=== PATIENT | male | born 1950 | race Caucasian/White ===

== ENCOUNTER → 2016-06-27 | Outpatient (CLI) | payer OTHER ==
[~2016-06-27] MED LIST: ASPEC81 PO; ATEN100T8 PO; BENA10TA10 PO; NAPR1TAB9 PO; OMEP20TA14 PO; PLN5 PO; RANI300T2 PO
[2016-06-27 14:45] LABS: ALT/SGPT 16 U/L (12-78); AST/SGOT 13 U/L (15-37); BLOOD UREA NITROGEN 17 mg/dl (7-18); BUN/CREATININE RATIO 15.4 (10-20); CALCIUM 8.5 mg/dl (8.5-10.1); CARBON DIOXIDE 32 mmol/L (21-32); CHLORIDE 102 mmol/L (98-107); GLUCOSE 98 mg/dl (70-99); POTASSIUM 3.3 mmol/L (3.5-5.1); SODIUM 141 mmol/L (136-145)
[2016-06-27 14:50] LABS: ALB/GLOB RATIO 1.2 (0.9-2); ALKALINE PHOSPHATASE 49 U/L (45-117); CHOLESTEROL 183 mg/dl (0-200); HDL CHOLESTEROL 92 mg/dl; LDL CHOLESTEROL CALCULATED 62 mg/dl; TRIGLYCERIDES 144 mg/dl (0-150); VERY LOW DENSITY LIPOPROT CALC 29 mg/dl
--- NOTE | 2016-07-02 10:48 | PROGRESS NOTE ---
DATE: 07/02/2016 DATE: 07/02/2016. SUBJECTIVE: Postop day 1. Back pain controlled. Right SI joint symptoms markedly improved. Vital signs stable. T-max 36.6. MANN drained 110 mL. Hematocrit this a.m. is 35.6. OBJECTIVE: On exam he has good strength to testing, appears comfortable. ASSESSMENT: Status post revision and fusion L5-S1 with bilateral SI joint fusion. PLAN: At this time, will initiate physical therapy. Consult delinquency prevention social worker for possible rehab placement.
== END | disposition home or self-care (01) ==
LOC: C.LABBC 10:14
PROVIDERS: ATTEND Family Medicine
DX: I10 Essential (primary) hypertension (principal); E78.5 Hyperlipidemia, unspecified

== ENCOUNTER → 2016-12-05 | Outpatient (CLI) | payer OTHER ==
[2016-12-05 10:03] LABS: BASO % 0.5 %; BASO ABS # 0.04 K/uL (0-0.2); COMPLETE YES; EOS % 1.3 %; HEMATOCRIT 48.5 % (42-52); IG% 0.3 %; LYMPH % 21.7 %; LYMPH ABS # 1.73 K/uL (1.2-3.4); MEAN CELL VOLUME 98.4 fL (80-100); MEAN CORPUSCULAR HEMOGLOBIN 35.1 pg (25-34); MEAN CORPUSCULAR HGB CONC 35.7 g/dl (32-36); MEAN PLATELET VOLUME 9.5 fL (7.4-10.4); MONO % 8.1 %; NEUT % 68.1 %; PLATELET COUNT 258 K/uL (130-400); RED BLOOD COUNT 4.93 M/uL (4.7-6.1); WHITE BLOOD COUNT 7.99 K/uL (4.8-10.8)
[2016-12-05 10:31] LABS: ALT/SGPT 17 U/L (12-78); BLOOD UREA NITROGEN 15 mg/dl (7-18); BUN/CREATININE RATIO 15.3 (10-20); CALCIUM 8.7 mg/dl (8.5-10.1); CARBON DIOXIDE 33 mmol/L (21-32); CHLORIDE 99 mmol/L (98-107); CHOLESTEROL 183 mg/dl (0-200); CREATININE 0.98 mg/dl (0.60-1.40); GLUCOSE 126 mg/dl (70-99); POTASSIUM 3.1 mmol/L (3.5-5.1); SODIUM 138 mmol/L (136-145); TRIGLYCERIDES 81 mg/dl (0-150); VERY LOW DENSITY LIPOPROT CALC 16 mg/dl
[2016-12-05 10:40] LABS: ALB/GLOB RATIO 1.2 (0.9-2); ALKALINE PHOSPHATASE 60 U/L (45-117); AST/SGOT 16 U/L (15-37); CHOLESTEROL/HDL RATIO 1.8; HDL CHOLESTEROL 99 mg/dl; LDL CHOLESTEROL CALCULATED 68 mg/dl; THYROID STIMULATING HORMONE 0.369 uIu/ml (0.300-4.500)
== END | disposition home or self-care (01) ==
LOC: C.LAB1850 09:19
PROVIDERS: ATTEND Nurse Practitioner Adult Health
DX: Z01.818 Encounter for other preprocedural examination (principal); Z51.81 Encounter for therapeutic drug level monitoring; I10 Essential (primary) hypertension; F17.200 Nicotine dependence, unspecified, uncomplicated; E78.5 Hyperlipidemia, unspecified; E87.6 Hypokalemia; Z79.899 Other long term (current) drug therapy

== ENCOUNTER → 2017-02-01 | Outpatient (CLI) | payer OTHER ==
[~2017-02-01] MED LIST changes: -ASPEC81 PO; +ASPI-320 PO
[2017-02-01 11:26] LABS: BLOOD UREA NITROGEN 15 mg/dl (7-18); CALCIUM 8.5 mg/dl (8.5-10.1); CARBON DIOXIDE 28 mmol/L (21-32); CREATININE 0.95 mg/dl (0.60-1.40); GLUCOSE 94 mg/dl (70-99); POTASSIUM 3.3 mmol/L (3.5-5.1); SODIUM 138 mmol/L (136-145)
== END | disposition home or self-care (01) ==
LOC: C.LAB1850 09:52
PROVIDERS: ATTEND Nurse Practitioner Adult Health
DX: I10 Essential (primary) hypertension (principal); E87.6 Hypokalemia

== ENCOUNTER → 2017-03-08 | Outpatient (CLI) | payer OTHER ==
[~2017-03-08] MED LIST changes: +ASPEC81 PO; -ASPI-320 PO
[2017-03-08 12:57] LABS: BLOOD UREA NITROGEN 18 mg/dl (7-18); CALCIUM 8.4 mg/dl (8.5-10.1); CARBON DIOXIDE 31 mmol/L (21-32); CREATININE 1.11 mg/dl (0.60-1.40); GLUCOSE 85 mg/dl (70-99); POTASSIUM 3.4 mmol/L (3.5-5.1); SODIUM 138 mmol/L (136-145)
== END | disposition home or self-care (01) ==
LOC: C.LAB1850 11:05
PROVIDERS: ATTEND Nurse Practitioner Adult Health
DX: E87.6 Hypokalemia (principal)

== ENCOUNTER 2024-10-25 08:32 | Inpatient (IN) ==
[2024-10-25] MEDS: ONDANSETRON INJ 2 MG/ML 2 ML VIAL IV STA ×2 (08:48→09:49)
[2024-10-25] MEDS: SODIUM CHLORIDE 0.9% 500 ML IV STA (08:48)
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
--- NOTE | 2024-10-25 08:59 | XRay Report ---
XR chest 1V portable CLINICAL HISTORY: abd pain COMPARISON STUDY: 02/13/2019 FINDINGS: There is mild cardiomegaly without pulmonary vascular congestion. No consolidation or pleur al effusion. No pneumothorax. IMPRESSION: No acute findings. ACT 112: Negative or not required by law. Electronically signed by: Blade Rivas M.D. 10/25/2024 8:56 AM
[2024-10-25 09:00] LABS: Hematocrit (blood only) 42.4 % (42.0-52.0); Hemoglobin 14.8 g/dl (14.0-18.0); Immature Granulocytes # (auto) 0.05 K/uL (0.01-0.20); Immature Granulocytes % (auto) 0.4 %; Mean Corpuscular Hemoglobin 31.6 pg (25.0-34.0); Mean Corpuscular Volume 90.4 fL (80.0-100.0); Platelet Count 314 K/uL (130-400); RDW Standard Deviation 40.7 fL (36.4-46.3); Red Blood Count 4.69 M/uL (4.70-6.10); White Blood Count 13.14 K/ul (4.8-10.8)
[2024-10-25 09:14] LABS: Alanine Aminotransferase 11.0 U/L (7-52); Albumin Globulin Ratio 1.7 (0.9-2); Albumin Level 4.2 gm/dl (3.4-5.0); Alkaline Phosphatase 52.0 U/L (34-104); Anion Gap 7.0 (3-11); Bilirubin,Total 0.8 mg/dl (0.2-1.0); Blood Urea Nitrogen 18.0 mg/dl (6-23); Calcium 8.7 mg/dl (8.6-10.3); Carbon Dioxide 31.0 mmol/L (21-32); Chloride 102.0 mmol/L (98-107); Creatinine Clr Calc Pharmacy 73.4 ml/min; Globulin 2.5 gm/dl (2.5-4.0); Glucose 145.0 mg/dl (70-99(Fasting)); Lipase 12.0 U/L (11-82); Magnesium 2.0 mg/dl (1.7-2.4); Potassium 3.5 mmol/L (3.5-5.1); Sodium 140.0 mmol/L (136-145); Total Protein 6.7 gm/dl (6.0-8.3)
[2024-10-25] MEDS: OPTIRAY 320 100ml IV ONE (09:39)
[2024-10-25] MEDS: MoRPHine SULFATE 2 MG/ML CARP IV STA (09:50)
[2024-10-25] MEDS: PROMETHAZINE 6.25 MG/50.25 ML BAG IV STA (09:52)
[2024-10-25 09:59] LABS: Appearance Urine Clear (Clear); Bacteria Urine Automated None Seen (None Seen); Cast Urine Automated 0-2 /lpf (0-2); Epithelial Cell Urine Auto 0-2 /hpf (0-2); Glucose Urine UA Negative (Negative); WBC Urine Automated 0-5 /hpf (0-5)
--- NOTE | 2024-10-25 10:00 | CT Scan Report ---
ABDOMEN AND PELVIS CT WITH IV CONTRAST CT DOSE: 1023.09 mGy.cm HISTORY: mid abd pain, hernia TECHNIQUE: Multiaxial CT images of the abdomen and pelvis were performed following the IV administrat ion of 90 cc of Optiray, A dose lowering technique was utilized adhering to the principles of ALARA. COMPARISON STUDY: None FINDINGS: There are diffuse coronary artery calcifications. ABDOMEN: There are multiple gallstones without evidence of acute cholecystitis. Otherwise the liver, spleen, pancreas, and adrenal glands are unremarkable. Kidneys show no hydronephrosis or calculi. The re are scattered atherosclerotic calcifications. No abdominal aortic aneurysm. There is a 8 cm fat-co ntaining hernia at the posterior right flank just below the right 12th rib posteriorly and laterally. There are multiple scattered small foci of free air. Pelvis: Prostate is enlarged. Urinary bladder is nondistended. There is scattered colonic diverticulo sis. There is inflammation and mild wall thickening at the distal descending and proximal sigmoid col on. There is a perforation at the distal descending/proximal sigmoid colon on series 3 image 220 with an adjacent pocket of free air. There is trace anterior pelvic free fluid. No abscess seen. No bowel obstruction. There is a small fat-containing right inguinal hernia. There is a small fat-containing periumbilical hernia. There is mild diastases of the rectus. No enlarged adenopathy seen. Osseous structures: There is severe diffuse lumbar degenerative disc disease. There is grade 1 jose luis listhesis of L5 on S1. IMPRESSION: 1. Acute perforated diverticulitis at the distal descending/proximal sigmoid colon. There is a small amount of scattered free air. There is trace free fluid without abscess. 2. Otherwise as described. ACT 112: Negative or not required by law. The above report was generated using voice recognition software. It may contain grammatical, syntax o r spelling errors. Electronically signed by: Blade Rivas M.D. 10/25/2024 9:58 AM
[2024-10-25] MEDS: SODIUM CHLORIDE 0.9% 500 ML IV ONE ×2 (10:01→10:42)
[2024-10-25] MEDS: PIPERACILLIN/TAZOBACTAM 4.5 GM/100 ML BAG IV ONE (10:18)
[2024-10-25] MEDS: MoRPHine SULFATE 2 MG/ML CARP IV PRN ×2 (10:32→18:09)
[2024-10-25] MEDS ORDERED: ROCURONIUM BROMIDE 10 MG/ML 5 ML VIAL IV ONE (10:45)
[2024-10-25] MEDS ORDERED: ONDANSETRON INJ 2 MG/ML 2 ML VIAL ONE (10:45)
[2024-10-25] MEDS ORDERED: PROPOFOL IV EMULSION 10 MG/ML 20 ML VIAL IV ONE (10:45)
[2024-10-25] MEDS ORDERED: DEXAMETHASONE SOD INJ 4 MG/ML VIAL ONE (10:45)
[2024-10-25] MEDS ORDERED: LIDOCAINE 2% 2 ML VIAL/AMP(20MG/ML) INFIL ONE (10:45)
[2024-10-25] MEDS ORDERED: SUCCINYLCHOLINE CHLORIDE 20 MG/ML 10 ML VIAL IV ONE (10:46)
[2024-10-25] MEDS ORDERED: MIDAZOLAM HCL 1 MG/ML 2ML VIAL ONE (10:46)
--- NOTE | 2024-10-25 10:57 | History & Physical Report ---
Date of Service October 25, 2024 Assessment & Plan (1) Diverticulitis of intestine with perforation without abscess: (2) Pneumoperitoneum: (3) Sepsis: Plan 74 yo male with acute onset of generalized abdominal pain this morning with associated chills, sweats, and shortness of breath. CT scan with perforated diverticulitis of the distal descending proximal sigmoid colon . He is hypotensive with systolic bp in 80-90. Peritonitic on examination. Discussed with patient and daughter need for emergent exploratory laparotomy, bowel resection, and colostomy formation. Discussed risks of procedure and expected hospitalization with possible ICU postop management pending on how he does intraoperatively. informed consent obtained. Another 500 cc bolus ordered, IV Zosyn, and IV Morhpine given. Hospitalist consult. Dr. Courtney has seen and examined patient. History of Present Illness Chief Complaint: Abdominal pain Primary Care Provider: Virginia Morgan MD Mr. Mcconnell is a 74 yo male with history of HTN, dyslipidemia, GERD, aortic insufficiency, baretts esophagus who presented to ED with acute onset of generalized abdominal pain with distention and sweats that started at 7 am this morning. [place] well yesterday with no abdominal pain. States it is hard to breath due to the abdominal pain. Last bowel movement was this morning. No history of diverticulitis in past. Has never had a colonoscopy. No history of abdominal surgeries. Has had umbilical hernia for years with no issues. Allergies Allergy/AdvReac Type Severity Reaction Status Date / Time escitalopram Allergy Unknown -? Hives Verified 05/27/24 08:56 like rash with the 10mg dose/PT NOT SURE atorvastatin AdvReac Unknown Left-sided Verified 05/27/24 08:56 arm and leg weakness / ? PT NOT SURE Home Medications Medication Instructions Recorded Confirmed Type aspirin 81 mg tablet,delayed 81 mg PO QAM 10/04/18 05/27/24 History release (Quentin Low Dose Aspirin) acetaminophen 500 mg tablet 1,300 mg PO BID 02/07/19 05/27/24 History cholecalciferol (vitamin D3) 50 2,000 unit PO BID 07/23/20 05/27/24 History mcg (2,000 unit) capsule diclofenac sodium 1 % topical gel 4 g topical UD PRN Pain #100 grams 10/19/23 05/27/24 Rx amlodipine 5 mg tablet 5 mg PO QAM #90 tabs 02/14/24 05/27/24 Rx pantoprazole 40 mg tablet,delayed 40 mg PO BID #180 tabs 03/25/24 05/27/24 Rx release rosuvastatin 20 mg tablet 20 mg PO QAM #90 tabs 04/01/24 05/27/24 Rx nicotine (polacrilex) 4 mg buccal 4 mg buccal Q4H PRN nicotine 05/27/24 05/27/24 Rx lozenge cravings #108 ea tamsulosin 0.4 mg capsule 0.4 mg PO DAILY #90 caps 05/27/24 05/27/24 Rx albuterol sulfate 90 mcg/actuation 1 puff inhalation Q6H PRN 06/25/24 Rx aerosol inhaler (Ventolin HFA) shortness of breath or wheezing #18 grams atenolol 50 mg-chlorthalidone 25 0.5 tab PO QAM #45 tabs 09/27/24 Rx mg tablet potassium chloride 10 mEq 10 meq PO BID #180 tabs 09/27/24 Rx tablet,extended release famotidine 40 mg tablet 40 mg PO BID #180 tabs 10/18/24 Rx Past Med/Surg History Problem List (Updated 10/25/24 @ 10:54 by Kami Summers PA-C) Sepsis Pneumoperitoneum Diverticulitis of intestine with perforation without abscess Enlarged prostate with lower urinary tract symptoms (LUTS) Dupuytren contracture of both hands BPPV (benign paroxysmal positional vertigo) Cigarette nicotine dependence GERD with esophagitis Hypertension (Chronic) Dyslipidemia (Chronic) Osteoarthritis (Chronic) Aortic insufficiency Anxiety (Acute) Vitamin D insufficiency (Chronic) Erectile dysfunction Blurring, left eye Crane esophagus Medical History Arthritis Cardiac murmur Current smoker Emphysema lung GERD (gastroesophageal reflux disease) H/O fracture of skull Heart valve disease Hiatal hernia HTN (hypertension) Hyperlipidemia Surgical History H/O trauma History of cataract surgery History of esophagogastroduodenoscopy (EGD) History of tooth extraction Hx of tonsillectomy Hx of vasectomy Family History Mother Diabetes Father Diabetes Brother Myocardial infarction Other No family history of adverse response to anesthesia Denies family history of Prostate cancer Colorectal cancer Social History Smoking Status: Never smoker Tobacco Type: Cigarettes Age Started Using Tobacco: 11; packs per day: 0.25; Cigarettes Per Day: 4-6 PER DAY/ADVISED NPO; Second Hand Exposure: No; Do You Dip or Chew Tobacco: No; Hx Alcohol Use: No Hx Substance Use: Yes (MARIJUANA USE SINCE 1968) Last Used Substance: Hours (ago) Last Used Substance Other:: 11/20/17 Substance Use Type Other:: MARIJUANA SMOKED SINCE 1968/LAST USE LAST NIGHT (ADIVSED) Preferred Language: [place]an Communication Ability: Effective 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[employer] Worker Required: No Beliefs That Will Affect Care: None marital status: Current Living Situation: Alone Current Living Situation Comment: AND DOG current occupational status: retired Feels Safe at Home: Yes Childhood Exposure to Second-Hand Smoke: Yes Dental Care, Regularly: No Physical Activity Frequency: Daily Physical Activity Frequency Comment: Walks dog daily Seatbelt Use: never Sunscreen Use: No Assistive Devices: Denture - Upper, Denture - Lower and Glasses Physical Exam Constitutional: + acute distress, + ill appearing and + diaphoretic; + uncomfortable Respiratory: normal respiratory effort; no respiratory distress, no labored breathing and no retractions Cardiovascular: Rate/Rhythm: regular rate and regular rhythm Heart Sounds: normal S1 and normal S2 Gastrointestinal (Abdomen): Inspection/Auscultation: + abdomen distended and + visible herniation (umbilical hernia) Percussion/Palpation: + abdomen tender, + guarding, + abdomen rigid and + abdomen firm; + abdomen not soft Peritonitic throughout abdomen Skin: no rashes, warm and dry Psychiatric: Orientation: alert and oriented x 3 Results & Data Results & Data Vital Signs (Past 12 Hours) Vital Signs Temp Pulse Pulse Resp BP BP Pulse Ox 10/25/24 10:01 83/50 L 10/25/24 09:53 60 18 93/57 L 98 10/25/24 08:44 58 L 18 95 10/25/24 08:42 56 L 10/25/24 08:36 36.6 C 58 L 18 145/70 H 95 O2 Del Method 10/25/24 10:01 10/25/24 09:53 Room Air 10/25/24 08:44 Room Air 10/25/24 08:42 10/25/24 08:36 Room Air Laboratory Results 10/25/24 10/25/24 Range/Units 09:34 08:44 WBC 13.14 H (4.8-10.8) K/ul RBC 4.69 L (4.70-6.10) M/uL Hgb 14.8 (14.0-18.0) g/dl Hct 42.4 (42.0-52.0) % MCV 90.4 (80.0-100.0) fL MCH 31.6 (25.0-34.0) pg MCHC 34.9 (32.0-36.0) g/dL RDW Std Deviation 40.7 (36.4-46.3) fL RDW Coeff of Jeanette 12.4 (11.5-14.5) % Plt Count 314 (130-400) K/uL MPV 8.7 L (9.4-12.4) fL Immature Gran % (Auto) 0.4 % Neut % (Auto) 79.4 % Lymph % (Auto) 13.4 % Emmons % (Auto) 5.1 % Eos % (Auto) 1.1 % Baso % (Auto) 0.6 % Neut # (Auto) 10.43 H (1.40-6.50) K/uL Lymph # (Auto) 1.76 (1.20-3.40) K/uL Emmons # (Auto) 0.67 H (0.11-0.59) K/uL Eos # (Auto) 0.15 (0.00-0.50) K/uL Baso # (Auto) 0.08 (0.00-0.20) K/uL Immature Gran # (Auto) 0.05 (0.01-0.20) K/uL Sodium 140 (136-145) mmol/L Potassium 3.5 (3.5-5.1) mmol/L Chloride 102 (98-107) mmol/L Carbon Dioxide 31 (21-32) mmol/L Anion Gap 7 (3-11) BUN 18 (6-23) mg/dl Creatinine 0.96 (0.6-1.4) mg/dl Est Cr Clr Drug Dosing 73.4 ml/min eGFR 83.98 BUN/Creatinine Ratio 18.8 (10-20) Glucose 145 H (70-99(Fasting)) mg/dl Calcium 8.7 (8.6-10.3) mg/dl Magnesium 2.0 (1.7-2.4) mg/dl Total Bilirubin 0.8 (0.2-1.0) mg/dl AST 13 (13-39) U/L ALT 11 (7-52) U/L Alkaline Phosphatase 52 (34-104) U/L Troponin I High Sens 5.6 (0-20) pg/ml Total Protein 6.7 (6.0-8.3) gm/dl Albumin 4.2 (3.4-5.0) gm/dl Globulin 2.5 (2.5-4.0) gm/dl Albumin/Globulin Ratio 1.7 (0.9-2) Lipase 12 (11-82) U/L Urine Color Yellow Urine Appearance Clear (Clear) Urine pH 7.0 (4.5-7.5) Ur Specific [place] 1.025 (1.000-1.030) Urine Protein Trace H (Negative) Urine Glucose (UA) Negative (Negative) Urine Ketones Negative (Negative) Urine Blood Negative (Negative) Urine Nitrite Negative (Negative) Urine Bilirubin Negative (Negative) Urine Urobilinogen Negative (Negative) Ur Leukocyte Esterase Trace H (Negative) Urine WBC (Auto) 0-5 (0-5) /hpf Urine RBC (Auto) 6-10 H (0-2) /hpf U Hyaline Cast (Auto) 0-2 (0-2) /lpf U Epithel Cells (Auto) 0-2 (0-2) /hpf Urine Bacteria (Auto) None Seen (None Seen) Urine Comment Diagnostic Findings ABDOMEN AND PELVIS CT WITH IV CONTRAST CT DOSE: 1023.09 mGy.cm HISTORY: mid abd pain, hernia TECHNIQUE: Multiaxial CT images of the abdomen and pelvis were performed following the IV administration of 90 cc of Optiray, A dose lowering technique was utilized adhering to the principles of ALARA. COMPARISON STUDY: None FINDINGS: There are diffuse coronary artery calcifications. ABDOMEN: There are multiple gallstones without evidence of acute cholecystitis. Otherwise the liver, spleen, pancreas, and adrenal glands are unremarkable. Kidneys show no hydronephrosis or calculi. There are scattered atherosclerotic calcifications. No abdominal aortic aneurysm. There is a 8 cm fat-containing hernia at the posterior right flank just below the right 12th rib posteriorly and laterally. There are multiple scattered small foci of free air. Pelvis: Prostate is enlarged. Urinary bladder is nondistended. There is scattered colonic diverticulosis. There is inflammation and mild wall thickening at the distal descending and proximal sigmoid colon. There is a perforation at the distal descending/proximal sigmoid colon on series 3 image 220 with an adjacent pocket of free air. There is trace anterior pelvic free fluid. No abscess seen. No bowel obstruction. There is a small fat-containing right inguinal hernia. There is a small fat-containing periumbilical hernia. There is mild diastases of the rectus. No enlarged adenopathy seen. Osseous structures: There is severe diffuse lumbar degenerative disc disease. There is grade 1 anterolisthesis of L5 on S1. IMPRESSION: 1. Acute perforated diverticulitis at the distal descending/proximal sigmoid colon. There is a small amount of scattered free air. There is trace free fluid without abscess. 2. Otherwise as described. ACT 112: Negative or not required by law. The above report was generated using voice recognition software. It may contain grammatical, syntax or spelling errors. XR chest 1V portable CLINICAL HISTORY: abd pain COMPARISON STUDY: 02/13/2019 FINDINGS: There is mild cardiomegaly without pulmonary vascular congestion. No consolidation or pleural effusion. No pneumothorax. IMPRESSION: No acute findings. Code Status & VTE Plan VTE Prophylaxis Plan VTE Prophylaxis will be ordered: Yes
[2024-10-25] MEDS ORDERED: ACETAMINOPHEN 1000 MG/100 ML IV IV ONE (11:02)
--- NOTE | 2024-10-25 11:20 | Anesthesiology Consultation ---
Date of Service October 25, 2024 Assessment & Plan Chart Review Chart Review: Acceptable Risk for Surgery Consults Requested none History Surgery Operation Date: 10/25/24 10:20 Proposed Procedures p Exploratory Laparotomy Sigmoid Colon and Diverting Ostomy - Vahid Courtney MD Height/Weight Height: 5 ft 8 in Weight: 83.8 kg Allergies Allergy/AdvReac Type Severity Reaction Status Date / Time escitalopram Allergy Unknown -? Hives Verified 05/27/24 08:56 like rash with the 10mg dose/PT NOT SURE atorvastatin AdvReac Unknown Left-sided Verified 05/27/24 08:56 arm and leg weakness / ? PT NOT SURE Medications Home Medications Medication Instructions Recorded Confirmed Last Taken aspirin 81 mg tablet,delayed 81 mg PO QAM 10/04/18 05/27/24 11/30/21 release (Quentin Low Dose Aspirin) acetaminophen 500 mg tablet 1,300 mg PO BID 02/07/19 05/27/24 12/01/21 07:00 cholecalciferol (vitamin D3) 50 2,000 unit PO BID 07/23/20 05/27/24 11/30/21 mcg (2,000 unit) capsule diclofenac sodium 1 % topical gel 4 g topical UD PRN Pain #100 grams 10/19/23 05/27/24 Unknown amlodipine 5 mg tablet 5 mg PO QAM #90 tabs 02/14/24 05/27/24 Unknown pantoprazole 40 mg tablet,delayed 40 mg PO BID #180 tabs 03/25/24 05/27/24 Unknown release rosuvastatin 20 mg tablet 20 mg PO QAM #90 tabs 04/01/24 05/27/24 Unknown nicotine (polacrilex) 4 mg buccal 4 mg buccal Q4H PRN nicotine 05/27/24 05/27/24 Unknown lozenge cravings #108 ea tamsulosin 0.4 mg capsule 0.4 mg PO DAILY #90 caps 05/27/24 05/27/24 Unknown albuterol sulfate 90 mcg/actuation 1 puff inhalation Q6H PRN 06/25/24 Unknown aerosol inhaler (Ventolin HFA) shortness of breath or wheezing #18 grams atenolol 50 mg-chlorthalidone 25 0.5 tab PO QAM #45 tabs 09/27/24 Unknown mg tablet potassium chloride 10 mEq 10 meq PO BID #180 tabs 09/27/24 Unknown tablet,extended release famotidine 40 mg tablet 40 mg PO BID #180 tabs 10/18/24 Unknown Active Medications Generic Name Dose Route Start Last Admin Trade Name Kavin PRN Reason Stop Dose Admin Morphine Sulfate 2 mg 10/25/24 08:48 10/25/24 10:32 Morphine Sulfate 2 Mg/Ml Carp IV 11/08/24 08:47 2 mg Q15M PRN Administration Pain NPO Date Last Intake of Fluids: 10/24/24 Time Last Intake of Fluids: 07:00 Date Last Intake of Solids: 10/24/24 Time Last Intake of Solids: 19:00 Past Medical History Medical History Arthritis Cardiac murmur Current smoker Emphysema lung GERD (gastroesophageal reflux disease) H/O fracture of skull Heart valve disease Hiatal hernia HTN (hypertension) Hyperlipidemia Past Family History Family History Mother Diabetes Father Diabetes Brother Myocardial infarction Other No family history of adverse response to anesthesia Denies family history of Prostate cancer Colorectal cancer Past Surgical History Surgical History H/O trauma History of cataract surgery History of esophagogastroduodenoscopy (EGD) History of tooth extraction Hx of tonsillectomy Hx of vasectomy Social History Smoking Status: Never smoker tobacco type: cigarettes Smoking cigarettes per day: 4-6 PER DAY/ADVISED NPO Do You Dip or Chew Tobacco: No Hx Alcohol Use: No Alcohol type: hard liquor alcohol intake frequency: 0-2 drinks per day Hx Substance Use: Yes (MARIJUANA USE SINCE 1968) substance use type: marijuana Substance Use Type Other:: MARIJUANA SMOKED SINCE 1968/LAST USE LAST NIGHT (ADIVSED) Last Used Substance: Hours (ago) Last Used Substance Other:: 11/20/17 Physical Exam Vital Signs Last Vital Signs Temp 36.5 C 10/25/24 11:09 Pulse 65 10/25/24 11:09 Resp 22 10/25/24 11:09 BP 114/70 10/25/24 11:09 Pulse Ox 91 10/25/24 11:09 O2 Del Method Room Air 10/25/24 11:09 Testing Laboratory Results 10/25/24 08:44 10/25/24 08:44 Urine Color Yellow 10/25/24 09:34 Urine Appearance Clear (Clear) 10/25/24 09:34 Urine pH 7.0 (4.5-7.5) 10/25/24 09:34 Ur Specific [place] 1.025 (1.000-1.030) 10/25/24 09:34 Urine Protein Trace (Negative) H 10/25/24 09:34 Urine Glucose (UA) Negative (Negative) 10/25/24 09:34 Urine Ketones Negative (Negative) 10/25/24 09:34 Urine Nitrite Negative (Negative) 10/25/24 09:34 Ur Leukocyte Esterase Trace (Negative) H 10/25/24 09:34 Urine WBC (Auto) 0-5 /hpf (0-5) 10/25/24 09:34 Urine RBC (Auto) 6-10 /hpf (0-2) H 10/25/24 09:34 U Hyaline Cast (Auto) 0-2 /lpf (0-2) 10/25/24 09:34 U Epithel Cells (Auto) 0-2 /hpf (0-2) 10/25/24 09:34 Urine Bacteria (Auto) None Seen (None Seen) 10/25/24 09:34
[2024-10-25] MEDS ORDERED: HYDROmorphone INJ 2 MG/ML SYR/VIAL IV PRN (11:22)
[2024-10-25] MEDS ORDERED: PROMETHAZINE HCL 6.25 MG in SODIUM CHLORIDE 0.9% 50 ML IV PRN (11:22)
[2024-10-25] MEDS ORDERED: ONDANSETRON INJ 2 MG/ML 2 ML VIAL IV PRN (11:22)
[2024-10-25] MEDS ORDERED: ATROPINE SULFATE 0.1 MG/ML 10ML SYR IV PRN (11:22)
[2024-10-25] MEDS ORDERED: ePHEDrine sulfate 50 MG/5 ML SYR ONE (12:03)
[2024-10-25] MEDS ORDERED: SUGAMMADEX SODIUM 200 MG/2 ML VIAL IV ONE (13:01)
[2024-10-25] MEDS ORDERED: MoRPHine SULFATE 4 MG/ML 1 ML CARP\\VIAL IV PRN (13:29)
--- NOTE | 2024-10-25 13:29 | Operative Report ---
Post Operative Report Pre & Post Diagnosis Operation Date: 10/25/24 10:20 Pre-Op Diagnosis: Diverticulitis of intestine with perforation without abscess, Pneumoperitoneum, Sepsis Post-Op Diagnosis: Diverticulitis of intestine with perforation without abscess, Pneumoperitoneum, Sepsis I identified the patient and participated in the time-out.: Yes Procedure Operation Date: 10/25/24 10:20 Actual Procedures p Exploratory Laparotomy Sigmoid Colon and Diverting Ostomy(Not Applicable) - Vahid Courtney MD Surgeon Vahid Courtney MD Television Mechanic Kami Summers PA-C Estimated Blood Loss 50 Findings Consistent with Post-Op Diagnosis Specimens Sigmoid colon to pathology Drains Dain drain in the pelvis Anesthesia Type General Complications none Disposition Accompanied Patient To Recovery: No Disposition: Surgical ICU Indications This is a 74-year-old male who came to the ED this morning with severe abdominal pain. He underwent a workup included a CT scan showing a perforated diverticulitis with small amount of air and fluid in his pelvis. On exam he had peritoneal signs consistent with a perforation. He was hypotensive in the ED but responded to fluids and became normotensive. We talked in detail and recommended exploratory laparotomy likely with a sigmoid resection and diverting colostomy. There was also a chance we would do a diverting transverse colostomy if he became hypotensive in the OR again. He understands all the risks and wishes to proceed. Description of Procedure The patient was taken to the OR and underwent excellent general endotracheal anesthesia. They received antibiotics preoperatively. Their abdomen was then prepped and draped normal sterile fashion. A midline incision was made and dissection was taken down to identify the fascia. The fascia was excised in the midline. The peritoneal cavity was entered easily and obvious sigmoid diverticulitis with feculent peritonitis. Intraoperative cultures were taken. It was elected to proceed with a sigmoid resection of the involved colon, as he had become normotensive with fluid resuscitation. The left peritoneal reflection was mobilized without needing to takedown the splenic flexure using a harmonic scalpel. This freed the colon laterally. On the anterior surface of the sigmoid colon there was a large 1 cm hole with stool coming out of the hole. A Polly clamp was used to close the hole. A window was then created distal to the involved sigmoid diverticulitis, a ERIN stapler was used to transect the colon at this spot. A harmonic scalpel was used to free the colon from the medial mesentery. This allowed identifying the artery and vein which were ligated and transected. The proximal artery was secured with silk ties. A normal segment of proximal colon was identified and transected with a ERIN stapler. The involved sigmoid colon was sent for pathologic evaluation. Prolene sutures were used to shelly the rectosigmoid stump. The abdomen was then irrigated out and suctioned to clear with 3L of warm saline. Small bowel was run from ileocecal valve to ligament of Treitz with no bands or issues. A Dain drain was placed in the pelvis. A defect in the left abdominal wall was created, the fascia was incised to make a window to bring the colostomy out of the abdomen. The colonic serosa of the colostomy was secured to the fascia, The midline fascia was then closed with a running PDS suture. The wound was left open due to the feculent peritonitis. The colostomy was then matured using vicryl sutures and an appliance was placed. A sterile dressing was applied. Patient tolerated the procedure without complications. They will be extubated and sent to ICU. Kami Summers PA-C was present and participated in the entire procedure. She was integral in skin closure, retraction, and ostomy formation. There was no qualified resident available to assist. I attest to the content of the Intraoperative Record and any orders documented therein. Any exceptions are noted below.
[2024-10-25] MEDS: PLASMA-LYTE A 1,000 ML IV SCH (13:30)
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
[2024-10-25] MEDS: PIPERACILLIN/TAZOBACTAM 4.5 GM/100 ML BAG IV SCH (14:14)
--- NOTE | 2024-10-25 14:47 | Anesthesiology Progress Note ---
Date of Service October 25, 2024 Anesthesia Post Procedure Vital Signs Vital Signs: Temp Pulse Pulse Resp BP BP Pulse Ox 10/25/24 14:00 36.6 C 73 24 105/69 98 10/25/24 14:00 10/25/24 13:45 36.6 C 76 26 H 125/84 93 10/25/24 13:30 36.4 C L 74 22 113/79 98 10/25/24 11:09 36.5 C 65 22 114/70 91 10/25/24 10:50 96/59 L 10/25/24 10:45 91/52 L 10/25/24 10:45 91/52 L 10/25/24 10:40 100/65 10/25/24 10:40 100/65 10/25/24 10:33 61 22 97/57 L 93 10/25/24 10:30 69 22 96/55 L 96 10/25/24 10:15 59 L 22 91/67 L 94 10/25/24 10:10 92/73 L 10/25/24 10:05 103/54 L 10/25/24 10:01 83/50 L 10/25/24 10:00 61 22 83/50 L 96 10/25/24 09:53 60 18 93/57 L 98 10/25/24 08:44 58 L 18 95 10/25/24 08:42 56 L 10/25/24 08:36 36.6 C 58 L 18 145/70 H 95 O2 Del Method O2 Flow Rate 10/25/24 14:00 Oxymask 4 10/25/24 14:00 Oxymask 4 10/25/24 13:45 Oxymask 4 10/25/24 13:30 Oxymask 2 10/25/24 11:09 Room Air 10/25/24 10:50 10/25/24 10:45 10/25/24 10:45 10/25/24 10:40 10/25/24 10:40 10/25/24 10:33 10/25/24 10:30 10/25/24 10:15 10/25/24 10:10 10/25/24 10:05 10/25/24 10:01 10/25/24 10:00 10/25/24 09:53 Room Air 10/25/24 08:44 Room Air 10/25/24 08:42 10/25/24 08:36 Room Air Pain Intensity Right Lower Abdomen: Pain Intensity: 8 Transfer of Care Handoff Completed per policy Notes Mental Status: alert / awake / arousable and participated in evaluation Nausea / Vomiting: adequately controlled Pain: adequately controlled Airway Patency, RR, SpO2: stable & adequate BP & HR: stable & adequate Hydration State: stable & adequate Anesthetic Complications: no major complications apparent and Pt Satisfied with anesthetic care
[2024-10-25] MEDS: ACETAMINOPHEN 1,000 MG/100 ML VIAL IV PRN (19:25)
[2024-10-25] MEDS: HYDROmorphone INJ 0.5 MG/0.5 ML SYR IV PRN (22:24)
[2024-10-26] MEDS: PLASMA-LYTE A 500 ML IV ONE (03:30)
[2024-10-26 04:46] LABS: Anion Gap 10.0 (3-11); Blood Urea Nitrogen 28.0 mg/dl (6-23); Calcium 7.3 mg/dl (8.6-10.3); Carbon Dioxide 21.0 mmol/L (21-32); Chloride 108.0 mmol/L (98-107); Creatinine Clr Calc Pharmacy 46.7 ml/min; Glucose 95.0 mg/dl (70-99(Fasting)); Magnesium 1.7 mg/dl (1.7-2.4); Potassium 3.7 mmol/L (3.5-5.1); Sodium 139.0 mmol/L (136-145)
[2024-10-26 04:58] LABS: ALC (manual) 0.72 K/uL (1.2-3.4); ANC (manual) 5.92 K/uL (1.4-6.5); Hematocrit (blood only) 46.2 % (42.0-52.0); Hemoglobin 15.2 g/dl (14.0-18.0); Mean Corpuscular Hemoglobin 30.2 pg (25.0-34.0); Mean Corpuscular Volume 91.7 fL (80.0-100.0); Platelet Count 242 K/uL (130-400); RDW Standard Deviation 43.6 fL (36.4-46.3); Red Blood Count 5.04 M/uL (4.70-6.10); Toxic Vacuolation 1+; White Blood Count 8.00 K/ul (4.8-10.8)
--- NOTE | 2024-10-26 06:13 | Electrocardiogram Report ---
Test Reason : Blood Pressure : */* mmHG Vent. Rate : 58 BPM Atrial Rate : 58 BPM P-R Int : 212 ms QRS Dur : 80 ms QT Int : 452 ms P-R-T Axes : -25 -9 15 degrees QTcB Int : 443 ms Poor data quality, interpretation may be adversely affected Sinus bradycardia with 1st degree A-V block Inferior infarct , age undetermined Abnormal ECG When compared with ECG of 24-Jun-2014 06:42, LA interval has increased Criteria for Septal infarct are no longer Present Inferior infarct is now Present Nonspecific T wave abnormality no longer evident in Anterolateral leads Confirmed by Alphonse Caal ([id number]) on 10/26/2024 6:13:17 AM Referred By: REFERRED SELF Confirmed By: Alphonse Caal
[2024-10-26] MEDS ORDERED: STAT IV Infusion **Titration per Protocol STA (06:14)
[2024-10-26] MEDS: NOREPINEPHRINE/D5W 4 MG/250 ML PLCT IV SCH (06:28)
[2024-10-26] MEDS: FAMOTIDINE 20MG IV PUSH 20 MG/5 ML SYR IV SCH (06:31)
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
[2024-10-26] MEDS: ALBUTEROL 0.083% NEBU SOLN 3 ML VIAL NEB PRN ×2 (07:26→12:22)
--- NOTE | 2024-10-26 07:47 | Critical Care Progress Note ---
Date of Service October 26, 2024 Assessment & Plan (1) Umbilical hernia: (2) Bowel perforation: (3) Peritonitis: (4) Diffuse abdominal pain: (5) Diverticulitis: (6) Hypotension: (7) Sepsis: (8) Pneumoperitoneum: (9) Diverticulitis of intestine with perforation without abscess: (10) Enlarged prostate with lower urinary tract symptoms (LUTS): (11) Dupuytren contracture of both hands: (12) BPPV (benign paroxysmal positional vertigo): (13) Cigarette nicotine dependence: (14) GERD with esophagitis: (15) Hypertension: (16) Dyslipidemia: (17) Osteoarthritis: (18) Aortic insufficiency: (19) Anxiety: (20) Vitamin D insufficiency: (21) Erectile dysfunction: (22) Blurring, left eye: (23) Crane esophagus: Plan Reason Critically Ill: 74-year-old male with sepsis secondary to perforated viscus with gross contamination of abdomen PLAN: Neuro: Postoperative analgesia -Dilaudid 0.25 mg IV PRN Resp: History of nicotine dependence. Nicotine patch ordered -Albuterol Neb as needed -Hypertonic saline Neb to assist with sputum clearance CV: Hypotension: On Levophed @ 0.03 mcg/kg/min Fluids/Renal: Supplemental fluids -Plasma-Lyte at 125 mL/h -Has adequate urine output. -Acute rise in creatinine this morning to 1.48. Suspect likely 2/2 to prerenal VANESSA du to perioperative fluid losses. Will monitor in the AM tomorrow. ID: Continue Zosyn for 7 days duration GI/Nutrition: Perforated diverticulitis -Postop day 1 Heme: DVT prophylaxis: SCDs at this time Endocrine: ICU hyperglycemia protocol Vascular access: Peripheral IV Code Status: Full code Disposition: ICU Admission and Anticipated Discharge Date Admission Date: October 25, 2024 Supervising Physician Co-Signing Physician Notes Dr. Wilson was resident physician during care of patient. I separately evaluated patient for reilly portions of the history and the exam. I was present during the critical portion of medical decision making, and I discussed the case with the resident. I generally agree with the findings and plan. Clamp NG tube right now, only 100 mL out overnight leave NG in place. Now requiring vasoactive medication. Continue Zosyn. Patient requesting inhaler, urine output adequate, despite this he has a acute kidney injury which is not unexpected. Give throat lozenges for sore throat. Patient critically ill due to vasoactive requirement need I have personally spent 45 minutes of critical care time in the direct management of this patient. This is a life/limb threatening event. This includes time spent evaluating patient, direct bedside care, chart review, placing orders, interpretation of diagnostic studies, discussion with consultants, patient, and/or family members regarding treatment decisions, as well as other required patient management activities. This time is exclusive of all separately billable procedures, and teaching time and separate from and in addition to any other critical care service time. Subjective Patient laying on bed , not in acute distress. Complains of sore throat and expected pain in surgery site. No passage of gas from ostomy site. Expected blood from ostomy site. Has Nasogastric tube and Crow in place. Review of Systems Constitutional: no fever and no chills Respiratory: no dyspnea Cardiovascular: no chest pain Gastrointestinal: + abdominal pain; no nausea and no vomit ing Neurologic: + generalized weakness Psychiatric: no behavioral changes Physical Exam Physical Exam: Constitutional: Well appearing, No acute distress, PILCCOD: Negative HEENT: Atraumatic, Normocephalic, No conjunctival injection CVS: S1 S2 no murmur, Regular Rhythm, no LE edema Respiratory: BL equal air entry with NVBS. No rhonchi, wheezes Abdomen: Tenderness consistent with postoperative, no passage of gas from ostomy site, blood as expected, about 100 ml drainage from NG tube MSK: No gross deformities noted Skin: Warm, Dry, No rashes Neuro: Alert, Oriented to TPP, No Focal deficit Psych: Mood and Affect congruent, Cooperative on exam Results & Data Results & Data Vital Signs (Past 12 Hours) Vital Signs Temp Pulse Pulse Resp BP Pulse Ox O2 Del Method 10/26/24 07:26 82 16 93 Nasal Cannula 10/26/24 06:01 88/61 L 10/26/24 06:00 83 20 10/26/24 05:57 83 23 94 10/26/24 05:30 98/67 L 10/26/24 05:30 98/67 L 10/26/24 05:06 80 18 98/62 L 93 Nasal Cannula 10/26/24 04:30 89/62 L 10/26/24 04:21 80 16 94 10/26/24 04:00 37 C 80 18 92/65 L 94 Nasal Cannula 10/26/24 04:00 80 20 94 10/26/24 03:30 87/62 L 10/26/24 03:30 87/62 L 10/26/24 03:30 78 16 95 10/26/24 03:17 81/61 L 10/26/24 03:17 81/61 L 10/26/24 03:15 76 14 94 10/26/24 03:00 82/62 L 10/26/24 03:00 82/62 L 10/26/24 03:00 77 14 94 10/26/24 02:33 76 16 94 10/26/24 02:30 90/65 L 10/26/24 02:30 90/65 L 10/26/24 02:30 77 15 90/65 L 94 10/26/24 02:00 75 17 86/59 L 94 10/26/24 01:48 75 17 95 10/26/24 01:45 75 18 95 10/26/24 01:30 92/63 L 10/26/24 01:21 75 15 94 10/26/24 01:12 76 16 94 10/26/24 01:00 76 14 87/67 L 94 10/26/24 00:39 76 14 95/66 L 94 10/26/24 00:12 75 15 94 10/26/24 00:05 37.4 C 76 14 86/68 L 94 Nasal Cannula 10/25/24 23:55 75 10/25/24 23:36 75 14 95 10/25/24 23:30 96/61 L 10/25/24 23:27 75 16 95 10/25/24 23:12 74 16 95 10/25/24 23:01 92/66 L 10/25/24 22:48 78 14 95 10/25/24 22:45 77 23 95 10/25/24 22:30 94/65 L 10/25/24 22:24 78 22 95 10/25/24 22:00 76 17 95 10/25/24 22:00 94/66 L 10/25/24 21:33 78 16 95 10/25/24 21:30 95/74 L 10/25/24 21:27 77 18 95 10/25/24 21:03 79 15 95 10/25/24 21:00 103/78 10/25/24 20:57 82 19 94 10/25/24 20:36 81 18 96 10/25/24 20:31 109/82 10/25/24 20:31 109/82 10/25/24 20:27 78 16 95 10/25/24 20:24 79 14 95 10/25/24 20:00 96/67 L 10/25/24 20:00 Nasal Cannula 10/25/24 19:57 78 16 95 O2 Flow Rate 10/26/24 07:26 2.5 10/26/24 06:01 10/26/24 06:00 10/26/24 05:57 10/26/24 05:30 10/26/24 05:30 10/26/24 05:06 3 10/26/24 04:30 10/26/24 04:21 10/26/24 04:00 3 10/26/24 04:00 10/26/24 03:30 10/26/24 03:30 10/26/24 03:30 10/26/24 03:17 10/26/24 03:17 10/26/24 03:15 10/26/24 03:00 10/26/24 03:00 10/26/24 03:00 10/26/24 02:33 10/26/24 02:30 10/26/24 02:30 10/26/24 02:30 3 10/26/24 02:00 10/26/24 01:48 10/26/24 01:45 10/26/24 01:30 10/26/24 01:21 10/26/24 01:12 10/26/24 01:00 10/26/24 00:39 10/26/24 00:12 10/26/24 00:05 3 10/25/24 23:55 10/25/24 23:36 10/25/24 23:30 10/25/24 23:27 10/25/24 23:12 10/25/24 23:01 10/25/24 22:48 10/25/24 22:45 10/25/24 22:30 10/25/24 22:24 10/25/24 22:00 10/25/24 22:00 10/25/24 21:33 10/25/24 21:30 10/25/24 21:27 10/25/24 21:03 10/25/24 21:00 10/25/24 20:57 10/25/24 20:36 10/25/24 20:31 10/25/24 20:31 10/25/24 20:27 10/25/24 20:24 10/25/24 20:00 10/25/24 20:00 4 10/25/24 19:57 Coding Level of Care Code 61869 CRITICAL CARE 1ST 30-74M Diagnoses Umbilical hernia K42.9 Obstruction and gangrene presence: without obstruction or gangrene Bowel perforation K63.1 Peritonitis K65.9 Diffuse abdominal pain R10.84 Diverticulitis K57.92 Hypotension I95.9 Hypotension type: unspecified hypotension type Sepsis A41.9 Sepsis type: sepsis due to unspecified organism Severe sepsis shock status: without septic shock Pneumoperitoneum K66.8 Diverticulitis of large intestine with perforation without abscess or bleeding K57.20 Diverticulitis site: large intestine Diverticulitis bleeding: without bleeding Enlarged prostate with lower urinary tract symptoms (LUTS) N40.1 Dupuytren contracture of both hands M72.0 BPPV (benign paroxysmal positional vertigo) H81.10 Cigarette nicotine dependence F17.210 GERD with esophagitis K21.00 Hypertension I10 Dyslipidemia E78.5 Osteoarthritis M19.90 Aortic insufficiency I35.1 Anxiety F41.9 Vitamin D insufficiency E55.9 Erectile dysfunction N52.9 Blurring, left eye H53.8 Crane esophagus K22.70 Resident Activity Tracking Resident Involvement: Resident Care Provided Care Provided: Adult Hospital Medicine (1) Umbilical hernia Obstruction and gangrene presence: without obstruction or gangrene Qualified Code(s): K42.9 - Umbilical hernia without obstruction or gangrene (6) Hypotension Hypotension type: unspecified hypotension type Qualified Code(s): I95.9 - Hypotension, unspecified (7) Sepsis Sepsis type: sepsis due to unspecified organism Severe sepsis shock status: without septic shock (9) Diverticulitis of intestine with perforation without abscess Diverticulitis site: large intestine Diverticulitis bleeding: without bleeding Qualified Code(s): K57.20 - Diverticulitis of large intestine with perforation and abscess without bleeding
--- NOTE | 2024-10-26 08:50 | Billing Data ---
Date of Service October 26, 2024 Coding Level of Care Code 66712 CRITICAL CARE
--- NOTE | 2024-10-26 09:23 | Surgery Progress Note ---
Date of Service October 26, 2024 Assessment & Plan (1) Bowel perforation: Plan: Maintain NG tube Await ostomy function MANN serosanguineous Labs good Wean pressors and move out of ICU soon Admission and Anticipated Discharge Date Admission Date: October 25, 2024 Subjective Pain controlled with narcotics Afebrile Requiring pressors to maintain blood pressure, minimal Review of Systems Constitutional: no fever and no chills Respiratory: no dyspnea Cardiovascular: no chest pain Gastrointestinal: + abdominal pain; no nausea and no vomit ing Neurologic: + generalized weakness Psychiatric: no behavioral changes Physical Exam Constitutional: WD/WN, vitals as above Eyes: no scleral abnormality Respiratory: normal respiratory effort Cardiovascular: Rate/Rhythm: regular rate and regular rhythm Gastrointestinal (Abdomen): Inspection/Auscultation: abdomen normal to inspection; abdomen not distended and + abnormal bowel sounds Percussion/Palpation: + abdomen tender and abdomen soft; no guarding Musculoskeletal: Head/Neck/Chest: normocephalic and head atraumatic Results & Data Vital Signs (Past 12 Hours) Vital Signs Temp Pulse Pulse Resp BP Pulse Ox O2 Del Method 10/26/24 08:33 Nasal Cannula 10/26/24 08:12 84 23 93/69 L 92 10/26/24 08:00 85 21 92/68 L 93 10/26/24 08:00 84 10/26/24 07:45 85 17 101/67 10/26/24 07:27 86 20 96/67 L 98 10/26/24 07:26 82 16 93 Nasal Cannula 10/26/24 07:12 79 20 93/62 L 94 10/26/24 07:01 88/64 L 10/26/24 07:00 80 18 91 10/26/24 06:46 113/68 10/26/24 06:01 88/61 L 10/26/24 06:00 83 20 10/26/24 05:57 83 23 94 10/26/24 05:30 98/67 L 10/26/24 05:30 98/67 L 10/26/24 05:06 80 18 98/62 L 93 Nasal Cannula 10/26/24 04:30 89/62 L 10/26/24 04:21 80 16 94 10/26/24 04:00 37 C 80 18 92/65 L 94 Nasal Cannula 10/26/24 04:00 80 20 94 10/26/24 03:30 87/62 L 10/26/24 03:30 87/62 L 10/26/24 03:30 78 16 95 10/26/24 03:17 81/61 L 10/26/24 03:17 81/61 L 10/26/24 03:15 76 14 94 10/26/24 03:00 82/62 L 10/26/24 03:00 82/62 L 10/26/24 03:00 77 14 94 10/26/24 02:33 76 16 94 10/26/24 02:30 90/65 L 10/26/24 02:30 90/65 L 10/26/24 02:30 77 15 90/65 L 94 10/26/24 02:00 75 17 86/59 L 94 10/26/24 01:48 75 17 95 10/26/24 01:45 75 18 95 10/26/24 01:30 92/63 L 10/26/24 01:21 75 15 94 10/26/24 01:12 76 16 94 10/26/24 01:00 76 14 87/67 L 94 10/26/24 00:39 76 14 95/66 L 94 10/26/24 00:12 75 15 94 10/26/24 00:05 37.4 C 76 14 86/68 L 94 Nasal Cannula 10/25/24 23:55 75 10/25/24 23:36 75 14 95 10/25/24 23:30 96/61 L 10/25/24 23:27 75 16 95 10/25/24 23:12 74 16 95 10/25/24 23:01 92/66 L 10/25/24 22:48 78 14 95 10/25/24 22:45 77 23 95 10/25/24 22:30 94/65 L 10/25/24 22:24 78 22 95 10/25/24 22:00 76 17 95 10/25/24 22:00 94/66 L 10/25/24 21:33 78 16 95 10/25/24 21:30 95/74 L 10/25/24 21:27 77 18 95 O2 Flow Rate 10/26/24 08:33 3 10/26/24 08:12 10/26/24 08:00 10/26/24 08:00 10/26/24 07:45 10/26/24 07:27 10/26/24 07:26 2.5 10/26/24 07:12 10/26/24 07:01 10/26/24 07:00 10/26/24 06:46 10/26/24 06:01 10/26/24 06:00 10/26/24 05:57 10/26/24 05:30 10/26/24 05:30 10/26/24 05:06 3 10/26/24 04:30 10/26/24 04:21 10/26/24 04:00 3 10/26/24 04:00 10/26/24 03:30 10/26/24 03:30 10/26/24 03:30 10/26/24 03:17 10/26/24 03:17 10/26/24 03:15 10/26/24 03:00 10/26/24 03:00 10/26/24 03:00 10/26/24 02:33 10/26/24 02:30 10/26/24 02:30 10/26/24 02:30 3 10/26/24 02:00 10/26/24 01:48 10/26/24 01:45 10/26/24 01:30 10/26/24 01:21 10/26/24 01:12 10/26/24 01:00 10/26/24 00:39 10/26/24 00:12 10/26/24 00:05 3 10/25/24 23:55 10/25/24 23:36 10/25/24 23:30 10/25/24 23:27 10/25/24 23:12 10/25/24 23:01 10/25/24 22:48 10/25/24 22:45 10/25/24 22:30 10/25/24 22:24 10/25/24 22:00 10/25/24 22:00 10/25/24 21:33 10/25/24 21:30 10/25/24 21:27
[2024-10-26] MEDS: COUGH DROP (SUGAR FREE) LOZ 24 LOZ/1 BOX BUCCAL PRN (09:30)
[2024-10-26] MEDS: COUGH DROP (SUGAR FREE) LOZ 24 LOZ/1 BOX BUCCAL ONE (09:38)
[2024-10-26] MEDS ORDERED: ALBUTEROL HFA 8 GM INHALER INH PRN (09:39)
[2024-10-26] MEDS: NICOTINE 14 MG/24 HR PATCH TD SCH (14:09)
[2024-10-26] MEDS: SODIUM CHLOR 7% 4 ML NEB NEB SCH (20:07)
[2024-10-27 05:26] LABS: Anion Gap 9.0 (3-11); Blood Urea Nitrogen 29.0 mg/dl (6-23); Calcium 7.8 mg/dl (8.6-10.3); Carbon Dioxide 26.0 mmol/L (21-32); Chloride 104.0 mmol/L (98-107); Creatinine Clr Calc Pharmacy 55.0 ml/min; Glucose 94.0 mg/dl (70-99(Fasting)); Magnesium 2.1 mg/dl (1.7-2.4); Potassium 3.4 mmol/L (3.5-5.1); Sodium 139.0 mmol/L (136-145)
[2024-10-27 05:27] LABS: Dohle Bodies 1+; Hematocrit (blood only) 39.9 % (42.0-52.0); Hemoglobin 13.9 g/dl (14.0-18.0); Immature Granulocytes # (auto) 0.78 K/uL (0.01-0.20); Immature Granulocytes % (auto) 5.0 %; Mean Corpuscular Hemoglobin 31.2 pg (25.0-34.0); Mean Corpuscular Volume 89.5 fL (80.0-100.0); Platelet Count 170 K/uL (130-400); RDW Standard Deviation 42.7 fL (36.4-46.3); Red Blood Count 4.46 M/uL (4.70-6.10); White Blood Count 15.67 K/ul (4.8-10.8)
[2024-10-27] MEDS: POTASSIUM CHLORIDE / WTR 10 MEQ/100 ML PLCT IV SCH ×2 (07:16→23:53)
[2024-10-27] MEDS: REMOVE NICODERM PATCH SCH (08:16)
--- NOTE | 2024-10-27 08:51 | Critical Care Progress Note ---
Date of Service October 27, 2024 Assessment & Plan (1) Sepsis: Plan: Reason Critically Ill: 74-year-old male with sepsis secondary to perforated viscus with gross contamination of abdomen PLAN: Neuro: Postoperative analgesia - Dilaudid as needed and Tylenol Resp: History of nicotine dependence -Albuterol MDI as needed CV: Hypotension: Improved - Off vasoactive's greater than 8 hours (since 0030) Fluids/Renal: Acute kidney injury: Significant improvement Supplemental fluids -Plasma-Lyte at 80 mL/h - If patient progress to clears consider discontinuation today ID: Zosyn for 7 days duration -Fecal contamination of abdomen GI/Nutrition: Perforated diverticulitis -Postop day 2 Heme: DVT prophylaxis: SCDs - Adding chemoprophylaxis 40 mg Lovenox daily Endocrine: ICU hyperglycemia protocol Activity: Out of bed to chair Vascular access: Peripheral IV Code Status: Full code Disposition: Critical care needs have resolved stable for downgrade. (2) Diverticulitis of intestine with perforation without abscess: Admission and Anticipated Discharge Date Admission Date: October 25, 2024 Subjective Has more pain today, comfortable after positional adjustment and placement of dressings Physical Exam Physical Exam: General: Alert. nontoxic. Skin: Warm, dry, Head: Atraumatic Ears, nose, mouth and throat: airway patent Cardiovascular: Normal peripheral perfusion Respiratory: no respiratory distress Gastrointestinal: Non distended, dressings in place without shadowing, surgical drain: clearing serosanguineous fluid, ostomy site pink, no flatus in bag Musculoskeletal: No deformity Results & Data Results & Data Vital Signs (Past 12 Hours) Vital Signs Pulse Pulse Resp BP Pulse Ox O2 Del Method O2 Flow Rate 10/27/24 07:56 109 H 24 91 Nasal Cannula 4 10/27/24 07:00 108 H 22 88 L 10/27/24 07:00 117/82 10/27/24 06:32 105 H 21 92 10/27/24 06:00 117/68 10/27/24 06:00 117/68 10/27/24 06:00 95 H 10 L 94 10/27/24 05:36 94 H 12 94 10/27/24 05:00 97 H 23 92 10/27/24 05:00 114/63 10/27/24 05:00 114/63 10/27/24 04:36 102 H 25 H 92 10/27/24 04:30 119/76 10/27/24 04:30 119/76 10/27/24 04:15 118/71 10/27/24 04:06 96 H 21 94 10/27/24 03:45 111/66 10/27/24 03:33 96 H 20 93 10/27/24 03:30 98 H 23 93 10/27/24 03:30 110/67 10/27/24 03:30 110/67 10/27/24 03:30 110/67 10/27/24 03:15 96 H 19 93 10/27/24 03:15 121/70 10/27/24 03:15 121/70 10/27/24 03:15 121/70 10/27/24 03:12 94 H 21 92 10/27/24 03:00 121/68 10/27/24 03:00 121/68 10/27/24 02:54 96 H 24 93 10/27/24 02:45 94 H 15 93 10/27/24 02:45 116/69 10/27/24 02:45 116/69 10/27/24 02:30 116/65 10/27/24 02:30 116/65 10/27/24 02:30 116/65 10/27/24 02:30 97 H 17 93 10/27/24 02:15 115/66 10/27/24 02:06 97 H 19 91 10/27/24 02:00 118/67 10/27/24 01:48 95 H 17 93 10/27/24 01:45 114/67 10/27/24 01:45 114/67 10/27/24 01:39 92 H 22 93 10/27/24 01:33 94 H 17 92 10/27/24 01:30 110/66 10/27/24 01:18 92 H 15 92 10/27/24 01:15 95 H 19 92 10/27/24 01:15 113/61 10/27/24 01:15 113/61 10/27/24 01:15 113/61 10/27/24 01:15 113/61 10/27/24 01:00 119/66 10/27/24 00:57 96 H 21 92 10/27/24 00:45 94 H 16 94 10/27/24 00:45 113/67 10/27/24 00:00 98 H 30 H 92 10/27/24 00:00 108/66 10/27/24 00:00 91 H 10/26/24 23:45 111/65 10/26/24 23:45 111/65 10/26/24 23:30 106/64 10/26/24 23:30 91 H 20 93 10/26/24 23:15 96 H 47 H 92 10/26/24 23:15 111/71 10/26/24 23:15 111/71 10/26/24 23:15 111/71 10/26/24 22:48 92 H 15 93 10/26/24 22:45 107/68 10/26/24 22:45 107/68 10/26/24 22:30 108/63 10/26/24 22:15 108/62 10/26/24 22:15 108/62 10/26/24 22:15 95 H 25 H 91 10/26/24 22:03 91 H 13 91 10/26/24 22:00 109/63 10/26/24 22:00 109/63 10/26/24 22:00 109/63 10/26/24 22:00 109/63 10/26/24 21:48 93 H 13 91 10/26/24 21:45 110/66 10/26/24 21:45 110/66 10/26/24 21:45 110/66 10/26/24 21:30 105/62 10/26/24 21:27 91 H 13 91 10/26/24 21:15 96/72 L 10/26/24 21:15 96/72 L 10/26/24 21:09 95 H 15 91 10/26/24 21:00 88 26 H 92 10/26/24 21:00 101/63 10/26/24 20:51 88 15 92 Critical Care Results & Data Vital Signs (Past 12 Hours) Vital Signs Pulse Pulse Resp BP Pulse Ox O2 Del Method O2 Flow Rate 10/27/24 07:56 109 H 24 91 Nasal Cannula 4 10/27/24 07:00 108 H 22 88 L 10/27/24 07:00 117/82 10/27/24 06:32 105 H 21 92 10/27/24 06:00 117/68 10/27/24 06:00 117/68 10/27/24 06:00 95 H 10 L 94 10/27/24 05:36 94 H 12 94 10/27/24 05:00 97 H 23 92 10/27/24 05:00 114/63 10/27/24 05:00 114/63 10/27/24 04:36 102 H 25 H 92 10/27/24 04:30 119/76 10/27/24 04:30 119/76 10/27/24 04:15 118/71 10/27/24 04:06 96 H 21 94 10/27/24 03:45 111/66 10/27/24 03:33 96 H 20 93 10/27/24 03:30 98 H 23 93 10/27/24 03:30 110/67 10/27/24 03:30 110/67 10/27/24 03:30 110/67 10/27/24 03:15 96 H 19 93 10/27/24 03:15 121/70 10/27/24 03:15 121/70 10/27/24 03:15 121/70 10/27/24 03:12 94 H 21 92 10/27/24 03:00 121/68 10/27/24 03:00 121/68 10/27/24 02:54 96 H 24 93 10/27/24 02:45 94 H 15 93 10/27/24 02:45 116/69 10/27/24 02:45 116/69 10/27/24 02:30 116/65 10/27/24 02:30 116/65 10/27/24 02:30 116/65 10/27/24 02:30 97 H 17 93 10/27/24 02:15 115/66 10/27/24 02:06 97 H 19 91 10/27/24 02:00 118/67 10/27/24 01:48 95 H 17 93 10/27/24 01:45 114/67 10/27/24 01:45 114/67 10/27/24 01:39 92 H 22 93 10/27/24 01:33 94 H 17 92 10/27/24 01:30 110/66 10/27/24 01:18 92 H 15 92 10/27/24 01:15 95 H 19 92 10/27/24 01:15 113/61 10/27/24 01:15 113/61 10/27/24 01:15 113/61 10/27/24 01:15 113/61 10/27/24 01:00 119/66 10/27/24 00:57 96 H 21 92 10/27/24 00:45 94 H 16 94 10/27/24 00:45 113/67 10/27/24 00:00 98 H 30 H 92 10/27/24 00:00 108/66 10/27/24 00:00 91 H 10/26/24 23:45 111/65 10/26/24 23:45 111/65 10/26/24 23:30 106/64 10/26/24 23:30 91 H 20 93 10/26/24 23:15 96 H 47 H 92 10/26/24 23:15 111/71 10/26/24 23:15 111/71 10/26/24 23:15 111/71 10/26/24 22:48 92 H 15 93 10/26/24 22:45 107/68 10/26/24 22:45 107/68 10/26/24 22:30 108/63 10/26/24 22:15 108/62 10/26/24 22:15 108/62 10/26/24 22:15 95 H 25 H 91 10/26/24 22:03 91 H 13 91 10/26/24 22:00 109/63 10/26/24 22:00 109/63 10/26/24 22:00 109/63 10/26/24 22:00 109/63 10/26/24 21:48 93 H 13 91 10/26/24 21:45 110/66 10/26/24 21:45 110/66 10/26/24 21:45 110/66 10/26/24 21:30 105/62 10/26/24 21:27 91 H 13 91 10/26/24 21:15 96/72 L 10/26/24 21:15 96/72 L 10/26/24 21:09 95 H 15 91 10/26/24 21:00 88 26 H 92 10/26/24 21:00 101/63 10/26/24 20:51 88 15 92 Lab & Micro Results (Past 24 Hours) RBC 4.46 M/uL (4.70-6.10) L 10/27/24 WBC 15.67 K/ul (4.8-10.8) H 10/27/24 Hgb 13.9 g/dl (14.0-18.0) L 10/27/24 Hct 39.9 % (42.0-52.0) L 10/27/24 MCV 89.5 fL (80.0-100.0) 10/27/24 MCH 31.2 pg (25.0-34.0) 10/27/24 MCHC 34.8 g/dL (32.0-36.0) 10/27/24 RDW Standard Deviation 42.7 fL (36.4-46.3) 10/27/24 RDW Coefficient of Variation 13.0 % (11.5-14.5) 10/27/24 Plt Count 170 K/uL (130-400) 10/27/24 MPV 9.1 fL (9.4-12.4) L 10/27/24 Neutrophils (%) (Auto) 88.2 % 10/27/24 Lymphocytes (%) (Auto) 3.9 % 10/27/24 Monocytes # (Auto) 0.38 K/uL (0.11-0.59) 10/27/24 Eosinophils # (Auto) 0.03 K/uL (0.00-0.50) 10/27/24 Immature Granulocyte % (Auto) 5.0 % 10/27/24 Neutrophils # (Auto) 13.82 K/uL (1.40-6.50) H 10/27/24 Lymphocytes # (Auto) 0.61 K/uL (1.20-3.40) L 10/27/24 Monocytes # (Auto) 0.38 K/uL (0.11-0.59) 10/27/24 Eosinophils # (Auto) 0.03 K/uL (0.00-0.50) 10/27/24 Basophils # (Auto) 0.05 K/uL (0.00-0.20) 10/27/24 Immature Granulocyte # (Auto) 0.78 K/uL (0.01-0.20) H 10/27 Echinocytes 2+ 10/27/24 Dohle Bodies 1+ 10/27/24 Na 139 mmol/L (136-145) 10/27/24 K 3.4 mmol/L (3.5-5.1) L 10/27/24 Cl 104 mmol/L (98-107) 10/27/24 CO2 26 mmol/L (21-32) 10/27/24 Anion Gap 9 (3-11) 10/27/24 BUN 29 mg/dl (6-23) H 10/27/24 Creatinine 1.25 mg/dl (0.6-1.4) 10/27/24 BUN/Creatinine Ratio 23.2 (10-20) H 10/27/24 Glu 94 mg/dl (70-99(Fasting)) 10/27/24 Ca 7.8 mg/dl (8.6-10.3) L 10/27/24 Phosphorus Level 3.1 mg/dl (2.5-4.9) 10/27/24 Mg 2.1 mg/dl (1.7-2.4) 10/27/24 04:29 Calcium Level 7.8 mg/dl (8.6-10.3) L 10/27/24 04:29 Microbiology 10/25/24 Unknown Gram Stain - Final Peritoneal Fluid Aerobic and Anaerobic Culture - Preliminary Low counts mixed probable gastrointestinal microbiota. I & O Totals 24 Hours 10/26/24 10/27/24 10/28/24 06:59 06:59 06:59 Intake Total 4508.167 / 4508.167 2308.921 / 2308.921 100 / 100 Output Total 1155 / 1155 1952 / 1955 Balance 3353.167 / 3353.167 353.921 / 353.921 100 / 100 Cumulative 10/25/24 08:25 thru 10/27/24 08:16 Intake Total 6917.088 Output Total 3110 Balance 3807.088 RT Ventilator Mngmt (Last Documented) Ventilator Ordered Settings Respiratory Rate 24 10/27/24 07:56 Ventilator - PT Measurements Respiratory Rate 24 Coding Level of Care Code 57931 SUB INP/OBS CARE 3/50MIN Diagnoses Sepsis A41.9 Sepsis type: sepsis due to unspecified organism Severe sepsis shock status: without septic shock Diverticulitis of large intestine with perforation without abscess or bleeding K57.20 Diverticulitis site: large intestine Diverticulitis bleeding: without bleeding (1) Sepsis Sepsis type: sepsis due to unspecified organism Severe sepsis shock status: without septic shock (2) Diverticulitis of intestine with perforation without abscess Diverticulitis site: large intestine Diverticulitis bleeding: without bleeding Qualified Code(s): K57.20 - Diverticulitis of large intestine with perforation and abscess without bleeding
--- NOTE | 2024-10-27 10:16 | Surgery Progress Note ---
Date of Service October 27, 2024 Assessment & Plan (1) Bowel perforation: Plan: con't NG OOB out of ICU con't zosyn await ostomy function Admission and Anticipated Discharge Date Admission Date: October 25, 2024 Subjective pain controlled Review of Systems Constitutional: no fever and no chills Respiratory: no dyspnea Cardiovascular: no chest pain Gastrointestinal: + abdominal pain; no nausea and no vomit ing Neurologic: no generalized weakness Psychiatric: no behavioral changes Physical Exam Constitutional: WD/WN, vitals as above Respiratory: normal respiratory effort Cardiovascular: Rate/Rhythm: + tachycardic Gastrointestinal (Abdomen): Inspection/Auscultation: + abdomen distended and + abdominal surgical incision (wound granulating); + abnormal bowel sounds Percussion/Palpation: + abdomen tender and abdomen soft Musculoskeletal: Head/Neck/Chest: normocephalic and head atraumatic Skin: no rashes, warm and dry Results & Data Vital Signs (Past 12 Hours) Vital Signs Pulse Pulse Resp BP Pulse Ox O2 Del Method O2 Flow Rate 10/27/24 07:56 109 H 24 91 Nasal Cannula 4 10/27/24 07:00 108 H 22 88 L 10/27/24 07:00 117/82 10/27/24 06:32 105 H 21 92 10/27/24 06:00 117/68 10/27/24 06:00 117/68 10/27/24 06:00 95 H 10 L 94 10/27/24 05:36 94 H 12 94 10/27/24 05:00 97 H 23 92 10/27/24 05:00 114/63 10/27/24 05:00 114/63 10/27/24 04:36 102 H 25 H 92 10/27/24 04:30 119/76 10/27/24 04:30 119/76 10/27/24 04:15 118/71 10/27/24 04:06 96 H 21 94 10/27/24 03:45 111/66 10/27/24 03:33 96 H 20 93 10/27/24 03:30 98 H 23 93 10/27/24 03:30 110/67 10/27/24 03:30 110/67 10/27/24 03:30 110/67 10/27/24 03:15 96 H 19 93 10/27/24 03:15 121/70 10/27/24 03:15 121/70 10/27/24 03:15 121/70 10/27/24 03:12 94 H 21 92 10/27/24 03:00 121/68 10/27/24 03:00 121/68 10/27/24 02:54 96 H 24 93 10/27/24 02:45 94 H 15 93 10/27/24 02:45 116/69 10/27/24 02:45 116/69 10/27/24 02:30 116/65 10/27/24 02:30 116/65 10/27/24 02:30 116/65 10/27/24 02:30 97 H 17 93 10/27/24 02:15 115/66 10/27/24 02:06 97 H 19 91 10/27/24 02:00 118/67 10/27/24 01:48 95 H 17 93 10/27/24 01:45 114/67 10/27/24 01:45 114/67 10/27/24 01:39 92 H 22 93 10/27/24 01:33 94 H 17 92 10/27/24 01:30 110/66 10/27/24 01:18 92 H 15 92 10/27/24 01:15 95 H 19 92 10/27/24 01:15 113/61 10/27/24 01:15 113/61 10/27/24 01:15 113/61 10/27/24 01:15 113/61 10/27/24 01:00 119/66 10/27/24 00:57 96 H 21 92 10/27/24 00:45 94 H 16 94 10/27/24 00:45 113/67 10/27/24 00:00 98 H 30 H 92 10/27/24 00:00 108/66 10/27/24 00:00 91 H 10/26/24 23:45 111/65 10/26/24 23:45 111/65 10/26/24 23:30 106/64 10/26/24 23:30 91 H 20 93 10/26/24 23:15 96 H 47 H 92 10/26/24 23:15 111/10/26/24 23:15 111/71 10/26/24 23:15 111/71 10/26/24 22:48 92 H 15 93 10/26/24 22:45 107/68 10/26/24 22:45 107/68 10/26/24 22:30 108/63 10/26/24 22:15 108/62 10/26/24 22:15 108/62 10/26/24 22:15 95 H 25 H 91
[2024-10-27] MEDS: HYDROmorphone INJ 0.5 MG/0.5 ML SYR IV PRN (10:47)
[2024-10-27] MEDS: ENOXAPARIN INJ 40 MG/0.4 ML SYR SQ SCH (12:24)
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
[2024-10-27] MEDS ORDERED: ICU ELECTROLYTE REPLACEMENT PROTOCOL SCH (18:00)
[2024-10-27] MEDS: CLINDAMYCIN/D5W 900 MG/50 ML BAG IV SCH (18:25)
[2024-10-27] MEDS: SODIUM CHLOR 7% 4 ML NEB NEB ONE (20:14)
--- NOTE | 2024-10-27 21:16 | XRay Report ---
Exam(s): XR CXR 1 VIEW EXAM: XR Chest, 1 View CLINICAL HISTORY: coarse breath sounds. TECHNIQUE: Frontal view of the chest. COMPARISON: No relevant prior studies available. FINDINGS: Lungs: Subsegmental changes noted involving the right mid to lower lung zone. The lungs are otherwise well-aerated. No radiographic evidence for florid CHF. Pleural space: Questionable subtle blunting of the right costophrenic margin. The left costophrenic margin is sharp. Heart: Unremarkable. No cardiomegaly. Mediastinum: No significant abnormality identified. The trachea is midline. Bones/joints: Unremarkable. No acute fracture. Tubes, lines and devices: Nasogastric tube tip in the stomach. IMPRESSION: Subsegmental changes noted involving the right mid to lower lung zone. Questionable subtle blunting of the right costophrenic margin. The primary consideration is right-sided pneumonia with trace pleural effusion. Electronically signed by: Santos Suarez MD 10/27/24 21:15 PM
[2024-10-27] MEDS ORDERED: MELATONIN 3 MG TAB PO PRN (21:17)
[2024-10-27] MEDS: FUROSEMIDE INJ 20 MG/2 ML VIAL IV ONE (21:29)
[2024-10-27] MEDS: METOPROLOL TARTRATE 1 MG/ML VIAL IV STA ×2 (22:01→22:08)
[2024-10-27] MEDS: CALCIUM GLUCONATE 1,000 MG/60 ML BAG IV STA (22:19)
[2024-10-27 22:59] LABS: Hematocrit (blood only) 39.7 % (42.0-52.0); Hemoglobin 13.2 g/dl (14.0-18.0); Immature Granulocytes # (auto) 0.05 K/uL (0.01-0.20); Immature Granulocytes % (auto) 0.3 %; Mean Corpuscular Hemoglobin 30.1 pg (25.0-34.0); Mean Corpuscular Volume 90.6 fL (80.0-100.0); Platelet Count 152 K/uL (130-400); Polychromasia 2+; RDW Standard Deviation 43.1 fL (36.4-46.3); Red Blood Count 4.38 M/uL (4.70-6.10); White Blood Count 16.11 K/ul (4.8-10.8)
[2024-10-27 23:07] LABS: Alanine Aminotransferase 17.0 U/L (7-52); Albumin Globulin Ratio 1.0 (0.9-2); Albumin Level 2.8 gm/dl (3.4-5.0); Alkaline Phosphatase 57.0 U/L (34-104); Anion Gap 10.0 (3-11); Bilirubin,Total 1.3 mg/dl (0.2-1.0); Blood Urea Nitrogen 23.0 mg/dl (6-23); Calcium 8.2 mg/dl (8.6-10.3); Carbon Dioxide 28.0 mmol/L (21-32); Chloride 100.0 mmol/L (98-107); Creatinine Clr Calc Pharmacy 67.4 ml/min; Globulin 2.8 gm/dl (2.5-4.0); Glucose 92.0 mg/dl (70-99(Fasting)); Magnesium 2.2 mg/dl (1.7-2.4); Potassium 3.1 mmol/L (3.5-5.1); Sodium 138.0 mmol/L (136-145); Total Protein 5.6 gm/dl (6.0-8.3)
[2024-10-27 23:15] LABS: Thyroid Stimulating Hormone 0.426 uIu/ml (0.300-4.500)
[2024-10-27] MEDS ORDERED: 0.2 MICRON FILTER SET 1 EACH IV ONE (23:41)
[2024-10-27] MEDS: AMIODARONE / D5W 150 MG/100 ML BAG IV STA (23:53)
[2024-10-28] MEDS ORDERED: 0.2 MICRON FILTER SET 1 EACH IV ONE (00:50)
[2024-10-28] MEDS: AMIODARONE / D5W 150 MG/100 ML BAG IV STA (00:59)
[2024-10-28] MEDS: POTASSIUM CHLORIDE CRTAB 20 MEQ TABCR PO STA (01:03)
[2024-10-28] MEDS: SODIUM CHLOR 7% 4 ML NEB NEB ONE (06:15)
[2024-10-28 07:02] LABS: Dohle Bodies 1+; Hematocrit (blood only) 40.9 % (42.0-52.0); Hemoglobin 13.5 g/dl (14.0-18.0); Immature Granulocytes # (auto) 0.06 K/uL (0.01-0.20); Immature Granulocytes % (auto) 0.3 %; Mean Corpuscular Hemoglobin 29.7 pg (25.0-34.0); Mean Corpuscular Volume 89.9 fL (80.0-100.0); Platelet Count 162 K/uL (130-400); Polychromasia 1+; RDW Standard Deviation 42.7 fL (36.4-46.3); Red Blood Count 4.55 M/uL (4.70-6.10); White Blood Count 17.59 K/ul (4.8-10.8)
[2024-10-28 07:09] LABS: Anion Gap 8.0 (3-11); Blood Urea Nitrogen 23.0 mg/dl (6-23); Calcium 8.7 mg/dl (8.6-10.3); Carbon Dioxide 33.0 mmol/L (21-32); Chloride 98.0 mmol/L (98-107); Creatinine Clr Calc Pharmacy 55.2 ml/min; Glucose 90.0 mg/dl (70-99(Fasting)); Magnesium 2.1 mg/dl (1.7-2.4); Potassium 3.8 mmol/L (3.5-5.1); Sodium 139.0 mmol/L (136-145)
[2024-10-28] MEDS: SODIUM CHLOR 7% 4 ML NEB ONE (07:32)
--- NOTE | 2024-10-28 07:33 | Billing Data ---
Date of Service October 26, 2024 Coding Level of Care Code 93410 SUB INP/OBS CARE MIN
--- NOTE | 2024-10-28 08:46 | Billing Data ---
Date of Service October 27, 2024 Coding Level of Care Code 00542 SUB INP/OBS CARE MIN
--- NOTE | 2024-10-28 08:59 | Hospitalist Progress Note ---
Date of Service October 28, 2024 Assessment & Plan (1) Bowel perforation: (2) Sepsis: (3) Peritonitis: (4) Diverticulitis: (5) Hypotension: (6) Cigarette nicotine dependence: (7) GERD with esophagitis: (8) Aortic insufficiency: (9) Crane esophagus: Plan Mr. Rivera is 74 yo male with history of HTN, dyslipidemia, GERD, aortic insufficiency, barrette's esophagus, presented to ED with acute onset of generalized abdominal pain with distention, subsequently found to have perforated diverticulitis, and underwent laparotomy sigmoid colon with diverting colostomy( 10/25) for perforated diverticulitis. On presentation to ED he met SIRS criteria, blood pressure was persistently low despite fluid management. He was hypotensive at OR as well. Post operatively was shifted to ICU and remains on Levophed infusion. Urine output seems adequate. Pain seems optimized on IV med. Zosyn coverage for infection ongoing. #S/P Laparotomy with colostomy #Bowel Perforation #Ileus - Care per surgery - TPN per surgery recs - NG tube ongoing - await ostomy output - Pain: management as per surgery - ID on board - Zosyn coverage for GI infection - start caspofungin per ID recs - discontinued Clindamycin - I/O charting - OOB - labs per surgery #New Onset Atrial Fibrillation with RVR #Pulmonary Congestion 2/2 to Aortic Regurgitation - Echo 08/28: normal EF, moderate to severe AR. - currently rate controlled - due to pt's recent surgery and blood in ostomy, hold traditional anticoagulation at this time - continue lovenox 40mg daily - 20mg IV Lasix this morning #VANESSA, resolved - Cr: 1.48-->1.25-->1.13 - Given persistent hypotension before and during surgery chances are kidneys were insulted. - Repeat BMP AM #Nicotine dependance - Was on buccal nicotine - on nicotine patch - No s/o nicotine withdrawal #BPH: - Pt remain on grant. - Hold home med #Electrolytes -replaced per surgery Dispo: Med Tele DVT prophylaxis: lovenox 40mg daily Diet: TPN Admission and Anticipated Discharge Date Admission Date: October 25, 2024 Supervising Physician Co-Signing Physician Notes I personally examined the patient and verified all reilly points of history and exam, discussed case, and agree with decision making with Dr Foore Feeling okay overall. Breathing better than before. Still a lot of mucus. Belly without a lot of pain. Vitals noted, in general he is awake and alert pleasant no distress. Lungs show faint basilar rales scattered rhonchi no wheezes good effort. Abdomen is soft mild distention no notable tenderness no guarding rebound or rigidity. No erythemadressing is intact. Drain with serosanguineous drainage. Skin shows no rashes no pallor or icterus. Neuro without focal deficits. Diverticulitis with perforated colon and peritonitis as well as septic shock present on admissionnow doing better, sepsis improving, shock resolved. Continue broad antibiotics. Appreciate ID adding antifungals. Continue supportive care. Atrial fibrillation with RVR and acute (probably on chronic) diastolic CHF (acute on chronic HFpEF) that was rate relateddaughter notes that at times he has had heart rates in the 140s at home as well, making us both suspect he probably has had paroxysmal A-fib all along. Regardless would treat for rate control, and once his expected postoperative bleeding has resolved, anticoagulation in line with his [id number]. Rate is now controlled. Continue gentle diuresis for the diastolic CHF/acute hypoxia. This undoubtedly was brought on by the physiologic stress of the sepsis/septic shock present on admission. DVT prophylaxisLovenox once the expected degree of postop bleeding has improved, would want to escalate to anticoagulation for his A-fib. Otherwise as above. Subjective Overnight: Pt became a little hoarse with cough and was given saline nebulizers. CXR showed fluid overload and pt was given 20mg lasix. Later pt went into A-fib with RVR s/p lopressor x2 and amiodarone x2 which controlled rate and rhythm. Today at bedside, pt said he is feeling "fine." He reports no fever, chills, CP, palpitations/fluttering/skipped beats, trouble breathing or feeling short of breath, lightheaded, dizziness, abdominal pain, N/V/D, or complaints. Review of Systems Review of Systems: per HPI Physical Exam Physical Exam: GA: well groomed, well nourished in no apparent distress, trying to sleep. AAOx3 HEENT: head normocephalic, atraumatic. EOMI. [place] tube in. RESP: On oxymask. vesicular breath sounds b/l. No wheezes, rhonchi, or rales CARDIOVASCULAR: S1 and S2 heard. No murmurs, rubs, or gallops. Radial pulses 2+ b/l RRR GI: Normoactive bowel sounds, no tenderness or masses felt to palpation, ostomy bag on left side with minimal serosanguineous fluid and stool, MANN drain on right side with serosanguineous fluid. C/D/I dressing on abdomen at surgical site. MSK: no gross abnormalities or focal deficits SKIN: warm, dry, no edema PSYCH: appropriate mood and affect NEURO: no focal deficits. speech fluent Results & Data Results & Data Vital Signs (Past 12 Hours) Vital Signs Temp Pulse Pulse Resp BP BP Pulse Ox 10/28/24 08:03 102 H 26 H 114/68 95 10/28/24 06:16 91 H 17 91 10/28/24 06:06 92 H 10/28/24 02:42 36.8 C 128 H 23 113/74 94 10/28/24 00:51 142 H 18 98/68 L 94 10/28/24 00:00 123 H 10/27/24 23:26 36.7 C 97/71 L 90 10/27/24 23:24 130 H 19 90 10/27/24 22:27 94/71 L 10/27/24 22:23 124 H 94/71 L 10/27/24 22:14 124 H 10/27/24 22:09 100/70 10/27/24 22:08 134 H 100/70 10/27/24 22:03 138 H 20 91 10/27/24 22:00 139 H 112/74 10/27/24 21:51 143 H 10/27/24 21:45 130 H 23 92 O2 Del Method O2 Flow Rate 10/28/24 08:03 10/28/24 06:16 Oxymask 6 10/28/24 06:06 10/28/24 02:42 Oxymask 6 10/28/24 00:51 Oxymask 6 10/28/24 00:00 10/27/24 23:26 10/27/24 23:24 10/27/24 22:27 10/27/24 22:23 10/27/24 22:14 10/27/24 22:09 10/27/24 22:08 10/27/24 22:03 10/27/24 22:00 10/27/24 21:51 10/27/24 21:45 Resident Activity Tracking Resident Involvement: Resident Care Provided Care Provided: Adult Hospital Medicine (2) Sepsis Sepsis type: sepsis due to unspecified organism Severe sepsis acute organ dysfunction type: unspecified Severe sepsis shock status: without septic shock (5) Hypotension Hypotension type: unspecified hypotension type Qualified Code(s): I95.9 - Hypotension, unspecified
--- NOTE | 2024-10-28 09:22 | Surgery Progress Note ---
Date of Service October 28, 2024 Assessment & Plan (1) Bowel perforation: Plan: con't NG await ostomt possible PPN IV abx Admission and Anticipated Discharge Date Admission Date: October 25, 2024 Subjective pain controlled Review of Systems Constitutional: + fever; no chills Respiratory: no dyspnea Cardiovascular: no chest pain Gastrointestinal: + abdominal pain; no nausea and no vomit ing Neurologic: + generalized weakness Psychiatric: no behavioral changes Physical Exam Constitutional: WD/WN, vitals as above Eyes: no scleral abnormality Respiratory: normal respiratory effort Auscultation: + rhonchi Cardiovascular: RRR, no murmur, no edema Gastrointestinal (Abdomen): Inspection/Auscultation: normal bowel sounds; abdomen not distended Percussion/Palpation: + abdomen tender and abdomen soft; no guarding and abdomen not rigid ostomy with thin fluid output Musculoskeletal: Head/Neck/Chest: normocephalic and head atraumatic Results & Data Vital Signs (Past 12 Hours) Vital Signs Temp Pulse Pulse Resp BP BP Pulse Ox 10/28/24 08:03 102 H 26 H 114/68 95 10/28/24 06:16 91 H 17 91 10/28/24 06:06 92 H 10/28/24 02:42 36.8 C 128 H 23 113/74 94 10/28/24 00:51 142 H 18 98/68 L 94 10/28/24 00:00 123 H 10/27/24 23:26 36.7 C 97/71 L 90 10/27/24 23:24 130 H 19 90 10/27/24 22:27 94/71 L 10/27/24 22:23 124 H 94/71 L 10/27/24 22:14 124 H 10/27/24 22:09 100/70 10/27/24 22:08 134 H 100/70 10/27/24 22:03 138 H 20 91 10/27/24 22:00 139 H 112/74 10/27/24 21:51 143 H 10/27/24 21:45 130 H 23 92 O2 Del Method O2 Flow Rate 10/28/24 08:03 10/28/24 06:16 Oxymask 6 10/28/24 06:06 10/28/24 02:42 Oxymask 6 10/28/24 00:51 Oxymask 6 10/28/24 00:00 10/27/24 23:26 10/27/24 23:24 10/27/24 22:27 10/27/24 22:23 10/27/24 22:14 10/27/24 22:09 10/27/24 22:08 10/27/24 22:03 10/27/24 22:00 10/27/24 21:51 10/27/24 21:45
[2024-10-28] MEDS: FUROSEMIDE INJ 20 MG/2 ML VIAL IV ONE ×2 (10:02→14:54)
[2024-10-28] MEDS ORDERED: DEXTROSE 10% 1,000 ML IV PRN (11:06)
[2024-10-28] MEDS ORDERED: TPN/PPN CONSULT PHARMACY PRN (11:09)
--- NOTE | 2024-10-28 11:20 | Pharmacy Report ---
Pharmacy Initial PN Consult Nt - Date of Service October 28, 2024 - Scope Pharmacy has been consulted on this date to manage parenteral nutrition orders and order appropriate labs. As part of the Nutrition Support Team Guidelines, pharmacy will work in conjunction with dietary when determining the patients caloric needs. - Subjective * The patient is a 74 year old Male admitted on 10/25/24 for PERFORATED DIVERTICULITIS. * Patient is to receive parenteral nutrition for prolonged NPO status s/p ex lap with ostomy formation and large volumes of nasogastric tube output. * Pertinent PMHx: * none - Objective Vascular Access: * Patient currently has a peripheral line. * Peripheral line was confirmed by IV Team to be acceptable for PPN use on this date. Height & Weight (Last Documented) Height 5 ft 7 in Weight 78.6 kg Diet Order(s) 10/25/24 13:31 NPO Intake & Ouput (24hrs) 10/27/24 10/28/24 10/29/24 06:59 06:59 06:59 Intake Total 2308.921 / 2308.921 3064.000 / 3064.000 Output Total 1954 / 1954 4380 / 4380 Balance 353.921 / 353.921 -1316.000 / -1316.000 Selected Laboratory Results 10/27/24 10/28/24 22:32 06:03 Sodium 138 139 Potassium 3.1 L 3.8 D Chloride 100 98 Carbon Dioxide 28 33 H Anion Gap 10 8 BUN 23 23 Creatinine 1.02 1.13 BUN/Creatinine Ratio 22.5 H 20.4 H Glucose 92 90 Calcium 8.2 L 8.7 Phosphorus 2.6 Magnesium 2.2 2.1 Total Bilirubin 1.3 H AST 40 H ALT [address] - Follow Up Nutrition Assessment Start: 10/25/24 16:1 6 Freq: Status: Active Protocol: Document 10/28/24 10:14 WN (Rec: 10/28/24 10:27 WN [id number]) RD - Initial Nutrition Assessment Start: 10/25/24 16:05 Freq: Status: Active Protocol: Document 10/25/24 16:05 WN (Rec: 10/25/24 16:16 WN [id number]) - Assessment & Plan Assessment: * Appreciate dietitians recommendations for macronutrients. Slight concern for refeeding syndrome so will start PPN today at half of goal. Plan to increase tomorrow to 75% of goal and then 100% of goal on Monday should patient tolerate well. * Potassium and Calcium have been low over the past few days requiring replacement. Will make sure to add in bag. CO2 is elevated on today's BMP but this could be due to a respiratory alkalosis or dehydration. PN is not meant to correct acid-base disturbances so will start with a balanced formula today. However, if CO2 worsens tomorrow, then will likely need to decrease acetate in bag (especially if protein increasing tomorrow). * Will add thiamine for concern of refeeding. Pepcid will infuse outside of the PPN bag. * Monitor weights daily, I/O at each shift exchange and BSGs q6h for now. * LFTs ordered yesterday, no need for repeat. Triglycerides ordered for tomorrow AM. Plan: * For Day #1 of PPN administration, the following will be ordered: * Macronutrients: * Amino Acids: 43 grams/day * Dextrose: 50 grams/day * Lipids: 50 grams/day * Micronutrients: * Sodium chloride: 40 mEq/day * Potassium phosphate: 15 mMol/day * Potassium acetate: 40 mEq/day * Calcium gluconate: 4.65 mEq/day * Multivitamins: 10 mL/day * Trace elements: 1 mL/day * Thiamine: 100 mg/day * Total volume of 1063 mL will be infused over 24 hours and will provide 840 kcal/day * Patient is on PPN which has a maximum mOsm/L of 900. Final osmolarity of current solution is 827 mOsm/L. * Labs will be ordered per PN protocol. * Pharmacy will follow and adjust PN orders on a daily basis. Thank you!
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
--- NOTE | 2024-10-28 14:41 | Billing Data ---
Date of Service October 28, 2024 Coding Level of Care Code 44569 SUB INP/OBS CARE
[2024-10-28] MEDS: CASPOFUNGIN 70 MG in SODIUM CHLORIDE 0.9% 250 ML IV ONE (14:58)
[2024-10-28] MEDS: CLINOLIPID 20% IV FAT EMULSION 250 ML IV SCH (16:16)
[2024-10-28] MEDS: PERIPHERAL TPN IV SCH (16:17)
[2024-10-28] MEDS: [UNRECOGNIZED DRUG - OTHER] IV SCH (16:17)
[2024-10-29] MEDS: SODIUM CHLOR 7% 4 ML NEB NEB ONE (00:23)
[2024-10-29] MEDS: STOP CLINOLIPID SCH (04:20)
[2024-10-29 06:12] LABS: Anion Gap 8.0 (3-11); Blood Urea Nitrogen 30.0 mg/dl (6-23); Calcium 8.8 mg/dl (8.6-10.3); Carbon Dioxide 39.0 mmol/L (21-32); Chloride 94.0 mmol/L (98-107); Creatinine Clr Calc Pharmacy 55.7 ml/min; Glucose 133.0 mg/dl (70-99(Fasting)); Magnesium 1.9 mg/dl (1.7-2.4); Potassium 3.0 mmol/L (3.5-5.1); Sodium 141.0 mmol/L (136-145); Triglycerides 601.0 mg/dl (0-150)
--- NOTE | 2024-10-29 06:48 | Hospitalist Progress Note ---
Date of Service October 29, 2024 Assessment & Plan (1) Bowel perforation: (2) Sepsis: (3) Peritonitis: (4) Diverticulitis: (5) Hypotension: (6) Cigarette nicotine dependence: (7) GERD with esophagitis: (8) Aortic insufficiency: (9) Crane esophagus: Plan Mr. Rivera is 74 yo male with history of HTN, dyslipidemia, GERD, aortic insufficiency, barrette's esophagus, presented to ED with acute onset of generalized abdominal pain with distention, subsequently found to have perforated diverticulitis, and underwent laparotomy sigmoid colon with diverting colostomy( 10/25) for perforated diverticulitis. On presentation to ED he met SIRS criteria, blood pressure was persistently low despite fluid management. He was hypotensive at OR as well. Post operatively was shifted to ICU and remains on Levophed infusion. Urine output seems adequate. Pain seems optimized on IV med. Zosyn coverage for infection ongoing. #S/P Laparotomy with colostomy #Bowel Perforation #Ileus - Care per surgery - hold TPN for now - NG tube ongoing - await ostomy output - Pain: management as per surgery - ID on board - Zosyn coverage for GI infection - caspofungin for yeast - OOB per tolerance - labs per surgery #Hypoxia #COPD -hypertonic saline nebs q6hrs -duonebs q6hrs alternating with saline nebs -continue oxymask per protocol #Atrial Fibrillation with RVR likely chronic #Pulmonary Congestion 2/2 to Aortic Regurgitation - Echo 08/28: normal EF, moderate to severe AR. - currently rate controlled - due to pt's recent surgery and blood in ostomy, hold traditional anticoagulation at this time - continue lovenox 40mg daily #Hypokalemia -replaced with 40mEq IV KCl x2 -will monitor #VANESSA, resolved - Cr: 1.48-->1.25-->1.13-->1.12 - will monitor #Nicotine dependance - Was on buccal nicotine - on nicotine patch - No s/o nicotine withdrawal #BPH: - Pt remain on grant. - Hold home med #Electrolytes -replaced per surgery Dispo: Med Tele DVT prophylaxis: lovenox 40mg daily Diet: NPO Admission and Anticipated Discharge Date Admission Date: October 25, 2024 Supervising Physician Co-Signing Physician Notes I personally examined the patient and verified all reilly points of history and exam, discussed case, and agree with decision making with Dr Saravia Ongoing cough and mucus. Intermittent shortness of breath. Otherwise no new changes. Vitals noted, in general he is awake and alert pleasant no distress. Breathing unlabored no accessory muscle use good effort, still on 6 L oxy mask and doing self suctioning with fairly thick mucus. Abdomen is soft mild distention no notable tenderness no guarding rebound or rigidity. No erythemadressing is intact. Drain with serosanguineous drainage. Skin shows no rashes no pallor or icterus. Neuro without focal deficits. Diverticulitis with perforated colon and peritonitis as well as septic shock present on admissionnow doing better, sepsis improving, shock resolved. Continue broad antibiotics, Antifungals, local wound care, supportive care. Atrial fibrillation with RVR and possible acute (probably on chronic) diastolic CHF (acute on chronic HFpEF) that was rate relateddaughter notes that at times he has had heart rates in the 140s at home as well, making us both suspect he probably has had paroxysmal A-fib all along. Regardless would treat for rate control, and once his expected postoperative bleeding has resolved, anticoagulation in line with his [id number]. Rate is now controlled. his breathing did seem to improve some with diuresis making me suspect there probably was a degree of pulmonary edema at play; otherwise see below in regards to his hypoxia hypoxia/sputum/mucusgiven his overall presentation, CT chest was obtainedyielded findings to my read more consistent with focal infiltrates than anything. Still awaiting radiology over read, but it seems as though he probably had a pneumonia (likely POA or around the time of admission) that is actively being treated with the current antibiotic regimen, but the mucus from the pneumonia combined with the COPD is creating a fairly long and drawnout catarrhal/expectorant phase. Assist with pulmonary toilet (saline nebs, DuoNebs, flutter valve, incentive spirometry) DVT prophylaxisLovenox once the expected degree of postop bleeding has improved, would want to escalate to anticoagulation for his A-fib. Otherwise as above. Subjective Overnight pt became short of breath and coarse, requiring increased oxygen requirements and hypertonic saline nebulizer was given which relieved his sx. Today, he said is feels fine and wants to sleep. He said his breathing is better and denied SOB. He denied abdominal pain, nausea, vomiting. Still has NG tube output. He denied fevers, chills, CP, palpitations, and complaints. Review of Systems Review of Systems: per HPI Physical Exam Physical Exam: GA: well groomed, well nourished in no apparent distress, trying to sleep. AAOx3 HEENT: head normocephalic, atraumatic. EOMI. [place] tube in. RESP: On oxymask. vesicular breath sounds b/l. No wheezes, rhonchi, or rales CARDIOVASCULAR: S1 and S2 heard. No murmurs, rubs, or gallops. GI: Diminished bowel sounds, no tenderness or masses felt to palpation, ostomy bag on left side recently emptied, MANN drain on right side with serosanguineous fluid. C/D/I dressing on abdomen at surgical site. MSK: no gross abnormalities or focal deficits SKIN: warm, dry, no edema PSYCH: appropriate mood and affect NEURO: no focal deficits. speech fluent Results & Data Results & Data Vital Signs (Past 12 Hours) Vital Signs Temp Pulse Pulse Resp BP BP Pulse Ox 10/29/24 03:00 36.7 C 89 20 123/81 92 10/29/24 00:25 92 H 20 90 10/29/24 00:00 92 H 10/28/24 23:33 36.8 C 90 18 114/67 92 10/28/24 19:30 95 H 10/28/24 19:21 36.8 C 95 H 23 131/78 91 O2 Del Method O2 Flow Rate 10/29/24 03:00 Oxymask 9 10/29/24 00:25 Oxymask 9 10/29/24 00:00 10/28/24 23:33 Oxymask 9 10/28/24 19:30 10/28/24 19:21 Oxymask 3 Resident Activity Tracking Resident Involvement: Resident Care Provided Care Provided: Adult Hospital Medicine (2) Sepsis Sepsis type: sepsis due to unspecified organism Severe sepsis acute organ dysfunction type: unspecified Severe sepsis shock status: without septic shock (5) Hypotension Hypotension type: unspecified hypotension type Qualified Code(s): I95.9 - Hypotension, unspecified
[2024-10-29 07:11] LABS: Dohle Bodies 1+
[2024-10-29] MEDS: POTASSIUM CHLORIDE / WTR 10 MEQ/100 ML PLCT IV SCH ×2 (08:54→17:47)
--- NOTE | 2024-10-29 10:53 | XRay Report ---
XR chest 1V portable CLINICAL HISTORY: dyspnea COMPARISON STUDY: 10/27/2024 FINDINGS: Nasogastric tube tip is in the proximal stomach. Heart size and pulmonary vasculature are n ormal. There is stable stranding opacity at the right base with partial obscuration of the right avani diaphragm. No pneumothorax. IMPRESSION: Stable exam. ACT 112: Negative or not required by law. Electronically signed by: Blade Rivas M.D. 10/29/2024 10:51 AM
--- NOTE | 2024-10-29 12:43 | Surgery Progress Note ---
Date of Service October 29, 2024 Assessment & Plan (1) Peritonitis: Plan: con't NG monitor NG output KUB await bowel function con't IV abx Admission and Anticipated Discharge Date Admission Date: October 25, 2024 Subjective pain controlled no ostomy output yet Review of Systems Constitutional: no fever and no chills Respiratory: no dyspnea Cardiovascular: no chest pain Gastrointestinal: + abdominal pain and + nausea Physical Exam Respiratory: normal respiratory effort Cardiovascular: Rate/Rhythm: regular rate and regular rhythm Gastrointestinal (Abdomen): Inspection/Auscultation: abdomen normal to inspection; abdomen not distended Percussion/Palpation: + abdomen tender and abdomen soft; no guarding ostomy purple but viable Results & Data Vital Signs (Past 12 Hours) Vital Signs Temp Pulse Pulse Resp BP BP Pulse Ox 10/29/24 09:03 91 H 28 H 121/75 96 10/29/24 09:00 36.8 C 10/29/24 08:15 88 25 H 95 10/29/24 07:00 92 H 18 90 10/29/24 03:00 36.7 C 89 20 123/81 92 O2 Del Method O2 Flow Rate 10/29/24 09:03 10/29/24 09:00 10/29/24 08:15 10/29/24 07:00 10/29/24 03:00 Oxymask 9
[2024-10-29] MEDS: CASPOFUNGIN 50 MG in SODIUM CHLORIDE 0.9% 250 ML IV SCH (13:46)
[2024-10-29] MEDS: SODIUM CHLOR 7% 4 ML NEB NEB SCH ×2 (15:20→20:40)
--- NOTE | 2024-10-29 15:36 | Billing Data ---
Date of Service October 29, 2024 Coding Level of Care Code 34893 SUB INP/OBS CARE
[2024-10-29] MEDS: ONDANSETRON INJ 2 MG/ML 2 ML VIAL IV PRN (17:47)
[2024-10-29] MEDS: ALBUT/IPRATROP 3MG/0.5MG NEB 3 ML VIAL NEB SCH ×2 (18:05→20:40)
[2024-10-30 05:13] LABS: Hematocrit (blood only) 39.1 % (42.0-52.0); Hemoglobin 12.8 g/dl (14.0-18.0); Immature Granulocytes # (auto) 0.57 K/uL (0.01-0.20); Immature Granulocytes % (auto) 3.5 %; Mean Corpuscular Hemoglobin 29.4 pg (25.0-34.0); Mean Corpuscular Volume 89.9 fL (80.0-100.0); Platelet Count 167 K/uL (130-400); RDW Standard Deviation 43.7 fL (36.4-46.3); Red Blood Count 4.35 M/uL (4.70-6.10); White Blood Count 16.25 K/ul (4.8-10.8)
[2024-10-30 05:34] LABS: Anion Gap 9.0 (3-11); Blood Urea Nitrogen 32.0 mg/dl (6-23); Calcium 8.6 mg/dl (8.6-10.3); Carbon Dioxide 39.0 mmol/L (21-32); Chloride 94.0 mmol/L (98-107); Creatinine Clr Calc Pharmacy 62.4 ml/min; Glucose 111.0 mg/dl (70-99(Fasting)); Magnesium 2.0 mg/dl (1.7-2.4); Potassium 3.1 mmol/L (3.5-5.1); Sodium 142.0 mmol/L (136-145); Triglycerides 379.0 mg/dl (0-150)
--- NOTE | 2024-10-30 08:06 | XRay Report ---
EXAM: XR KUB/Abdomen 1 view CLINICAL HISTORY: Post op with Nasogastric. TECHNIQUE: X-ray images of the abdomen were obtained in supine and upright positions. COMPARISON: No prior studies available for comparison. FINDINGS: An applied nasogastric tube reaches the stomach shadow, and the side hole is 3 cm below the diaphragm. Pelvic line is seen; clinical correlation is needed. Gas Pattern: The gas pattern within the abdomen is normal. There is no evidence of bowel obstruction or distention. Soft Tissues: The soft tissues of the abdomen appear normal without evidence of masses or calcifications. The liver, spleen, and kidneys are of normal size and position. IMPRESSION: An applied nasogastric tube reaches the stomach shadow, and the side hole is 3 cm below the diaphragm. Electronically signed by Jimmie Navarro 10-30-2024 08:06 AM
--- NOTE | 2024-10-30 08:28 | CT Scan Report ---
CT chest diagnostic wo con CT DOSE: 801.72 mGy.cm CLINICAL HISTORY: hypoxia/dyspnea. TECHNIQUE: Multiaxial CT images of the chest were performed without contrast. A dose lowering techni que was utilized adhering to the principles of ALARA. COMPARISON STUDY: 06/19/2024 FINDINGS: There are mild airway secretions. There is mild bronchial wall thickening consistent with b ronchitis. There is moderate to severe emphysema most prominent in the upper lung lobes. There are in terval scattered reticular and groundglass opacities in both lungs. Interval large area of dense cons olidation at the right lung base with air bronchograms. There are bilateral pleural effusions, small on the right and trace on the left which layer dependently. Nasogastric tube tip is in the body of th e stomach. No pneumothorax. No enlarged adenopathy. No pericardial effusion. There are diffuse baez ry artery calcifications. There is stable height loss at a few upper and mid thoracic vertebral kerri s. There are mild degenerative changes at the thoracic spine. IMPRESSION: Bilateral pneumonia. Recommend follow-up chest CT in 3 months to make sure this completel y resolves without underlying pulmonary nodule. ACT 112: Positive. There are findings on this exam that require communication between the performing entity and the patient following Patient Test Result Information Act ([place] Act 112) guidelines. Electronically signed by: Blade Rivas M.D. 10/30/2024 8:27 AM
--- NOTE | 2024-10-30 09:16 | Surgery Progress Note ---
Date of Service October 30, 2024 Assessment & Plan (1) Bowel perforation: Plan: KUB encouraging NG with 1.5 L output on PPN if no ostomy function by tomorrow then will need ostomy redone Admission and Anticipated Discharge Date Admission Date: October 25, 2024 Subjective pain controlled KUB with air into colon still awaiting colostomy function PPN IV abx Review of Systems Constitutional: no fever and no chills Respiratory: no dyspnea Cardiovascular: no chest pain Gastrointestinal: + abdominal pain; no nausea and no vomit ing Neurologic: + generalized weakness Psychiatric: no behavioral changes Physical Exam Constitutional: WD/WN, vitals as above Respiratory: normal respiratory effort Cardiovascular: Rate/Rhythm: regular rate and regular rhythm Gastrointestinal (Abdomen): Percussion/Palpation: + abdomen tender and abdomen soft ostomy viable appearing Musculoskeletal: Head/Neck/Chest: normocephalic and head atraumatic Results & Data Vital Signs (Past 12 Hours) Vital Signs Temp Pulse Pulse Resp BP Pulse Ox O2 Del Method 10/30/24 07:55 90 20 95 Oxymask 10/30/24 02:58 121/77 10/30/24 02:57 36.6 C 94 H 17 93 10/30/24 00:00 85 10/29/24 22:36 98 H 19 90 10/29/24 22:33 95 H 28 H 92 10/29/24 22:33 36.6 C 112/61 O2 Flow Rate 10/30/24 07:55 7 10/30/24 02:58 10/30/24 02:57 10/30/24 00:00 10/29/24 22:36 10/29/24 22:33 10/29/24 22:33
--- NOTE | 2024-10-30 09:18 | Hospitalist Progress Note ---
Date of Service October 30, 2024 Assessment & Plan (1) Bowel perforation: (2) Sepsis: (3) Peritonitis: (4) Diverticulitis: (5) Hypotension: (6) Cigarette nicotine dependence: (7) GERD with esophagitis: (8) Aortic insufficiency: (9) Crane esophagus: Plan Mr. Rivera is 74 yo male with history of HTN, dyslipidemia, GERD, aortic insufficiency, barrette's esophagus, presented to ED with acute onset of generalized abdominal pain with distention, subsequently found to have perforated diverticulitis, and underwent laparotomy sigmoid colon with diverting colostomy( 10/25) for perforated diverticulitis. On presentation to ED he met SIRS criteria, blood pressure was persistently low despite fluid management. He was hypotensive at OR as well. Post operatively was shifted to ICU and remains on Levophed infusion. Urine output seems adequate. Pain seems optimized on IV med. Zosyn coverage for infection ongoing. #S/P Laparotomy with colostomy #Bowel Perforation #Ileus - Care per surgery - restart TPN - NG tube ongoing - await ostomy output - Pain: management as per surgery - ID on board - Zosyn coverage for GI infection - caspofungin for yeast - OOB per tolerance - labs per surgery #Hypoxia #COPD -hypertonic saline nebs q6hrs -duonebs q6hrs alternating with saline nebs -continue oxymask per protocol #Atrial Fibrillation with RVR likely chronic #Pulmonary Congestion 2/2 to Aortic Regurgitation - Echo 08/28: normal EF, moderate to severe AR. - currently rate controlled - due to pt's recent surgery and blood in ostomy, hold traditional anticoagulation at this time - continue lovenox 40mg daily #Hypokalemia replete as indicated #VANESSA, resolved Follow BMP #Nicotine dependance - Was on buccal nicotine - on nicotine patch - No s/o nicotine withdrawal #BPH: - Pt remain on grant. - Hold home med #Electrolytes -replaced per surgery Dispo: Med Tele DVT prophylaxis: lovenox 40mg daily Diet: NPO Admission and Anticipated Discharge Date Admission Date: October 25, 2024 Supervising Physician Co-Signing Physician Notes I personally examined the patient and verified all reilly points of history and exam, discussed case, and agree with decision making with Dr Piero lino through the night, wanting to go home - in d/w team and family - more confused as well. Vitals noted, sleeping, appears comfortable, no distress. Breathing unlabored no accessory muscle use good effort, on oxymask Skin shows no rashes no pallor or icterus. Neuro without focal deficits. Diverticulitis with perforated colon and peritonitis as well as septic shock present on admissionnow doing better, sepsis improving, shock resolved. Continue broad antibiotics, Antifungals, local wound care, supportive care. agree w surgery if no improvement w ostomy function/NG output over next 24hrs return to OR reasonable/warranted Atrial fibrillation with RVR and possible acute (probably on chronic) diastolic CHF (acute on chronic HFpEF) that was rate relateddaughter notes that at times he has had heart rates in the 140s at home as well, making us both suspect he probably has had paroxysmal A-fib all along. Regardless would treat for rate control, and once his expected postoperative bleeding has resolved, anticoagulation in line with his [id number]. Rate is now controlled. his breathing did seem to improve some with diuresis making me suspect there probably was a degree of pulmonary edema at play; otherwise see below in regards to his hypoxia hypoxia/sputum/mucusgiven his overall presentation, CT chest was obtained 10/29yielded findings to my read more consistent with focal infiltrates than anything. radiology agrees. most likely he probably had a pneumonia (likely POA or around the time of admission) that is actively being treated with the current antibiotic regimen, but the mucus from the pneumonia combined with the COPD is creating a fairly long and drawnout catarrhal/expectorant phase. continue to assist with pulmonary toilet (saline nebs, DuoNebs, flutter valve, incentive spirometry) delirium/metabolic encephalopathy - related to all of above, not unexpected given his severity of illness POA DVT prophylaxisLovenox once the expected degree of postop bleeding has improved, would want to escalate to anticoagulation for his A-fib. Otherwise as above. updated dtr Subjective Patient seen and evaluated at bedside this morning. Reportedly wanted to leave AMA overnight. Likely component of delirium. Oxygen requirement remains the same despite increased pulmonary toilet. States abd pain well controlled and he is hungry. No acute complaints. Potassium remains low Review of Systems Review of Systems: reviewed, per HPI Physical Exam Physical Exam: Constitutional: ill appearing, no acute distress HEENT: NCAT, no conjunctival injection CV: regular rhythm, no murmur appreciated, extremities well-perfused, no LE edema Resp: diffuse rhonci GI: ostomy, NG tube MSK: no gross deformities appreciated Skin: warm, dry, no rash appreciated : grant in place Neuro: alert, oriented, no focal neurologic deficit appreciated Results & Data Results & Data Vital Signs (Past 12 Hours) Vital Signs Temp Pulse Pulse Resp BP Pulse Ox O2 Del Method 10/30/24 07:55 90 20 95 Oxymask 10/30/24 02:58 121/77 10/30/24 02:57 36.6 C 94 H 17 93 10/30/24 00:00 85 10/29/24 22:36 98 H 19 90 10/29/24 22:33 95 H 28 H 92 10/29/24 22:33 36.6 C 112/61 O2 Flow Rate 10/30/24 07:55 7 10/30/24 02:58 10/30/24 02:57 10/30/24 00:00 10/29/24 22:36 10/29/24 22:33 10/29/24 22:33 Resident Activity Tracking Resident Involvement: Resident Care Provided Care Provided: Adult Hospital Medicine (2) Sepsis Sepsis type: sepsis due to unspecified organism Severe sepsis acute organ dysfunction type: unspecified Severe sepsis shock status: without septic shock (5) Hypotension Hypotension type: unspecified hypotension type Qualified Code(s): I95.9 - Hypotension, unspecified
--- NOTE | 2024-10-30 09:58 | Infectious Disease Progress Nt ---
Date of Service October 30, 2024 Assessment & Plan (1) Bowel perforation: (2) Peritonitis: Plan Problems: #Perforated diverticulitis s/p ex lap, bowel resection, colostomy (10/25/24) #Feculent peritonitis #VANESSA: resolved Micro: 10/25 Peritoneal fluid cx: Clostridium perfringens, mod counts of probable intestinal mario. GS GNRs, GPRs, GPCs, yeast Abx: Caspofungin 10/28 - present Zosyn 10/25 - present Clindamycin 10/27 - 10/28 74 yo M with HTN, HLD, emphysema, GERD, Crane's esophagus who presented on 10/25 with acute onset of generalized abdominal pain, distension, sweats, found to have perforated diverticulitis s/p ex lap, bowel resection, colostomy (10/25/24). On presentation, he was afebrile, hypotensive to SBP 80s-90s. Labs showed WBC 13.14. CT A/P with IV contrast showed acute perforated diverticulitis at the distal descending/proximal sigmoid colon with a small amount of scattered free air, and trace free fluid without ascites. Pt started on Zosyn. He was taken for emergent ex lap, bowel resection, colostomy formation. In the OR, there was feculent peritonitis. Intra-op culture obtained of peritoneal fluid. He was admitted to the ICU postoperatively, requiring Levophed. Peritoneal fluid culture growing Clostridium perfringens, and moderate counts of probable intestinal mario. Gram stain with GNRs, GPRs, GPCs, yeast. Clindamycin added 10/27. Weaned off Levophed 10/27. WBC uptrending to 17.59 on 10/28. Discussion: Polymicrobial peritoneal fluid culture including Clostridium perfringens. Zosyn should cover the Clostridium perfringens and other intestinal mario, unless there are resistant organisms. No prior micro data to review. Leukocytosis uptrending and Tmax 37.7 on 10/27--added caspofungin on 10/28 due to yeast seen on gram stain of peritoneal fluid. Also with increased O2 requirement on 10/29, with CT chest showing bilateral pneumonia. Recommendations: - Continue Zosyn in the setting of pneumonia seen on CT - Continue caspofungin given yeast seen on gram stain of peritoneal fluid Will continue to follow Admission and Anticipated Discharge Date Admission Date: October 25, 2024 Subjective This patient recommendation is based on a telemedicine consult request which was completed asynchronously through chart review and information provided by the primary physician. The patient was not seen or examined today. The evaluation is consultative in nature and all patient care and treatment decisions can either be accepted or rejected by the patient's primary hospital-based treating physician using their own independent medical judgment for their patient. Time Spent Reviewing Chart: 11 - [address] chest yesterday showed bilateral pneumonia Pt on 7L O2 Results & Data Vital Signs (Past 12 Hours) Vital Signs Temp Pulse Pulse Resp BP Pulse Ox O2 Del Method 10/30/24 07:55 90 20 95 Oxymask 10/30/24 02:58 121/77 10/30/24 02:57 36.6 C 94 H 17 93 10/30/24 00:00 85 10/29/24 22:36 98 H 19 90 10/29/24 22:33 95 H 28 H 92 10/29/24 22:33 36.6 C 112/61 O2 Flow Rate 10/30/24 07:55 7 10/30/24 02:58 10/30/24 02:57 10/30/24 00:00 10/29/24 22:36 10/29/24 22:33 10/29/24 22:33 Laboratory Results Short CBC 10/30/24 Range/Units 04:41 WBC 16.25 H (4.8-10.8) K/ul Hgb 12.8 L (14.0-18.0) g/dl Hct 39.1 L (42.0-52.0) % Plt Count 167 (130-400) K/uL BMP 10/30/24 04:41 Sodium 142 Potassium 3.1 L Chloride 94 L Carbon Dioxide 39 H BUN 32 H Creatinine 1.00 Glucose 111 H Calcium 8.6 Diagnostic Findings Chest X-Ray 10/27/24 19:56 Exam(s): XR CXR 1 VIEW EXAM: XR Chest, 1 View CLINICAL HISTORY: coarse breath sounds. TECHNIQUE: Frontal view of the chest. COMPARISON: No relevant prior studies available. FINDINGS: Lungs: Subsegmental changes noted involving the right mid to lower lung zone. The lungs are otherwise well-aerated. No radiographic evidence for florid CHF. Pleural space: Questionable subtle blunting of the right costophrenic margin. The left costophrenic margin is sharp. Heart: Unremarkable. No cardiomegaly. Mediastinum: No significant abnormality identified. The trachea is midline. Bones/joints: Unremarkable. No acute fracture. Tubes, lines and devices: Nasogastric tube tip in the stomach. IMPRESSION: Subsegmental changes noted involving the right mid to lower lung zone. Questionable subtle blunting of the right costophrenic margin. The primary consideration is right-sided pneumonia with trace pleural effusion. Electronically signed by: Santos Suarez MD 10/27/24 21:15 PM Chest X-Ray 10/29/24 08:23 XR chest 1V portable CLINICAL HISTORY: dyspnea COMPARISON STUDY: 10/27/2024 FINDINGS: Nasogastric tube tip is in the proximal stomach. Heart size and pulmonary vasculature are normal. There is stable stranding opacity at the right base with partial obscuration of the right hemidiaphragm. No pneumothorax. IMPRESSION: Stable exam. ACT 112: Negative or not required by law. Electronically signed by: Blade Rivas M.D. 10/29/2024 10:[address] 10/29/24 10:29 CT chest diagnostic wo con CT DOSE: 801.72 mGy.cm CLINICAL HISTORY: hypoxia/dyspnea. TECHNIQUE: Multiaxial CT images of the chest were performed without contrast. A dose lowering technique was utilized adhering to the principles of ALARA. COMPARISON STUDY: 06/19/2024 FINDINGS: There are mild airway secretions. There is mild bronchial wall thickening consistent with bronchitis. There is moderate to severe emphysema most prominent in the upper lung lobes. There are interval scattered reticular and groundglass opacities in both lungs. Interval large area of dense consolidation at the right lung base with air bronchograms. There are bilateral pleural effusions, small on the right and trace on the left which layer dependently. Nasogastric tube tip is in the body of the stomach. No pneumothorax. No enlarged adenopathy. No pericardial effusion. There are diffuse coronary artery calcifications. There is stable height loss at a few upper and mid thoracic vertebral bodies. There are mild degenerative changes at the thoracic spine. IMPRESSION: Bilateral pneumonia. Recommend follow-up chest CT in 3 months to make sure this completely resolves without underlying pulmonary nodule. ACT 112: Positive. There are findings on this exam that require communication between the performing entity and the patient following Patient Test Result Information Act ([place] Act 112) guidelines. Electronically signed by: Blade Rivas M.D. 10/30/2024 8:27 AM KUB X-Ray 10/30/24 07:00 EXAM: XR KUB/Abdomen 1 view CLINICAL HISTORY: Post op with Nasogastric. TECHNIQUE: X-ray images of the abdomen were obtained in supine and upright positions. COMPARISON: No prior studies available for comparison. FINDINGS: An applied nasogastric tube reaches the stomach shadow, and the side hole is 3 cm below the diaphragm. Pelvic line is seen; clinical correlation is needed. Gas Pattern: The gas pattern within the abdomen is normal. There is no evidence of bowel obstruction or distention. Soft Tissues: The soft tissues of the abdomen appear normal without evidence of masses or calcifications. The liver, spleen, and kidneys are of normal size and position. IMPRESSION: An applied nasogastric tube reaches the stomach shadow, and the side hole is 3 cm below the diaphragm. Electronically signed by Jimmie Navarro 10-30-2024 08:06 AM Medications Administered Current Inpatient Medications Albuterol (Albut/Ipratrop 3mg/0.5mg Neb 3 Ml Vial) 3 ml NEB Q6R CHRISTOPHER; Protocol Stop: 11/28/24 18:59 Last Admin: 10/30/24 07:55 Dose: 3 ml Enoxaparin Sodium (Enoxaparin Inj 40 Mg/0.4 Ml Syr) 40 mg SQ QAM CHRISTOPHER Stop: 11/26/24 08:59 Last Admin: 10/29/24 08:55 Dose: 40 mg Hydromorphone HCl (Hydromorphone Inj 0.5 Mg/0.5 Ml Syr) 0.5 mg IV Q2H PRN PRN Reason: Moderate Pain (4,5,6) on NRS Stop: 11/10/24 08:50 Last Admin: 10/30/24 03:20 Dose: 0.5 mg Hydromorphone HCl (Hydromorphone Inj 1 Mg/Ml Syringe) 1 mg IV Q2H PRN PRN Reason: Severe Pain (7,8,9,10) on NRS Stop: 11/10/24 08:50 Piperacillin Sod/Tazobactam Sod (Zosyn) 4.5 gm in 100 mls @ 25 mls/hr IV Q8H CHRISTOPHER; Protocol Stop: 11/01/24 14:14 Last Admin: 10/30/24 06:15 Dose: 25 mls/hr Famotidine (Pepcid 20mg Iv Push) 20 mg in 5 mls @ 2.5 mls/min IV BID [facility] Stop: 11/25/24 06:29 Last Admin: 10/29/24 21:10 Dose: 2.5 mls/min Dextrose (D10w) 1,000 mls @ 0 mls/hr IV .Q0M PRN PRN Reason: protocol (see label comments) Stop: 10/31/24 11:05 Caspofungin 50 mg/ Sodium (Chloride) 260 mls @ 250 mls/hr IV Q24H [facility]; Protocol Stop: 11/08/24 12:59 Last Infusion: 10/29/24 14:49 Dose: Infused Potassium Chloride (K Sp / Wtr) 10 meq in 100 mls @ 100 mls/hr IV Q1H [facility] Stop: 10/30/24 11:44 Melatonin (Melatonin 3 Mg Tab) 3 mg PO HS PRN PRN Reason: Sleep Stop: 11/26/24 21:16 Menthol (Cough Drop (Sugar Free) Adriel 24 Adriel/1 Box) 1 adriel BUCCAL Q2H PRN PRN Reason: Sore Throat Stop: 11/25/24 08:48 Last Admin: 10/26/24 09:30 Dose: 1 adriel Miscellaneous (Remove Nicoderm Patch) 1 each N/A DAILY@0859 [facility] Stop: 11/26/24 08:58 Last Admin: 10/29/24 08:57 Dose: Not Given Miscellaneous (Stop Clinolipid) 1 each N/A TODAY@04 [facility] Stop: 11/28/24 03:59 Last Admin: 10/29/24 04:20 Dose: 1 each Miscellaneous Information (Tpn/Ppn Consult Pharmacy) 1 each N/A UD PRN PRN Reason: Consult Stop: 11/27/24 11:08 Nicotine (Nicotine 14 Mg/24 Hr Patch) 1 patch TD QAM [facility] Stop: 11/25/24 13:59 Last Admin: 10/29/24 08:57 Dose: Not Given Ondansetron HCl (Ondansetron Inj 2 Mg/Ml 2 Ml Vial) 4 mg IV Q6H PRN PRN Reason: Nausea And Vomiting Stop: 11/24/24 20:17 Last Admin: 10/29/24 17:47 Dose: 4 mg Sodium Chloride (Sodium Chlor 7% 4 Ml Neb) 4 ml NEB Q6R CHRISTOPHER Stop: 11/28/24 18:59 Last Admin: 10/30/24 07:55 Dose: 4 ml
[2024-10-30] MEDS: POTASSIUM CHLORIDE / WTR 10 MEQ/100 ML PLCT IV SCH (10:43)
--- NOTE | 2024-10-30 11:49 | Billing Data ---
Date of Service October 30, 2024 Coding Level of Care Code 76245 SUB INP/OBS CARE
--- NOTE | 2024-10-30 15:43 | Pharmacy Report ---
Pharmacy PN Follow-up Note - Date of Service October 30, 2024 - Subjective Patient is currently on day #2 of PPN for prolonged NPO, awaiting return of bowel function post op. . - Objective Height & Weight (Last Documented) Height 5 ft 7 in Weight 77 kg Diet Order(s) 10/25/24 13:31 NPO Intake & Ouput (24hrs) 10/29/24 10/30/24 10/31/24 06:59 06:59 06:59 Intake Total 860 / 860 2423.000 / 2423.000 200 / 200 Output Total 5430 / 5430 4205 / 4205 350 / 350 Balance -4570 / -4570 -1782.000 / -1782.000 -150 / -150 Selected Laboratory Results 10/30/24 04:41 Sodium 142 Potassium 3.1 L Chloride 94 L Carbon Dioxide 39 H Anion Gap 9 BUN 32 H Creatinine 1.00 BUN/Creatinine Ratio 32.0 H Glucose 111 H Calcium 8.6 Phosphorus 3.7 D Magnesium 2.0 Triglycerides 379 H - Assessment & Plan Assessment: - Per surgery, KUB encouraging but if no ostomy function by tomorrow, patient may need to return to the OR. NG with 1.5L output. PPN was held yesterday due to elevated TGs >600 and other electrolyte shifts. Electrolytes stabilized today and TGs trended down. Per discussion with multidisciplinary team, okay to continue PPN today and will reduce goal lipids to twice a week. Repeat TG ordered for next Monday morning. PPN restarted at initial rate/volume of bag 1. Plan: * For Day #2 of PPN administration, the following will be ordered: * Macronutrients: * Amino Acids: 43 grams/day * Dextrose: 50 grams/day * Lipids: held today, likely 50g Mondays and going forward * Micronutrients: * Sodium chloride: 60 mEq/day * Potassium phosphate: 15 mMol/day * Potassium chloride: 40 mEq/day * Potassium acetate: 20 mEq/day * Calcium gluconate: 4.65 mEq/day * Multivitamins: 10 mL/day * Trace elements: 1 mL/day * Thiamine: 100 mg/day * Total volume of 1081 mL will be infused over 24 hours and will provide 510 kcal/day * Patient is on PPN which has a maximum mOsm/L of 900. Final osmolarity of current solution is 886 mOsm/L. * Labs will be ordered per PN protocol. * Pharmacy will follow and adjust PN orders on a daily basis. Thank you!
[2024-10-30] MEDS: [UNRECOGNIZED DRUG - OTHER] IV SCH (15:47)
[2024-10-30] MEDS: PERIPHERAL TPN IV SCH (15:47)
[2024-10-31 07:07] LABS: Anion Gap 6.0 (3-11); Blood Urea Nitrogen 36.0 mg/dl (6-23); Calcium 8.7 mg/dl (8.6-10.3); Carbon Dioxide 43.0 mmol/L (21-32); Chloride 94.0 mmol/L (98-107); Creatinine Clr Calc Pharmacy 65.7 ml/min; Glucose 146.0 mg/dl (70-99(Fasting)); Magnesium 2.2 mg/dl (1.7-2.4); Potassium 3.4 mmol/L (3.5-5.1); Sodium 143.0 mmol/L (136-145)
--- NOTE | 2024-10-31 07:18 | Hospitalist Progress Note ---
Date of Service October 31, 2024 Assessment & Plan (1) Bowel perforation: (2) Sepsis: (3) Peritonitis: (4) Diverticulitis: (5) Hypotension: (6) Cigarette nicotine dependence: (7) GERD with esophagitis: (8) Aortic insufficiency: (9) Crane esophagus: Plan Mr. Rivera is 74 yo male with history of HTN, dyslipidemia, GERD, aortic insufficiency, barrette's esophagus, presented to ED with acute onset of generalized abdominal pain with distention, subsequently found to have perforated diverticulitis, and underwent laparotomy sigmoid colon with diverting colostomy( 10/25) for perforated diverticulitis. On presentation to ED he met SIRS criteria, blood pressure was persistently low despite fluid management. He was hypotensive at OR as well. Post operatively was shifted to ICU and remains on Levophed infusion. Urine output seems adequate. Pain seems optimized on IV med. Zosyn coverage for infection ongoing. #S/P Laparotomy with colostomy #Bowel Perforation #Ileus - Care per surgery - NG tube clamped - await ostomy output - Pain: management as per surgery - ID on board - Zosyn coverage for GI infection - caspofungin for yeast - OOB per tolerance - labs per surgery #Hypoxia #COPD -hypertonic saline nebs q6hrs -duonebs q6hrs alternating with saline nebs -continue oxymask per protocol #Atrial Fibrillation with RVR likely chronic #Pulmonary Congestion 2/2 to Aortic Regurgitation - Echo 08/28: normal EF, moderate to severe AR. - rates up to 160s - started on Lopressor 2.5mg IV q4hrs for rate control - consider amiodarone if rates do not improve with current regimen - due to pt's recent surgery and blood in ostomy, hold traditional anticoagulation at this time - continue lovenox 40mg daily #Hypokalemia - given 40mEq KCl today - recheck in AM #VANESSA, resolved - Follow BMP #Nicotine dependance - Was on buccal nicotine - on nicotine patch - No s/o nicotine withdrawal #BPH: - Pt remain on grant. - Hold home med #Electrolytes -replaced per surgery Dispo: Tele DVT prophylaxis: lovenox 40mg daily Diet: clear liquid per surgery Admission and Anticipated Discharge Date Admission Date: October 25, 2024 Supervising Physician Co-Signing Physician Notes I personally examined the patient and verified all reilly points of history and exam, discussed case, and agree with decision making with Dr Saravia Extensive discussions with family. Updated best my ability and to their satisfaction. Patient himself notes that he is feeling reasonably well. Breathing is better. No abdominal pain. He has been in A-fib/RVR for the last hour or so, but has no chest pain/palpitation/shortness of breath. Vitals noted, in general he is awake and alert easily confused but no distress. Lungs are overall clear surprisingly, no notable rales rhonchi or wheezes. Abdomen is soft mild to moderate distention nontender even to deep palpation. No guarding rebound or rigidity. Diverticulitis with perforated colon and peritonitis as well as septic shock present on admissionnow doing better, sepsis improving, shock resolved. Continue broad antibiotics, Antifungals, local wound care, supportive care. May need revision of ostomy. At the same time, has had a little bit of gas and surgery is trialing clearshopefully can avoid the OR but if he does not start to show significant progress, it may be necessary. Atrial fibrillation with RVR and possible acute (probably on chronic) diastolic CHF (acute on chronic HFpEF) that was rate relateddaughter notes that at times he has had heart rates in the 140s at home as well, making us both suspect he probably has had paroxysmal A-fib all along. RVR again today but asymptomaticongoing beta-blockade. Once he is out of needing any further surgeries and the expected perioperative bleeding from his previous surgery has resolved, anticoagulation in line with his [id number]. hypoxia/sputum/mucusgiven his overall presentation, CT chest was obtained 10/29yielded findings to my read more consistent with focal infiltrates than anything. radiology agrees. most likely he probably had a pneumonia (likely POA or around the time of admission) that is actively being treated with the current antibiotic regimen, but the mucus from the pneumonia combined with the COPD is creating a fairly long and drawnout catarrhal/expectorant phase. continue to assist with pulmonary toilet (saline nebs, DuoNebs, flutter valve, incentive spirometry). This is improving delirium/metabolic encephalopathy - related to all of above, not unexpected given his severity of illness POA DVT prophylaxisLovenox once the expected degree of postop bleeding has improved, would want to escalate to anticoagulation for his A-fib. Otherwise as above. updated dtrs Subjective No overnight events. Pt said he was feeling pain around his ostomy bag today but it was well controlled. Denies fever, chills, SOB, CP, palpitations/fluttering/skipped beats, N/V, or complaints. Later today, pt went in to A-fib with RVR with rates ranging from 120s to 160s. He was asx. Lopressor 2.5mg was given, which brought the rates lower to 100s to 130s. Lopressor will be scheduled for rate control. Pt is currently not anticoagulated due to possibility of going back to the OR. Review of Systems Review of Systems: reviewed, per HPI Physical Exam Physical Exam: GA: well groomed, well nourished in no apparent distress, trying to sleep. AAOx3 HEENT: head normocephalic, atraumatic. EOMI. NJ tube in. RESP: On oxymask. faint crackles b/l. CARDIOVASCULAR: S1 and S2 heard. No murmurs, rubs, or gallops. Irregularly irregular GI: Diminished bowel sounds, no tenderness or masses felt to palpation, ostomy bag on left side-no output MANN drain on right side with serosanguineous fluid. C/D/I dressing on abdomen at surgical site. MSK: no gross abnormalities or focal deficits SKIN: warm, dry, no edema PSYCH: appropriate mood and affect NEURO: no focal deficits. speech fluent Results & Data Results & Data Vital Signs (Past 12 Hours) Vital Signs Temp Pulse Pulse Resp BP Pulse Ox O2 Del Method 10/31/24 06:03 95 H 22 95 Oxymask 10/31/24 04:30 36.7 C 93 H 13 117/76 94 Oxymask 10/31/24 01:15 36.8 C 87 21 129/69 93 Oxymask 10/31/24 00:00 90 10/31/24 00:00 101 H 24 94 Oxymask 10/30/24 20:58 124/80 10/30/24 20:45 Oxymask 10/30/24 20:15 36.7 C 10/30/24 20:05 97 H 18 93 Oxymask 10/30/24 20:00 94 H 21 93 Oxymask O2 Flow Rate 10/31/24 06:03 7 10/31/24 04:30 7 10/31/24 01:15 7 10/31/24 00:00 10/31/24 00:00 7 10/30/24 20:58 10/30/24 20:45 7 10/30/24 20:15 10/30/24 20:05 7 10/30/24 20:00 7 Resident Activity Tracking Resident Involvement: Resident Care Provided Care Provided: Adult Hospital Medicine (2) Sepsis Sepsis type: sepsis due to unspecified organism Severe sepsis acute organ dysfunction type: unspecified Severe sepsis shock status: without septic shock (5) Hypotension Hypotension type: unspecified hypotension type Qualified Code(s): I95.9 - Hypotension, unspecified
[2024-10-31 07:59] LABS: iSTAT Art Bld Gas Base Excess 21.0 mmol/L (-9-1.8); iSTAT Art Bld Gas pCO2 Correct 51 mmHg (35-46); iSTAT Art Bld Gas pH Corrected 7.539 (7.35-7.45); iSTAT Arterial Blood Gas pO2 C 66
[2024-10-31 08:05] LABS: Base Excess VBG 20.9 mEq/L; HCO3 VBG 47 mmol/L; Oxygen Saturation VBG 66.6 %; PCO2 VBG 58 mmHg (38-50); PO2 VBG 36 mmHg; pH VBG 7.52 (7.36-7.41)
[2024-10-31 08:10] LABS: Hematocrit (blood only) 38.1 % (42.0-52.0); Hemoglobin 13.0 g/dl (14.0-18.0); Mean Corpuscular Hemoglobin 30.8 pg (25.0-34.0); Mean Corpuscular Volume 90.3 fL (80.0-100.0); Platelet Count 232 K/uL (130-400); RDW Standard Deviation 44.7 fL (36.4-46.3); Red Blood Count 4.22 M/uL (4.70-6.10); White Blood Count 16.02 K/ul (4.8-10.8)
[2024-10-31 08:42] LABS: Immature Granulocytes # (auto) 0.80 K/uL (0.01-0.20); Immature Granulocytes % (auto) 5.0 %
[2024-10-31] MEDS ORDERED: MIDAZOLAM HCL 1 MG/ML 2ML VIAL ONE (11:27)
[2024-10-31 11:51] LABS: Anion Gap 9.0 (3-11); Blood Urea Nitrogen 36.0 mg/dl (6-23); Calcium 8.7 mg/dl (8.6-10.3); Carbon Dioxide 40.0 mmol/L (21-32); Chloride 95.0 mmol/L (98-107); Creatinine Clr Calc Pharmacy 69.4 ml/min; Glucose 150.0 mg/dl (70-99(Fasting)); Potassium 3.1 mmol/L (3.5-5.1); Sodium 144.0 mmol/L (136-145)
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
--- NOTE | 2024-10-31 12:18 | Surgery Progress Note ---
Date of Service October 31, 2024 Assessment & Plan (1) Bowel perforation: Plan: Colostomy still tenuous, plan was for redo today but with more gas coming through will hold off Continue NG with clamping trial If ostomy does not continue to progress then will need redo of his colostomy. Admission and Anticipated Discharge Date Admission Date: October 25, 2024 Subjective Pain controlled Hungry Ostomy began with some gaseous output but no solid output Review of Systems Constitutional: no fever and no chills Respiratory: no dyspnea Cardiovascular: no chest pain Gastrointestinal: + abdominal pain; no nausea and no vomit ing Neurologic: + generalized weakness Psychiatric: no behavioral changes Physical Exam Constitutional: WD/WN, vitals as above Respiratory: normal respiratory effort Cardiovascular: Rate/Rhythm: regular rate and regular rhythm Gastrointestinal (Abdomen): Inspection/Auscultation: abdomen normal to inspection; abdomen not distended Percussion/Palpation: + abdomen tender and abdomen soft Ostomy purple but viable with gas in the bag. Results & Data Vital Signs (Past 12 Hours) Vital Signs Temp Pulse Pulse Resp BP Pulse Ox O2 Del Method 10/31/24 07:48 95 H 18 94 Oxymask 10/31/24 06:03 95 H 22 95 Oxymask 10/31/24 04:30 36.7 C 93 H 13 117/76 94 Oxymask 10/31/24 01:15 36.8 C 87 21 129/69 93 Oxymask O2 Flow Rate 10/31/24 07:48 4 10/31/24 06:03 7 10/31/24 04:30 7 10/31/24 01:15 7
[2024-10-31] MEDS ORDERED: ROCURONIUM BROMIDE 10 MG/ML 5 ML VIAL IV ONE ×2 (12:44→21:34)
[2024-10-31] MEDS ORDERED: LIDOCAINE 2% 2 ML VIAL/AMP(20MG/ML) INFIL ONE ×3 (12:44→21:34)
[2024-10-31] MEDS ORDERED: PROPOFOL IV EMULSION 10 MG/ML 20 ML VIAL IV ONE ×2 (12:44→21:34)
[2024-10-31] MEDS: METOPROLOL TARTRATE 1 MG/ML VIAL IV STA (13:10)
[2024-10-31] MEDS: METOPROLOL TARTRATE 1 MG/ML VIAL IV ONE (13:21)
[2024-10-31] MEDS: POTASSIUM CHLORIDE / WTR 10 MEQ/100 ML PLCT IV SCH (13:25)
--- NOTE | 2024-10-31 13:59 | Pharmacy Report ---
Pharmacy PN Follow-up Note - Date of Service October 31, 2024 - Subjective Patient is currently on day #3 of PPN for prolonged NPO status s/p ex lap with ostomy placement. - Objective Height & Weight (Last Documented) Height 5 ft 7 in Weight 77 kg Diet Order(s) 10/25/24 13:31 NPO Intake & Ouput (24hrs) 10/30/24 10/31/24 11/01/24 06:59 06:59 06:59 Intake Total 2423.000 / 2423.000 960 / 960 Output Total 5055 / 5055 2525 / 2525 Balance -2632.000 / -2632.000 -1565 / -1565 Selected Laboratory Results 10/31/24 10/31/24 04:55 11:15 Sodium 143 144 Potassium 3.4 L 3.1 L Chloride 94 L 95 L Carbon Dioxide 43 H* 40 H Anion Gap 6 9 BUN 36 H 36 H Creatinine 0.95 0.90 BUN/Creatinine Ratio 37.9 H 40.0 H Glucose 146 H 150 H Calcium 8.7 8.7 Phosphorus 3.5 Magnesium 2.2 - Assessment & Plan Assessment: 10/31: * Patient will not go back to the OR today. Surgery following daily and may return to OR in coming days for replacement of the ostomy. * NG still with significant output. Electrolytes are improving but still not at goal. Potassium and chloride are low today. CO2 is elevated. ABG does show a respiratory alkalosis. 40 mEq IV KCl recommended to resident team today. Will remove acetate from bag today. * Will order LFTs and CBC per policy for Monday to go with triglycerides. 50 g of Lipids will be given today given downtrend in triglycerides. Only doing Lipids on Monday and . * Will not advance macronutrients given low K and difficulties with osmolarity in PPN. Recommended placing central line in the next 24-48 hours to primary team given electrolyte needs and low kcals in PPN. 10/30: * Per surgery, KUB encouraging but if no ostomy function by tomorrow, patient may need to return to the OR. NG with 1.5L output. PPN was held yesterday due to elevated TGs >600 and other electrolyte shifts. Electrolytes stabilized today and TGs trended down. Per discussion with multidisciplinary team, okay to continue PPN today and will reduce goal lipids to twice a week. Repeat TG ordered for next Monday morning. PPN restarted at initial rate/volume of bag 1. Plan: * For Day #3 of PPN administration, the following will be ordered: * Macronutrients: * Amino Acids: 43 grams/day * Dextrose: 50 grams/day * Lipids: 50 grams on Mondays & * Micronutrients: * Sodium chloride: 60 mEq/day * Potassium phosphate: 15 mMol/day * Potassium chloride: 60 mEq/day * Calcium gluconate: 4.65 mEq/day * Multivitamins: 10 mL/day * Trace elements: 1 mL/day * Thiamine: 100 mg/day * Total volume of 1081 mL will be infused over 24 hours and will provide 840 kcal/day * Patient is on PPN which has a maximum mOsm/L of 900. Final osmolarity of current solution is 887 mOsm/L. * Labs will be ordered per PN protocol. * Pharmacy will follow and adjust PN orders on a daily basis. Thank you!
[2024-10-31] MEDS: METOPROLOL TARTRATE 1 MG/ML VIAL IV SCH (14:50)
--- NOTE | 2024-10-31 16:45 | Billing Data ---
Date of Service October 31, 2024 Coding Level of Care Code 64212 SUB INP/OBS CARE MIN
[2024-10-31] MEDS: [UNRECOGNIZED DRUG - OTHER] IV SCH (20:29)
[2024-10-31] MEDS: PERIPHERAL TPN IV SCH (20:29)
[2024-10-31] MEDS: CLINOLIPID 20% IV FAT EMULSION 250 ML IV SCH (20:30)
--- NOTE | 2024-10-31 21:28 | Communication Note ---
Date of Service: October 31, 2024 This is a 74-year-old male who underwent previous surgical procedure with Dr. Courtney of [facility] general surgery on 10/25/2024. On this date the patient was noted to have diverticulitis with an intestinal perforation and pneumoperitoneum requiring exploratory laparotomy and diverting ostomy. Patient has remained hospitalized ever since this procedure. There is concern the patient's ostomy is not functioning and there were plans for taking patient back to the operating room today for an ostomy revision, however this was canceled as the patient's ostomy reportedly started working. I was contacted by the nurse attending to the patient at 9:01 PM. I responded at the bedside immediately. She notes that the patient was doing well but he sullivan d a forceful coughing spell and subsequently had a dehiscence of his midline incision with evisceration of abdominal organs. At the bedside the patient was noted to be hemodynamically stable with a blood pressure of 108/66 and a pulse of 89. He is noted to be afebrile and his oxygen saturation is 95% on 7 L via oxygen mask. On physical exam patient's midline incision is noted to be open with bowel and fat protruding through the incision. Due to this change in patient's clinical status I notified my attending, Dr. Dain Cabrera, of [facility] with general surgery and our plans are to take the patient back to the operating room emergently for exploratory laparotomy. I did explain to the patient that it is unclear exactly what surgical procedure he will need until we are able to thoroughly explore his wound to determine the best course of action. I did discuss with the nurse attending to the patient and the patient is currently not receiving any blood thinners. He did have subcutaneous Lovenox for DVT prevention ordered but this was held this morning due to potential planned surgery. The patient is receiving antibiotics in the form of Zosyn and antifungals in the form of caspofungin. According to the patient he did eat some Jell-O at approximately 6:00 PM, but he does have an NG tube in place. Will proceed to the operating room emergently due to the events noted above. The OR has been notified and we are waiting room availability. Attending addendum: The patient had a coughing spell earlier this evening and eviscerated. Will take him emergently back to the OR for exploratory laparotomy. Consent was obtained and risks discussed including bleeding, infection, nonhealing wound, injury to surrounding structures.
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
[2024-10-31] MEDS ORDERED: ATROPINE SULFATE 0.1 MG/ML 10ML SYR IV PRN (21:51)
[2024-10-31] MEDS ORDERED: HYDROmorphone INJ 1 MG/ML SYRINGE IV PRN (21:51)
[2024-10-31] MEDS ORDERED: ONDANSETRON INJ 2 MG/ML 2 ML VIAL IV PRN (21:51)
[2024-10-31] MEDS ORDERED: PROMETHAZINE HCL 6.25 MG in SODIUM CHLORIDE 0.9% 50 ML IV PRN (21:51)
--- NOTE | 2024-10-31 22:07 | Communication Note ---
Date of Service: October 31, 2024 Nurse alerted me via TT around 20:50 that patient's abdominal dressing had increased drainage/bleeding and looks as though his abdominal organs may be visible coming out of them. Advised nurse to alert surgical team. Went to bedside. Pt notes increased pain around the incision. Dressing uncovered; abdominal wound with a loop of intestines hanging outside of the incision. Surgical PA-C also came to bedside and alerted surgical attending and decision was made to take him to the OR immediately. Hemodynamically stable prior to surgery. Advised nurse to keep me updated overnight. Resident Activity Tracking Resident Involvement: Resident Care Provided Care Provided: Adult Hospital Medicine
[2024-10-31] MEDS ORDERED: SUCCINYLCHOLINE CHLORIDE 20 MG/ML 10 ML VIAL IV ONE (22:22)
[2024-10-31] MEDS ORDERED: VASOPRESSIN 20 UNIT/ML VIAL ONE (22:37)
[2024-10-31] MEDS ORDERED: ONDANSETRON INJ 2 MG/ML 2 ML VIAL ONE (23:03)
[2024-10-31] MEDS ORDERED: DEXAMETHASONE SOD INJ 4 MG/ML VIAL ONE (23:04)
[2024-10-31] MEDS ORDERED: SUGAMMADEX SODIUM 200 MG/2 ML VIAL IV ONE (23:33)
--- NOTE | 2024-10-31 23:50 | Post Operative Brief Note ---
PG Immediate Post Op with CF Date of Surgery October 31, 2024 Pre & Post Diagnosis Operation Date: 10/31/24 21:20 Pre-Op Diagnosis: dehiscence of midline incision with evisceration of abdominal organs Post-Op Diagnosis: dehiscence of midline incision with evisceration of abdominal organs I identified the patient and participated in the time-out.: Yes Procedure Operation Date: 10/31/24 21:20 Actual Procedures p Exploratory Laparotomy, abdominal washout, closure of abdominal wall (Not Applicable) - Dain Cabrera DO Surgeon Dain Cabrera DO Aboriginal Education Worker Coordinator Isai Meyer PA-C Estimated Blood Loss 25 Findings See Below Evisceration of small bowel through midline incision Healthy appearing colostomy Specimens Specimen Description: none per surgeon Drains Crow Catheter Anesthesia Type General Complications none Disposition Disposition: Recovery Room
--- NOTE | 2024-10-31 23:55 | Operative Report ---
PG Post Operative Report Pre & Post Diagnosis Operation Date: 10/31/24 21:20 Pre-Op Diagnosis: dehiscence of midline incision with evisceration of abdominal organs Post-Op Diagnosis: dehiscence of midline incision with evisceration of abdominal organs I identified the patient and participated in the time-out.: Yes Procedure Operation Date: 10/31/24 21:20 Actual Procedures p Exploratory Laparotomy, abdominal washout, closure of abdominal wall (Not Applicable) - Dain Cabrera DO Surgeon Dain Cabrera DO Oncology Rep Isai Meyer PA-C Estimated Blood Loss 25 Findings See Below Evisceration of small bowel through midline incision Healthy appearing colostomy Specimens None Drains None Anesthesia Type General Complications none Disposition Accompanied Patient To Recovery: No Disposition: Recovery Room Indications 74-year-old male who is postoperative day 6 from a Breana's procedure with fascial dehiscence and evisceration Description of Procedure The patient was brought to the OR and placed in the supine position with both arms abducted. At this time he underwent general endotracheal anesthesia without any problems. He was given appropriate pre-operative antibiotics. His abdomen was prepped and draped in the usual sterile fashion. Timeout was called. The procedure was verified as Exploratory laparotomy, abdominal washout and abdominal wall closure.. Surgical, anesthesia and nursing teams agreed and the procedure was begun. At this time the small bowel was freed up from the incision bluntly and easily replaced back into the abdominal cavity. I was then able to bluntly free up the omentum which was eviscerated through the superior portion of the incision and placed it back in the abdominal cavity. At this time the old PDS suture was removed. There was some adhesions to the abdominal wall that were bluntly lysed abutting the colostomy. The colostomy was visualized and appeared healthy. At this time the abdomen was washed out using multiple liters of warm saline. At this time the skin incision was lengthened and the cranial and caudad direction in order to identify healthy appearing fascia. The skin and subcutaneous tissue was then freed up from the underlying fascia to minimize tension for the length of the incision. Hemostasis was achieved using electrocautery. Hemostasis was complete. The fascia was then closed in a running fashion using 2 #1 looped PDS suture starting superiorly and inferiorly and meeting in the middle. 3 separate #1 interrupted Prolene sutures were placed in the fascia evenly spaced. Wet-to-dry saline dressing was placed in the incision and the skin left open. Sterile dressing was applied. All ne edle and sponge counts were correct x 2. At this point the patient was awakened from anesthesia, and transported to PACU in stable condition. The physician operator assistant i cementing was present and scrubbed for the entirety of the case. He was critical in positioning the patient, prepping and draping, retraction and exposure, closure of the incision and placement of the dressings. I attest to the content of the Intraoperative Record and any orders documented therein. Any exceptions are noted below.
--- NOTE | 2024-11-01 01:14 | Anesthesiology Progress Note ---
Date of Service November 01, 2024 Anesthesia Post Procedure Vital Signs Vital Signs: Temp Pulse Pulse Resp BP BP Pulse Ox 11/01/24 01:03 93 H 123/76 11/01/24 00:32 36.5 C 86 20 138/74 98 11/01/24 00:22 36.5 C 88 20 136/67 97 11/01/24 00:12 36.4 C L 85 18 124/71 92 11/01/24 00:02 36.4 C L 87 20 135/76 95 10/31/24 21:42 90 18 10/31/24 21:06 88 20 95 10/31/24 21:00 126/82 10/31/24 20:49 89 18 95 10/31/24 20:16 91 H 25 H 111/72 96 10/31/24 19:03 101 H 20 97 10/31/24 18:36 99 H 17 96 10/31/24 18:06 100 H 25 H 97 10/31/24 17:33 100 H 19 88 L 10/31/24 17:09 103 H 24 89 L 10/31/24 16:47 108/66 10/31/24 16:47 108/66 10/31/24 16:36 108 H 19 94 10/31/24 16:30 105 H 21 96 10/31/24 16:15 156 H 19 96 10/31/24 16:00 98 H 10/31/24 15:57 83/68 L 10/31/24 15:39 123 H 23 97 10/31/24 15:30 131 H 21 97 10/31/24 15:05 106 H 108/66 10/31/24 15:00 150 H 22 97 10/31/24 14:51 102/71 10/31/24 14:51 141 H 22 96 10/31/24 14:50 143 H 102/71 10/31/24 14:30 118 H 18 10/31/24 14:03 136 H 23 97 10/31/24 13:36 121 H 23 95 10/31/24 13:33 96/75 L 10/31/24 13:33 96/75 L 10/31/24 13:25 118 H 96/75 L 10/31/24 13:24 105 H 20 98 10/31/24 13:10 151 H 123/92 10/31/24 13:00 161 H 18 93 09/25/25 12:55 123/92 10/31/24 12:55 123/92 10/31/24 12:55 123/92 10/31/24 12:54 168 H 18 92 10/31/24 12:33 144 H 18 91 10/31/24 12:03 103 H 22 96 10/31/24 11:36 100 H 18 95 10/31/24 11:09 103 H 19 94 10/31/24 10:30 105 H 21 95 10/31/24 10:15 105 H 34 H 95 10/31/24 09:30 104 H 19 95 10/31/24 09:03 103 H 19 93 10/31/24 08:33 103 H 19 93 10/31/24 08:07 127/83 10/31/24 08:07 127/83 10/31/24 08:00 95 H 10/31/24 07:48 95 H 18 94 10/31/24 07:45 97 H 21 96 10/31/24 07:30 96 H 23 94 10/31/24 07:30 10/31/24 07:00 91 H 20 93 10/31/24 06:36 98 H 18 95 10/31/24 06:03 95 H 22 95 10/31/24 04:30 36.7 C 93 H 13 117/76 94 10/31/24 01:15 36.8 C 87 21 129/69 93 O2 Del Method O2 Flow Rate 11/01/24 01:03 11/01/24 00:32 Oxymask 6 11/01/24 00:22 Oxymask 6 11/01/24 00:12 Oxymask 6 11/01/24 00:02 Oxymask 6 10/31/24 21:42 10/31/24 21:06 Oxymask 7 10/31/24 21:00 10/31/24 20:49 Oxymask 7 10/31/24 20:16 Oxymask 7 10/31/24 19:03 10/31/24 18:36 10/31/24 18:06 10/31/24 17:33 10/31/24 17:09 10/31/24 16:47 10/31/24 16:47 10/31/24 16:36 10/31/24 16:30 10/31/24 16:15 10/31/24 16:00 10/31/24 15:57 10/31/24 15:39 10/31/24 15:30 10/31/24 15:05 10/31/24 15:00 10/31/24 14:51 10/31/24 14:51 10/31/24 14:50 10/31/24 14:30 10/31/24 14:03 10/31/24 13:36 10/31/24 13:33 10/31/24 13:33 10/31/24 13:25 10/31/24 13:24 10/31/24 13:10 10/31/24 13:00 10/31/24 12:55 10/31/24 12:55 10/31/24 12:55 10/31/24 12:54 10/31/24 12:33 10/31/24 12:03 10/31/24 11:36 10/31/24 11:09 10/31/24 10:30 10/31/24 10:15 10/31/24 09:30 10/31/24 09:03 10/31/24 08:33 10/31/24 08:07 10/31/24 08:07 10/31/24 08:00 10/31/24 07:48 Oxymask 4 10/31/24 07:45 10/31/24 07:30 10/31/24 07:30 Oxymask 7 10/31/24 07:00 10/31/24 06:36 10/31/24 06:03 Oxymask 7 10/31/24 04:30 Oxymask 7 10/31/24 01:15 Oxymask 7 Pain Intensity Right Lower Abdomen: Pain Intensity: 10 Transfer of Care Handoff Completed per policy Notes Mental Status: alert / awake / arousable and participated in evaluation Patient Amnestic to Procedure: Yes Nausea / Vomiting: adequately controlled Pain: adequately controlled Airway Patency, RR, SpO2: stable & adequate BP & HR: stable & adequate Hydration State: stable & adequate Anesthetic Complications: no major complications apparent
[2024-11-01] MEDS: HYDROmorphone INJ 1 MG/ML SYRINGE IV PRN (01:19)
[2024-11-01] MEDS: HYDROmorphone INJ 1 MG/ML SYRINGE IV STA (02:51)
[2024-11-01] MEDS ORDERED: STOP CLINOLIPID SCH (04:00)
[2024-11-01 05:37] LABS: Hematocrit (blood only) 36.1 % (42.0-52.0); Hemoglobin 12.3 g/dl (14.0-18.0); Mean Corpuscular Hemoglobin 30.7 pg (25.0-34.0); Mean Corpuscular Volume 90.0 fL (80.0-100.0); Platelet Count 314 K/uL (130-400); RDW Standard Deviation 44.1 fL (36.4-46.3); Red Blood Count 4.01 M/uL (4.70-6.10); White Blood Count 23.59 K/ul (4.8-10.8)
[2024-11-01] MEDS ORDERED: Nursing to Pharmacy Communication SCH (05:45)
[2024-11-01 06:17] LABS: Anion Gap 8.0 (3-11); Blood Urea Nitrogen 39.0 mg/dl (6-23); Calcium 7.8 mg/dl (8.6-10.3); Carbon Dioxide 37.0 mmol/L (21-32); Chloride 97.0 mmol/L (98-107); Creatinine Clr Calc Pharmacy 63.1 ml/min; Glucose 167.0 mg/dl (70-99(Fasting)); Magnesium 2.1 mg/dl (1.7-2.4); Potassium 3.6 mmol/L (3.5-5.1); Sodium 142.0 mmol/L (136-145)
[2024-11-01 06:27] LABS: Immature Granulocytes # (auto) 0.93 K/uL (0.01-0.20); Immature Granulocytes % (auto) 3.9 %
--- NOTE | 2024-11-01 07:21 | Hospitalist Progress Note ---
Date of Service November 01, 2024 Assessment & Plan (1) Bowel perforation: (2) Sepsis: (3) Peritonitis: (4) Diverticulitis: (5) Hypotension: (6) Cigarette nicotine dependence: (7) GERD with esophagitis: (8) Aortic insufficiency: (9) Crane esophagus: Plan Mr. Rivera is 74 yo male with history of HTN, dyslipidemia, GERD, aortic insufficiency, barrette's esophagus, presented to ED with acute onset of generalized abdominal pain with distention, subsequently found to have perforated diverticulitis, and underwent laparotomy sigmoid colon with diverting colostomy( 10/25) for perforated diverticulitis. On presentation to ED he met SIRS criteria, blood pressure was persistently low despite fluid management. He was hypotensive at OR as well. Post operatively was shifted to ICU and remains on Levophed infusion. Urine output seems adequate. Pain seems optimized on IV med. Zosyn coverage for infection ongoing. #S/P Laparotomy with colostomy #Bowel Perforation #Ileus - Care per surgery - NG tube - await ostomy output - Pain: management as per surgery - ID on board - Zosyn coverage for GI infection - caspofungin for yeast - OOB per tolerance - labs per surgery - PICC line for TPN #Hypoxia #COPD -hypertonic saline nebs q6hrs -duonebs q6hrs alternating with saline nebs -continue oxymask per protocol #Atrial Fibrillation with RVR likely chronic #Pulmonary Congestion 2/2 to Aortic Regurgitation - Echo 08/28: normal EF, moderate to severe AR. - rates currently controlled - Lopressor 2.5mg IV q4hrs for rate control - consider amiodarone if rates do not improve with current regimen - due to pt's recent surgery, hold traditional anticoagulation at this time - continue lovenox 40mg daily #Hypokalemia, resolved - will monitor #VANESSA, resolved - Follow BMP #Nicotine dependance - Was on buccal nicotine - on nicotine patch - No s/o nicotine withdrawal #BPH: - Pt remain on grant. - Hold home med #Electrolytes -replaced per surgery Dispo: Tele DVT prophylaxis: lovenox 40mg daily Diet: NPO to TPN Admission and Anticipated Discharge Date Admission Date: October 25, 2024 Supervising Physician Co-Signing Physician Notes I personally examined the patient and verified all reilly points of history and exam, discussed case, and agree with decision making with Dr Saravia coughed, dehisced his wounds, and had abdominal contents visible last night. Taken emergently to the OR. Surgery input greatly appreciated. Today, understandably, he is a bit more delirious and more sleepy, but whenever he wakes up he offers no complaints. No significant abdominal pain or shortness of breath. Updated family extensively. Vitals noted, in general he is awake and alert easily confused but no distress. Lungs are overall clear surprisingly, no notable rales rhonchi or wheezes. Abdomen is soft mild to moderate distention nontender no guarding rebound or rigidity. Diverticulitis with perforated colon and peritonitis as well as septic shock present on admissionnow doing better, sepsis improving, shock resolved. Wound dehiscence and evisceration last nightgreatly appreciate surgical assistance. Back to n.p.o. with NG. Continue antibiotics and antifungals. What sounds to probably be severe protein calorie malnutritionin discussing the dehiscence with the family, I noted that I was concerned about his underlying nutritional status being a reason for the wound to dehisce so easily (with a cough) and so far post op. With this opening the discussion, the daughters did note that while it was probably subtle, they are now with hindsight seeing that the patient was eating fairly poorly over the last few months and I believe losing some weight. Certainly severe protein calorie malnutrition at play would explain all of this. PICC line and TPN for now. Discussed nutritional goals with family, discussed that this will be a long-term process and as an underlying part of his illness, a very critical piece for him to be able to recover. To be clear, and gathering the story from the daughters, the protein calorie malnutrition appears to have been present on admission. Atrial fibrillation with RVR and possible acute (probably on chronic) diastolic CHF (acute on chronic HFpEF) that was rate relateddaughter notes that at times he has had heart rates in the 140s at home as well, making us both suspect he probably has had paroxysmal A-fib all along. Rate controlled today. Continue beta-sara. Once he is out of needing any further surgeries and the expected perioperative bleeding from his previous surgery has resolved, anticoagulation in line with his [id number]. hypoxia/sputum/mucusgiven his overall presentation, CT chest was obtained 10/29yielded findings to my read more consistent with focal infiltrates than anything. radiology agrees. most likely he probably had a pneumonia (likely POA or around the time of admission) that is actively being treated with the current antibiotic regimen, but the mucus from the pneumonia combined with the COPD is creating a fairly long and drawn out catarrhal/expectorant phase. continue to assist with pulmonary toilet (saline nebs, DuoNebs, flutter valve, incentive spirometry). This is improving. No changes for this today delirium/metabolic encephalopathy - related to all of above, not unexpected given his severity of illness POA. Discussed with family in depth DVT prophylaxisLovenox once the expected degree of postop bleeding has improved, would want to escalate to anticoagulation for his A-fib. Otherwise as above. very complex patient. updated dtrs Subjective Overnight events: Pt had a coughing spell that caused evisceration of abdominal contents through incision site. He was taken to the OR immediately for ex lap and washout. Pt remained stabled throughout the night. This morning at bedside, pt is experiencing abdominal pain but not requiring additional pain medications at this point. He denies fever, chills, SOB, CP, or complaints. He is stable and his A-fib has been rate controlled. Review of Systems Review of Systems: reviewed, per HPI Physical Exam Physical Exam: GA: well groomed, well nourished in no apparent distress, trying to sleep. AAOx3 HEENT: head normocephalic, atraumatic. EOMI. [place] tube in. RESP: On oxymask. faint crackles b/l. CARDIOVASCULAR: S1 and S2 heard. No murmurs, rubs, or gallops. 2+ RRR GI: Diminished bowel sounds, no tenderness or masses felt to palpation, nondistended, ostomy bag on left side-no output. C/D/I dressing on abdomen at surgical site. MSK: no gross abnormalities or focal deficits SKIN: warm, dry, no edema PSYCH: appropriate mood and affect NEURO: no focal deficits. speech fluent Results & Data Results & Data Vital Signs (Past 12 Hours) Vital Signs Temp Pulse Pulse Resp BP BP Pulse Ox 11/01/24 06:15 96 H 18 83 L 11/01/24 06:00 89 115/73 11/01/24 06:00 115/73 11/01/24 05:31 94 H 118/64 11/01/24 05:30 94 H 11 L 94 11/01/24 04:00 123/77 11/01/24 02:00 120/75 11/01/24 01:30 122/63 11/01/24 01:30 89 122/63 11/01/24 01:03 93 H 123/76 11/01/24 01:00 123/76 11/01/24 00:57 92 H 17 95 11/01/24 00:45 120/63 11/01/24 00:42 88 16 96 11/01/24 00:40 118/71 11/01/24 00:32 36.5 C 86 20 138/74 98 11/01/24 00:22 36.5 C 88 20 136/67 97 11/01/24 00:20 89 11/01/24 00:12 36.4 C L 85 18 124/71 92 11/01/24 00:02 36.4 C L 87 20 135/76 95 10/31/24 21:42 90 18 10/31/24 21:06 88 20 95 10/31/24 21:00 10/31/24 21:00 126/82 10/31/24 20:49 89 18 95 10/31/24 20:16 91 H 25 H 111/72 96 O2 Del Method O2 Flow Rate 11/01/24 06:15 11/01/24 06:00 11/01/24 06:00 11/01/24 05:31 11/01/24 05:30 11/01/24 04:00 11/01/24 02:00 11/01/24 01:30 11/01/24 01:30 11/01/24 01:03 11/01/24 01:00 11/01/24 00:57 11/01/24 00:45 11/01/24 00:42 11/01/24 00:40 11/01/24 00:32 Oxymask 6 11/01/24 00:22 Oxymask 6 11/01/24 00:20 11/01/24 00:12 Oxymask 6 11/01/24 00:02 Oxymask 6 10/31/24 21:42 10/31/24 21:06 Oxymask 7 10/31/24 21:00 Oxymask 7 10/31/24 21:00 10/31/24 20:49 Oxymask 7 10/31/24 20:16 Oxymask 7 Resident Activity Tracking Resident Involvement: Resident Care Provided Care Provided: Adult Hospital Medicine (2) Sepsis Sepsis type: sepsis due to unspecified organism Severe sepsis acute organ dysfunction type: unspecified Severe sepsis shock status: without septic shock (5) Hypotension Hypotension type: unspecified hypotension type Qualified Code(s): I95.9 - Hypotension, unspecified
--- NOTE | 2024-11-01 09:37 | Surgery Progress Note ---
Date of Service November 01, 2024 Assessment & Plan (1) Bowel perforation: Plan: Twice daily wet-to-dry dressing changes Continue NG tube n.p.o. at this time Lovenox for DVT prophylaxis Await ostomy function Admission and Anticipated Discharge Date Admission Date: October 25, 2024 Subjective Patient seen and examined. Pain controlled. No ostomy output since surgery. Afebrile. Hemodynamically stable. Physical Exam Constitutional: WD/WN, vitals as above Gastrointestinal (Abdomen): Inspection/Auscultation: abdomen normal to inspection; abdomen not distended Soft, appropriately tender to palpation, ostomy in left lower quadrant retracted without output Results & Data Vital Signs (Past 12 Hours) Vital Signs Temp Pulse Pulse Resp BP BP Pulse Ox 11/01/24 08:43 11/01/24 08:42 11/01/24 08:39 83 105/63 11/01/24 08:10 93 H 116/70 11/01/24 08:03 90 21 97 11/01/24 08:02 91 H 17 95 11/01/24 08:00 116/70 11/01/24 08:00 88 11/01/24 07:42 96 H 16 93 11/01/24 07:36 98 H 15 96 11/01/24 07:00 91 H 15 93 11/01/24 06:15 96 H 18 83 L 11/01/24 06:00 89 115/73 11/01/24 06:00 115/73 11/01/24 05:31 94 H 118/64 11/01/24 05:30 94 H 11 L 94 11/01/24 04:00 123/77 11/01/24 02:00 120/75 11/01/24 01:30 122/63 11/01/24 01:30 89 122/63 11/01/24 01:03 93 H 123/76 11/01/24 01:00 123/76 11/01/24 00:57 92 H 17 95 11/01/24 00:45 120/63 11/01/24 00:42 88 16 96 11/01/24 00:40 118/71 11/01/24 00:32 36.5 C 86 20 138/74 98 11/01/24 00:22 36.5 C 88 20 136/67 97 11/01/24 00:20 89 11/01/24 00:12 36.4 C L 85 18 124/71 92 11/01/24 00:02 36.4 C L 87 20 135/76 95 10/31/24 21:42 90 18 Pulse Ox O2 Del Method O2 Del Method O2 Flow Rate O2 Flow Rate 11/01/24 08:43 Oxymask 6 11/01/24 08:42 94 Oxymask 6 11/01/24 08:39 11/01/24 08:10 11/01/24 08:03 Oxymask 6 11/01/24 08:02 Oxymask 6 11/01/24 08:00 11/01/24 08:00 11/01/24 07:42 11/01/24 07:36 11/01/24 07:00 11/01/24 06:15 11/01/24 06:00 11/01/24 06:00 11/01/24 05:31 11/01/24 05:30 11/01/24 04:00 11/01/24 02:00 11/01/24 01:30 11/01/24 01:30 11/01/24 01:03 11/01/24 01:00 11/01/24 00:57 11/01/24 00:45 11/01/24 00:42 11/01/24 00:40 11/01/24 00:32 Oxymask 6 11/01/24 00:22 Oxymask 6 11/01/24 00:20 11/01/24 00:12 Oxymask 6 11/01/24 00:02 Oxymask 6 10/31/24 21:42 PG Care Time/CCT Total # of Minutes Spent Total Time Spent with Patient: Total time spent is greater than 50% in coordination of care (as documented) at patient's floor/unit and/or counseling patient: Coding Level of Care Code 42583 Post Operative Follow-Up Diagnoses Bowel perforation K63.1
--- NOTE | 2024-11-01 10:17 | Infectious Disease Progress Nt ---
Date of Service November 01, 2024 Assessment & Plan (1) Bowel perforation: (2) Peritonitis: Plan Problems: #Perforated diverticulitis s/p ex lap, bowel resection, colostomy (10/25/24) #Feculent peritonitis #Pneumonia Micro: 10/25 Peritoneal fluid cx: Clostridium perfringens, mod counts of probable intestinal mario. GS GNRs, GPRs, GPCs, yeast Abx: Caspofungin 10/28 - present Zosyn 10/25 - present Clindamycin 10/27 - 10/28 74 yo M with HTN, HLD, emphysema, GERD, Crane's esophagus who presented on 10/25 with acute onset of generalized abdominal pain, distension, sweats, found to have perforated diverticulitis s/p ex lap, bowel resection, colostomy (10/25/24). Hospital course c/b pneumonia noted on CT chest 10/29. On presentation, he was afebrile, hypotensive to SBP 80s-90s. Labs showed WBC 13.14. CT A/P with IV contrast showed acute perforated diverticulitis at the distal descending/proximal sigmoid colon with a small amount of scattered free air, and trace free fluid without ascites. Pt started on Zosyn. He was taken for emergent ex lap, bowel resection, colostomy formation. In the OR, there was feculent peritonitis. Intra-op culture obtained of peritoneal fluid. He was admitted to the ICU postoperatively, requiring Levophed. Peritoneal fluid culture growing Clostridium perfringens, and moderate counts of probable intestinal mario. Gram stain with GNRs, GPRs, GPCs, yeast. Clindamycin added 10/27. Weaned off Levophed 10/27. WBC uptrending to 17.59 on 10/28. Discussion: Polymicrobial peritoneal fluid culture including Clostridium perfringens. Zosyn should cover the Clostridium perfringens and other intestinal mario, unless there are resistant organisms. No prior micro data to review. Leukocytosis uptrending and Tmax 37.7 on 10/27--added caspofungin on 10/28 due to yeast seen on gram stain of peritoneal fluid. Also with increased O2 requirement on 10/29, with CT chest showing bilateral pneumonia. Had coughing spell leading to midline incision dehiscence and evisceration, so taken back to OR for ex lap, washout, and abdominal wall closure 10/31. Post op, leukocytosis up to 24 on 11/01/24. Recommendations: - Can continue Zosyn and caspofungin given return to the OR. If source control obtained, anticipate being able to discontinue these soon. Currently remains on Zosyn also for pneumonia - Pt continues with O2 requirement and leukocytosis. Leukocytosis may be in the setting of return to the OR for washout on 10/31. If persistent O2 requirement and leukocytosis, consider repeat CXR to reevaluate pneumonia, consider escalation from Zosyn to meropenem Please note that ID does not round or write notes over the weekend. If questions or concerns arise, please contact the Infectious Disease Call Center and ask to speak with the covering ID physician. Admission and Anticipated Discharge Date Admission Date: October 25, 2024 Subjective This patient recommendation is based on a telemedicine consult request which was completed asynchronously through chart review and information provided by the primary physician. The patient was not seen or examined today. The evaluation is consultative in nature and all patient care and treatment decisions can either be accepted or rejected by the patient's primary hospital-based treating physician using their own independent medical judgment for their patient. Time Spent Reviewing Chart: 11 - 20 minutes Had coughing spell yesterday evening, followed by dehiscence of midline incision and evisceration of abdominal organs. Taken to OR for ex lap, abd washout, closure of abdominal wall Afebrile WBC 16 --> 24 On 6 L O2 Results & Data Vital Signs (Past 12 Hours) Vital Signs Temp Pulse Pulse Resp BP BP Pulse Ox 11/01/24 08:43 11/01/24 08:42 11/01/24 08:39 83 105/63 11/01/24 08:10 93 H 116/70 11/01/24 08:03 90 21 97 11/01/24 08:02 91 H 17 95 11/01/24 08:00 116/70 11/01/24 08:00 88 11/01/24 07:42 96 H 16 93 11/01/24 07:36 98 H 15 96 11/01/24 07:00 91 H 15 93 11/01/24 06:15 96 H 18 83 L 11/01/24 06:00 89 115/73 11/01/24 06:00 115/73 11/01/24 05:31 94 H 118/64 11/01/24 05:30 94 H 11 L 94 11/01/24 04:00 123/77 11/01/24 02:00 120/75 11/01/24 01:30 122/63 11/01/24 01:30 89 122/63 11/01/24 01:03 93 H 123/76 11/01/24 01:00 123/76 11/01/24 00:57 92 H 17 95 11/01/24 00:45 120/63 11/01/24 00:42 88 16 96 11/01/24 00:40 118/71 11/01/24 00:32 36.5 C 86 20 138/74 98 11/01/24 00:22 36.5 C 88 20 136/67 97 11/01/24 00:20 89 11/01/24 00:12 36.4 C L 85 18 124/71 92 11/01/24 00:02 36.4 C L 87 20 135/76 95 Pulse Ox O2 Del Method O2 Del Method O2 Flow Rate O2 Flow Rate 11/01/24 08:43 Oxymask 6 11/01/24 08:42 94 Oxymask 6 11/01/24 08:39 11/01/24 08:10 11/01/24 08:03 Oxymask 6 11/01/24 08:02 Oxymask 6 11/01/24 08:00 11/01/24 08:00 11/01/24 07:42 11/01/24 07:36 11/01/24 07:00 11/01/24 06:15 11/01/24 06:00 11/01/24 06:00 11/01/24 05:31 11/01/24 05:30 11/01/24 04:00 11/01/24 02:00 11/01/24 01:30 11/01/24 01:30 11/01/24 01:03 11/01/24 01:00 11/01/24 00:57 11/01/24 00:45 11/01/24 00:42 11/01/24 00:40 11/01/24 00:32 Oxymask 6 11/01/24 00:22 Oxymask 6 11/01/24 00:20 11/01/24 00:12 Oxymask 6 11/01/24 00:02 Oxymask 6
[2024-11-01] MEDS ORDERED: DEXTROSE 10% 1,000 ML IV PRN (10:48)
[2024-11-01] MEDS ORDERED: TPN/PPN CONSULT PHARMACY STA (10:48)
[2024-11-01] MEDS: PERIPHERAL TPN IV SCH (16:13)
[2024-11-01] MEDS: [UNRECOGNIZED DRUG - OTHER] IV SCH (16:13)
[2024-11-01] MEDS: PIPERACILLIN/TAZOBACTAM 4.5 GM/100 ML BAG IV SCH (16:21)
--- NOTE | 2024-11-01 16:41 | Billing Data ---
Date of Service November 01, 2024 Coding Level of Care Code 27049 SUB INP/OBS CARE MIN
--- NOTE | 2024-11-01 20:11 | XRay Report ---
EXAM: Portable AP chest radiograph TECHNIQUE: AP portable radiograph of the chest was obtained. INDICATION: Shortness of breath Comparison: Chest radiograph 3 days previous. FINDINGS: LINES and TUBES: Right PICC with tip projecting over the superior cavoatrial junction. Enteric tube coursing below the diaphragm with tip projecting over the stomach body. CARDIOVASCULAR: Cardiac silhouette is stably enlarged in size. LUNGS/PLEURA: Moderate interstitial pulmonary edema is similar to previous. Chronic intra lung changes are again seen. Bibasilar densities are likely atelectasis, unchanged. Small pleural fluids are again likely. No discernible pneumothorax. OSSEOUS/OTHER: No displaced acute osseous process identified. Redemonstrated chronic deformity of the distal left clavicle. IMPRESSION: Well-positioned right PICC. Electronically signed by Chris Wu 11-01-2024 8:09 PM
[2024-11-02 09:02] LABS: Anion Gap 4.0 (3-11); Blood Urea Nitrogen 44.0 mg/dl (6-23); Calcium 7.9 mg/dl (8.6-10.3); Carbon Dioxide 41.0 mmol/L (21-32); Chloride 98.0 mmol/L (98-107); Creatinine Clr Calc Pharmacy 68.9 ml/min; Glucose 170.0 mg/dl (70-99(Fasting)); Magnesium 2.1 mg/dl (1.7-2.4); Potassium 3.3 mmol/L (3.5-5.1); Sodium 143.0 mmol/L (136-145)
--- NOTE | 2024-11-02 11:12 | Hospitalist Progress Note ---
Date of Service November 02, 2024 Assessment & Plan (1) Bowel perforation: (2) Sepsis: (3) Peritonitis: (4) Diverticulitis: (5) Hypotension: (6) Cigarette nicotine dependence: (7) GERD with esophagitis: (8) Aortic insufficiency: (9) Crane esophagus: Plan Mr. Rivera is 74 yo male with history of HTN, dyslipidemia, GERD, aortic insufficiency, barrette's esophagus, presented to ED with acute onset of generalized abdominal pain with distention, subsequently found to have perforated diverticulitis, and underwent laparotomy sigmoid colon with diverting colostomy( 10/25) for perforated diverticulitis. On presentation to ED he met SIRS criteria, blood pressure was persistently low despite fluid management. He was hypotensive at OR as well. Post operatively was shifted to ICU and remains on Levophed infusion. Urine output seems adequate. Pain seems optimized on IV med. Zosyn coverage for infection ongoing. #S/P Laparotomy with colostomy #Bowel Perforation #Ileus - Care per surgery - NG tube - await ostomy output - Pain: management as per surgery - ID on board - Zosyn coverage for GI infection - caspofungin for yeast - OOB per tolerance - labs per surgery - PICC line for TPN #Hypoxia #COPD -hypertonic saline nebs q6hrs -duonebs q6hrs alternating with saline nebs -continue oxymask per protocol #Atrial Fibrillation with RVR likely chronic #Pulmonary Congestion 2/2 to Aortic Regurgitation - Echo 08/28: normal EF, moderate to severe AR. - rates currently controlled - Lopressor 2.5mg IV q4hrs for rate control - consider amiodarone if rates do not improve with current regimen - due to pt's recent surgery, hold traditional anticoagulation at this time - continue lovenox 40mg daily #Hypokalemia, resolved - will monitor #VANESSA, resolved - Follow BMP #Nicotine dependance - Was on buccal nicotine - on nicotine patch - No s/o nicotine withdrawal #BPH: - Pt remain on grant. - Hold home med #Electrolytes -replaced per surgery Dispo: Tele DVT prophylaxis: lovenox 40mg daily Diet: NPO to TPN Admission and Anticipated Discharge Date Admission Date: October 25, 2024 Supervising Physician Co-Signing Physician Notes I personally examined the patient and verified all reilly points of history and exam, discussed case, and agree with decision making with Dr Fontanez A little more confused today. Does remember that his NG tube was not functioning properly for a bit and his belly was more distended. Nursing adjusted things and now it is draining again well and his belly has deflated. No significant belly pain. Breathing seems to be improvinghe offers no spontan eous respiratory complaints, and nursing does have him down to 2 L. Vitals noted, in general he is awake and alert easily confused somewhat fatigued but no acute distress. Cardio is regular rate, lungs are somewhat quiet but clear no rales rhonchi or wheezes. Abdomen mildly distended nontender no guarding rebound or rigidity. Diverticulitis with perforated colon and peritonitis as well as septic shock present on admissionnow doing better, sepsis improving, shock resolved. Wound dehiscence and evisceration Now repairedgreatly appreciate surgical assistance. Back to n.p.o. with NG. Continue antibiotics and antifungals. seems to be improving again severe protein calorie malnutrition TPN for now. Once he is able to take p.o., will definitely need an aggressive nutrition regimen ongoing. Discussed this with patient, but given his delirium, even more importantly discussed with daughters. Atrial fibrillation with RVR and possible acute (probably on chronic) diastolic CHF (acute on chronic HFpEF) that was rate relateddaughter notes that at times he has had heart rates in the 140s at home as well, making us both suspect he probably has had paroxysmal A-fib all along. Rate controlled, currently on DVT prophylaxis anticoagulation, but will want to escalate to full anticoagulation once his postop bleed risk is low enough. hypoxia/sputum/mucusgiven his overall presentation, CT chest was obtained 10/29yielded findings to my read more consistent with focal infiltrates than anything. radiology agrees. most likely he probably had a pneumonia (likely POA or around the time of admission) that is actively being treated with the current antibiotic regimen, but the mucus from the pneumonia combined with the COPD is creating a fairly long and drawn out catarrhal/expectorant phase. continue to assist with pulmonary toilet (saline nebs, DuoNebs, flutter valve, incentive spirometry). This is improving. Nursing has him down to 2 L. delirium/metabolic encephalopathy - related to all of above, not unexpected given his severity of illness POA. Discussed with family in depth. Reassurance/reorientation/distraction/supportive care. DVT prophylaxisLovenox once the expected degree of postop bleeding has improved, would want to escalate to anticoagulation for his A-fib. Otherwise as above. very complex patient. Family not present at the bedside today, called daughter Maranda who is the primary contact, was informed by nursing that she wanted to be the one updated today. [facility], hopefully I will get in touch wit h her later. Subjective Reports abdominal pain 7/10 in severity, relieved with analgesics. Had coughing spell 2 days ago, followed by dehiscence of midline incision and evisceration of abdominal organs. Taken to OR for ex lap, abd washout, closure of abdominal wall Afebrile On NC, 2L and on NPO. Review of Systems Review of Systems: reviewed, per HPI Constitutional: no fever and no chills Respiratory: no dyspnea Cardiovascular: no chest pain Gastrointestinal: + abdominal pain; no nausea and no vomit ing Neurologic: + generalized weakness Psychiatric: no behavioral changes Physical Exam Constitutional: WD/WN, vitals as above Gastrointestinal (Abdomen): Inspection/Auscultation: abdomen normal to inspection; abdomen not distended Soft, appropriately tender to palpation, ostomy in left lower quadrant with ostomy bag. Results & Data Results & Data Vital Signs (Past 12 Hours) Vital Signs Temp Pulse Pulse Pulse Resp BP BP 11/02/24 08:19 86 11/02/24 08:16 36.7 C 101 H 20 123/73 11/02/24 08:05 96 H 120/80 11/02/24 08:00 91 H 11/02/24 07:38 97 H 18 11/02/24 05:35 91 H 11/02/24 05:21 92 H 11/02/24 05:07 11/02/24 03:16 36.9 C 96 H 18 120/80 11/02/24 02:04 91 H 11/02/24 01:25 90 20 11/02/24 01:15 95 H 15 11/02/24 01:00 126/82 11/02/24 00:48 88 13 11/02/24 00:45 91 H 126/82 11/02/24 00:31 95 H 124/73 11/02/24 00:27 124/73 11/02/24 00:27 124/73 11/02/24 00:27 100 H 23 11/02/24 00:09 95 H 19 11/02/24 00:00 101 H Pulse Ox O2 Del Method O2 Flow Rate 11/02/24 08:19 11/02/24 08:16 91 Nasal Cannula 2 11/02/24 08:05 11/02/24 08:00 11/02/24 07:38 92 Oxymask 2 11/02/24 05:35 11/02/24 05:21 11/02/24 05:07 Oxymask 8 11/02/24 03:16 90 Nasal Cannula 11 11/02/24 02:04 11/02/24 01:25 92 Oxymask 6 11/02/24 01:15 86 L 11/02/24 01:00 11/02/24 00:48 89 L 11/02/24 00:45 11/02/24 00:31 11/02/24 00:27 11/02/24 00:27 11/02/24 00:27 89 L 11/02/24 00:09 92 11/02/24 00:00 Resident Activity Tracking Resident Involvement: Resident Care Provided Care Provided: Adult Hospital Medicine (2) Sepsis Sepsis type: sepsis due to unspecified organism Severe sepsis acute organ dy sfunction type: unspecified Severe sepsis shock status: without septic shock (5) Hypotension Hypotension type: unspecified hypotension type Qualified Code(s): I95.9 - Hypotension, unspecified
[2024-11-02] MEDS: PANTOprazole 40 MG/10 ML SYR IV SCH (12:33)
--- NOTE | 2024-11-02 12:42 | XRay Report ---
EXAM: Radiograph of the Abdomen 1 View INDICATION: Pain TECHNIQUE: Frontal supine view of the abdomen/pelvis. COMPARISON: 10/30/2024 FINDINGS: Limitations: None. Gastrointestinal tract: Significant interval development of moderate, diffuse small bowel distention. There is air and stool in the colon. Organs: Visualized organ shadows appear grossly normal. Bones/joints: No fracture, erosion or dislocation. Soft tissues: No abnormality noted. No radiopaque foreign body noted. Tubes, lines and devices: Nasogastric tube terminates in the gastric fundus. Tubing previously seen projecting over the pelvis no longer identified. IMPRESSION: 1. Significant interval small bowel distention consistent with partial or early small bowel obstruction. Ileus considered less likely. 2. Lines and tubes as above. ACT 112: N/A Electronically signed by Abi Bill 11-02-2024 12:41 PM
--- NOTE | 2024-11-02 15:27 | Billing Data ---
Date of Service November 02, 2024 Coding Level of Care Code 05669 SUB INP/OBS CARE
[2024-11-02] MEDS: CENTRAL TPN IV SCH (16:14)
[2024-11-02] MEDS: [UNRECOGNIZED DRUG - OTHER] IV SCH (16:14)
--- NOTE | 2024-11-02 18:19 | Hospitalist Progress Note ---
Date of Service November 02, 2024 Assessment & Plan (1) Bowel perforation: (2) Sepsis: (3) Peritonitis: (4) Diverticulitis: (5) Hypotension: (6) Cigarette nicotine dependence: (7) GERD with esophagitis: (8) Aortic insufficiency: (9) Crane esophagus: Plan Mr. Rivera is 74 yo male with history of HTN, dyslipidemia, GERD, aortic insufficiency, barrette's esophagus, presented to ED with acute onset of generalized abdominal pain with distention, subsequently found to have perforated diverticulitis, and underwent laparotomy sigmoid colon with diverting colostomy( 10/25) for perforated diverticulitis. On presentation to ED he met SIRS criteria, blood pressure was persistently low despite fluid management. He was hypotensive at OR as well. Post operatively was shifted to ICU and remains on Levophed infusion. Urine output seems adequate. Pain seems optimized on IV med. Zosyn coverage for infection ongoing. #S/P Laparotomy with colostomy #Bowel Perforation #Ileus - Care per surgery - NG tube - await ostomy output - Pain: management as per surgery - ID on board - Zosyn coverage for GI infection - caspofungin for yeast - OOB per tolerance - labs per surgery - PICC line for TPN #Hypoxia #COPD -hypertonic saline nebs q6hrs -duonebs q6hrs alternating with saline nebs -continue oxymask per protocol #Atrial Fibrillation with RVR likely chronic #Pulmonary Congestion 2/2 to Aortic Regurgitation - Echo 08/28: normal EF, moderate to severe AR. - rates currently controlled - Lopressor 2.5mg IV q4hrs for rate control - consider amiodarone if rates do not improve with current regimen - due to pt's recent surgery, hold traditional anticoagulation at this time - continue lovenox 40mg daily #Hypokalemia, resolved - will monitor #VANESSA, resolved - Follow BMP #Nicotine dependance - Was on buccal nicotine - on nicotine patch - No s/o nicotine withdrawal #BPH: - Pt remain on grant. - Hold home med #Electrolytes -replaced per surgery Dispo: Tele DVT prophylaxis: lovenox 40mg daily Diet: NPO to TPN Admission and Anticipated Discharge Date Admission Date: October 25, 2024 Subjective "My belly hurts all over; constant, 8 out of 10. I didn't get any sleep since I had the surgery (e.g., exploratory laparotomy, abdominal washout, closure of abdominal wall) on 10/31/2024, 9:20pm with Dr. Dain Cabrera." "I feel nauseated and like I'm gonna vomit now. Can I have a vomit bag?" "I'm not farting or passing any bowel." Review of Systems Constitutional: Positive for nausea, vomit, and generalized abdominal pains, constant > 48 hours. Negative for antecedent/coincident fevers, chills, diaphoresis, cough, wheeze, sore throat, hemoptysis, chest pains, palpitations, pleurisy, diarrhea, pelvic pain, hematemesis, hematochezia, melena, hematuria, dysuria, frequency, urgency, headaches, dizziness, lightheadedness, visual changes, hearing changes, weakness, falls, syncope, trauma, travel history, sick contacts, or food/drug ingestions novel or new. All other review of systems are reported as negative by the patient on 11/02/2024. Results & Data Results & Data Vital Signs (Past 12 Hours) Vital Signs Temp Pulse Pulse Resp BP BP Pulse Ox 11/02/24 17:15 96 H 11/02/24 16:10 102 H 106/67 11/02/24 14:15 11/02/24 13:11 90 16 97 11/02/24 12:33 88 11/02/24 08:19 86 11/02/24 08:16 36.7 C 101 H 20 123/73 91 11/02/24 08:05 96 H 120/80 11/02/24 08:00 91 H 11/02/24 07:38 97 H 18 92 O2 Del Method O2 Flow Rate 11/02/24 17:15 11/02/24 16:10 11/02/24 14:15 Oxymask 2 11/02/24 13:11 Oxymask 4 11/02/24 12:33 11/02/24 08:19 11/02/24 08:16 Nasal Cannula 2 11/02/24 08:05 11/02/24 08:00 11/02/24 07:38 Oxymask 2 PG Care Time/CCT Total # of Minutes Spent Total Time Spent with Patient: Total time spent is greater than 50% in coordination of care (as documented) at patient's floor/unit and/or counseling patient: Coding Diagnoses Bowel perforation K63.1 Sepsis A41.9 Sepsis type: sepsis due to unspecified organism Severe sepsis acute organ dysfunction type: unspecified Severe sepsis shock status: without septic shock Peritonitis K65.9 Diverticulitis K57.92 Hypotension I95.9 Hypotension type: unspecified hypotension type Cigarette nicotine dependence F17.210 GERD with esophagitis K21.00 Aortic insufficiency I35.1 Crane esophagus K22.70 (2) Sepsis Sepsis type: sepsis due to unspecified organism Severe sepsis acute organ dysfunction type: unspecified Severe sepsis shock status: without septic shock (5) Hypotension Hypotension type: unspecified hypotension type Qualified Code(s): I95.9 - Hypotension, unspecified
--- NOTE | 2024-11-02 20:55 | Surgery Progress Note ---
Date of Service November 02, 2024 Assessment & Plan (1) Diverticulitis of intestine with perforation without abscess: (2) Perioperative dehiscence of abdominal wound with evisceration: Plan Ostomy without function Evidence for ileus NGT was not functioning/clogged at my evaluation, restored function with decrease in pt symptoms and distention. Continue to monitor NGT Nursing changing dressing BID Add Protonix for GI ppx discussed with the medical service DVT ppx Admission and Anticipated Discharge Date Admission Date: October 25, 2024 Subjective Pt seen this am. C/o bloating and nausea. Ostomy reportedly stopped functioning again. Physical Exam Constitutional: not in distress and not diaphoretic Respiratory: normal respiratory effort; no respiratory distress, no labored breathing and does not use accessory muscles Gastrointestinal (Abdomen): Inspection/Auscultation: + abdomen distended Percussion/Palpation: abdomen soft; no guarding and abdomen not rigid NGT present with dark drainage and clogged in tubing Results & Data Vital Signs (Past 12 Hours) Vital Signs Temp Pulse Pulse Resp BP BP Pulse Ox 11/02/24 20:02 96 H 16 88 L 11/02/24 19:56 36.9 C 100 H 18 120/71 89 L 11/02/24 17:15 96 H 11/02/24 16:10 102 H 106/67 11/02/24 14:15 11/02/24 13:11 90 16 97 11/02/24 12:33 88 O2 Del Method O2 Flow Rate 11/02/24 20:02 Oxymask 4 11/02/24 19:56 Nasal Cannula 4 11/02/24 17:15 11/02/24 16:10 11/02/24 14:15 Oxymask 2 11/02/24 13:11 Oxymask 4 11/02/24 12:33 PG Care Time/CCT Total # of Minutes Spent Total Time Spent with Patient: Total time spent is greater than 50% in coordination of care (as documented) at patient's floor/unit and/or counseling patient: Coding Level of Care Code 48332 Post Operative Follow-Up Diagnoses Diverticulitis of large intestine with perforation without abscess or bleeding K57.20 Diverticulitis site: large intestine Diverticulitis bleeding: without bleeding Perioperative dehiscence of abdominal wound with evisceration, subsequent encounter T81.321D Encounter type: subsequent encounter (1) Diverticulitis of intestine with perforation without abscess Diverticulitis site: large intestine Diverticulitis bleeding: without bleeding Qualified Code(s): K57.20 - Diverticulitis of large intestine with perforation and abscess without bleeding (2) Perioperative dehiscence of abdominal wound with evisceration Encounter type: subsequent encounter Qualified Code(s): T81.321D - Disruption or dehiscence of closure of internal operation (surgical) wound of abdominal wall muscle or fascia, subsequent encounter
[2024-11-03 06:56] LABS: Anion Gap 5.0 (3-11); Blood Urea Nitrogen 41.0 mg/dl (6-23); Calcium 8.0 mg/dl (8.6-10.3); Carbon Dioxide 38.0 mmol/L (21-32); Chloride 103.0 mmol/L (98-107); Creatinine Clr Calc Pharmacy 57.3 ml/min; Glucose 153.0 mg/dl (70-99(Fasting)); Magnesium 2.2 mg/dl (1.7-2.4); Potassium 3.4 mmol/L (3.5-5.1); Sodium 146.0 mmol/L (136-145)
[2024-11-03] MEDS ORDERED: POTASSIUM PHOS 3 MMOL/1 ML INFUSION IV STA (07:55)
[2024-11-03 08:34] LABS: Hematocrit (blood only) 29.0 % (42.0-52.0); Hemoglobin 9.2 g/dl (14.0-18.0); Mean Corpuscular Hemoglobin 29.8 pg (25.0-34.0); Mean Corpuscular Volume 93.9 fL (80.0-100.0); Platelet Count 483 K/uL (130-400); RDW Standard Deviation 46.4 fL (36.4-46.3); Red Blood Count 3.09 M/uL (4.70-6.10); White Blood Count 27.39 K/ul (4.8-10.8)
[2024-11-03] MEDS: POTASSIUM PHOSPHATE 15 MMOL in SODIUM CHLORIDE 0.9% 250 ML IV ONE (08:35)
[2024-11-03 09:29] LABS: Immature Granulocytes # (auto) 0.81 K/uL (0.01-0.20); Immature Granulocytes % (auto) 3.0 %
[2024-11-03] MEDS: CHLORASEPTIC (PHENOL) 1.4% SOLN 180 ML BTL MT PRN (09:42)
--- NOTE | 2024-11-03 10:14 | Hospitalist Progress Note ---
Date of Service November 03, 2024 Assessment & Plan (1) Bowel perforation: (2) Sepsis: (3) Peritonitis: (4) Diverticulitis: (5) Hypotension: (6) Cigarette nicotine dependence: (7) GERD with esophagitis: (8) Aortic insufficiency: (9) Crane esophagus: Plan Mr. Rivera is 74 yo male with history of HTN, dyslipidemia, GERD, aortic insufficiency, barrette's esophagus, presented to ED with acute onset of generalized abdominal pain with distention, subsequently found to have perforated diverticulitis, and underwent laparotomy sigmoid colon with diverting colostomy( 10/25) for perforated diverticulitis. On presentation to ED he met SIRS criteria, blood pressure was persistently low despite fluid management. He was hypotensive at OR as well. Post operatively was shifted to ICU and remains on Levophed infusion. Urine output seems adequate. Pain seems optimized on IV med. Zosyn coverage for infection ongoing. #S/P Laparotomy with colostomy #Bowel Perforation #Ileus - Care per surgery - NG tube for abdominal decompression - await ostomy output - Pain: management as per surgery - ID on board - Zosyn coverage for GI infection - caspofungin for yeast coverage. - OOB per tolerance - labs per surgery - PICC line for TPN #Hypoxia #COPD -hypertonic saline nebs q6hrs -continue oxymask per protocol #Atrial Fibrillation with RVR likely chronic #Pulmonary Congestion 2/2 to Aortic Regurgitation - Echo 08/28: normal EF, moderate to severe AR. - rates currently controlled - Lopressor 2.5mg IV q4hrs for rate control - consider amiodarone if rates do not improve with current regimen - due to pt's recent surgery, hold traditional anticoagulation at this time - continue lovenox 40mg daily #Hypokalemia, resolved - will monitor #VANESSA, resolved - Follow BMP #Nicotine dependance - Was on buccal nicotine - on nicotine patch - No s/o nicotine withdrawal #BPH: - Pt remain on grant. - Hold home med #Electrolytes -replaced per surgery Dispo: Tele DVT prophylaxis: lovenox 40mg daily Diet: NPO to TPN Admission and Anticipated Discharge Date Admission Date: October 25, 2024 Supervising Physician Co-Signing Physician Notes I personally examined the patient and verified all reilly points of history and exam, discussed case, and agree with decision making with Dr Fontanez Less confused. On a FaceTime call with family whenever I enter. He offers no complaints other than wishing that his belly was awake so that he could get rid of the NG tube. He expresses understanding of the necessity for medical interventions at this time. No belly pain no shortness of breath. Nursing notes no new problems. Updated family personally. Vitals noted, in general he is awake and alert seems less confused no distress. Lungs overall clearsomewhat difficult exam but no rales rhonchi or wheezes noted. Abdomen is soft mild distention nontender no guarding rebound or rigidity. Neuro without lateralizing signs. Diverticulitis with perforated colon and peritonitis as well as septic shock present on admissionnow doing better, sepsis improving, shock resolved. Wound dehiscence and evisceration Now repairedgreatly appreciate surgical assistance. Back to n.p.o. with NG. Continue antibiotics and antifungals. Improving. Appreciate surgical input. severe protein calorie malnutrition TPN for now. Once he is able to take p.o., will definitely need an aggressive nutrition regimen ongoing. Discussed again with family that keeping on top of him about nutrition once he is taking p.o. will probably be one of the hardest parts of his recovery, but also quite critical. Atrial fibrillation with RVR and possible acute (probably on chronic) diastolic CHF (acute on chronic HFpEF) that was rate relateddaughter notes that at times he has had heart rates in the 140s at home as well, making us both suspect he probably has had paroxysmal A-fib all along. Rate remains controlled, currently on DVT prophylaxis anticoagulation, but will want to escalate to full anticoagulation once his postop bleed risk is low enough. hypoxia/sputum/mucusgiven his overall presentation, CT chest was obtained 10/29yielded findings to my read more consistent with focal infiltrates than anything. radiology agrees. most likely he probably had a pneumonia (likely POA or around the time of admission) that is actively being treated with the current antibiotic regimen, but the mucus from the pneumonia combined with the COPD is creating a fairly long and drawn out catarrhal/expectorant phase. continue to assist with pulmonary toilet (But after discussion with respiratory will start to scale back on the nebulizers). This is improving. Nursing has him down to 2 L. persistent/worsening leukocytosisnonspecific given that he looks better, the remainder of his SIRS criteria are better, and he has no sign of decompensation on history/exam/etc. Follow, follow clinically, recheck CRP for comparison. He is on quite broad coverage, no clear indication that coverage would need to be changed, although if the leukocytosis persists, may consider changing to a carbapenem empirically. ----as a later follow-upin the afternoon his white count is about the same and his CRP is the same as yesterday. Considered switching to meropenem, but given that his clinical picture is showing improvement, I hesitate to shuffle antibiotics and therefore raise C. difficile risk without a clear reason other than a leukocytosis, especially given that the patient himself seems to be showing improvement over the last 2 days. Should he show any worsening, or more than just his white count go in the wrong direction as far as SIRS criteria, then would probably switch to meropenem as the first step. Continue current antibiotics for now. Anemiahemodynamically stable, no overt acute blood loss. Suspect that is related to multiple surgeries, malnutrition, phlebotomy, maybe some degree of dilution effect, etc.again hemodynamically stable, follow-up hemoglobin this afternoon as well. delirium/metabolic encephalopathy - related to all of above, not unexpected given his severity of illness POA. have discussed with family in depth. Reassurance/reorientation/distraction/supportive care. DVT prophylaxisLovenox once the expected degree of postop bleeding has improved, would want to escalate to anticoagulation for his A-fib. very slight hypernatremianonspecific given all the fluid shifting and IV nutrition. Recheck basic metabolic panel this afternoon, add some degree of free water if uptrending. Otherwise as above. very complex patient. Subjective Pt seen this am. Pain in belly while coughing, controlled pain on analgesics. Slightly confused on conversation. Yesterday, NG tube was clogged and abdomen distended slightly, restored NG function. On face mask 2L. No fever, SOB, Chest pain, complaints. Review of Systems Review of Systems: reviewed, per HPI Constitutional: no fever and no chills Respiratory: no dyspnea Cardiovascular: no chest pain Gastrointestinal: + abdominal pain; no nausea and no vomit ing Neurologic: + generalized weakness Psychiatric: no behavioral changes Physical Exam Constitutional: WD/WN, vitals as above Gastrointestinal (Abdomen): Inspection/Auscultation: abdomen normal to inspection; abdomen not distended Results & Data Results & Data Vital Signs (Past 12 Hours) Vital Signs Temp Pulse Pulse Resp BP Pulse Ox O2 Del Method 11/03/24 09:00 82 11/03/24 08:45 36.3 C L 93 H 20 122/73 90 Nasal Cannula, Oxymask 11/03/24 08:40 96 H 11/03/24 07:22 84 11/03/24 06:26 Oxymask 11/03/24 05:39 83 11/03/24 03:12 36.6 C 95 H 18 117/64 93 Oxymask 11/03/24 00:55 89 11/03/24 00:04 36.8 C 96 H 18 107/63 93 Oxymask 11/02/24 22:33 100 H O2 Flow Rate 11/03/24 09:00 11/03/24 08:45 2 11/03/24 08:40 11/03/24 07:22 11/03/24 06:26 3 11/03/24 05:39 11/03/24 03:12 5 11/03/24 00:55 11/03/24 00:04 5 11/02/24 22:33 Resident Activity Tracking Resident Involvement: Resident Care Provided Care Provided: Adult Hospital Medicine (2) Sepsis Sepsis type: sepsis due to unspecified organism Severe sepsis acute organ dysfunction type: unspecified Severe sepsis shock status: without septic shock (5) Hypotension Hypotension type: unspecified hypotension type Qualified Code(s): I95.9 - Hypotension, unspecified
--- NOTE | 2024-11-03 10:29 | Billing Data ---
Date of Service November 03, 2024 Coding Level of Care Code 67304 SUB INP/OBS CARE MIN
[2024-11-03] MEDS ORDERED: ALBUT/IPRATROP 3MG/0.5MG NEB 3 ML VIAL NEB PRN (10:31)
--- NOTE | 2024-11-03 13:02 | Surgery Progress Note ---
Date of Service November 03, 2024 Assessment & Plan (1) Perioperative dehiscence of abdominal wound with evisceration: (2) Diverticulitis of intestine with perforation without abscess: Plan POD 9 s/p Exploratory Laparotomy Sigmoid Colon and Diverting Ostomy on 10/25/[address] Courtney POD 3 s/p abdominal washout and closure of the fascia on 10/31/24 by the covering mechanic general operational test surgeon at that time. Ostomy without function and pt developed evidence for ileus over the weekend Continue NGT to LIWS. 1L of dark drainage over ther past 24 hours Continue NPO Nursing changing dressing BID GI and DVT ppx on board May try OOB to chair with assist Case will be discussed with Dr. Courtney for ongoing follow up tomorrow Admission and Anticipated Discharge Date Admission Date: October 25, 2024 Results & Data Vital Signs (Past 12 Hours) Vital Signs Temp Pulse Pulse Resp BP Pulse Ox O2 Del Method 11/03/24 11:54 36.4 C L 90 17 114/74 90 Oxymask 11/03/24 09:00 82 11/03/24 08:45 36.3 C L 93 H 20 122/73 90 Nasal Cannula, Oxymask 11/03/24 08:40 96 H 11/03/24 07:22 84 11/03/24 06:26 Oxymask 11/03/24 05:39 83 11/03/24 03:12 36.6 C 95 H 18 117/64 93 Oxymask O2 Flow Rate 11/03/24 11:54 2 11/03/24 09:00 11/03/24 08:45 2 11/03/24 08:40 11/03/24 07:22 11/03/24 06:26 3 11/03/24 05:39 11/03/24 03:12 5 PG Care Time/CCT Total # of Minutes Spent Total Time Spent with Patient: Total time spent is greater than 50% in coordination of care (as documented) at patient's floor/unit and/or counseling patient: Coding Level of Care Code 23940 Post Operative Follow-Up Diagnoses Perioperative dehiscence of abdominal wound with evisceration, subsequent encounter T81.321D Encounter type: subsequent encounter Diverticulitis of large intestine with perforation without abscess or bleeding K57.20 Diverticulitis site: large intestine Diverticulitis bleeding: without bleeding (1) Perioperative dehiscence of abdominal wound with evisceration Encounter type: subsequent encounter Qualified Code(s): T81.321D - Disruption or dehiscence of closure of internal operation (surgical) wound of abdominal wall muscle or fascia, subsequent encounter (2) Diverticulitis of intestine with perforation without abscess Diverticulitis site: large intestine Diverticulitis bleeding: without bleeding Qualified Code(s): K57.20 - Diverticulitis of large intestine with perforation and abscess without bleeding
--- NOTE | 2024-11-03 14:11 | Pharmacy Report ---
Pharmacy PN Follow-up Note - Date of Service November 03, 2024 - Subjective Patient is currently on day #6 of parenteral nutrition for prolonged NPO status in the setting of diverticulitis with perforation and abscess. Patient is s/p exploratory laparotomy sigmoid colon with diverting ostomy on 10/25/24 and abdominal washout and closure of fascia on 10/31/24. - Objective Height & Weight (Last Documented) Height 5 ft 7 in Weight 75.6 kg Diet Order(s) 11/01/24 07:12 NPO Intake & Ouput (24hrs) 11/02/24 11/03/24 11/04/24 06:59 06:59 06:59 Intake Total 1699.336 / 0288.637 0036 / 2655 615 / 615 Output Total 2800 / 2800 2100 / 2100 1400 / 1400 Balance -1100.664 / -1100.664 555 / 555 -785 / -785 Selected Laboratory Results 11/03/24 06:16 Sodium 146 H Potassium 3.4 L Chloride 103 Carbon Dioxide 38 H Anion Gap 5 BUN 41 H Creatinine 1.09 BUN/Creatinine Ratio 37.6 H Glucose 153 H Calcium 8.0 L Phosphorus 2.2 L Magnesium 2.2 - Assessment & Plan Assessment: 11/03: Patient with complaints of bloating and nausea yesterday. Evaluated by surgery and found to have concern for ileus, ostomy without function and NGT not functioning/clogged. NGT function has been restored. NGT continues to have significant output. Documented 1200 mL of drainage on 11/02. Today patient reports distention improved, no nausea. * PICC line placed - transitioned to TPN on 11/02. * Will advance macronutrients to goal today and move to a 18 hour infusion for hepatic rest as recommended by Dietary. * Hypokalemia and hypophosphatemia slightly improved but electrolytes remain below goal range. KPhos 15 mmol IV given outside of TPN this AM. Will increase amounts of both electrolytes in today's bag. * Slightly hypernatremic (Na 146). Anticipate improvement with increased volume of today's bag. No changes to amount of sodium - reassess need to decrease Na on 11/04. 10/31: * Patient will not go back to the OR today. Surgery following daily and may return to OR in coming days for replacement of the ostomy. * NG still with significant output. Electrolytes are improving but still not at goal. Potassium and chloride are low today. CO2 is elevated. ABG does show a respiratory alkalosis. 40 mEq IV KCl recommended to resident team today. Will remove acetate from bag today. * Will order LFTs and CBC per policy for Monday to go with triglycerides. 50 g of Lipids will be given today given downtrend in triglycerides. Only doing Lipids on Monday and . * Will not advance macronutrients given low K and difficulties with osmolarity in PPN. Recommended placing central line in the next 24-48 hours to primary team given electrolyte needs and low kcals in PPN. 10/30: * Per surgery, KUB encouraging but if no ostomy function by tomorrow, patient may need to return to the OR. NG with 1.5L output. PPN was held yesterday due to elevated TGs >600 and other electrolyte shifts. Electrolytes stabilized today and TGs trended down. Per discussion with multidisciplinary team, okay to continue PPN today and will reduce goal lipids to twice a week. Repeat TG ordered for next Monday morning. PPN restarted at initial rate/volume of bag 1. Plan: * For Day #6 of PN (transitioned to TPN on 11/02) administration, the following will be ordered: * Macronutrients: * Amino Acids: 125 grams/day * Dextrose: 218 grams/day * Lipids: none today * Micronutrients: * Sodium chloride: 90 mEq/day * Potassium phosphate: 21 mMol/day * Potassium chloride: 70 mEq/day * Potassium acetate: 50 mEq/day * Calcium gluconate: 4.65 mEq/day * Multivitamins: 10 mL/day * Trace elements: 1 mL/day * Thiamine: 100 mg/day * Total volume of 1685 mL will be infused over 18 hours and will provide 1242 kcal/day * Labs will be ordered per PN protocol. * Pharmacy will follow and adjust PN orders on a daily basis. Thank you!
[2024-11-03 14:43] LABS: Hematocrit (blood only) 28.6 % (42.0-52.0); Hemoglobin 9.0 g/dl (14.0-18.0); Mean Corpuscular Hemoglobin 29.3 pg (25.0-34.0); Mean Corpuscular Volume 93.2 fL (80.0-100.0); Platelet Count 516 K/uL (130-400); RDW Standard Deviation 45.8 fL (36.4-46.3); Red Blood Count 3.07 M/uL (4.70-6.10); White Blood Count 27.22 K/ul (4.8-10.8)
[2024-11-03 14:44] LABS: Hematocrit (blood only) 27.5 % (42.0-52.0); Hemoglobin 9.2 g/dl (14.0-18.0); Mean Corpuscular Hemoglobin 30.8 pg (25.0-34.0); Mean Corpuscular Volume 92.0 fL (80.0-100.0); Platelet Count 531 K/uL (130-400); RDW Standard Deviation 45.5 fL (36.4-46.3); Red Blood Count 2.99 M/uL (4.70-6.10); White Blood Count 26.89 K/ul (4.8-10.8)
[2024-11-03 14:59] LABS: Anion Gap 5.0 (3-11); Blood Urea Nitrogen 37.0 mg/dl (6-23); Calcium 8.0 mg/dl (8.6-10.3); Carbon Dioxide 35.0 mmol/L (21-32); Chloride 106.0 mmol/L (98-107); Creatinine Clr Calc Pharmacy 60.6 ml/min; Glucose 129.0 mg/dl (70-99(Fasting)); Potassium 3.6 mmol/L (3.5-5.1); Sodium 146.0 mmol/L (136-145)
[2024-11-03 15:01] LABS: Immature Granulocytes # (auto) 0.91 K/uL (0.01-0.20); Immature Granulocytes % (auto) 3.4 %; Polychromasia 1+
[2024-11-03] MEDS: [UNRECOGNIZED DRUG - OTHER] IV SCH (16:02)
[2024-11-03] MEDS: CENTRAL TPN IV SCH (16:02)
--- NOTE | 2024-11-03 20:55 | Electrocardiogram Report ---
Test Reason : Blood Pressure : */* mmHG Vent. Rate : 134 BPM Atrial Rate : * BPM P-R Int : * ms QRS Dur : 88 ms QT Int : 322 ms P-R-T Axes : * -4 -67 degrees QTcB Int : 480 ms Atrial fibrillation with rapid ventricular response with premature ventricular or aberrantly conducte d complexes Nonspecific ST and T wave abnormality Abnormal ECG When compared with ECG of 25-Oct-2024 08:42, Atrial fibrillation has replaced Sinus rhythm Vent. rate has increased by 76 bpm Nonspecific T wave abnormality now evident in Anterolateral leads Confirmed by Aaron Schwartz ([id number]) on 11/03/2024 8:54:42 PM Referred By: REFERRED SELF Confirmed By: Aaron Schwartz
--- NOTE | 2024-11-04 04:39 | Communication Note ---
Date of Service: November 04, 2024 Pt seen at bedside, agitated with staff. Pt states he is frustrated by his NPO status and states that someone yesterday told him that he could have gingerale and more things, which he states staff have refused to give him. Surgery note from yesterday notes to maintain NPO. Advised pt that he needs to maintain NPO until evaluated by surgery, he rolls his eyes in response. He states "well, I am leaving today." And states "where is that davy from yesterday?" When advised that physicians change for the night and the surgical team also changes at some point he states, "I am not going to talk to you." And then refuses to answer any more questions. He requests pain medications for abdominal pain and more ice chips/water. Communicated with nurse. Vitals to be checked prior to prn dilaudid dosing to ensure BP is acceptable for opioid administration. Pt gotten ice chips/water. Resident Activity Tracking Resident Involvement: Resident Care Provided Care Provided: Adult Hospital Medicine
[2024-11-04 07:09] LABS: Hematocrit (blood only) 29.0 % (42.0-52.0); Hemoglobin 9.4 g/dl (14.0-18.0); Mean Corpuscular Hemoglobin 30.8 pg (25.0-34.0); Mean Corpuscular Volume 95.1 fL (80.0-100.0); Platelet Count 601 K/uL (130-400); RDW Standard Deviation 47.8 fL (36.4-46.3); Red Blood Count 3.05 M/uL (4.70-6.10); White Blood Count 25.09 K/ul (4.8-10.8)
--- NOTE | 2024-11-04 07:25 | Hospitalist Progress Note ---
Date of Service November 04, 2024 Assessment & Plan (1) Bowel perforation: (2) Sepsis: (3) Peritonitis: (4) Diverticulitis: (5) Hypotension: (6) Cigarette nicotine dependence: (7) GERD with esophagitis: (8) Aortic insufficiency: (9) Crane esophagus: Plan Mr. Rivera is 74 yo male with history of HTN, dyslipidemia, GERD, aortic insufficiency, barrette's esophagus, presented to ED with acute onset of generalized abdominal pain with distention, subsequently found to have perforated diverticulitis, and underwent laparotomy sigmoid colon with diverting colostomy( 10/25) for perforated diverticulitis. On presentation to ED he met SIRS criteria, blood pressure was persistently low despite fluid management. He was hypotensive at OR as well. Post operatively was shifted to ICU and remains on Levophed infusion. Urine output seems adequate. Pain seems optimized on IV med. Zosyn coverage for infection ongoing. #S/P Laparotomy with colostomy #Bowel Perforation #Ileus - Care per surgery - NG tube for abdominal decompression - await ostomy output - Pain: management as per surgery - ID on board - Zosyn coverage for GI infection - caspofungin for yeast coverage. - OOB per tolerance - labs per surgery - PICC line for TPN - now with repeat dehiscence - abdominal binder in place, consideration for repeat revision #Hypoxia #COPD -hypertonic saline nebs q6hrs -continue oxymask per protocol #Atrial Fibrillation with RVR likely chronic #Pulmonary Congestion 2/2 to Aortic Regurgitation - Echo 08/28: normal EF, moderate to severe AR. - rates currently controlled - Lopressor 2.5mg IV q4hrs for rate control - consider amiodarone if rates do not improve with current regimen - due to pt's recent surgery, hold traditional anticoagulation at this time - continue lovenox 40mg daily #Hypokalemia, resolved - will monitor #VANESSA, resolved - Follow BMP #Nicotine dependance - Was on buccal nicotine - on nicotine patch - No s/o nicotine withdrawal #BPH: - Pt remain on grant. - Hold home med #Electrolytes -replaced per surgery Dispo: Tele DVT prophylaxis: lovenox 40mg daily Diet: NPO to TPN Admission and Anticipated Discharge Date Admission Date: October 25, 2024 Supervising Physician Co-Signing Physician Notes Attending attestation Pt seen and examined in concert with Dr. Harry. In agreement with the documented findings as noted in the resident documentation with any exceptions or additions as noted here. Resting in bed with pain adequately controlled on present medication regimen. No present ostomy output with questions re: ongoing care use. VS as noted. On examination, S1/S2 nl RRR no MCG. CTAB. Abd NT/ND BS+ve Diverticulitis with perforated bowel and subsequent evisceration of wound - management per surgical primary team. ID consult appreciated, will continue ongoing IV antibiotic and antifungal therapy. PICC in place for TPN, monitor daily lab studies AF with h/o RVR and aortic regurg - continue q4 metoprolol IV and monitor closely. Continue enoxaparin so long as surgically indicated. Else see resident documentation as noted. Subjective Patient seen and evaluated at bedside this morning. No acute events overnight. Overall the patient is not having significant distress but is uncomfortable. 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 Per nursing/surgery the would does appear to be dehiscing again without evisceration. Ostomy remains non-functioning. VSS, labs are stable remains with significant leukocytosis Review of Systems Review of Systems: reviewed, per HPI Physical Exam Physical Exam: Constitutional: ill appearing, no acute distress HEENT: NCAT, no conjunctival injection CV: regular rhythm, no murmur appreciated, extremities well-perfused, no LE edema Resp: diffuse rhonci GI: ostomy, NG tube MSK: no gross deformities appreciated Skin: warm, dry : grant in place Neuro: alert, oriented, no focal neurologic deficit appreciated Results & Data Results & Data Vital Signs (Past 12 Hours) Vital Signs Temp Pulse Pulse Pulse Resp BP BP 11/04/24 04:55 85 11/04/24 04:41 90 125/75 11/04/24 02:24 36.5 C 85 20 136/71 11/04/24 02:12 11/04/24 00:45 82 11/04/24 00:34 87 129/67 11/03/24 22:37 36.7 C 85 18 126/58 L 11/03/24 21:43 83 11/03/24 21:00 81 Pulse Ox O2 Del Method O2 Flow Rate 11/04/24 04:55 11/04/24 04:41 11/04/24 02:24 94 Oxymask 11/04/24 02:12 Oxymask 3 11/04/24 00:45 11/04/24 00:34 11/03/24 22:37 94 Oxymask 11/03/24 21:43 11/03/24 21:00 Resident Activity Tracking Resident Involvement: Resident Care Provided Care Provided: Adult Hospital Medicine (2) Sepsis Sepsis type: sepsis due to unspecified organism Severe sepsis acute organ dysfunction type: unspecified Severe sepsis shock status: without septic shock (5) Hypotension Hypotension type: unspecified hypotension type Qualified Code(s): I95.9 - Hypotension, unspecified
[2024-11-04 07:33] LABS: Immature Granulocytes # (auto) 0.75 K/uL (0.01-0.20); Immature Granulocytes % (auto) 3.0 %; Polychromasia 1+; Target Cells 1+
[2024-11-04 07:41] LABS: Magnesium 2.1 mg/dl (1.7-2.4); Triglycerides 176.0 mg/dl (0-150)
[2024-11-04 08:12] LABS: Alanine Aminotransferase 23.0 U/L (7-52); Albumin Globulin Ratio 0.8 (0.9-2); Albumin Level 2.6 gm/dl (3.4-5.0); Alkaline Phosphatase 56.0 U/L (34-104); Anion Gap 4.0 (3-11); Bilirubin,Total 1.0 mg/dl (0.2-1.0); Blood Urea Nitrogen 41.0 mg/dl (6-23); Calcium 8.2 mg/dl (8.6-10.3); Carbon Dioxide 32.0 mmol/L (21-32); Chloride 111.0 mmol/L (98-107); Creatinine Clr Calc Pharmacy 63.7 ml/min; Globulin 3.1 gm/dl (2.5-4.0); Glucose 140.0 mg/dl (70-99(Fasting)); Potassium 4.4 mmol/L (3.5-5.1); Sodium 147.0 mmol/L (136-145); Total Protein 5.7 gm/dl (6.0-8.3)
--- NOTE | 2024-11-04 09:00 | Surgery Progress Note ---
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 bond. Admission and Anticipated Discharge Date Admission Date: October 25, 2024 Subjective not feeling good, feeling nauseous abdominal pain, controlled with meds, complaining of pain everywhere, just repositioned in the bed thirsty no ostomy output feeling less distended nursing at be Physical Exam Constitutional: WD/WN, vitals as above + ill appearing and + lethargic; no acute distress, + uncomfortable, not in distress, not combative and not diaphoretic Respiratory: no respiratory distress and no labored breathing Gastrointestinal (Abdomen): Inspection/Auscultation: + abdomen distended, + abdominal surgical incision (open with wet to dry dressing. ) and + abdominal surgical drain present Percussion/Palpation: + abdomen tender (LLQ and at midline incision) Ostomy: ostomy retracted it, fibrinous exudate present, no necrosis, sweat in ostomy bag, no stool or gas Skin: no rashes, warm and dry Psychiatric: Orientation: alert and oriented x 3 Results & Data Vital Signs (Past 12 Hours) Vital Signs Temp Pulse Pulse Pulse Resp BP BP 11/04/24 08:15 95 H 135/79 11/04/24 08:00 87 11/04/24 08:00 11/04/24 07:15 36.6 C 74 18 135/79 11/04/24 04:55 85 11/04/24 04:41 90 125/75 11/04/24 02:24 36.5 C 85 20 136/71 11/04/24 02:12 11/04/24 00:45 82 11/04/24 00:34 87 129/67 11/03/24 22:37 36.7 C 85 18 126/58 L 11/03/24 21:43 83 11/03/24 21:00 81 Pulse Ox O2 Del Method O2 Flow Rate 11/04/24 08:15 11/04/24 08:00 11/04/24 08:00 Nasal Cannula 3 11/04/24 07:15 98 Oxymask 11/04/24 04:55 11/04/24 04:41 11/04/24 02:24 94 Oxymask 11/04/24 02:12 Oxymask 3 11/04/24 00:45 11/04/24 00:34 11/03/24 22:37 94 Oxymask 11/03/24 21:43 11/03/24 21:00 Laboratory Results 11/04/24 11/04/24 11/04/24 Range/Units 06:43 05:50 00:03 WBC 25.09 H (4.8-10.8) K/ul RBC 3.05 L (4.70-6.10) M/uL Hgb 9.4 L (14.0-18.0) g/dl Hct 29.0 L (42.0-52.0) % MCV 95.1 (80.0-100.0) fL MCH 30.8 (25.0-34.0) pg MCHC 32.4 (32.0-36.0) g/dL RDW Std Deviation 47.8 H (36.4-46.3) fL RDW Coeff of Jeanette 13.6 (11.5-14.5) % Plt Count 601 H (130-400) K/uL MPV 9.2 L (9.4-12.4) fL Immature Gran % (Auto) 3.0 % Neut % (Auto) 83.3 % Lymph % (Auto) 7.6 % Stevens % (Auto) 5.4 % Eos % (Auto) 0.3 % Baso % (Auto) 0.4 % Neut # (Auto) 20.91 H (1.40-6.50) K/uL Lymph # (Auto) 1.90 (1.20-3.40) K/uL Stevens # (Auto) 1.35 H (0.11-0.59) K/uL Eos # (Auto) 0.08 (0.00-0.50) K/uL Baso # (Auto) 0.10 (0.00-0.20) K/uL Immature Gran # (Auto) 0.75 H (0.01-0.20) K/uL Absolute Nucleated RBC 0.05 (0.00-0.12) K/uL Nucleated RBC % (auto) 0.2 % Polychromasia 1+ Target Cells 1+ Sodium 147 H (136-145) mmol/L Potassium 4.4 D (3.5-5.1) mmol/L Chloride 111 H (98-107) mmol/L Carbon Dioxide 32 (21-32) mmol/L Anion Gap 4 (3-11) BUN 41 H (6-23) mg/dl Creatinine 0.98 (0.6-1.4) mg/dl Est Cr Clr Drug Dosing 63.7 ml/min eGFR 81.93 BUN/Creatinine Ratio 41.8 H (10-20) Glucose 140 H (70-99(Fasting)) mg/dl POC Glucose 141 H 124 H (70-99) mg/dl Calcium 8.2 L (8.6-10.3) mg/dl Phosphorus 2.6 (2.5-4.9) mg/dl Magnesium 2.1 (1.7-2.4) mg/dl Total Bilirubin 1.0 (0.2-1.0) mg/dl AST 24 (13-39) U/L ALT 23 (7-52) U/L Alkaline Phosphatase 56 (34-104) U/L C-Reactive Protein (0-0.5) mg/dl Total Protein 5.7 L (6.0-8.3) gm/dl Albumin 2.6 L (3.4-5.0) gm/dl Globulin 3.1 (2.5-4.0) gm/dl Albumin/Globulin Ratio 0.8 L (0.9-2) Triglycerides 176 H (0-150) mg/dl 11/03/24 11/03/24 11/03/24 Range/Units 18:40 14:20 14:20 WBC (4.8-10.8) K/ul RBC (4.70-6.10) M/uL Hgb (14.0-18.0) g/dl Hct (42.0-52.0) % MCV (80.0-100.0) fL MCH (25.0-34.0) pg MCHC (32.0-36.0) g/dL RDW Std Deviation (36.4-46.3) fL RDW Coeff of Jeanette (11.5-14.5) % Plt Count (130-400) K/uL MPV (9.4-12.4) fL Immature Gran % (Auto) % Neut % (Auto) % Lymph % (Auto) % Stevens % (Auto) % Eos % (Auto) % Baso % (Auto) % Neut # (Auto) (1.40-6.50) K/uL Lymph # (Auto) (1.20-3.40) K/uL Stevens # (Auto) (0.11-0.59) K/uL Eos # (Auto) (0.00-0.50) K/uL Baso # (Auto) (0.00-0.20) K/uL Immature Gran # (Auto) (0.01-0.20) K/uL Absolute Nucleated RBC 0.04 (0.00-0.12) K/uL Nucleated RBC % (auto) 0.1 0.1 % Polychromasia 1+ Target Cells Sodium 146 H (136-145) mmol/L Potassium 3.6 (3.5-5.1) mmol/L Chloride 106 (98-107) mmol/L Carbon Dioxide 35 H (21-32) mmol/L Anion Gap 5 (3-11) BUN 37 H (6-23) mg/dl Creatinine 1.03 (0.6-1.4) mg/dl Est Cr Clr Drug Dosing 60.6 ml/min eGFR 77.18 BUN/Creatinine Ratio 35.9 H (10-20) Glucose 129 H (70-99(Fasting)) mg/dl POC Glucose 129 H (70-99) mg/dl Calcium 8.0 L (8.6-10.3) mg/dl Phosphorus (2.5-4.9) mg/dl Magnesium (1.7-2.4) mg/dl Total Bilirubin (0.2-1.0) mg/dl AST (13-39) U/L ALT (7-52) U/L Alkaline Phosphatase (34-104) U/L C-Reactive Protein 13.10 H (0-0.5) mg/dl Total Protein (6.0-8.3) gm/dl Albumin (3.4-5.0) gm/dl Globulin (2.5-4.0) gm/dl Albumin/Globulin Ratio (0.9-2) Triglycerides (0-150) mg/dl 11/03/24 11/03/24 11/03/24 Range/Units 14:20 14:20 14:20 WBC (4.8-10.8) K/ul RBC (4.70-6.10) M/uL Hgb (14.0-18.0) g/dl Hct (42.0-52.0) % MCV (80.0-100.0) fL MCH (25.0-34.0) pg MCHC (32.0-36.0) g/dL RDW Std Deviation (36.4-46.3) fL RDW Coeff of Jeanette 13.5 (11.5-14.5) % Plt Count 531 H 516 H (130-400) K/uL MPV 9.2 L 9.3 L (9.4-12.4) fL Immature Gran % (Auto) 3.4 % Neut % (Auto) 83.5 % Lymph % (Auto) 8.1 % Stevens % (Auto) 4.6 % Eos % (Auto) 0.1 % Baso % (Auto) 0.3 % Neut # (Auto) 22.44 H (1.40-6.50) K/uL Lymph # (Auto) 2.19 (1.20-3.40) K/uL Stevens # (Auto) 1.24 H (0.11-0.59) K/uL Eos # (Auto) 0.03 (0.00-0.50) K/uL Baso # (Auto) 0.08 (0.00-0.20) K/uL Immature Gran # (Auto) 0.91 H (0.01-0.20) K/uL Absolute Nucleated RBC 0.04 (0.00-0.12) K/uL Nucleated RBC % (auto) % Polychromasia Target Cells Sodium (136-145) mmol/L Potassium (3.5-5.1) mmol/L Chloride (98-107) mmol/L Carbon Dioxide (21-32) mmol/L Anion Gap (3-11) BUN (6-23) mg/dl Creatinine (0.6-1.4) mg/dl Est Cr Clr Drug Dosing ml/min eGFR BUN/Creatinine Ratio (10-20) Glucose (70-99(Fasting)) mg/dl POC Glucose (70-99) mg/dl Calcium (8.6-10.3) mg/dl Phosphorus (2.5-4.9) mg/dl Magnesium (1.7-2.4) mg/dl Total Bilirubin (0.2-1.0) mg/dl AST (13-39) U/L ALT (7-52) U/L Alkaline Phosphatase (34-104) U/L C-Reactive Protein (0-0.5) mg/dl Total Protein (6.0-8.3) gm/dl Albumin (3.4-5.0) gm/dl Globulin (2.5-4.0) gm/dl Albumin/Globulin Ratio (0.9-2) Triglycerides (0-150) mg/dl 11/03/24 11/03/24 11/03/24 Range/Units 14:20 14:20 14:20 WBC (4.8-10.8) K/ul RBC (4.70-6.10) M/uL Hgb (14.0-18.0) g/dl Hct (42.0-52.0) % MCV (80.0-100.0) fL MCH 30.8 (25.0-34.0) pg MCHC 33.5 31.5 L (32.0-36.0) g/dL RDW Std Deviation 45.5 45.8 (36.4-46.3) fL RDW Coeff of Jeanette 13.6 (11.5-14.5) % Plt Count (130-400) K/uL MPV (9.4-12.4) fL Immature Gran % (Auto) % Neut % (Auto) % Lymph % (Auto) % Stevens % (Auto) % Eos % (Auto) % Baso % (Auto) % Neut # (Auto) (1.40-6.50) K/uL Lymph # (Auto) (1.20-3.40) K/uL Stevens # (Auto) (0.11-0.59) K/uL Eos # (Auto) (0.00-0.50) K/uL Baso # (Auto) (0.00-0.20) K/uL Immature Gran # (Auto) (0.01-0.20) K/uL Absolute Nucleated RBC (0.00-0.12) K/uL Nucleated RBC % (auto) % Polychromasia Target Cells Sodium (136-145) mmol/L Potassium (3.5-5.1) mmol/L Chloride (98-107) mmol/L Carbon Dioxide (21-32) mmol/L Anion Gap (3-11) BUN (6-23) mg/dl Creatinine (0.6-1.4) mg/dl Est Cr Clr Drug Dosing ml/min eGFR BUN/Creatinine Ratio (10-20) Glucose (70-99(Fasting)) mg/dl POC Glucose (70-99) mg/dl Calcium (8.6-10.3) mg/dl Phosphorus (2.5-4.9) mg/dl Magnesium (1.7-2.4) mg/dl Total Bilirubin (0.2-1.0) mg/dl AST (13-39) U/L ALT (7-52) U/L Alkaline Phosphatase (34-104) U/L C-Reactive Protein (0-0.5) mg/dl Total Protein (6.0-8.3) gm/dl Albumin (3.4-5.0) gm/dl Globulin (2.5-4.0) gm/dl Albumin/Globulin Ratio (0.9-2) Triglycerides (0-150) mg/dl 11/03/24 11/03/24 11/03/24 Range/Units 14:20 14:20 14:20 WBC (4.8-10.8) K/ul RBC (4.70-6.10) M/uL Hgb 9.2 L (14.0-18.0) g/dl Hct 27.5 L 28.6 L (42.0-52.0) % MCV 92.0 93.2 (80.0-100.0) fL MCH 29.3 (25.0-34.0) pg MCHC (32.0-36.0) g/dL RDW Std Deviation (36.4-46.3) fL RDW Coeff of Jeanette (11.5-14.5) % Plt Count (130-400) K/uL MPV (9.4-12.4) fL Immature Gran % (Auto) % Neut % (Auto) % Lymph % (Auto) % Stevens % (Auto) % Eos % (Auto) % Baso % (Auto) % Neut # (Auto) (1.40-6.50) K/uL Lymph # (Auto) (1.20-3.40) K/uL Stevens # (Auto) (0.11-0.59) K/uL Eos # (Auto) (0.00-0.50) K/uL Baso # (Auto) (0.00-0.20) K/uL Immature Gran # (Auto) (0.01-0.20) K/uL Absolute Nucleated RBC (0.00-0.12) K/uL Nucleated RBC % (auto) % Polychromasia Target Cells Sodium (136-145) mmol/L Potassium (3.5-5.1) mmol/L Chloride (98-107) mmol/L Carbon Dioxide (21-32) mmol/L Anion Gap (3-11) BUN (6-23) mg/dl Creatinine (0.6-1.4) mg/dl Est Cr Clr Drug Dosing ml/min eGFR BUN/Creatinine Ratio (10-20) Glucose (70-99(Fasting)) mg/dl POC Glucose (70-99) mg/dl Calcium (8.6-10.3) mg/dl Phosphorus (2.5-4.9) mg/dl Magnesium (1.7-2.4) mg/dl Total Bilirubin (0.2-1.0) mg/dl AST (13-39) U/L ALT (7-52) U/L Alkaline Phosphatase (34-104) U/L C-Reactive Protein (0-0.5) mg/dl Total Protein (6.0-8.3) gm/dl Albumin (3.4-5.0) gm/dl Globulin (2.5-4.0) gm/dl Albumin/Globulin Ratio (0.9-2) Triglycerides (0-150) mg/dl 11/03/24 11/03/24 11/03/24 Range/Units 14:20 14:20 14:20 WBC 26.89 H 27.22 H (4.8-10.8) K/ul RBC 2.99 L 3.07 L (4.70-6.10) M/uL Hgb 9.0 L (14.0-18.0) g/dl Hct (42.0-52.0) % MCV (80.0-100.0) fL MCH (25.0-34.0) pg MCHC (32.0-36.0) g/dL RDW Std Deviation (36.4-46.3) fL RDW Coeff of Jeanette (11.5-14.5) % Plt Count (130-400) K/uL MPV (9.4-12.4) fL Immature Gran % (Auto) % Neut % (Auto) % Lymph % (Auto) % Stevens % (Auto) % Eos % (Auto) % Baso % (Auto) % Neut # (Auto) (1.40-6.50) K/uL Lymph # (Auto) (1.20-3.40) K/uL Stevens # (Auto) (0.11-0.59) K/uL Eos # (Auto) (0.00-0.50) K/uL Baso # (Auto) (0.00-0.20) K/uL Immature Gran # (Auto) (0.01-0.20) K/uL Absolute Nucleated RBC (0.00-0.12) K/uL Nucleated RBC % (auto) % Polychromasia Target Cells Sodium (136-145) mmol/L Potassium (3.5-5.1) mmol/L Chloride (98-107) mmol/L Carbon Dioxide (21-32) mmol/L Anion Gap (3-11) BUN (6-23) mg/dl Creatinine (0.6-1.4) mg/dl Est Cr Clr Drug Dosing ml/min eGFR BUN/Creatinine Ratio (10-20) Glucose (70-99(Fasting)) mg/dl POC Glucose (70-99) mg/dl Calcium (8.6-10.3) mg/dl Phosphorus (2.5-4.9) mg/dl Magnesium (1.7-2.4) mg/dl Total Bilirubin (0.2-1.0) mg/dl AST (13-39) U/L ALT (7-52) U/L Alkaline Phosphatase (34-104) U/L C-Reactive Protein (0-0.5) mg/dl Total Protein (6.0-8.3) gm/dl Albumin (3.4-5.0) gm/dl Globulin (2.5-4.0) gm/dl Albumin/Globulin Ratio (0.9-2) Triglycerides (0-150) mg/dl 11/03/24 11/03/24 Range/Units 12:12 06:15 WBC (4.8-10.8) K/ul RBC (4.70-6.10) M/uL Hgb (14.0-18.0) g/dl Hct (42.0-52.0) % MCV (80.0-100.0) fL MCH (25.0-34.0) pg MCHC (32.0-36.0) g/dL RDW Std Deviation (36.4-46.3) fL RDW Coeff of Jeanette (11.5-14.5) % Plt Count (130-400) K/uL MPV (9.4-12.4) fL Immature Gran % (Auto) 3.0 % Neut % (Auto) 84.4 % Lymph % (Auto) 7.9 % Stevens % (Auto) 4.3 % Eos % (Auto) 0.1 % Baso % (Auto) 0.3 % Neut # (Auto) 23.12 H (1.40-6.50) K/uL Lymph # (Auto) 2.17 (1.20-3.40) K/uL Stevens # (Auto) 1.18 H (0.11-0.59) K/uL Eos # (Auto) 0.02 (0.00-0.50) K/uL Baso # (Auto) 0.09 (0.00-0.20) K/uL Immature Gran # (Auto) 0.81 H (0.01-0.20) K/uL Absolute Nucleated RBC (0.00-0.12) K/uL Nucleated RBC % (auto) % Polychromasia Target Cells Sodium (136-145) mmol/L Potassium (3.5-5.1) mmol/L Chloride (98-107) mmol/L Carbon Dioxide (21-32) mmol/L Anion Gap (3-11) BUN (6-23) mg/dl Creatinine (0.6-1.4) mg/dl Est Cr Clr Drug Dosing ml/min eGFR BUN/Creatinine Ratio (10-20) Glucose (70-99(Fasting)) mg/dl POC Glucose 131 H (70-99) mg/dl Calcium (8.6-10.3) mg/dl Phosphorus (2.5-4.9) mg/dl Magnesium (1.7-2.4) mg/dl Total Bilirubin (0.2-1.0) mg/dl AST (13-39) U/L ALT (7-52) U/L Alkaline Phosphatase (34-104) U/L C-Reactive Protein (0-0.5) mg/dl Total Protein (6.0-8.3) gm/dl Albumin (3.4-5.0) gm/dl Globulin (2.5-4.0) gm/dl Albumin/Globulin Ratio (0.9-2) Triglycerides (0-150) mg/dl
[2024-11-04] MEDS ORDERED: NALOXONE HCL 0.4 MG/1 ML VIAL/CARP IV PRN (09:07)
[2024-11-04] MEDS: [UNRECOGNIZED DRUG - REMARK] SCH (10:12)
[2024-11-04] MEDS: SODIUM CHLORIDE 0.9% 1,000 ML IV SCH (11:27)
[2024-11-04] MEDS: HYDROmorphone PCA 30 MG/30 ML IV PRN (11:31)
--- NOTE | 2024-11-04 11:50 | Pharmacy Report ---
Pharmacy PN Follow-up Note - Date of Service November 04, 2024 - Subjective Patient is currently on day #7 of TPN for prolonged NPO status and postop ileus. - Objective Height & Weight (Last Documented) Height 5 ft 7 in Weight 75.8 kg Diet Order(s) 11/01/24 07:12 NPO Intake & Ouput (24hrs) 11/03/24 11/04/24 11/05/24 06:59 06:59 06:59 Intake Total 2655 / 2655 2401.130 / 2401.130 1522.558 / 1522.558 Output Total 4100 / 4100 4050 / 4050 Balance -1445 / -1445 -1648.870 / -0122.005 1405.558 / 1522.558 Selected Laboratory Results 11/03/24 11/04/24 14:20 06:43 Sodium 146 H 147 H Potassium 3.6 4.4 D Chloride 106 111 H Carbon Dioxide 35 H 32 Anion Gap 5 4 BUN 37 H 41 H Creatinine 1.03 0.98 BUN/Creatinine Ratio 35.9 H 41.8 H Glucose 129 H 140 H Calcium 8.0 L 8.2 L Phosphorus 2.6 Magnesium 2.1 Total Bilirubin 1.0 AST 24 ALT 23 Alkaline Phosphatase 56 Triglycerides 176 H - Assessment & Plan Assessment: 11/04: * Continuing with TPN today. Day #7 of PN total and day #3 of TPN. No plans to return to OR today. 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 * Still having significant output from NG tube. * Sodium and Chloride elevated from yesterday. Potassium increased a full point. CO2 returned to normal limits. No outside electrolytes administered today. * Will decrease amount of Sodium and Chloride in the bag today. Due to sharp increase in potassium, will also reduce K in bag today. * Triglycerides decreased to 176 today. Will order Lipids MWF starting today. Labs ordered per protocol. 11/03: Patient with complaints of bloating and nausea yesterday. Evaluated by surgery and found to have concern for ileus, ostomy without function and NGT not functioning/clogged. NGT function has been restored. NGT continues to have significant output. Documented 1200 mL of drainage on 11/02. Today patient reports distention improved, no nausea. * PICC line placed - transitioned to TPN on 11/02. * Will advance macronutrients to goal today and move to a 18 hour infusion for hepatic rest as recommended by Dietary. * Hypokalemia and hypophosphatemia slightly improved but electrolytes remain below goal range. KPhos 15 mmol IV given outside of TPN this AM. Will increase amounts of both electrolytes in today's bag. * Slightly hypernatremic (Na 146). Anticipate improvement with increased volume of today's bag. No changes to amount of sodium - reassess need to decrease Na on 11/04. 10/31: * Patient will not go back to the OR today. Surgery following daily and may return to OR in coming days for replacement of the ostomy. * NG still with significant output. Electrolytes are improving but still not at goal. Potassium and chloride are low today. CO2 is elevated. ABG does show a respiratory alkalosis. 40 mEq IV KCl recommended to resident team today. Will remove acetate from bag today. * Will order LFTs and CBC per policy for Monday to go with triglycerides. 50 g of Lipids will be given today given downtrend in triglycerides. Only doing Lipids on Monday and . * Will not advance macronutrients given low K and difficulties with osmolarity in PPN. Recommended placing central line in the next 24-48 hours to primary team given electrolyte needs and low kcals in PPN. 10/30: * Per surgery, KUB encouraging but if no ostomy function by tomorrow, patient may need to return to the OR. NG with 1.5L output. PPN was held yesterday due to elevated TGs >600 and other electrolyte shifts. Electrolytes stabilized today and TGs trended down. Per discussion with multidisciplinary team, okay to continue PPN today and will reduce goal lipids to twice a week. Repeat TG ordered for next Monday morning. PPN restarted at initial rate/volume of bag 1. Plan: * For Day #7 of PN (transitioned to TPN on 11/02) administration, the following will be ordered: * Macronutrients: * Amino Acids: 125 grams/day * Dextrose: 218 grams/day * Lipids: 50 grams every Monday, Monday, Monday * Micronutrients: * Sodium chloride: 60 mEq/day * Potassium phosphate: 30 mMol/day * Potassium chloride: 50 mEq/day * Potassium acetate: 50 mEq/day * Calcium gluconate: 4.65 mEq/day * Multivitamins: 10 mL/day * Trace elements: 1 mL/day * Thiamine: 100 mg/day * Total volume of 1666 mL will be infused over 18 hours and will provide 1242 kcal/day * Initial infusion rate from 1335-0887 = 49 mL/hr * Increase infusion rate from 1109-7755 = 98 mL/hr * Decrease infusion rate from 7181-2968 = 49 mL/hr * Labs will be ordered per PN protocol. * Pharmacy will follow and adjust PN orders on a daily basis. Thank you!
--- NOTE | 2024-11-04 15:27 | Infectious Disease Progress Nt ---
Date of Service November 04, 2024 Assessment & Plan (1) Bowel perforation: (2) Peritonitis: Plan Problems: #Perforated diverticulitis s/p ex lap, bowel resection, colostomy (10/25/24) #Feculent peritonitis #Pneumonia Micro: 10/25 Peritoneal fluid cx: Clostridium perfringens, mod counts of probable intestinal mario. GS GNRs, GPRs, GPCs, yeast Abx: Caspofungin 10/28 - present Zosyn 10/25 - present Clindamycin 10/27 - 10/28 74 yo M with HTN, HLD, emphysema, GERD, Crane's esophagus who presented on 10/25 with acute onset of generalized abdominal pain, distension, sweats, found to have perforated diverticulitis s/p ex lap, bowel resection, colostomy (10/25/24). Hospital course c/b pneumonia noted on CT chest 10/29. On presentation, he was afebrile, hypotensive to SBP 80s-90s. Labs showed WBC 13.14. CT A/P with IV contrast showed acute perforated diverticulitis at the distal descending/proximal sigmoid colon with a small amount of scattered free air, and trace free fluid without ascites. Pt started on Zosyn. He was taken for emergent ex lap, bowel resection, colostomy formation. In the OR, there was feculent peritonitis. Intra-op culture obtained of peritoneal fluid. He was admitted to the ICU postoperatively, requiring Levophed. Peritoneal fluid culture growing Clostridium perfringens, and moderate counts of probable intestinal mario. Gram stain with GNRs, GPRs, GPCs, yeast. Clindamycin added 10/27. Weaned off Levophed 10/27. WBC uptrending to 17.59 on 10/28. Discussion: Polymicrobial peritoneal fluid culture including Clostridium perfringens. Zosyn should cover the Clostridium perfringens and other intestinal mario, unless there are resistant organisms. No prior micro data to review. Leukocytosis uptrending and Tmax 37.7 on 10/27--added caspofungin on 10/28 due to yeast seen on gram stain of peritoneal fluid. Also with increased O2 requirement on 10/29, with CT chest showing bilateral pneumonia. Had coughing spell leading to midline incision dehiscence and evisceration, so taken back to OR for ex lap, washout, and abdominal wall closure 10/31. Post op, leukocytosis up to 24 on 11/01/24. Now with persistent leukocytosis to mid 20s. KUB 11/02 with concern for SBO-- surgery felt more likely ileus. Did have some gas in the ostomy on 11/04. May need midline revision and revision of ostomy in the next couple days. Recommendations: - Awaiting potential surgical plans. Can continue Zosyn and caspofungin for now, although hope to discontinue soon as pt is completing 7 days of Zosyn for pneumonia, and if there is intra-abdominal source control, should be able to discontinue antibiotics/antifungal Will continue to follow. Discussed with surgery Admission and Anticipated Discharge Date Admission Date: October 25, 2024 Subjective This patient recommendation is based on a telemedicine consult request which was completed asynchronously through chart review and information provided by the primary physician. The patient was not seen or examined today. The evaluation is consultative in nature and all patient care and treatment decisions can either be accepted or rejected by the patient's primary hospital-based treating physician using their own independent medical judgment for their patient. Time Spent Reviewing Chart: 11 - 20 minutes Afebrile WBC 25 KUB 11/02 with significant interval small bowel distension consistent with parti al or early SBO On 3 L NC Results & Data Vital Signs (Past 12 Hours) Vital Signs Temp Pulse Pulse Resp BP BP Pulse Ox 11/04/24 14:36 11/04/24 13:56 93 H 11/04/24 12:34 100 H 122/67 11/04/24 11:53 100 H 120/67 11/04/24 11:25 36.6 C 88 20 120/67 96 11/04/24 08:54 83 130/97 11/04/24 08:15 95 H 135/79 11/04/24 08:00 87 11/04/24 08:00 11/04/24 07:15 36.6 C 74 18 135/79 98 11/04/24 04:55 85 11/04/24 04:41 90 125/75 Pulse Ox O2 Del Method O2 Del Method O2 Flow Rate 11/04/24 14:36 98 Nasal Cannula 11/04/24 13:56 11/04/24 12:34 11/04/24 11:53 11/04/24 11:25 Oxymask 11/04/24 08:54 11/04/24 08:15 11/04/24 08:00 11/04/24 08:00 Nasal Cannula 3 11/04/24 07:15 Oxymask 11/04/24 04:55 11/04/24 04:41
[2024-11-04] MEDS: CLINOLIPID 20% IV FAT EMULSION 250 ML IV SCH (15:40)
[2024-11-04] MEDS: CENTRAL TPN IV SCH (15:56)
[2024-11-04] MEDS: [UNRECOGNIZED DRUG - OTHER] IV SCH (15:56)
[2024-11-04] MEDS: DICLOFENAC SOD 1% GEL 100 GM TUBE EXT SCH (16:38)
--- NOTE | 2024-11-04 17:40 | Surgery Progress Note ---
Date of Service November 04, 2024 Assessment & Plan (1) Perioperative dehiscence of abdominal wound with evisceration: Plan: likely partial dehisence no evisceration external retention sutures were not placed at last preoceduree internal retentions were may need re-exploration dressings and abdominal binder for now Admission and Anticipated Discharge Date Admission Date: October 25, 2024 Physical Exam Gastrointestinal (Abdomen): at least partial dehisence Results & Data Vital Signs (Past 12 Hours) Vital Signs Temp Pulse Pulse Resp BP BP Pulse Ox 11/04/24 16:25 81 121/78 11/04/24 15:57 92 H 113/74 11/04/24 14:36 11/04/24 13:56 93 H 11/04/24 12:34 100 H 122/67 11/04/24 11:53 100 H 120/67 11/04/24 11:25 36.6 C 88 20 120/67 96 11/04/24 08:54 83 130/97 11/04/24 08:15 95 H 135/79 11/04/24 08:00 87 11/04/24 08:00 11/04/24 07:15 36.6 C 74 18 135/79 98 Pulse Ox O2 Del Method O2 Del Method O2 Flow Rate 11/04/24 16:25 11/04/24 15:57 11/04/24 14:36 98 Nasal Cannula 11/04/24 13:56 11/04/24 12:34 11/04/24 11:53 11/04/24 11:25 Oxymask 11/04/24 08:54 11/04/24 08:15 11/04/24 08:00 11/04/24 08:00 Nasal Cannula 3 11/04/24 07:15 Oxymask (1) Perioperative dehiscence of abdominal wound with evisceration Encounter type: subsequent encounter Qualified Code(s): T81.321D - Disruption or dehiscence of closure of internal operation (surgical) wound of abdominal wall muscle or fascia, subsequent encounter
[2024-11-04 23:06] LABS: Base Excess VBG 5.8 mEq/L; HCO3 VBG 32 mmol/L; Oxygen Saturation VBG < 60.0 %; PCO2 VBG 50 mmHg (38-50); PO2 VBG 37 mmHg; pH VBG 7.41 (7.36-7.41)
--- NOTE | 2024-11-05 03:08 | Communication Note ---
Date of Service: November 05, 2024 Early in the evening shift nursing noting some agitation and drainage of abdominal wound. Went to bedside. Vitals stable, pt still quite cranky. Abdom inal wound inspected and notable for dehiscence but no evisceration at this time. Surgeon contacted for check in of wound. Surgeon aware. Pt continues to be hemodynamically stable throughout the night. Ostomy with small amount of serosanguineous drainage. Dressing in place with abdominal binder Resident Activity Tracking Resident Involvement: Resident Care Provided Care Provided: Adult [facility]
[2024-11-05] MEDS: LACTATED RINGER'S 1,000 ML IV ONE (06:56)
[2024-11-05 07:37] LABS: Hematocrit (blood only) 30.7 % (42.0-52.0); Hemoglobin 9.7 g/dl (14.0-18.0); Mean Corpuscular Hemoglobin 29.8 pg (25.0-34.0); Mean Corpuscular Volume 94.5 fL (80.0-100.0); Platelet Count 703 K/uL (130-400); RDW Standard Deviation 46.8 fL (36.4-46.3); Red Blood Count 3.25 M/uL (4.70-6.10); White Blood Count 25.14 K/ul (4.8-10.8)
[2024-11-05 07:39] LABS: Anion Gap 6.0 (3-11); Blood Urea Nitrogen 44.0 mg/dl (6-23); Calcium 8.3 mg/dl (8.6-10.3); Carbon Dioxide 27.0 mmol/L (21-32); Chloride 114.0 mmol/L (98-107); Creatinine Clr Calc Pharmacy 69.4 ml/min; Glucose 142.0 mg/dl (70-99(Fasting)); Magnesium 2.0 mg/dl (1.7-2.4); Potassium 4.6 mmol/L (3.5-5.1); Sodium 147.0 mmol/L (136-145)
[2024-11-05 08:01] LABS: Immature Granulocytes # (auto) 0.66 K/uL (0.01-0.20); Immature Granulocytes % (auto) 2.6 %
--- NOTE | 2024-11-05 08:28 | Hospitalist Progress Note ---
Date of Service November 05, 2024 Assessment & Plan (1) Bowel perforation: (2) Sepsis: (3) Peritonitis: (4) Diverticulitis: (5) Cigarette nicotine dependence: (6) GERD with esophagitis: (7) Aortic insufficiency: (8) Crane esophagus: Plan Mr. Rivera is 74 yo male with history of HTN, dyslipidemia, GERD, aortic insufficiency, barrette's esophagus, presented to ED with acute onset of generalized abdominal pain with distention, subsequently found to have perforated diverticulitis, and underwent laparotomy sigmoid colon with diverting colostomy( 10/25) for perforated diverticulitis. On presentation to ED he met SIRS criteria, blood pressure was persistently low despite fluid management. He was hypotensive at OR as well. Post operatively was shifted to ICU and remains on Levophed infusion. Urine output seems adequate. Pain seems optimized on IV med. Zosyn coverage for infection ongoing. #S/P Laparotomy with colostomy #Bowel Perforation #Ileus - Care per surgery - NG tube for abdominal decompression - await ostomy output - Pain: management as per surgery - ID on board - Zosyn coverage for GI infection - caspofungin for yeast coverage. - OOB per tolerance - labs per surgery - PICC line for TPN - now with repeat dehiscence - abdominal binder in place, plan for return to OR #Hypoxia #COPD -hypertonic saline nebs q6hrs -continue oxymask per protocol #Atrial Fibrillation with RVR likely chronic #Pulmonary Congestion 2/2 to Aortic Regurgitation - Echo 08/28: normal EF, moderate to severe AR. - rates currently controlled - Lopressor 2.5mg IV q4hrs for rate control - consider amiodarone if rates do not improve with current regimen - due to pt's recent surgery, hold traditional anticoagulation at this time - continue lovenox 40mg daily #Hypokalemia, resolved - will monitor #VANESSA, resolved - Follow BMP #Nicotine dependance - Was on buccal nicotine - on nicotine patch - No s/o nicotine withdrawal #BPH: - Pt remain on grant. - Hold home med #Electrolytes -replaced per surgery Dispo: Tele DVT prophylaxis: lovenox 40mg daily Diet: NPO to TPN Admission and Anticipated Discharge Date Admission Date: October 25, 2024 Supervising Physician Co-Signing Physician Notes Attending attestation Pt seen and examined in concert with Dr. Harry. In agreement with the documented findings as noted in the resident documentation with any exceptions or additions as noted here. Improved mood today. Resting in bed with pain adequately controlled on present medication regimen. VS as noted. On examination, S1/S2 nl RRR no MCG. CTAB. Abd NT/ND BS+ve Diverticulitis with perforated bowel and subsequent evisceration of wound - management per surgical primary team. ID consult appreciated, will continue ongoing IV antibiotic and antifungal therapy. PICC in place for TPN, monitor daily lab studies. Upcoming OR for repeat cleanout and repair. AF with h/o RVR and aortic regurg - continue q4 metoprolol IV and monitor closely. Holding enoxaparin with upcoming procedure. Else see resident documentation as noted. Subjective Patient seen and evaluated at bedside this morning. Reported chest pain overnight. Frequent PVCs/bigeminy on tele. Trop negative. Plan to return to OR today for further revision. VSS. Persistent leukocytosis, thrombocytosis. Electrolytes stable. Review of Systems Review of Systems: reviewed, per HPI Physical Exam Physical Exam: Constitutional: ill appearing, no acute distress HEENT: NCAT, no conjunctival injection CV: regular rhythm, no murmur appreciated, extremities well-perfused, no LE edema Resp: diffuse rhonci GI: ostomy, NG tube MSK: no gross deformities appreciated Skin: warm, dry : grant in place Neuro: alert, oriented, no focal neurologic deficit appreciated Results & Data Results & Data Vital Signs (Past 12 Hours) Vital Signs Temp Pulse Pulse Resp BP BP BP 11/05/24 07:36 36.6 C 86 18 138/82 11/05/24 07:28 11/05/24 06:22 11/05/24 04:20 79 11/05/24 04:07 89 113/74 11/05/24 03:52 36.7 C 90 18 126/73 11/05/24 00:50 82 11/04/24 22:39 36.7 C 95 H 22 119/94 11/04/24 22:33 81 11/04/24 21:45 84 11/04/24 21:32 90 123/72 Pulse Ox O2 Del Method O2 Flow Rate 11/05/24 07:36 94 Nasal Cannula 2 11/05/24 07:28 Nasal Cannula 2 11/05/24 06:22 Nasal Cannula 2 11/05/24 04:20 11/05/24 04:07 11/05/24 03:52 97 Nasal Cannula 2.0 11/05/24 00:50 11/04/24 22:39 95 Nasal Cannula 2.0 11/04/24 22:33 11/04/24 21:45 11/04/24 21:32 Resident Activity Tracking Resident Involvement: Resident Care Provided Care Provided: Adult Hospital Medicine (2) Sepsis Sepsis type: sepsis due to unspecified organism Severe sepsis acute organ dysfunction type: unspecified Severe sepsis shock status: without septic shock
--- NOTE | 2024-11-05 10:04 | Surgery Progress Note ---
Date of Service November 05, 2024 Assessment & Plan (1) Perioperative dehiscence of abdominal wound with evisceration: Plan: no great options here will plan re-exploration and repair wall and retention sutures evaluate ostomy if possible appreciate Dr Read's input Admission and Anticipated Discharge Date Admission Date: October 25, 2024 Subjective complaints of being hungry Review of Systems Constitutional: no fever and no chills Respiratory: no dyspnea Cardiovascular: no chest pain Gastrointestinal: + abdominal pain; no nausea and no vomit ing NG in place Physical Exam Eyes: no scleral abnormality Respiratory: normal respiratory effort Cardiovascular: Rate/Rhythm: regular rate and regular rhythm Gastrointestinal (Abdomen): Inspection/Auscultation: + abdomen distended and + abdominal surgical incision (more pronounced dihisence this AM) Percussion/Palpation: + abdomen tender and abdomen soft ostomy with some output Results & Data Vital Signs (Past 12 Hours) Vital Signs Temp Pulse Pulse Resp BP BP BP 11/05/24 08:49 84 131/79 11/05/24 08:30 87 138/82 11/05/24 07:36 36.6 C 86 18 138/82 11/05/24 07:28 11/05/24 06:22 11/05/24 04:20 79 11/05/24 04:07 89 113/74 11/05/24 03:52 36.7 C 90 18 126/73 11/05/24 00:50 82 11/04/24 22:39 36.7 C 95 H 22 119/94 11/04/24 22:33 81 Pulse Ox O2 Del Method O2 Flow Rate 11/05/24 08:49 11/05/24 08:30 11/05/24 07:36 94 Nasal Cannula 2 11/05/24 07:28 Nasal Cannula 2 11/05/24 06:22 Nasal Cannula 2 11/05/24 04:20 11/05/24 04:07 11/05/24 03:52 97 Nasal Cannula 2.0 11/05/24 00:50 11/04/24 22:39 95 Nasal Cannula 2.0 11/04/24 22:33 (1) Perioperative dehiscence of abdominal wound with evisceration Encounter type: subsequent encounter Qualified Code(s): T81.321D - Disruption or dehiscence of closure of internal operation (surgical) wound of abdominal wall muscle or fascia, subsequent encounter
--- NOTE | 2024-11-05 12:44 | Surgery Progress Note ---
Date of Service November 05, 2024 Assessment & Plan (1) Wound dehiscence: Plan: I agree with the assessment and plan of care by the patient's attending surgeon for reexploration and reclosure as well as evaluating bowel is much as possible without untoward risk of injury to bowel. This is a difficult situation unfortunately, patient's family and himself understand the situation and the nature of the disease. I am available for help if needed. Thank you for this consult Admission and Anticipated Discharge Date Admission Date: October 25, 2024 Subjective Was consulted for second opinion in regards to this patient. Briefly patient is a 74-year-old male with a history of feculent perforated diverticulitis, status post exploratory laparotomy with Packer's procedure on 10/25/2024. Postoperative course was complicated by wound dehiscence and evisceration on 10/31/2024, he was status post exploratory laparotomy with reclosure of abdomen with internal retention sutures as well. He now appears to have wound dehiscence. His colostomy is productive of a small amount of stool. Plan will be for Dr. Courtney to explore and reclose the abdomen most likely with external retention sutures as well. Review of Systems Review of Systems: All systems reviewed & are unremarkable except as noted in HPI & below Physical Exam Constitutional: WD/WN, vitals as above Gastrointestinal (Abdomen): Midline incision with dehiscence with omentum exposed, no evidence of evisceration. Patient in bed, NG tube in place with small amount of output, colostomy viable with small amount of liquid stool in bag Results & Data Vital Signs (Past 12 Hours) Vital Signs Temp Pulse Pulse Resp BP BP BP 11/05/24 11:54 82 140/81 11/05/24 11:35 92 H 146/88 H 11/05/24 11:32 84 11/05/24 11:00 11/05/24 08:49 84 131/79 11/05/24 08:30 87 138/82 11/05/24 08:00 36.8 C 72 20 146/88 H 11/05/24 07:36 36.6 C 86 18 138/82 11/05/24 07:28 11/05/24 06:22 11/05/24 04:20 79 11/05/24 04:07 89 113/74 11/05/24 03:52 36.7 C 90 18 126/73 11/05/24 00:50 82 Pulse Ox O2 Del Method O2 Flow Rate 11/05/24 11:54 11/05/24 11:35 11/05/24 11:32 11/05/24 11:00 Nasal Cannula 2 11/05/24 08:49 11/05/24 08:30 11/05/24 08:00 95 Nasal Cannula 2 11/05/24 07:36 94 Nasal Cannula 2 11/05/24 07:28 Nasal Cannula 2 11/05/24 06:22 Nasal Cannula 2 11/05/24 04:20 11/05/24 04:07 11/05/24 03:52 97 Nasal Cannula 2.0 11/05/24 00:50 PG Care Time/CCT Total # of Minutes Spent Total Time Spent with Patient: Total time spent is greater than 50% in coordination of care (as documented) at patient's floor/unit and/or counseling patient: Coding Level of Care Code 11517 SUB INP/OBS CARE 03/02MIN Diagnoses Wound dehiscence T81.30XA
[2024-11-05] MEDS ORDERED: DEXAMETHASONE SOD INJ 4 MG/ML VIAL ONE (14:02)
[2024-11-05] MEDS ORDERED: LIDOCAINE 2% 2 ML VIAL/AMP(20MG/ML) INFIL ONE (14:02)
[2024-11-05] MEDS ORDERED: PROPOFOL IV EMULSION 10 MG/ML 20 ML VIAL IV ONE (14:02)
[2024-11-05] MEDS ORDERED: MIDAZOLAM HCL 1 MG/ML 2ML VIAL ONE (14:02)
[2024-11-05] MEDS ORDERED: ONDANSETRON INJ 2 MG/ML 2 ML VIAL ONE (14:02)
[2024-11-05] MEDS ORDERED: ROCURONIUM BROMIDE 10 MG/ML 5 ML VIAL IV ONE (14:02)
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
[2024-11-05] MEDS ORDERED: ATROPINE SULFATE 0.1 MG/ML 10ML SYR IV PRN (15:10)
--- NOTE | 2024-11-05 15:39 | Operative Report ---
Post Operative Report Pre & Post Diagnosis Operation Date: 11/05/24 08:00 Abdominal wall dehiscence Functioning viable colostomy I identified the patient and participated in the time-out.: Yes Procedure Operation Date: 11/05/24 08:00 Exploratory laparotomy with primary closure of fascia and retention sutures Surgeon Vahid Courtney MD Director Foundation Kami Summers PA-C Estimated Blood Loss 35 Findings Consistent with Post-Op Diagnosis Abdominal wall dehiscence with exposed omentum, no bowel visible within defect Specimens None Drains none Anesthesia Type General Complications None Indications This is an 74-year-old male who had a previous Packer's procedure and dehisced last week. He was closed primarily without retention sutures. He was seen with some exposed intra-abdominal contents consistent with partial dehiscence. We talked to them in detail and recommended a reexploration and placement of external retention sutures. He understands all the risks and wishes to proceed. Description of Procedure Patient was taken to the OR and underwent excellent general endotracheal anesthesia. His abdomen was prepped and draped in normal sterile fashion with Betadine. His colostomy which was viable and working was put away from the wound with Ioban. His previous sutures were removed. An incision was made above the previous incision to enter the peritoneal cavity where there was no exposed omentum. The abdominal wall was then freed without significant difficulty. The only thing within the defect was portion of the omentum, no bowel was exposed. The abdomen was then irrigated with antibiotic infused saline out and suctioned out to clear. The colostomy was checked and was viable and showed good blood flow without issue. This therefore was left in place. Once the abdominal wall was completely freed, retention sutures were placed to 2 above and 2 below the colostomy. Care was taken to not injure the colostomy. The fascia which was very friable and not healthy appearing was closed with a running PDS suture from above and below. The wound was then irrigated with antibiotic saline. The retention sutures were then secured with red rubber catheters across the skin to protect it. The wound was then packed with gauze and a sterile dressing was applied. He tolerated procedure without complications. He will be sent to postop period for period of observation and then sent to the floor for his care. I attest to the content of the Intraoperative Record and any orders documented therein. Any exceptions are noted below.
[2024-11-05] MEDS ORDERED: SUCCINYLCHOLINE CHLORIDE 20 MG/ML 10 ML VIAL IV ONE (15:56)
[2024-11-05] MEDS: ceFAZolin 330 MG/ML 1 GM VIAL ONE ×2 (16:27)
[2024-11-05] MEDS ORDERED: SUGAMMADEX SODIUM 200 MG/2 ML VIAL IV ONE (16:28)
[2024-11-05] MEDS: ONDANSETRON INJ 2 MG/ML 2 ML VIAL IV PRN (17:07)
[2024-11-05] MEDS: HYDROmorphone INJ 0.5 MG/0.5 ML SYR IV PRN (17:28)
--- NOTE | 2024-11-05 17:57 | Anesthesiology Progress Note ---
Date of Service November 05, 2024 Anesthesia Post Procedure Vital Signs Vital Signs: Temp Pulse Pulse Resp BP BP BP 11/05/24 17:40 36.6 C 100 H 22 140/86 11/05/24 17:30 97 H 23 146/78 H 11/05/24 17:20 97 H 24 135/77 11/05/24 17:10 101 H 27 H 139/86 11/05/24 17:00 96 H 26 H 145/81 H 11/05/24 16:53 36 C L 96 H 20 146/72 H 11/05/24 15:06 36.6 C 94 H 16 103/53 L 11/05/24 14:28 88 11/05/24 11:54 82 140/81 11/05/24 11:35 92 H 146/88 H 11/05/24 11:32 84 11/05/24 11:00 11/05/24 08:49 84 131/79 11/05/24 08:30 87 138/82 11/05/24 08:00 36.8 C 72 20 146/88 H 11/05/24 07:36 36.6 C 86 18 138/82 11/05/24 07:28 11/05/24 06:22 11/05/24 04:20 79 11/05/24 04:07 89 113/74 11/05/24 03:52 36.7 C 90 18 126/73 11/05/24 00:50 82 11/04/24 22:39 36.7 C 95 H 22 119/94 11/04/24 22:33 81 11/04/24 21:45 84 11/04/24 21:32 90 123/72 11/04/24 19:45 36.3 C L 94 H 22 101/61 Pulse Ox O2 Del Method O2 Flow Rate 11/05/24 17:40 96 Nasal Cannula 4 11/05/24 17:30 97 Nasal Cannula 4 11/05/24 17:20 96 Oxymask 6 11/05/24 17:10 97 Oxymask 6 11/05/24 17:00 96 Oxymask 6 11/05/24 16:53 97 Oxymask 6 11/05/24 15:06 95 Nasal Cannula 2 11/05/24 14:28 11/05/24 11:54 11/05/24 11:35 11/05/24 11:32 11/05/24 11:00 Nasal Cannula 2 11/05/24 08:49 11/05/24 08:30 11/05/24 08:00 95 Nasal Cannula 2 11/05/24 07:36 94 Nasal Cannula 2 11/05/24 07:28 Nasal Cannula 2 11/05/24 06:22 Nasal Cannula 2 11/05/24 04:20 11/05/24 04:07 11/05/24 03:52 97 Nasal Cannula 2.0 11/05/24 00:50 11/04/24 22:39 95 Nasal Cannula 2.0 11/04/24 22:33 11/04/24 21:45 11/04/24 21:32 11/04/24 19:45 93 Nasal Cannula 2.0 Pain Intensity Right Lower Abdomen: Pain Intensity: 7 Transfer of Care Handoff Completed per policy Notes Mental Status: alert / awake / arousable Patient Amnestic to Procedure: Yes Nausea / Vomiting: adequately controlled Pain: adequately controlled Airway Patency, RR, SpO2: stable & adequate BP & HR: stable & adequate Hydration State: stable & adequate Anesthetic Complications: no major complications apparent and Pt Satisfied with anesthetic care
[2024-11-05] MEDS: CENTRAL TPN IV SCH (18:39)
[2024-11-05] MEDS: [UNRECOGNIZED DRUG - OTHER] IV SCH (18:39)
[2024-11-05] MEDS: HYDROmorphone INJ 0.5 MG/0.5 ML SYR ONE (19:35)
[2024-11-05] MEDS: ACETAMINOPHEN 1000 MG/100 ML IV IV ONE (19:35)
[2024-11-05] MEDS: CALCIUM GLUCONATE 1,000 MG/60 ML BAG IV STA (21:16)
[2024-11-05] MEDS: PLASMA-LYTE A 500 ML IV ONE (21:17)
[2024-11-05] MEDS: SODIUM CHLORIDE 0.9% 500 ML IV ONE (21:40)
[2024-11-06] MEDS: STOP CLINOLIPID SCH (04:02)
[2024-11-06 07:31] LABS: Anion Gap 3.0 (3-11); Calcium 7.8 mg/dl (8.6-10.3); Carbon Dioxide 27.0 mmol/L (21-32); Chloride 115.0 mmol/L (98-107); Magnesium 1.7 mg/dl (1.7-2.4); Potassium 4.2 mmol/L (3.5-5.1); Sodium 145.0 mmol/L (136-145)
[2024-11-06 07:36] LABS: Blood Urea Nitrogen 37.0 mg/dl (6-23); Creatinine Clr Calc Pharmacy 65.7 ml/min; Glucose 160.0 mg/dl (70-99(Fasting))
[2024-11-06 08:05] LABS: Hematocrit (blood only) 29.4 % (42.0-52.0); Hemoglobin 9.7 g/dl (14.0-18.0); Mean Corpuscular Hemoglobin 31.1 pg (25.0-34.0); Mean Corpuscular Volume 94.2 fL (80.0-100.0); Platelet Count 729 K/uL (130-400); RDW Standard Deviation 46.6 fL (36.4-46.3); Red Blood Count 3.12 M/uL (4.70-6.10); White Blood Count 27.33 K/ul (4.8-10.8)
[2024-11-06 08:28] LABS: Immature Granulocytes # (auto) 0.43 K/uL (0.01-0.20); Immature Granulocytes % (auto) 1.6 %
--- NOTE | 2024-11-06 10:11 | Operative Report ---
Post Operative Report Pre & Post Diagnosis Operation Date: 11/05/24 08:00 Pre-Op Diagnosis: Perioperative dehiscence of abdominal wound with evisceration Post-Op Diagnosis: Perioperative dehiscence of abdominal wound with evisceration I identified the patient and participated in the time-out.: Yes Procedure Operation Date: 11/05/24 08:00 Actual Procedures p Exploratory Laparotomy, Repair Dehiscence(Not Applicable) - Vahid Courtney MD Surgeon Vahid Courtney MD Director Supply Kami Summers PA-C Estimated Blood Loss 35 Findings Consistent with Post-Op Diagnosis see previous op not Specimens see previous op note Description of Procedure Kami Summers PA-C was present and participated in the entire procedure. She was integral in skin closure, retraction, and camera manipulation. There was no qualified resident available to assist. I attest to the content of the Intraoperative Record and any orders documented therein. Any exceptions are noted below.
--- NOTE | 2024-11-06 10:29 | Hospitalist Progress Note ---
Date of Service November 06, 2024 Assessment & Plan (1) Bowel perforation: (2) Sepsis: (3) Peritonitis: (4) Diverticulitis: (5) Cigarette nicotine dependence: (6) GERD with esophagitis: (7) Aortic insufficiency: (8) Crane esophagus: Plan Mr. Rivera is 74 yo male with history of HTN, dyslipidemia, GERD, aortic insufficiency, barrette's esophagus, presented to ED with acute onset of generalized abdominal pain with distention, subsequently found to have perforated diverticulitis, and underwent laparotomy sigmoid colon with diverting colostomy( 10/25) for perforated diverticulitis. On presentation to ED he met SIRS criteria, blood pressure was persistently low despite fluid management. He was hypotensive at OR as well. Post operatively was shifted to ICU and remains on Levophed infusion. Urine output seems adequate. Pain seems optimized on IV med. Zosyn coverage for infection ongoing. #S/P Laparotomy with colostomy #Bowel Perforation #Ileus - Care per surgery - NG tube for abdominal decompression - await ostomy output - Pain: management as per surgery - ID on board - Zosyn coverage for GI infection - caspofungin for yeast coverage. - OOB per tolerance - labs per surgery - PICC line for TPN - POD 1 s/p 2nd revision surgery. Wound dressing in place. #Hypoxia #COPD -hypertonic saline, albuterol nebs q6hrs -continue oxymask per protocol #Atrial Fibrillation with RVR likely chronic #Pulmonary Congestion 2/2 to Aortic Regurgitation - Echo 08/28: normal EF, moderate to severe AR. - rates currently controlled - Lopressor 2.5mg IV q4hrs for rate control - consider amiodarone if rates do not improve with current regimen - due to pt's recent surgery, hold traditional anticoagulation at this time - continue lovenox 40mg daily #Hypokalemia, resolved - will monitor #VANESSA, resolved - Follow BMP #Nicotine dependance - Was on buccal nicotine - on nicotine patch - No s/o nicotine withdrawal #BPH: - Pt remain on grant. - Hold home med #Electrolytes -replaced per surgery Dispo: Tele DVT prophylaxis: lovenox 40mg daily Diet: NPO to TPN Admission and Anticipated Discharge Date Admission Date: October 25, 2024 Supervising Physician Co-Signing Physician Notes Attending attestation Pt seen and examined in concert with Dr. Harry. In agreement with the documented findings as noted in the resident documentation with any exceptions or additions as noted here. Resting in bed with pain adequately controlled on present medication regimen. VS as noted. On examination, S1/S2 nl RRR no MCG. CTAB. Abd NT/ND BS+ve Diverticulitis with perforated bowel and subsequent evisceration of wound s/p repair on 11.05.24 - management per surgical primary team. ID consult appreciated, continue ongoing IV antibiotic and antifungal therapy. PICC in place for TPN, monitor daily lab studies. AF with h/o RVR and aortic regurg - continue q4 metoprolol IV and monitor closely. Else see resident documentation as noted. Subjective Patient seen and evaluated at bedside this morning. Had revision surgery yesterday for his abdominal wound. Rested well overnight. Did have increased PVC burden - received calcium gluconate with some improvement. Pt has been asymptomatic with PVCs throughout hospital stay. Per nursing, pt did have significant drainage from the incision site. VSS. Labs largely stable. Does have thrombocytosis. Review of Systems Review of Systems: reviewed, per HPI Physical Exam Physical Exam: Constitutional: ill appearing, no acute distress HEENT: NCAT, no conjunctival injection CV: regular rhythm, no murmur appreciated, extremities well-perfused, no LE edema Resp: diffuse rhonci GI: ostomy, NG tube, Abdominal wound with dressing MSK: no gross deformities appreciated Skin: warm, dry : grant in place Neuro: alert, oriented, no focal neurologic deficit appreciated Results & Data Results & Data Vital Signs (Past 12 Hours) Vital Signs Temp Pulse Pulse Resp BP BP Pulse Ox 11/06/24 09:47 93 H 154/73 H 11/06/24 08:57 101 H 141/76 H 11/06/24 08:00 102 H 11/06/24 07:51 11/06/24 07:34 36.7 C 105 H 22 151/83 H 98 11/06/24 04:29 11/06/24 04:15 101 H 11/06/24 04:01 105 H 144/97 H 11/06/24 02:45 36.9 C 11/06/24 01:15 96 H 22 128/79 98 11/06/24 00:30 95 H 11/06/24 00:16 102 H 22 116/79 98 11/05/24 22:47 36.6 C O2 Del Method O2 Flow Rate 11/06/24 09:47 11/06/24 08:57 11/06/24 08:00 11/06/24 07:51 Nasal Cannula 2 11/06/24 07:34 Nasal Cannula 2.0 11/06/24 04:29 Nasal Cannula 2 11/06/24 04:15 11/06/24 04:01 11/06/24 02:45 11/06/24 01:15 Nasal Cannula 2 11/06/24 00:30 11/06/24 00:16 Nasal Cannula 2 11/05/24 22:47 Resident Activity Tracking Resident Involvement: Resident Care Provided Care Provided: Adult Hospital Medicine (2) Sepsis Sepsis type: sepsis due to unspecified organism Severe sepsis acute organ dysfunction type: unspecified Severe sepsis shock status: without septic shock
--- NOTE | 2024-11-06 11:46 | Surgery Progress Note ---
Date of Service November 06, 2024 Assessment & Plan (1) Perioperative dehiscence of abdominal wound with evisceration: Plan: POD # 1 s/p ex lap repair of recurrent dehiscence with external retention sutures, abdominal washout POD # 6 s/p ex alp repair of dehiscence , abdominal washout POD # 12 ex lap , Packer's for perforated diverticulitis with feculent peritonitis afebrile,vss leukocytosis of 27k today (25K yesterday) ostomy with sweat NGT still with dark bilious output abdomen distended Plan: Continue NGT to LIS Continue binder Continue IV abx and antifungal Continue Dilaudid LOOM MECHANIC along with adding IV scheduled Tylenol Continue medical management Needs to move legs in bed SCDs Incentive spirometry Lovenox for DVT prophylaxis PPI for GI prophylaxis Dr. Courtney has seen patient, agrees with above Admission and Anticipated Discharge Date Admission Date: October 25, 2024 Subjective having pain everywhere, mid upper back, mid abdomen still feeing nauseous pain controlled with the Dilaudid after he hits the button no vomiting wants to know when he can start eating Physical Exam Constitutional: + ill appearing, + frail appearing and c ooperative; no acute distress Respiratory: normal respiratory effort; no respiratory distress, no labored breathing and no retractions Gastrointestinal (Abdomen): Inspection/Auscultation: + abdomen distended and + abdominal surgical incision (not inspected) Percussion/Palpation: + abdomen tender and abdomen soft; no guarding and abdomen not rigid Ostomy with sweat present, Midline wound not inspected, nurse just changed dressing, picture of wound taken by nurse reviewed, retention sutures intact. Skin: no rashes, warm and dry Psychiatric: Orientation: alert Results & Data Vital Signs (Past 12 Hours) Vital Signs Temp Pulse Pulse Resp BP BP Pulse Ox 11/06/24 11:23 37.0 C 105 H 20 148/82 H 98 11/06/24 09:47 93 H 154/73 H 11/06/24 08:57 101 H 141/76 H 11/06/24 08:00 102 H 11/06/24 07:51 11/06/24 07:34 36.7 C 105 H 22 151/83 H 98 11/06/24 04:29 11/06/24 04:15 101 H 11/06/24 04:01 105 H 144/97 H 11/06/24 02:45 36.9 C 11/06/24 01:15 96 H 22 128/79 98 11/06/24 00:30 95 H 11/06/24 00:16 102 H 22 116/79 98 O2 Del Method O2 Flow Rate 11/06/24 11:23 Nasal Cannula 2.0 11/06/24 09:47 11/06/24 08:57 11/06/24 08:00 11/06/24 07:51 Nasal Cannula 2 11/06/24 07:34 Nasal Cannula 2.0 11/06/24 04:29 Nasal Cannula 2 11/06/24 04:15 11/06/24 04:01 11/06/24 02:45 11/06/24 01:15 Nasal Cannula 2 11/06/24 00:30 11/06/24 00:16 Nasal Cannula 2 Laboratory Results 11/06/24 11/06/24 11/06/24 Range/Units 11:21 07:34 06:06 WBC 27.33 H (4.8-10.8) K/ul RBC 3.12 L (4.70-6.10) M/uL Hgb 9.7 L (14.0-18.0) g/dl Hct 29.4 L (42.0-52.0) % MCV 94.2 (80.0-100.0) fL MCH 31.1 (25.0-34.0) pg MCHC 33.0 (32.0-36.0) g/dL RDW Std Deviation 46.6 H (36.4-46.3) fL RDW Coeff of Jeanette 13.8 (11.5-14.5) % Plt Count 729 H (130-400) K/uL MPV 9.3 L (9.4-12.4) fL Immature Gran % (Auto) 1.6 % Neut % (Auto) 88.0 % Lymph % (Auto) 4.3 % [place] % (Auto) 5.7 % Eos % (Auto) 0.1 % Baso % (Auto) 0.3 % Neut # (Auto) 24.05 H (1.40-6.50) K/uL Lymph # (Auto) 1.18 L (1.20-3.40) K/uL [place] # (Auto) 1.56 H (0.11-0.59) K/uL Eos # (Auto) 0.04 (0.00-0.50) K/uL Baso # (Auto) 0.07 (0.00-0.20) K/uL Immature Gran # (Auto) 0.43 H (0.01-0.20) K/uL Absolute Nucleated RBC 0.02 (0.00-0.12) K/uL Nucleated RBC % (auto) 0.1 % Sodium (136-145) mmol/L Potassium (3.5-5.1) mmol/L Chloride (98-107) mmol/L Carbon Dioxide (21-32) mmol/L Anion Gap (3-11) BUN (6-23) mg/dl Creatinine (0.6-1.4) mg/dl Est Cr Clr Drug Dosing ml/min eGFR BUN/Creatinine Ratio (10-20) Glucose (70-99(Fasting)) mg/dl POC Glucose 109 H 165 H (70-99) mg/dl Calcium (8.6-10.3) mg/dl Phosphorus (2.5-4.9) mg/dl Magnesium (1.7-2.4) mg/dl 11/06/24 11/06/24 Range/Units 06:00 00:42 WBC (4.8-10.8) K/ul RBC (4.70-6.10) M/uL Hgb (14.0-18.0) g/dl Hct (42.0-52.0) % MCV (80.0-100.0) fL MCH (25.0-34.0) pg MCHC (32.0-36.0) g/dL RDW Std Deviation (36.4-46.3) fL RDW Coeff of Jeanette (11.5-14.5) % Plt Count (130-400) K/uL MPV (9.4-12.4) fL Immature Gran % (Auto) % Neut % (Auto) % Lymph % (Auto) % [place] % (Auto) % Eos % (Auto) % Baso % (Auto) % Neut # (Auto) (1.40-6.50) K/uL Lymph # (Auto) (1.20-3.40) K/uL [place] # (Auto) (0.11-0.59) K/uL Eos # (Auto) (0.00-0.50) K/uL Baso # (Auto) (0.00-0.20) K/uL Immature Gran # (Auto) (0.01-0.20) K/uL Absolute Nucleated RBC (0.00-0.12) K/uL Nucleated RBC % (auto) % Sodium 145 (136-145) mmol/L Potassium 4.2 (3.5-5.1) mmol/L Chloride 115 H (98-107) mmol/L Carbon Dioxide 27 (21-32) mmol/L Anion Gap 3 (3-11) BUN 37 H (6-23) mg/dl Creatinine 0.95 (0.6-1.4) mg/dl Est Cr Clr Drug Dosing 65.7 ml/min eGFR 85.04 BUN/Creatinine Ratio 38.9 H (10-20) Glucose 160 H (70-99(Fasting)) mg/dl POC Glucose 158 H (70-99) mg/dl Calcium 7.8 L (8.6-10.3) mg/dl Phosphorus 3.0 (2.5-4.9) mg/dl Magnesium 1.7 (1.7-2.4) mg/dl (1) Perioperative dehiscence of abdominal wound with evisceration Encounter type: subsequent encounter Qualified Code(s): T81.321D - Disruption or dehiscence of closure of internal operation (surgical) wound of abdominal wall muscle or fascia, subsequent encounter
[2024-11-06] MEDS: ACETAMINOPHEN 1,000 MG/100 ML VIAL IV SCH (11:56)
--- NOTE | 2024-11-06 12:56 | Infectious Disease Progress Nt ---
Date of Service November 06, 2024 Assessment & Plan (1) Bowel perforation: (2) Peritonitis: Plan Problems: #Perforated diverticulitis s/p ex lap, bowel resection, colostomy (10/25/24), ex lap repair of dehiscence and abd washout (10/31/24), ex lap repair of recurrent d ehiscence and abd washout (11/05/24) #Feculent peritonitis #Pneumonia Micro: 10/25 Peritoneal fluid cx: Clostridium perfringens, mod counts of probable intestinal mario. GS GNRs, GPRs, GPCs, yeast Abx: Caspofungin 10/28 - present Zosyn 10/25 - present Clindamycin 10/27 - 10/28 74 yo M with HTN, HLD, emphysema, GERD, Crane's esophagus who presented on 10/25 with acute onset of generalized abdominal pain, distension, sweats, found to have perforated diverticulitis s/p ex lap, bowel resection, colostomy (10/25/24). Hospital course c/b pneumonia noted on CT chest 10/29. On presentation, he was afebrile, hypotensive to SBP 80s-90s. Labs showed WBC 13.14. CT A/P with IV contrast showed acute perforated diverticulitis at the distal descending/proximal sigmoid colon with a small amount of scattered free air, and trace free fluid without ascites. Pt started on Zosyn. He was taken for emergent ex lap, bowel resection, colostomy formation. In the OR, there was feculent peritonitis. Intra-op culture obtained of peritoneal fluid. He was admitted to the ICU postoperatively, requiring Levophed. Peritoneal fluid culture growing Clostridium perfringens, and moderate counts of probable intestinal mario. Gram stain with GNRs, GPRs, GPCs, yeast. Clindamycin added 10/27. Weaned off Levophed 10/27. WBC uptrending to 17.59 on 10/28. Discussion: Polymicrobial peritoneal fluid culture including Clostridium perfringens. Zosyn should cover the Clostridium perfringens and other intestinal mario, unless there are resistant organisms. No prior micro data to review. Leukocytosis uptrending and Tmax 37.7 on 10/27--added caspofungin on 10/28 due to yeast seen on gram stain of peritoneal fluid. Also with increased O2 requirement on 10/29, with CT chest showing bilateral pneumonia. Had coughing spell leading to midline incision dehiscence and evisceration, so taken back to OR for ex lap, washout, and abdominal wall closure 10/31. Post op, leukocytosis up to 24 on 11/01/24. Now with persistent leukocytosis to mid 20s. KUB 11/02 with concern for SBO--surgery felt more likely ileus. Did have some gas in the ostomy on 11/04. Had recurrent dehiscence, and was taken to the OR on 11/05 for ex lap, repair of recurrent dehiscence, and abdominal washout in which abdomen was irrigated with 1 L with cefazolin. Recommendations: - Can continue Zosyn and caspofungin for now, given persistent leukocytosis and return to the OR on 11/05 for washout Will continue to follow. Discussed with surgery Admission and Anticipated Discharge Date Admission Date: October 25, 2024 Subjective This patient recommendation is based on a telemedicine consult request which was completed asynchronously through chart review and information provided by the primary physician. The patient was not seen or examined today. The evaluation is consultative in nature and all patient care and treatment decisions can either be accepted or rejected by the patient's primary hospital-based treating physician using their own independent medical judgment for their patient. Time Spent Reviewing Chart: 11 - 20 minutes Taken to OR yesterday for ex lap, repair of recurrent dehiscence, abdominal washout WBC 27.33 Results & Data Vital Signs (Past 12 Hours) Vital Signs Temp Pulse Pulse Resp BP BP Pulse Ox 11/06/24 12:32 96 H 143/85 H 11/06/24 12:01 102 H 143/85 H 11/06/24 11:23 37.0 C 105 H 20 148/82 H 98 11/06/24 09:47 93 H 154/73 H 11/06/24 08:57 101 H 141/76 H 11/06/24 08:00 102 H 11/06/24 07:51 11/06/24 07:34 36.7 C 105 H 22 151/83 H 98 11/06/24 04:29 11/06/24 04:15 101 H 11/06/24 04:01 105 H 144/97 H 11/06/24 02:45 36.9 C 11/06/24 01:15 96 H 22 128/79 98 O2 Del Method O2 Flow Rate 11/06/24 12:32 11/06/24 12:01 11/06/24 11:23 Nasal Cannula 2.0 11/06/24 09:47 11/06/24 08:57 11/06/24 08:00 11/06/24 07:51 Nasal Cannula 2 11/06/24 07:34 Nasal Cannula 2.0 11/06/24 04:29 Nasal Cannula 2 11/06/24 04:15 11/06/24 04:01 11/06/24 02:45 11/06/24 01:15 Nasal Cannula 2
[2024-11-06] MEDS: [UNRECOGNIZED DRUG - OTHER] IV SCH (15:50)
[2024-11-06] MEDS: CENTRAL TPN IV SCH (15:50)
--- NOTE | 2024-11-06 17:55 | Electrocardiogram Report ---
Test Reason : Blood Pressure : */* mmHG Vent. Rate : 89 BPM Atrial Rate : 89 BPM P-R Int : 150 ms QRS Dur : 70 ms QT Int : 364 ms P-R-T Axes : 59 -6 59 degrees QTcB Int : 442 ms Sinus rhythm with frequent Premature ventricular complexes Otherwise normal ECG When compared with ECG of 31-Oct-2024 12:43, Sinus rhythm has replaced Atrial fibrillation Vent. rate has decreased by 45 bpm Nonspecific T wave abnormality has replaced inverted T waves in Inferior leads Nonspecific T wave abnormality, improved in Anterolateral leads Confirmed by Phan Rico ([id number]) on 11/06/2024 5:55:24 PM Referred By: REFERRED SELF Confirmed By: Phan Rico
[2024-11-07] MEDS: STOP CLINOLIPID SCH (04:01)
[2024-11-07 06:16] LABS: Hematocrit (blood only) 24.5 % (42.0-52.0); Hemoglobin 8.2 g/dl (14.0-18.0); Mean Corpuscular Hemoglobin 31.1 pg (25.0-34.0); Mean Corpuscular Volume 92.8 fL (80.0-100.0); Platelet Count 632 K/uL (130-400); RDW Standard Deviation 47.0 fL (36.4-46.3); Red Blood Count 2.64 M/uL (4.70-6.10); White Blood Count 29.18 K/ul (4.8-10.8)
[2024-11-07 06:32] LABS: Anion Gap 7.0 (3-11); Blood Urea Nitrogen 40.0 mg/dl (6-23); Calcium 7.7 mg/dl (8.6-10.3); Carbon Dioxide 24.0 mmol/L (21-32); Chloride 113.0 mmol/L (98-107); Creatinine Clr Calc Pharmacy 62.7 ml/min; Glucose 161.0 mg/dl (70-99(Fasting)); Magnesium 1.8 mg/dl (1.7-2.4); Potassium 3.8 mmol/L (3.5-5.1); Sodium 144.0 mmol/L (136-145)
[2024-11-07 06:39] LABS: Immature Granulocytes # (auto) 0.38 K/uL (0.01-0.20); Immature Granulocytes % (auto) 1.3 %; Polychromasia 1+
--- NOTE | 2024-11-07 11:24 | Pharmacy Report ---
Pharmacy PN Follow-up Note - Date of Service November 07, 2024 - Subjective Patient is currently on day #10 of TPN for prolonged NPO status and postop ileus. - Objective Height & Weight (Last Documented) Height 5 ft 7 in Weight 80.2 kg Diet Order(s) 11/01/24 07:12 NPO Intake & Ouput (24hrs) 11/06/24 11/07/24 11/08/24 06:59 06:59 06:59 Intake Total 5635.700 / 5635.700 2526.483 / 2526.483 Output Total 2940 / 2940 3100 / 3100 Balance 2695.700 / 2695.700 -573.517 / -573.517 Selected Laboratory Results 11/07/24 05:24 Sodium 144 Potassium 3.8 Chloride 113 H Carbon Dioxide 24 Anion Gap 7 BUN 40 H Creatinine 1.08 BUN/Creatinine Ratio 37.0 H Glucose 161 H Calcium 7.7 L Phosphorus 2.7 Magnesium 1.8 - Assessment & Plan Assessment: 11/07: * Day #10 PN, day #6 of TPN. * Output from NG tube is decreasing daily, ~1300 mL yesterday. * Electrolytes have stabilized. Increasing potassium, calcium and phosphorus in the bag today slightly. Macros at goal. 11/04: * Continuing with TPN today. Day #7 of PN total and day #3 of TPN. No plans to return to OR today. Patient started on Dilaudid [employer] WORK[employer] today which requires NSS at O. * Still having significant output from NG tube. * Sodium and Chloride elevated from yesterday. Potassium increased a full point. CO2 returned to normal limits. No outside electrolytes administered today. * Will decrease amount of Sodium and Chloride in the bag today. Due to sharp increase in potassium, will also reduce K in bag today. * Triglycerides decreased to 176 today. Will order Lipids MWF starting today. Labs ordered per protocol. 11/03: Patient with complaints of bloating and nausea yesterday. Evaluated by surgery and found to have concern for ileus, ostomy without function and NGT not functioning/clogged. NGT function has been restored. NGT continues to have significant output. Documented 1200 mL of drainage on 11/02. Today patient reports distention improved, no nausea. * PICC line placed - transitioned to TPN on 11/02. * Will advance macronutrients to goal today and move to a 18 hour infusion for hepatic rest as recommended by Dietary. * Hypokalemia and hypophosphatemia slightly improved but electrolytes remain below goal range. KPhos 15 mmol IV given outside of TPN this AM. Will increase amounts of both electrolytes in today's bag. * Slightly hypernatremic (Na 146). Anticipate improvement with increased volume of today's bag. No changes to amount of sodium - reassess need to decrease Na on 11/04. 10/31: * Patient will not go back to the OR today. Surgery following daily and may return to OR in coming days for replacement of the ostomy. * NG still with significant output. Electrolytes are improving but still not at goal. Potassium and chloride are low today. CO2 is elevated. ABG does show a respiratory alkalosis. 40 mEq IV KCl recommended to resident team today. Will remove acetate from bag today. * Will order LFTs and CBC per policy for Monday to go with triglycerides. 50 g of Lipids will be given today given downtrend in triglycerides. Only doing Lipids on Monday and . * Will not advance macronutrients given low K and difficulties with osmolarity in PPN. Recommended placing central line in the next 24-48 hours to primary team given electrolyte needs and low kcals in PPN. 10/30: * Per surgery, KUB encouraging but if no ostomy function by tomorrow, patient may need to return to the OR. NG with 1.5L output. PPN was held yesterday due to elevated TGs >600 and other electrolyte shifts. Electrolytes stabilized today and TGs trended down. Per discussion with multidisciplinary team, okay to continue PPN today and will reduce goal lipids to twice a week. Repeat TG ordered for next Monday morning. PPN restarted at initial rate/volume of bag 1. Plan: * For Day #10 of PN (transitioned to TPN on 11/02) administration, the following will be ordered: * Macronutrients: * Amino Acids: 125 grams/day * Dextrose: 218 grams/day * Lipids: 50 grams every Monday, Monday, Monday * Micronutrients: * Sodium chloride: 40 mEq/day * Sodium phosphate: 27 mMol/day * Potassium acetate: 60 mEq/day * Calcium gluconate: 9.3 mEq/day * Magnesium sulfate: 8.12 mEq/day * Multivitamins: 10 mL/day * Trace elements: 1 mL/day * Thiamine: 100 mg/day * Total volume of 1649 mL will be infused over 18 hours and will provide 1242 kcal/day * Initial infusion rate from 9819-3947 = 48.5 mL/hr * Increase infusion rate from 6477-4913 = 97 mL/hr * Decrease infusion rate from 7537-7791 = 48.5 mL/hr * Labs will be ordered per PN protocol. * Pharmacy will follow and adjust PN orders on a daily basis. Thank you!
--- NOTE | 2024-11-07 12:29 | Hospitalist Progress Note ---
Date of Service November 07, 2024 Assessment & Plan (1) Bowel perforation: (2) Sepsis: (3) Peritonitis: (4) Diverticulitis: (5) Cigarette nicotine dependence: (6) GERD with esophagitis: (7) Aortic insufficiency: (8) Crane esophagus: Plan Mr. Rivera is 74 yo male with history of HTN, dyslipidemia, GERD, aortic insufficiency, barrette's esophagus, presented to ED with acute onset of generalized abdominal pain with distention, subsequently found to have perforated diverticulitis, and underwent laparotomy sigmoid colon with diverting colostomy( 10/25) for perforated diverticulitis. On presentation to ED he met SIRS criteria, blood pressure was persistently low despite fluid management. He was hypotensive at OR as well. Post operatively was shifted to ICU and remains on Levophed infusion. Urine output seems adequate. Pain seems optimized on IV med. Zosyn coverage for infection ongoing. #S/P Laparotomy with colostomy #Bowel Perforation #Ileus - Care per surgery - NG tube for abdominal decompression - await ostomy output - Pain: management as per surgery - ID on board - Zosyn coverage for GI infection - caspofungin for yeast coverage. - OOB per tolerance - labs per surgery - PICC line for TPN - POD 1 s/p 2nd revision surgery. Wound dressing in place. #Hypoxia #COPD -hypertonic saline, albuterol nebs q6hrs -continue oxymask per protocol #Hyperactive Delerium/Dysregulated Sleep-Wake Cycle -Will trial Seroquel 25mg HS tonight #Post Op Anemia Continue to follow Transfusion threshold 7.0 #Atrial Fibrillation with RVR likely chronic #Pulmonary Congestion 2/2 to Aortic Regurgitation - Echo 08/28: normal EF, moderate to severe AR. - rates currently controlled - Lopressor 2.5mg IV q4hrs for rate control - consider amiodarone if rates do not improve with current regimen - due to pt's recent surgery, hold traditional anticoagulation at this time - continue lovenox 40mg daily #Hypokalemia, resolved - will monitor #VANESSA, resolved - Follow BMP #Nicotine dependance - Was on buccal nicotine - on nicotine patch - No s/o nicotine withdrawal #BPH: - Pt remain on grant. - Hold home med #Electrolytes -replaced per surgery Dispo: Tele DVT prophylaxis: lovenox 40mg daily Diet: NPO to TPN Admission and Anticipated Discharge Date Admission Date: October 25, 2024 Supervising Physician Co-Signing Physician Notes Attending attestation Pt seen and examined in concert with Dr. Harry. In agreement with the documented findings as noted in the resident documentation with any exceptions or additions as noted here. Resting in bed with pain adequately controlled on present medication regimen. VS as noted. On examination, S1/S2 nl RRR no MCG. CTAB. Abd dressing C/D/I Diverticulitis with perforated bowel and subsequent evisceration of wound s/p repair on 11.05.24 - management per surgical primary team. ID consult appreciated, continue ongoing IV antibiotic and antifungal therapy. PICC in place for TPN, monitor daily lab studies. Leukocytosis, thombocytosis - likely 2/2 postoperative state and steroid administration, periphal smear ordered for further evaluation AF with h/o RVR and aortic regurg - continue q4 metoprolol IV and monitor closely. Else see resident documentation as noted. Subjective Patient seen and evaluated at bedside this morning. No acute events overnight. Yesterday with period of hyperactive delirium. Was able to re-orient without need for medication. Overall pain well controlled. Labs stable Review of Systems Review of Systems: reviewed, per HPI Physical Exam Physical Exam: Constitutional: ill appearing, no acute distress HEENT: NCAT, no conjunctival injection CV: regular rhythm, no murmur appreciated, extremities well-perfused, no LE edema Resp: diffuse rhonci GI: ostomy, NG tube, Abdominal wound with dressing MSK: no gross deformities appreciated Skin: warm, dry : grant in place Neuro: alert, oriented, no focal neurologic deficit appreciated Results & Data Results & Data Vital Signs (Past 12 Hours) Vital Signs Temp Pulse Pulse Resp BP BP BP 11/07/24 11:01 36.7 C 87 18 136/69 11/07/24 10:47 87 11/07/24 09:00 11/07/24 07:38 36.5 C 88 22 118/79 11/07/24 04:12 96 H 11/07/24 02:44 37.7 C H 91 H 22 131/65 11/07/24 01:06 97 H Pulse Ox O2 Del Method O2 Flow Rate 11/07/24 11:01 98 Room Air 11/07/24 10:47 11/07/24 09:00 Nasal Cannula 3 11/07/24 07:38 99 Nasal Cannula 2 11/07/24 04:12 11/07/24 02:44 94 Nasal Cannula 2.0 11/07/24 01:06 Resident Activity Tracking Resident Involvement: Resident Care Provided Care Provided: Adult Hospital Medicine (2) Sepsis Sepsis type: sepsis due to unspecified organism Severe sepsis acute organ dysfunction type: unspecified Severe sepsis shock status: without septic shock
--- NOTE | 2024-11-07 13:52 | Surgery Progress Note ---
Date of Service November 07, 2024 Assessment & Plan (1) Perioperative dehiscence of abdominal wound with evisceration: Plan: POD # 2 s/p ex lap repair of recurrent dehiscence with external retention sutures, abdominal washout POD # 7 s/p ex alp repair of dehiscence , abdominal washout POD # 13 ex lap , Packer's for perforated diverticulitis with feculent peritonitis afebrile,vss leukocytosis of 29k today (27K yesterday) etiology of rising leukocytosis ? abdominal cavity without purulence two days ago, afebrile. 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 Courtney has seen patient, agrees with above Admission and Anticipated Discharge Date Admission Date: October 25, 2024 Subjective pain controlled but still having moderate pain, able to sleep more with pain control stomach still feels full, trying not to drink as much water no ostomy output Review of Systems Review of Systems: All systems reviewed & are unremarkable except as noted in HPI & below Physical Exam Constitutional: + ill appearing, cooperative and comfort able; no acute distress Respiratory: normal respiratory effort; no respiratory distress, no labored breathing and no retractions Gastrointestinal (Abdomen): Inspection/Auscultation: + abdomen distended, + abdominal surgical incision (retention sutures intact) and + hypoactive bowel sounds; + abnormal bowel sounds Percussion/Palpation: + abdomen tender (generalized) and abdomen soft; no guarding, abdomen not rigid and abdomen not firm Ostomy with sweat in bag no stool, midline wound with retention sutures intact, fascia appears to be intact once packing removed. Healthy granulation tissue present. NGT with thin green/dark green output Skin: no rashes, warm and dry Psychiatric: Orientation: alert Results & Data Vital Signs (Past 12 Hours) Vital Signs Temp Pulse Pulse Resp BP BP BP 11/07/24 12:38 80 11/07/24 12:25 91 H 147/77 H 11/07/24 11:01 36.7 C 87 18 136/69 11/07/24 10:47 87 11/07/24 09:00 11/07/24 07:38 36.5 C 88 22 11/07/24 04:12 96 H 11/07/24 02:44 37.7 C H 91 H 22 131/65 BP Pulse Ox O2 Del Method O2 Flow Rate 11/07/24 12:38 11/07/24 12:25 11/07/24 11:01 98 Room Air 11/07/24 10:47 11/07/24 09:00 Nasal Cannula 3 11/07/24 07:38 118/79 99 Nasal Cannula 2 11/07/24 04:12 11/07/24 02:44 94 Nasal Cannula 2.0 Laboratory Results 11/07/24 11/07/24 11/07/24 Range/Units 11:56 06:28 05:24 WBC 29.18 H (4.8-10.8) K/ul RBC 2.64 L (4.70-6.10) M/uL Hgb 8.2 L (14.0-18.0) g/dl Hct 24.5 L (42.0-52.0) % MCV 92.8 (80.0-100.0) fL MCH 31.1 (25.0-34.0) pg MCHC 33.5 (32.0-36.0) g/dL RDW Std Deviation 47.0 H (36.4-46.3) fL RDW Coeff of Jeanette 13.9 (11.5-14.5) % Plt Count 632 H (130-400) K/uL MPV 9.4 (9.4-12.4) fL Immature Gran % (Auto) 1.3 % Neut % (Auto) 86.6 % Lymph % (Auto) 4.7 % Haakon % (Auto) 7.1 % Eos % (Auto) 0.1 % Baso % (Auto) 0.2 % Neut # (Auto) 25.25 H (1.40-6.50) K/uL Lymph # (Auto) 1.37 (1.20-3.40) K/uL Haakon # (Auto) 2.08 H (0.11-0.59) K/uL Eos # (Auto) 0.04 (0.00-0.50) K/uL Baso # (Auto) 0.06 (0.00-0.20) K/uL Immature Gran # (Auto) 0.38 H (0.01-0.20) K/uL Absolute Nucleated RBC 0.02 (0.00-0.12) K/uL Nucleated RBC % (auto) 0.1 % Polychromasia 1+ Peripher Smr Path Cons Pending Sodium 144 (136-145) mmol/L Potassium 3.8 (3.5-5.1) mmol/L Chloride 113 H (98-107) mmol/L Carbon Dioxide 24 (21-32) mmol/L Anion Gap 7 (3-11) BUN 40 H (6-23) mg/dl Creatinine 1.08 (0.6-1.4) mg/dl Est Cr Clr Drug Dosing 62.7 ml/min eGFR 72.91 BUN/Creatinine Ratio 37.0 H (10-20) Glucose 161 H (70-99(Fasting)) mg/dl POC Glucose 112 H 149 H (70-99) mg/dl Calcium 7.7 L (8.6-10.3) mg/dl Phosphorus 2.7 (2.5-4.9) mg/dl Magnesium 1.8 (1.7-2.4) mg/dl 11/06/24 Range/Units 23:48 WBC (4.8-10.8) K/ul RBC (4.70-6.10) M/uL Hgb (14.0-18.0) g/dl Hct (42.0-52.0) % MCV (80.0-100.0) fL MCH (25.0-34.0) pg MCHC (32.0-36.0) g/dL RDW Std Deviation (36.4-46.3) fL RDW Coeff of Jeanette (11.5-14.5) % Plt Count (130-400) K/uL MPV (9.4-12.4) fL Immature Gran % (Auto) % Neut % (Auto) % Lymph % (Auto) % Haakon % (Auto) % Eos % (Auto) % Baso % (Auto) % Neut # (Auto) (1.40-6.50) K/uL Lymph # (Auto) (1.20-3.40) K/uL Haakon # (Auto) (0.11-0.59) K/uL Eos # (Auto) (0.00-0.50) K/uL Baso # (Auto) (0.00-0.20) K/uL Immature Gran # (Auto) (0.01-0.20) K/uL Absolute Nucleated RBC (0.00-0.12) K/uL Nucleated RBC % (auto) % Polychromasia Peripher Smr Path Cons Sodium (136-145) mmol/L Potassium (3.5-5.1) mmol/L Chloride (98-107) mmol/L Carbon Dioxide (21-32) mmol/L Anion Gap (3-11) BUN (6-23) mg/dl Creatinine (0.6-1.4) mg/dl Est Cr Clr Drug Dosing ml/min eGFR BUN/Creatinine Ratio (10-20) Glucose (70-99(Fasting)) mg/dl POC Glucose 146 H (70-99) mg/dl Calcium (8.6-10.3) mg/dl Phosphorus (2.5-4.9) mg/dl Magnesium (1.7-2.4) mg/dl (1) Perioperative dehiscence of abdominal wound with evisceration Encounter type: subsequent encounter Qualified Code(s): T81.321D - Disruption or dehiscence of closure of internal operation (surgical) wound of abdominal wall muscle or fascia, subsequent encounter
--- NOTE | 2024-11-07 14:39 | Infectious Disease Progress Nt ---
Date of Service November 07, 2024 Assessment & Plan (1) Bowel perforation: (2) Peritonitis: Plan Problems: #Perforated diverticulitis s/p ex lap, bowel resection, colostomy (10/25/24), ex lap repair of dehiscence and abd washout (10/31/24), ex lap repair of recurrent d ehiscence and abd washout (11/05/24) #Feculent peritonitis #Pneumonia Micro: 10/25 Peritoneal fluid cx: Clostridium perfringens, mod counts of probable intestinal mario. GS GNRs, GPRs, GPCs, yeast Abx: Caspofungin 10/28 - present Zosyn 10/25 - present Clindamycin 10/27 - 10/28 74 yo M with HTN, HLD, emphysema, GERD, Crane's esophagus who presented on 10/25 with acute onset of generalized abdominal pain, distension, sweats, found to have perforated diverticulitis s/p ex lap, bowel resection, colostomy (10/25/24). Hospital course c/b pneumonia noted on CT chest 10/29. On presentation, he was afebrile, hypotensive to SBP 80s-90s. Labs showed WBC 13.14. CT A/P with IV contrast showed acute perforated diverticulitis at the distal descending/proximal sigmoid colon with a small amount of scattered free air, and trace free fluid without ascites. Pt started on Zosyn. He was taken for emergent ex lap, bowel resection, colostomy formation. In the OR, there was feculent peritonitis. Intra-op culture obtained of peritoneal fluid. He was admitted to the ICU postoperatively, requiring Levophed. Peritoneal fluid culture growing Clostridium perfringens, and moderate counts of probable intestinal mario. Gram stain with GNRs, GPRs, GPCs, yeast. Clindamycin added 10/27. Weaned off Levophed 10/27. WBC uptrending to 17.59 on 10/28. Discussion: Polymicrobial peritoneal fluid culture including Clostridium perfringens. Zosyn should cover the Clostridium perfringens and other intestinal mario, unless there are resistant organisms. No prior micro data to review. Leukocytosis uptrending and Tmax 37.7 on 10/27--added caspofungin on 10/28 due to yeast seen on gram stain of peritoneal fluid. Also with increased O2 requirement on 10/29, with CT chest showing bilateral pneumonia. Had coughing spell leading to midline incision dehiscence and evisceration, so taken back to OR for ex lap, washout, and abdominal wall closure 10/31. Post op, leukocytosis up to 24 on 11/01/24. Now with persistent leukocytosis to mid 20s. KUB 11/02 with concern for SBO--surgery felt more likely ileus. Did have some gas in the ostomy on 11/04. Had recurrent dehiscence, and was taken to the OR on 11/05 for ex lap, repair of recurrent dehiscence, and abdominal washout in which abdomen was irrigated with 1 L with cefazolin. Continued rising leukocytosis, now to 29.18 on 11/07. Unclear etiology, considered C diff but ostomy without output. Recommendations: - Can continue Zosyn and caspofungin for now - Consider CT A/P with IV contrast given persistent leukocytosis of unclear etiology Will continue to follow. Discussed with surgery Admission and Anticipated Discharge Date Admission Date: October 25, 2024 Subjective This patient recommendation is based on a telemedicine consult request which was completed asynchronously through chart review and information provided by the primary physician. The patient was not seen or examined today. The evaluation is consultative in nature and all patient care and treatment decisions can either be accepted or rejected by the patient's primary hospital-based treating physician using their own independent medical judgment for their patient. Time Spent Reviewing Chart: 11 - 20 minutes WBC continues to rise to 29.18 No ostomy output Results & Data Vital Signs (Past 12 Hours) Vital Signs Temp Pulse Pulse Resp BP BP BP 11/07/24 12:38 80 11/07/24 12:25 91 H 147/77 H 11/07/24 11:01 36.7 C 87 18 136/69 11/07/24 10:47 87 11/07/24 09:00 11/07/24 07:38 36.5 C 88 22 11/07/24 04:12 96 H 11/07/24 02:44 37.7 C H 91 H 22 131/65 BP Pulse Ox O2 Del Method O2 Flow Rate 11/07/24 12:38 11/07/24 12:25 11/07/24 11:01 98 Room Air 11/07/24 10:47 11/07/24 09:00 Nasal Cannula 3 11/07/24 07:38 118/79 99 Nasal Cannula 2 11/07/24 04:12 11/07/24 02:44 94 Nasal Cannula 2.0 Laboratory Results Short CBC 11/07/24 Range/Units 05:24 WBC 29.18 H (4.8-10.8) K/ul Hgb 8.2 L (14.0-18.0) g/dl Hct 24.5 L (42.0-52.0) % Plt Count 632 H (130-400) K/uL BMP 11/07/24 05:24 Sodium 144 Potassium 3.8 Chloride 113 H Carbon Dioxide 24 BUN 40 H Creatinine 1.08 Glucose 161 H Calcium 7.7 L
[2024-11-07] MEDS: [UNRECOGNIZED DRUG - OTHER] IV SCH (16:26)
[2024-11-07] MEDS: CENTRAL TPN IV SCH (16:26)
[2024-11-08] MEDS ORDERED: STOP CLINOLIPID SCH (04:00)
--- NOTE | 2024-11-08 06:46 | Hospitalist Progress Note ---
Date of Service November 08, 2024 Assessment & Plan (1) Bowel perforation: (2) Sepsis: (3) Peritonitis: (4) Diverticulitis: (5) Cigarette nicotine dependence: (6) GERD with esophagitis: (7) Aortic insufficiency: (8) Crane esophagus: Plan Mr. Rivera is 74 yo male with history of HTN, dyslipidemia, GERD, aortic insufficiency, barrette's esophagus, presented to ED with acute onset of generalized abdominal pain with distention, subsequently found to have perforated diverticulitis, and underwent laparotomy sigmoid colon with diverting colostomy( 10/25) for perforated diverticulitis. On presentation to ED he met SIRS criteria, blood pressure was persistently low despite fluid management. He was hypotensive at OR as well. Post operatively was shifted to ICU and required on Levophed infusion. Pain seems optimized on IV med. Zosyn and caspofungin coverage for infection ongoing. #S/P Laparotomy with colostomy #Bowel Perforation #Ileus - Care per surgery - NG tube for abdominal decompression - await ostomy output - Pain: management as per surgery - ID on board - Zosyn coverage for GI infection - caspofungin for yeast coverage. - OOB per tolerance - labs per surgery - PICC line for TPN - POD 3 s/p 2nd revision surgery. Wound dressing in place. #Hypoxia #COPD -hypertonic saline, albuterol nebs q6hrs - currently on RA -continue oxymask per protocol #Hyperactive Delerium/Dysregulated Sleep-Wake Cycle -Consider trial Seroquel 25mg HS tonight #Post Op Anemia Continue to follow Transfusion threshold 7.0 #Atrial Fibrillation with RVR likely chronic #Pulmonary Congestion 2/2 to Aortic Regurgitation - Echo 08/28: normal EF, moderate to severe AR. - rates currently controlled, PVCs on 4th -5th beat noted on monitor - Lopressor 2.5mg IV q4hrs for rate control - consider amiodarone if rates do not improve with current regimen - due to pt's recent surgery, hold traditional anticoagulation at this time - continue lovenox 40mg daily #Hypokalemia, resolved - will monitor #VANESSA, resolved - Follow BMP #Nicotine dependance - Was on buccal nicotine - on nicotine patch - No s/o nicotine withdrawal #BPH: - Pt remain on grant. - Hold home med #Electrolytes -replaced per surgery Dispo: Tele DVT prophylaxis: lovenox 40mg daily Diet: NPO to TPN Admission and Anticipated Discharge Date Admission Date: October 25, 2024 Supervising Physician Co-Signing Physician Notes Attending attestation I also saw the patient confirmed reilly portions of the clinical history and the physical exam. I agree with the impression and plan as noted in the resident documentation above. Patient resting in bed; pain seems controlled. He is more frustrated than anything else.. EXAM 134/77, 88, 18, 36.7 tele shows sinus with PVCs abdominal binder noted DATA Labs White blood cell count 15.44, hemoglobin 8.3. Sodium 143, potassium 3.8, BUN 39, creatinine 0.91 IMPRESSION & PLAN Diverticulitis with perforated bowel and subsequent evisceration of wound s/p repair on 11/05/24 management per surgical primary team. Continue ongoing IV antibiotic and antifungal therapy. PICC in place for TPN Monitor daily lab studies. Leukocytosis, thombocytosis Likely 2/2 postoperative state and steroid administration, and infection periphal smear consistent with same AF with h/o RVR and aortic regurg Continue q4 metoprolol IV and monitor closely. additional per resident documentation Subjective No acute events overnight. This morning, RN reports pt has been drinking large quantities of water and has drained 2L. Surgery has changed orders to NPO with sips and chips only. Pt is rpeorts intermittent pain and difficulty taking deep breaths due to binder in place at abdomen. Pt denies chest pain, N/V, headache, new cough or congestions, fever/chills or dizziness. Review of Systems Review of Systems: reviewed, per HPI Physical Exam Physical Exam: Constitutional: Pt laying in bed, no acute distress but voicing frustration with current situation HEENT: NCAT, no conjunctival injection CV: regular rhythm, no murmur appreciated, extremities well-perfused, no LE edema Resp: Diminished breath sounds at mid and lower lobes due to shallow breathing with binder in place. GI: ostomy, NG tube, Abdominal wound with dressing, abdominal binder MSK: no gross deformities appreciated Skin: warm, dry : grant in place Neuro: alert, oriented, no focal neurologic deficit appreciated Results & Data Results & Data Vital Signs (Past 12 Hours) Vital Signs Temp Pulse Pulse Pulse Resp BP BP 11/08/24 04:22 84 111/87 11/08/24 04:07 92 H 155/77 H 11/08/24 02:22 36.3 C L 88 16 138/85 11/08/24 00:00 84 11/07/24 23:51 76 124/80 11/07/24 23:36 81 148/85 H 11/07/24 21:59 36.3 C L 86 20 116/92 11/07/24 20:48 80 143/80 H 11/07/24 20:33 90 113/68 11/07/24 20:00 11/07/24 19:56 36.6 C 89 18 113/68 Pulse Ox O2 Del Method O2 Flow Rate 11/08/24 04:22 11/08/24 04:07 11/08/24 02:22 92 Room Air 11/08/24 00:00 11/07/24 23:51 11/07/24 23:36 11/07/24 21:59 95 Room Air 11/07/24 20:48 11/07/24 20:33 11/07/24 20:00 Nasal Cannula 2 11/07/24 19:56 95 Nasal Cannula 2 Resident Activity Tracking Resident Involvement: Resident Care Provided Care Provided: Adult Hospital Medicine (2) Sepsis Sepsis type: sepsis due to unspecified organism Severe sepsis acute organ dysfunction type: unspecified Severe sepsis shock status: without septic shock
[2024-11-08 06:49] LABS: Hematocrit (blood only) 26.6 % (42.0-52.0); Hemoglobin 8.3 g/dl (14.0-18.0); Immature Granulocytes # (auto) 0.17 K/uL (0.01-0.20); Immature Granulocytes % (auto) 1.1 %; Mean Corpuscular Hemoglobin 29.2 pg (25.0-34.0); Mean Corpuscular Volume 93.7 fL (80.0-100.0); Platelet Count 684 K/uL (130-400); RDW Standard Deviation 46.0 fL (36.4-46.3); Red Blood Count 2.84 M/uL (4.70-6.10); White Blood Count 15.44 K/ul (4.8-10.8)
[2024-11-08 07:02] LABS: Anion Gap 5.0 (3-11); Blood Urea Nitrogen 39.0 mg/dl (6-23); Calcium 8.1 mg/dl (8.6-10.3); Carbon Dioxide 25.0 mmol/L (21-32); Chloride 113.0 mmol/L (98-107); Creatinine Clr Calc Pharmacy 74.5 ml/min; Glucose 150.0 mg/dl (70-99(Fasting)); Magnesium 2.0 mg/dl (1.7-2.4); Potassium 3.8 mmol/L (3.5-5.1); Sodium 143.0 mmol/L (136-145); Triglycerides 153.0 mg/dl (0-150)
--- NOTE | 2024-11-08 09:32 | Surgery Progress Note ---
Date of Service November 08, 2024 Assessment & Plan (1) Perioperative dehiscence of abdominal wound with evisceration: Plan: POD # 3 s/p ex lap repair of recurrent dehiscence with external retention sutures, abdominal washout POD # 8 s/p ex alp repair of dehiscence , abdominal washout POD # 14 ex lap , Packer's for perforated diverticulitis with feculent peritonitis afebrile,vss leukocytosis of 15k today (29K yesterday) NGT still with high output, abdomen still distended, output looks property portfolio officer and not as dark green/brown, per nursing patient was drinking a lot of water and intake was not being regulated, had 2 liters of property portfolio officer green output in 15 minutes this morning (believes he had 3 cups of water prior). + flatus in ostomy ( minimal) Plan: Continue NGT to LIS until ostomy function Continue binder Continue IV abx and antifungal Continue Dilaudid CLINICAL SAFETY MANAGER along with adding IV scheduled Tylenol Continue medical management Needs to move legs in bed SCDs Incentive spirometry Lovenox for DVT prophylaxis PPI for GI prophylaxis repeat am labs will reconsult PT/OT, start getting patient OOB to chair with assistance and ambulating with assistance. Needs to wear binder with any activity [facility] surgery on for this weekend Discussed with Dr. Courtney who agrees with above Admission and Anticipated Discharge Date Admission Date: October 25, 2024 Subjective "not feeling great" still having pain in abdomen, controlled, no change no nausea nurse at bedside, revert back to NPO with ice chips. Patient drinking cup of water and had 2 liters of property portfolio officer bile output out of NGT in 15 minutes after drinking 3 cups of water. States he felt there was not a clear record of how much patient was taking in with water and ice chips. no real ostomy output Review of Systems Review of Systems: All systems reviewed & are unremarkable except as noted in HPI & below Physical Exam Constitutional: + ill appearing and cooperative; no acut e distress, not combative and not diaphoretic Respiratory: no respiratory distress and no labored breathing Auscultation: + diminished lung sounds Cardiovascular: Rate/Rhythm: regular rate and regular rhythm Gastrointestinal (Abdomen): Inspection/Auscultation: + abdomen distended Percussion/Palpation: + abdomen tender (generalized) and abdomen soft; no guarding, abdomen not rigid and abdomen not firm Midline incision with retention sutures intact, ostomy with sweat and some gas in ostomy bag no stool yet, ostomy pink not necrotic, retracted in (stable) Skin: no rashes, warm and dry Psychiatric: Orientation: alert and oriented to person Results & Data Vital Signs (Past 12 Hours) Vital Signs Temp Pulse Pulse Pulse Resp BP BP 11/08/24 07:41 36.7 C 79 18 11/08/24 07:00 83 11/08/24 04:22 84 111/87 11/08/24 04:07 92 H 155/77 H 11/08/24 02:22 36.3 C L 88 16 138/85 11/08/24 00:00 84 11/07/24 23:51 76 124/80 11/07/24 23:36 81 148/85 H 11/07/24 21:59 36.3 C L 86 20 116/92 BP Pulse Ox O2 Del Method O2 Flow Rate 11/08/24 07:41 134/77 95 Nasal Cannula 2.0 11/08/24 07:00 11/08/24 04:22 11/08/24 04:07 11/08/24 02:22 92 Room Air 11/08/24 00:00 11/07/24 23:51 11/07/24 23:36 11/07/24 21:59 95 Room Air Laboratory Results 11/08/24 11/08/24 11/07/24 Range/Units 05:43 05:39 23:34 WBC 15.44 H (4.8-10.8) K/ul RBC 2.84 L (4.70-6.10) M/uL Hgb 8.3 L (14.0-18.0) g/dl Hct 26.6 L (42.0-52.0) % MCV 93.7 (80.0-100.0) fL MCH 29.2 (25.0-34.0) pg MCHC 31.2 L (32.0-36.0) g/dL RDW Std Deviation 46.0 (36.4-46.3) fL RDW Coeff of Jeanette 13.6 (11.5-14.5) % Plt Count 684 H (130-400) K/uL MPV 9.5 (9.4-12.4) fL Immature Gran % (Auto) 1.1 % Neut % (Auto) 78.7 % Lymph % (Auto) 9.2 % Chester % (Auto) 9.7 % Eos % (Auto) 1.0 % Baso % (Auto) 0.3 % Neut # (Auto) 12.16 H (1.40-6.50) K/uL Lymph # (Auto) 1.42 (1.20-3.40) K/uL Chester # (Auto) 1.49 H (0.11-0.59) K/uL Eos # (Auto) 0.15 (0.00-0.50) K/uL Baso # (Auto) 0.05 (0.00-0.20) K/uL Immature Gran # (Auto) 0.17 (0.01-0.20) K/uL Absolute Nucleated RBC (0.00-0.12) K/uL Nucleated RBC % (auto) % Polychromasia Peripher Smr Path Cons Sodium 143 (136-145) mmol/L Potassium 3.8 (3.5-5.1) mmol/L Chloride 113 H (98-107) mmol/L Carbon Dioxide 25 (21-32) mmol/L Anion Gap 5 (3-11) BUN 39 H (6-23) mg/dl Creatinine 0.91 (0.6-1.4) mg/dl Est Cr Clr Drug Dosing 74.5 ml/min eGFR 89.55 BUN/Creatinine Ratio 42.9 H (10-20) Glucose 150 H (70-99(Fasting)) mg/dl POC Glucose 144 H 150 H (70-99) mg/dl Calcium 8.1 L (8.6-10.3) mg/dl Phosphorus 3.1 (2.5-4.9) mg/dl Magnesium 2.0 (1.7-2.4) mg/dl Triglycerides 153 H (0-150) mg/dl 11/07/24 11/07/24 11/07/24 Range/Units 20:00 11:56 05:24 WBC 29.18 H (4.8-10.8) K/ul RBC 2.64 L (4.70-6.10) M/uL Hgb 8.2 L (14.0-18.0) g/dl Hct 24.5 L (42.0-52.0) % MCV 92.8 (80.0-100.0) fL MCH 31.1 (25.0-34.0) pg MCHC 33.5 (32.0-36.0) g/dL RDW Std Deviation 47.0 H (36.4-46.3) fL RDW Coeff of Jeanette 13.9 (11.5-14.5) % Plt Count 632 H (130-400) K/uL MPV 9.4 (9.4-12.4) fL Immature Gran % (Auto) 1.3 % Neut % (Auto) 86.6 % Lymph % (Auto) 4.7 % Chester % (Auto) 7.1 % Eos % (Auto) 0.1 % Baso % (Auto) 0.2 % Neut # (Auto) 25.25 H (1.40-6.50) K/uL Lymph # (Auto) 1.37 (1.20-3.40) K/uL Chester # (Auto) 2.08 H (0.11-0.59) K/uL Eos # (Auto) 0.04 (0.00-0.50) K/uL Baso # (Auto) 0.06 (0.00-0.20) K/uL Immature Gran # (Auto) 0.38 H (0.01-0.20) K/uL Absolute Nucleated RBC 0.02 (0.00-0.12) K/uL Nucleated RBC % (auto) 0.1 % Polychromasia 1+ Peripher Smr Path Cons Sodium (136-145) mmol/L Potassium (3.5-5.1) mmol/L Chloride (98-107) mmol/L Carbon Dioxide (21-32) mmol/L Anion Gap (3-11) BUN (6-23) mg/dl Creatinine (0.6-1.4) mg/dl Est Cr Clr Drug Dosing ml/min eGFR BUN/Creatinine Ratio (10-20) Glucose (70-99(Fasting)) mg/dl POC Glucose 144 H 112 H (70-99) mg/dl Calcium (8.6-10.3) mg/dl Phosphorus (2.5-4.9) mg/dl Magnesium (1.7-2.4) mg/dl Triglycerides (0-150) mg/dl (1) Perioperative dehiscence of abdominal wound with evisceration Encounter type: subsequent encounter Qualified Code(s): T81.321D - Disruption or dehiscence of closure of internal operation (surgical) wound of abdominal wall muscle or fascia, subsequent encounter
--- NOTE | 2024-11-08 12:46 | Infectious Disease Progress Nt ---
Date of Service November 08, 2024 Assessment & Plan (1) Bowel perforation: (2) Peritonitis: Plan Problems: #Perforated diverticulitis s/p ex lap, bowel resection, colostomy (10/25/24), ex lap repair of dehiscence and abd washout (10/31/24), ex lap repair of recurrent d ehiscence and abd washout (11/05/24) #Feculent peritonitis #Pneumonia Micro: 10/25 Peritoneal fluid cx: Clostridium perfringens, mod counts of probable intestinal mario. GS GNRs, GPRs, GPCs, yeast Abx: Caspofungin 10/28 - present Zosyn 10/25 - present Clindamycin 10/27 - 10/28 74 yo M with HTN, HLD, emphysema, GERD, Crane's esophagus who presented on 10/25 with acute onset of generalized abdominal pain, distension, sweats, found to have perforated diverticulitis s/p ex lap, bowel resection, colostomy (10/25/24). Hospital course c/b pneumonia noted on CT chest 10/29. On presentation, he was afebrile, hypotensive to SBP 80s-90s. Labs showed WBC 13.14. CT A/P with IV contrast showed acute perforated diverticulitis at the distal descending/proximal sigmoid colon with a small amount of scattered free air, and trace free fluid without ascites. Pt started on Zosyn. He was taken for emergent ex lap, bowel resection, colostomy formation. In the OR, there was feculent peritonitis. Intra-op culture obtained of peritoneal fluid. He was admitted to the ICU postoperatively, requiring Levophed. Peritoneal fluid culture growing Clostridium perfringens, and moderate counts of probable intestinal mario. Gram stain with GNRs, GPRs, GPCs, yeast. Clindamycin added 10/27. Weaned off Levophed 10/27. WBC uptrending to 17.59 on 10/28. Discussion: Polymicrobial peritoneal fluid culture including Clostridium perfringens. Zosyn should cover the Clostridium perfringens and other intestinal mario, unless there are resistant organisms. No prior micro data to review. Leukocytosis uptrending and Tmax 37.7 on 10/27--added caspofungin on 10/28 due to yeast seen on gram stain of peritoneal fluid. Also with increased O2 requirement on 10/29, with CT chest showing bilateral pneumonia. Had coughing spell leading to midline incision dehiscence and evisceration, so taken back to OR for ex lap, washout, and abdominal wall closure 10/31. Post op, leukocytosis up to 24 on 11/01/24. Had persistent leukocytosis to mid 20s. KUB 11/02 with concern for SBO--surgery felt more likely ileus. Did have some gas in the ostomy on 11/04. Had recurrent dehiscence, and was taken to the OR on 11/05 for ex lap, repair of recurrent dehiscence, and abdominal washout in which abdomen was irrigated with 1 L with cefazolin. No purulence was seen in the abdominal cavity per surgery note. Continued rising leukocytosis, now to 29.18 on 11/07. Unclear etiology, considered C diff but ostomy without output. Reassuring that WBC decreased to 15.44 on 11/08 without intervention. Ostomy still without output. Recommendations: - Can continue Zosyn and caspofungin for now--hopefully can discontinue soon if leukocytosis continues to downtrend and abdominal source control achieved - Consider CT A/P with IV contrast if worsening leukocytosis Please note that ID does not round or write notes over the weekend. If questions or concerns arise, please contact the Infectious Disease Call Center and ask to speak with the covering ID physician. Dr. Abdi Jack will take over on Monday. Admission and Anticipated Discharge Date Admission Date: October 25, 2024 Subjective This patient recommendation is based on a telemedicine consult request which was completed asynchronously through chart review and information provided by the primary physician. The patient was not seen or examined today. The evaluation is consultative in nature and all patient care and treatment decisions can either be accepted or rejected by the patient's primary hospital-based treating physician using their own independent medical judgment for their patient. Time Spent Reviewing Chart: 11 - 20 minutes WBC down to 15.44 Continues with abdominal pain no ostomy output yet Results & Data Vital Signs (Past 12 Hours) Vital Signs Temp Pulse Pulse Pulse Resp BP BP 11/08/24 11:49 36.7 C 97 H 21 11/08/24 09:45 88 11/08/24 07:41 36.7 C 79 18 11/08/24 07:00 83 11/08/24 04:22 84 111/87 11/08/24 04:07 92 H 155/77 H 11/08/24 02:22 36.3 C L 88 16 138/85 BP Pulse Ox O2 Del Method O2 Flow Rate 11/08/24 11:49 128/63 94 Nasal Cannula 3.0 11/08/24 09:45 11/08/24 07:41 134/77 95 Nasal Cannula 2.0 11/08/24 07:00 11/08/24 04:22 11/08/24 04:07 11/08/24 02:22 92 Room Air Laboratory Results Short CBC 11/08/24 Range/Units 05:39 WBC 15.44 H (4.8-10.8) K/ul Hgb 8.3 L (14.0-18.0) g/dl Hct 26.6 L (42.0-52.0) % Plt Count 684 H (130-400) K/uL BMP 11/08/24 05:39 Sodium 143 Potassium 3.8 Chloride 113 H Carbon Dioxide 25 BUN 39 H Creatinine 0.91 Glucose 150 H Calcium 8.1 L
[2024-11-08] MEDS: CENTRAL TPN IV SCH (17:17)
[2024-11-08] MEDS: [UNRECOGNIZED DRUG - OTHER] IV SCH (17:17)
--- NOTE | 2024-11-09 06:35 | Hospitalist Progress Note ---
Date of Service November 09, 2024 Assessment & Plan (1) Bowel perforation: (2) Sepsis: (3) Peritonitis: (4) Diverticulitis: (5) Cigarette nicotine dependence: (6) GERD with esophagitis: (7) Aortic insufficiency: (8) Crane esophagus: Plan Mr. Rivera is 74 yo male with history of HTN, dyslipidemia, GERD, aortic insufficiency, barrette's esophagus, presented to ED with acute onset of generalized abdominal pain with distention, subsequently found to have perforated diverticulitis, and underwent laparotomy sigmoid colon with diverting colostomy( 10/25) for perforated diverticulitis. On presentation to ED he met SIRS criteria, blood pressure was persistently low despite fluid management. He was hypotensive at OR as well. Post operatively was shifted to ICU and required on Levophed infusion. Pain seems optimized on IV med. Zosyn and caspofungin coverage for infection ongoing. #S/P Laparotomy with colostomy #Bowel Perforation #Ileus - Care per surgery - NG tube for abdominal decompression - await ostomy output - Pain: management as per surgery - ID on board - WBC trending down, at 12.12 today - Zosyn coverage for GI infection - caspofungin for yeast coverage. - OOB per tolerance PT/OT consulted, following Recommend Acute rehab at [facility] - labs per surgery - PICC line for TPN - POD 4 s/p 2nd revision surgery. Wound dressing in place. #Hypoxia #COPD -hypertonic saline, albuterol nebs q6hrs - currently on 2L via NC #Hyperactive Delirium/Dysregulated Sleep-Wake Cycle Pt with agitation early this morning. He is self admittedly time disoriented. But calm and cooperative during exam -Consider trial Seroquel 25mg HS if needed #Post Op Anemia Continue to follow Transfusion threshold 7.0 #Atrial Fibrillation with RVR likely chronic #Pulmonary Congestion 2/2 to Aortic Regurgitation - Echo 08/28: normal EF, moderate to severe AR. - rates currently controlled, intermittent PVCs noted on monitor - Lopressor 2.5mg IV q4hrs for rate control - consider amiodarone if rates do not improve with current regimen - due to pt's recent surgery, hold traditional anticoagulation at this time - continue lovenox 40mg daily #Hypokalemia, resolved - will monitor #VANESSA, resolved - Follow BMP #Nicotine dependance - Was on buccal nicotine - on nicotine patch - No s/o nicotine withdrawal #BPH: - Pt remain on grant. - Hold home med #Electrolytes -replaced per surgery Dispo: Tele DVT prophylaxis: lovenox 40mg daily Diet: NPO to TPN Admission and Anticipated Discharge Date Admission Date: October 25, 2024 Supervising Physician Co-Signing Physician Notes Attending attestation I also saw the patient confirmed reilly portions of the clinical history and the physical exam. I agree with the impression and plan as noted in the resident documentation above. Ice chips at present. Some delirium improved with re-orientation. Declines opening of blinds. EXAM A/O this morning. NAD Lungs with non labored respirations DATA Labs White blood cell count 12.12, hemoglobin 8.8. Sodium 143, potassium 3.9, BUN 38, creatinine 0.92 IMPRESSION & PLAN Diverticulitis with perforated bowel and subsequent evisceration of wound s/p repair on 11/05/24 management per surgical primary team. Continue ongoing IV antibiotic and antifungal therapy. PICC in place for TPN Monitor daily lab studies. Leukocytosis, thrombocytosis Likely 2/2 postoperative state and steroid administration, and infection peripheral smear consistent with same AF with h/o RVR and aortic regurg Rate controlled at present Remains on DVT prophylaxis with Lovenox Systemic anticoagulation contraindicated at present additional per resident documentation Subjective No acute events overnight. This morning, pt reports he had a difficult night due to not being able to drink water. Pt states he became angry and pulled out his IV's. Pt denies cp, SOB, dizziness, JUSTICE, N/V. Pt states his abdominal pain seems to be controlled and he has used BIOLOGICAL SCIENCES PROFESSOR less in the last 24 hours. Pt does admit to confusion regarding time of day and thinks he sees people in the corner of the room that are not present. There is a mirror in the direction pt thinks he sees someone moving around. Offered to open window shades to allow natural light into his room. Pt declined. Review of Systems Review of Systems: reviewed, per HPI Physical Exam Physical Exam: Constitutional: Pt laying in bed, no acute distress but voicing frustration with current situation, cooperative HEENT: NCAT, no conjunctival injection CV: regular rhythm, no murmur appreciated, extremities well-perfused, no LE edema Resp: Diminished breath sounds at mid and lower lobes due to shallow breathing with binder in place. GI: ostomy, NG tube, Abdominal wound with dressing, abdominal binder MSK: no gross deformities appreciated Skin: warm, dry : grant in place Neuro: alert, oriented, no focal neurologic deficit appreciated Results & Data Results & Data Vital Signs (Past 12 Hours) Vital Signs Temp Pulse Pulse Resp BP BP Pulse Ox 11/09/24 04:01 37.0 C 85 21 112/74 94 11/09/24 04:00 84 112/74 11/09/24 03:35 98 H 161/79 H 11/09/24 00:20 85 11/09/24 00:05 85 165/83 H 11/08/24 22:14 89 11/08/24 20:50 82 137/72 11/08/24 20:35 11/08/24 20:35 92 H 141/80 H 11/08/24 20:26 37.2 C 92 H 22 141/80 H 94 O2 Del Method O2 Flow Rate 11/09/24 04:01 Nasal Cannula 2 11/09/24 04:00 11/09/24 03:35 11/09/24 00:20 11/09/24 00:05 11/08/24 22:14 11/08/24 20:50 11/08/24 20:35 Nasal Cannula 2 11/08/24 20:35 11/08/24 20:26 Nasal Cannula 2 Resident Activity Tracking Resident Involvement: Resident Care Provided Care Provided: Adult Hospital Medicine (2) Sepsis Sepsis type: sepsis due to unspecified organism Severe sepsis acute organ dysfunction type: unspecified Severe sepsis shock status: without septic shock
[2024-11-09 08:24] LABS: Hematocrit (blood only) 27.8 % (42.0-52.0); Hemoglobin 8.8 g/dl (14.0-18.0); Mean Corpuscular Hemoglobin 29.6 pg (25.0-34.0); Mean Corpuscular Volume 93.6 fL (80.0-100.0); Platelet Count 707 K/uL (130-400); RDW Standard Deviation 46.5 fL (36.4-46.3); Red Blood Count 2.97 M/uL (4.70-6.10); White Blood Count 12.12 K/ul (4.8-10.8)
[2024-11-09 08:38] LABS: Anion Gap 6.0 (3-11); Calcium 8.2 mg/dl (8.6-10.3); Carbon Dioxide 25.0 mmol/L (21-32); Chloride 112.0 mmol/L (98-107); Magnesium 1.9 mg/dl (1.7-2.4); Potassium 3.9 mmol/L (3.5-5.1); Sodium 143.0 mmol/L (136-145)
[2024-11-09 08:44] LABS: Blood Urea Nitrogen 38.0 mg/dl (6-23); Creatinine Clr Calc Pharmacy 73.8 ml/min; Glucose 145.0 mg/dl (70-99(Fasting))
[2024-11-09 08:52] LABS: Immature Granulocytes # (auto) 0.21 K/uL (0.01-0.20); Immature Granulocytes % (auto) 1.7 %; Polychromasia 1+
--- NOTE | 2024-11-09 11:12 | Surgery Progress Note ---
Date of Service November 09, 2024 Assessment & Plan (1) Perioperative dehiscence of abdominal wound with evisceration: Plan POD #4 s/p ex lap repair of recurrent dehiscence with external retention sutures, abdominal washout POD # 9 s/p ex alp repair of dehiscence , abdominal washout POD # 15 ex lap , Packer's for perforated diverticulitis with feculent peritonitis afebrile,vss leukocytosis of 12k today 15K yesterday) Abdomen still distended Plan: Continue NGT to LIS until ostomy function Continue binder Continue IV abx and antifungal Continue Dilaudid SUPERVISOR CHAR HOUSE along with adding IV scheduled Tylenol Continue medical management Needs to move legs in bed SCDs Incentive spirometry Lovenox for DVT prophylaxis PPI for GI prophylaxis repeat am labs will reconsult PT/OT, start getting patient OOB to chair with assistance and ambulating with assistance. Needs to wear binder with any activity [facility] surgery covering for this weekend. [facility] will resume following on Monday. Admission and Anticipated Discharge Date Admission Date: October 25, 2024 Subjective I have seen and examined this pt this am. Pain well controlled Physical Exam Respiratory: no respiratory distress Gastrointestinal (Abdomen): Abdomen is distended retention sutures in place ostomy retracted, no output Results & Data Vital Signs (Past 12 Hours) Vital Signs Temp Pulse Pulse Resp BP BP Pulse Ox 11/09/24 09:29 88 11/09/24 07:15 37.0 C 91 H 20 160/84 H 96 11/09/24 04:01 37.0 C 85 21 112/74 94 11/09/24 04:00 84 112/74 11/09/24 03:35 98 H 161/79 H 11/09/24 00:20 85 11/09/24 00:05 85 165/83 H O2 Del Method O2 Flow Rate 11/09/24 09:29 11/09/24 07:15 Room Air 11/09/24 04:01 Nasal Cannula 2 11/09/24 04:00 11/09/24 03:35 11/09/24 00:20 11/09/24 00:05 PG Care Time/CCT Total # of Minutes Spent Total Time Spent with Patient: Total time spent is greater than 50% in coordination of care (as documented) at patient's floor/unit and/or counseling patient: Coding Level of Care Code 67594 Post Operative Follow-Up Diagnoses Perioperative dehiscence of abdominal wound with evisceration, subsequent encounter T81.321D Encounter type: subsequent encounter (1) Perioperative dehiscence of abdominal wound with evisceration Encounter type: subsequent encounter Qualified Code(s): T81.321D - Disruption or dehiscence of closure of internal operation (surgical) wound of abdominal wall muscle or fascia, subsequent encounter
[2024-11-09] MEDS: CASPOFUNGIN 50 MG in SODIUM CHLORIDE 0.9% 250 ML IV SCH (13:39)
[2024-11-09] MEDS: CENTRAL TPN IV SCH (16:47)
[2024-11-09] MEDS: [UNRECOGNIZED DRUG - OTHER] IV SCH (16:47)
--- NOTE | 2024-11-10 07:11 | Hospitalist Progress Note ---
Date of Service November 10, 2024 Assessment & Plan (1) Bowel perforation: (2) Sepsis: (3) Peritonitis: (4) Diverticulitis: (5) Cigarette nicotine dependence: (6) GERD with esophagitis: (7) Aortic insufficiency: (8) Crane esophagus: Plan Mr. Rivera is 74 yo male with history of HTN, dyslipidemia, GERD, aortic insufficiency, barrette's esophagus, presented to ED with acute onset of generalized abdominal pain with distention, subsequently found to have perforated diverticulitis, and underwent laparotomy sigmoid colon with diverting colostomy( 10/25) for perforated diverticulitis. On presentation to ED he met SIRS criteria, blood pressure was persistently low despite fluid management. He was hypotensive at OR as well. Post operatively was shifted to ICU and required on Levophed infusion. Pain seems optimized on IV med. Zosyn and caspofungin coverage for infection ongoing. #S/P Laparotomy with colostomy #Bowel Perforation #Ileus - Care per surgery - NG tube for abdominal decompression - await ostomy output - Pain: management as per surgery - ID on board - WBC trending down - Zosyn coverage for GI infection - caspofungin for yeast coverage. - OOB per tolerance PT/OT consulted, following Recommend Acute rehab at [facility] - labs per surgery - PICC line for TPN DC of POC BSG monitoring per pharmacy due to pt in acceptable range with current TPN - POD 5 s/p 2nd revision surgery. Wound dressing in place. #Hypoxia #COPD -hypertonic saline, albuterol nebs q6hrs - currently on 2L via NC - Ordered repeat chest XR due to SOB and coughing. 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 He is self-admittedly time disoriented. Noted to be calm and cooperative during exam -Consider Seroquel 25mg HS if needed #Post Op Anemia Continue to follow Transfusion threshold 7.0 #Atrial Fibrillation with RVR likely chronic #Pulmonary Congestion 2/2 to Aortic Regurgitation - Echo 08/28: normal EF, moderate to severe AR. - rates currently controlled, intermittent PVCs noted on monitor - Lopressor 2.5mg IV q4hrs for rate control - consider amiodarone if rates do not improve with current regimen - due to pt's recent surgery, hold traditional anticoagulation at this time - continue lovenox 40mg daily #Hypokalemia, resolved - will monitor #VANESSA, resolved - Follow BMP #Nicotine dependance - Was on buccal nicotine - on nicotine patch - No s/o nicotine withdrawal #BPH: - Pt remain on grant. - Hold home med #Electrolytes -replaced per surgery Dispo: Tele DVT prophylaxis: lovenox 40mg daily Diet: NPO to TPN Admission and Anticipated Discharge Date Admission Date: October 25, 2024 Supervising Physician Co-Signing Physician Notes Attending I also saw the patient confirmed reilly portions of the clinical history and the physical exam. I agree with the impression and plan as noted in the resident documentation above. Slight cough this morning. No dyspnea. EXAM 139/84 A/O this morning. NAD Lungs with non labored respirations DATA Labs Sodium 145, potassium 3.9, BUN 37, creatinine 0.89 IMPRESSION & PLAN Diverticulitis with perforated bowel and subsequent evisceration of wound s/p repair on 11/05/24 management per surgical primary team. Clamp trial today Continue ongoing IV antibiotic and antifungal therapy. TPN continues Leukocytosis, thrombocytosis Likely 2/2 postoperative state and steroid administration, and infection peripheral smear consistent with same PCXR today with slight cough CBC in AM AF with h/o RVR and aortic regurg Rate controlled at present Remains on DVT prophylaxis with Lovenox Systemic anticoagulation contraindicated at present additional per resident documentation Subjective No acute events overnight. This morning, pt reports feeling more SOB this morning and coughing when laying at approx 30degrees. Pt denies significant abdominal pain. Denies fever/chills, CP, headache, dizziness, SOB, N/V, new myalgias Review of Systems Review of Systems: reviewed, per HPI Physical Exam Physical Exam: Constitutional: Pt laying in bed, coughing and more SOB when talking, cooperative HEENT: NCAT, no conjunctival injection CV: regular rhythm, no murmur appreciated, extremities well-perfused, no LE edema Resp: Diminished breath sounds at mid and lower lobes. GI: ostomy, NG tube, Abdominal wound with dressing, abdominal binder MSK: no gross deformities appreciated Skin: warm, dry : grant in place Neuro: alert, oriented to place, confused regarding time of day, no focal neurologic deficit appreciated Results & Data Results & Data Vital Signs (Past 12 Hours) Vital Signs Temp Pulse Pulse Resp BP BP Pulse Ox 11/10/24 06:58 36.8 C 87 18 158/82 H 94 11/10/24 05:18 84 139/84 11/10/24 05:03 90 137/86 11/10/24 04:03 36.7 C 95 H 20 164/74 H 95 11/10/24 00:46 82 140/82 11/10/24 00:31 96 H 163/79 H 11/09/24 23:52 36.7 C 89 21 135/76 96 11/09/24 22:00 82 11/09/24 21:23 85 154/65 H 11/09/24 21:08 95 H 149/88 H 11/09/24 20:55 37.2 C 97 H 22 96 O2 Del Method O2 Flow Rate 11/10/24 06:58 Room Air 11/10/24 05:18 11/10/24 05:03 11/10/24 04:03 Nasal Cannula 2 11/10/24 00:46 11/10/24 00:31 11/09/24 23:52 Nasal Cannula 2 11/09/24 22:00 11/09/24 21:23 11/09/24 21:08 11/09/24 20:55 Nasal Cannula 2 Resident Activity Tracking Resident Involvement: Resident Care Provided Care Provided: Adult Hospital Medicine (2) Sepsis Sepsis type: sepsis due to unspecified organism Severe sepsis acute organ dysfunction type: unspecified Severe sepsis shock status: without septic shock
[2024-11-10 08:45] LABS: Anion Gap 5.0 (3-11); Blood Urea Nitrogen 37.0 mg/dl (6-23); Calcium 8.1 mg/dl (8.6-10.3); Carbon Dioxide 30.0 mmol/L (21-32); Chloride 110.0 mmol/L (98-107); Creatinine Clr Calc Pharmacy 76.3 ml/min; Glucose 149.0 mg/dl (70-99(Fasting)); Magnesium 2.0 mg/dl (1.7-2.4); Potassium 3.9 mmol/L (3.5-5.1); Sodium 145.0 mmol/L (136-145)
--- NOTE | 2024-11-10 10:40 | Surgery Progress Note ---
Date of Service November 10, 2024 Assessment & Plan (1) Diverticulitis of intestine with perforation without abscess: (2) Perioperative dehiscence of abdominal wound with evisceration: Plan POD #5 s/p ex lap repair of recurrent dehiscence with external retention sutures, abdominal washout POD # 10 s/p ex alp repair of dehiscence , abdominal washout POD # 16 ex lap , Packer's for perforated diverticulitis with feculent peritonitis afebrile,vss leukocytosis was trending down as of yesterday at 12,000. No CBC obtained this am Abdomen still distended Plan: Will try a clamp trial today. Clamp NGT x4 hours if residuals less that 100mL, may leave clamped and have sips/chips. 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 Needs to wear binder with any activity [facility] [place]. [facility] will resume following on Monday. Admission and Anticipated Discharge Date Admission Date: October 25, 2024 Subjective I have seen and examined this patient this am. 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 Results & Data Vital Signs (Past 12 Hours) Vital Signs Temp Pulse Pulse Resp BP BP Pulse Ox 11/10/24 09:14 85 11/10/24 08:54 87 11/10/24 06:58 36.8 C 87 18 158/82 H 94 11/10/24 05:18 84 139/84 11/10/24 05:03 90 137/86 11/10/24 04:03 36.7 C 95 H 20 164/74 H 95 11/10/24 00:46 82 140/82 11/10/24 00:31 96 H 163/79 H 11/09/24 23:52 36.7 C 89 21 135/76 96 O2 Del Method O2 Flow Rate 11/10/24 09:14 11/10/24 08:54 11/10/24 06:58 Room Air 11/10/24 05:18 11/10/24 05:03 11/10/24 04:03 Nasal Cannula 2 11/10/24 00:46 11/10/24 00:31 11/09/24 23:52 Nasal Cannula 2 PG Care Time/CCT Total # of Minutes Spent Total Time Spent with Patient: Total time spent is greater than 50% in coordination of care (as documented) at patient's floor/unit and/or counseling patient: Coding Level of Care Code 72233 Post Operative Follow-Up Diagnoses Diverticulitis of large intestine with perforation without abscess or bleeding K57.20 Diverticulitis site: large intestine Diverticulitis bleeding: without bleeding Perioperative dehiscence of abdominal wound with evisceration, subsequent encounter T81.321D Encounter type: subsequent encounter (1) Diverticulitis of intestine with perforation without abscess Diverticulitis site: large intestine Diverticulitis bleeding: without bleeding Qualified Code(s): K57.20 - Diverticulitis of large intestine with perforation and abscess without bleeding (2) Perioperative dehiscence of abdominal wound with evisceration Encounter type: subsequent encounter Qualified Code(s): T81.321D - Disruption or dehiscence of closure of internal operation (surgical) wound of abdominal wall muscle or fascia, subsequent encounter
--- NOTE | 2024-11-10 11:04 | XRay Report ---
EXAM: Radiograph of the Chest 1 View INDICATION: Shortness of breath TECHNIQUE: Frontal view of the chest. COMPARISON: None 2624 FINDINGS: Lungs and pleural spaces: Persistent but improved basilar atelectasis and small right pleural effusion. No pneumothorax. Heart: Shape and configuration within normal limits allowing for technique. Mediastinum: Stable ectatic aorta. Bones/joints: No fracture, erosion or dislocation. Soft tissues: No abnormality noted. No radiopaque foreign body noted. Vasculature: Stable ectatic aorta. Tubes, lines and devices: The nasogastric tube is in the gastric fundus. [place] at the hiatus. Insert right peripherally inserted central catheter (PICC) tip in the distal superior vena cava. Upper abdomen: No abnormality noted. IMPRESSION: 1. Persistent but improved basilar atelectasis and small right pleural effusion. 2. Lines and tubes as above. ACT 112: N/A Electronically signed by Abi Bill 11-10-2024 11:04 AM
[2024-11-10] MEDS: [UNRECOGNIZED DRUG - OTHER] IV SCH (16:00)
[2024-11-10] MEDS: CENTRAL TPN IV SCH (16:00)
--- NOTE | 2024-11-11 07:21 | Hospitalist Progress Note ---
Date of Service November 11, 2024 Assessment & Plan (1) Bowel perforation: (2) Sepsis: (3) Peritonitis: (4) Diverticulitis: (5) Cigarette nicotine dependence: (6) GERD with esophagitis: (7) Aortic insufficiency: (8) Crane esophagus: Plan Mr. Rivera is 74 yo male with history of HTN, dyslipidemia, GERD, aortic insufficiency, barrette's esophagus, presented to ED with acute onset of generalized abdominal pain with distention, subsequently found to have perforated diverticulitis, and underwent laparotomy sigmoid colon with diverting colostomy( 10/25) for perforated diverticulitis. On presentation to ED he met SIRS criteria, blood pressure was persistently low despite fluid management. He was hypotensive at OR as well. Post operatively was shifted to ICU and required on Levophed infusion. Pain seems optimized on IV med. Zosyn and caspofungin coverage for infection ongoing. #S/P Laparotomy with colostomy #Bowel Perforation #Ileus - Care per surgery - NG tube for abdominal decompression - await ostomy output - Pain: management as per surgery - ID on board - WBC trending down - Zosyn coverage for GI infection - caspofungin for yeast coverage. - OOB per tolerance PT/OT consulted, following Recommend Acute rehab at [facility] - labs per surgery - PICC line for TPN DC of POC BSG monitoring per pharmacy due to pt in acceptable range with current TPN - POD 5 s/p 2nd revision surgery. Wound dressing in place. #Hypoxia #COPD -hypertonic saline, albuterol nebs q6hrs - currently on 2L via NC - Ordered repeat chest XR due to SOB and coughing. 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 He is self-admittedly time disoriented. Noted to be calm and cooperative during exam -Consider Seroquel 25mg HS if needed #Post Op Anemia Continue to follow Transfusion threshold 7.0 #Atrial Fibrillation with RVR likely chronic #Pulmonary Congestion 2/2 to Aortic Regurgitation - Echo 08/28: normal EF, moderate to severe AR. - rates currently controlled, intermittent PVCs noted on monitor - Lopressor 2.5mg IV q4hrs for rate control - consider amiodarone if rates do not improve with current regimen - due to pt's recent surgery, hold traditional anticoagulation at this time - continue lovenox 40mg daily #Hypokalemia, resolved - will monitor #VANESSA, resolved - Follow BMP #Nicotine dependance - Was on buccal nicotine - on nicotine patch - No s/o nicotine withdrawal #BPH: - Pt remain on grant. - Hold home med #Electrolytes -replaced per surgery Dispo: Tele DVT prophylaxis: lovenox 40mg daily Diet: NPO to TPN Admission and Anticipated Discharge Date Admission Date: October 25, 2024 Review of Systems Review of Systems: reviewed, per HPI Constitutional: no fever and no chills Respiratory: no dyspnea Cardiovascular: no chest pain Gastrointestinal: + abdominal pain; no nausea and no vomit ing Neurologic: + generalized weakness Psychiatric: no behavioral changes Results & Data Results & Data Vital Signs (Past 12 Hours) Vital Signs Temp Pulse Pulse Resp BP BP Pulse Ox 11/11/24 03:31 37.1 C 85 18 161/73 H 95 11/11/24 03:16 97 H 155/72 H 11/11/24 01:37 94 H 11/10/24 23:42 91 H 147/78 H 11/10/24 23:27 100 H 134/89 11/10/24 23:24 36.8 C 100 H 24 134/89 95 11/10/24 20:53 89 142/87 H 11/10/24 20:45 11/10/24 20:38 98 H 145/81 H 11/10/24 20:04 36.9 C 97 H 20 152/76 H 96 O2 Del Method 11/11/24 03:31 Room Air 11/11/24 03:16 11/11/24 01:37 11/10/24 23:42 11/10/24 23:27 11/10/24 23:24 Room Air 11/10/24 20:53 11/10/24 20:45 Room Air 11/10/24 20:38 11/10/24 20:04 Room Air (2) Sepsis Sepsis type: sepsis due to unspecified organism Severe sepsis acute organ dysfunction type: unspecified Severe sepsis shock status: without septic shock
[2024-11-11 08:00] LABS: Hematocrit (blood only) 25.8 % (42.0-52.0); Hemoglobin 8.4 g/dl (14.0-18.0); Mean Corpuscular Hemoglobin 30.2 pg (25.0-34.0); Mean Corpuscular Volume 92.8 fL (80.0-100.0); Platelet Count 618 K/uL (130-400); RDW Standard Deviation 46.4 fL (36.4-46.3); Red Blood Count 2.78 M/uL (4.70-6.10); White Blood Count 13.20 K/ul (4.8-10.8)
[2024-11-11 08:16] LABS: Anion Gap 7.0 (3-11); Blood Urea Nitrogen 37.0 mg/dl (6-23); Calcium 8.1 mg/dl (8.6-10.3); Carbon Dioxide 29.0 mmol/L (21-32); Chloride 110.0 mmol/L (98-107); Creatinine Clr Calc Pharmacy 72.6 ml/min; Glucose 141.0 mg/dl (70-99(Fasting)); Magnesium 2.0 mg/dl (1.7-2.4); Potassium 3.5 mmol/L (3.5-5.1); Sodium 146.0 mmol/L (136-145)
[2024-11-11 08:20] LABS: Immature Granulocytes # (auto) 0.29 K/uL (0.01-0.20); Immature Granulocytes % (auto) 2.2 %
--- NOTE | 2024-11-11 09:13 | Surgery Progress Note ---
Date of Service November 11, 2024 Assessment & Plan (1) Perioperative dehiscence of abdominal wound with evisceration: Plan: POD # 6 s/p ex lap repair of recurrent dehiscence with external retention sutures, abdominal washout POD # 11 s/p ex alp repair of dehiscence , abdominal washout POD # 17 ex lap , Packer's for perforated diverticulitis with feculent peritonitis afebrile,vss leukocytosis of 13k today (12k yesterday) NGT still with moderate output, + flatus in ostomy ( minimal), no stool Plan: Continue NGT to LIS until ostomy function. 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 Needs to wear binder with any activity Dr. Perdomo has seen and examined patient, agrees with above Admission and Anticipated Discharge Date Admission Date: October 25, 2024 Subjective frustrated, wants to get up and move no ostomy output other than a little bit of gas feels less bloated Physical Exam Constitutional: WD/WN, vitals as above + frail appearing and cooperative; no acute distress and not ill appearing Respiratory: normal respiratory effort; no respiratory distress, no labored breathing and no retractions Cardiovascular: Rate/Rhythm: regular rate and regular rhythm Gastrointestinal (Abdomen): Inspection/Auscultation: + abdomen distended (mild) and + abdominal surgical incision (with retention sutures in place) Percussion/Palpation: + abdomen tender and abdomen soft; no guarding, abdomen not rigid and abdomen not firm retention sutures in place, edema at inferior aspect of incision incision intact, healthy granulation tissue exposed ostomy retracted in, healthy pink appearing with fibrinous exudate, small amount of gas in ostomy bag, no stool Skin: no rashes, warm and dry Psychiatric: Orientation: alert; + not oriented x 3 Results & Data Vital Signs (Past 12 Hours) Vital Signs Temp Pulse Pulse Resp BP BP Pulse Ox 11/11/24 08:04 36.6 C 92 H 23 175/83 H 94 11/11/24 03:31 37.1 C 85 18 161/73 H 95 11/11/24 03:16 97 H 155/72 H 11/11/24 01:37 94 H 11/10/24 23:42 91 H 147/78 H 11/10/24 23:27 100 H 134/89 11/10/24 23:24 36.8 C 100 H 24 134/89 95 O2 Del Method O2 Flow Rate 11/11/24 08:04 Nasal Cannula 2 11/11/24 03:31 Room Air 11/11/24 03:16 11/11/24 01:37 11/10/24 23:42 11/10/24 23:27 11/10/24 23:24 Room Air Laboratory Results 11/11/24 11/11/24 11/10/24 Range/Units 07:29 06:08 23:58 WBC 13.20 H (4.8-10.8) K/ul RBC 2.78 L (4.70-6.10) M/uL Hgb 8.4 L (14.0-18.0) g/dl Hct 25.8 L (42.0-52.0) % MCV 92.8 (80.0-100.0) fL MCH 30.2 (25.0-34.0) pg MCHC 32.6 (32.0-36.0) g/dL RDW Std Deviation 46.4 H (36.4-46.3) fL RDW Coeff of Jeanette 13.7 (11.5-14.5) % Plt Count 618 H (130-400) K/uL MPV 9.3 L (9.4-12.4) fL Immature Gran % (Auto) 2.2 % Neut % (Auto) 73.7 % Lymph % (Auto) 13.3 % Mccone % (Auto) 9.9 % Eos % (Auto) 0.5 % Baso % (Auto) 0.4 % Neut # (Auto) 9.73 H (1.40-6.50) K/uL Lymph # (Auto) 1.76 (1.20-3.40) K/uL Mccone # (Auto) 1.31 H (0.11-0.59) K/uL Eos # (Auto) 0.06 (0.00-0.50) K/uL Baso # (Auto) 0.05 (0.00-0.20) K/uL Immature Gran # (Auto) 0.29 H (0.01-0.20) K/uL Absolute Nucleated RBC 0.06 (0.00-0.12) K/uL Nucleated RBC % (auto) 0.5 % Sodium 146 H (136-145) mmol/L Potassium 3.5 (3.5-5.1) mmol/L Chloride 110 H (98-107) mmol/L Carbon Dioxide 29 (21-32) mmol/L Anion Gap 7 (3-11) BUN 37 H (6-23) mg/dl Creatinine 0.86 (0.6-1.4) mg/dl Est Cr Clr Drug Dosing 72.6 ml/min eGFR 92.00 BUN/Creatinine Ratio 43.0 H (10-20) Glucose 141 H (70-99(Fasting)) mg/dl POC Glucose 151 H 130 H (70-99) mg/dl Calcium 8.1 L (8.6-10.3) mg/dl Phosphorus 3.4 (2.5-4.9) mg/dl Magnesium 2.0 (1.7-2.4) mg/dl 11/10/24 Range/Units 17:35 WBC (4.8-10.8) K/ul RBC (4.70-6.10) M/uL Hgb (14.0-18.0) g/dl Hct (42.0-52.0) % MCV (80.0-100.0) fL MCH (25.0-34.0) pg MCHC (32.0-36.0) g/dL RDW Std Deviation (36.4-46.3) fL RDW Coeff of Jeanette (11.5-14.5) % Plt Count (130-400) K/uL MPV (9.4-12.4) fL Immature Gran % (Auto) % Neut % (Auto) % Lymph % (Auto) % Mccone % (Auto) % Eos % (Auto) % Baso % (Auto) % Neut # (Auto) (1.40-6.50) K/uL Lymph # (Auto) (1.20-3.40) K/uL Mccone # (Auto) (0.11-0.59) K/uL Eos # (Auto) (0.00-0.50) K/uL Baso # (Auto) (0.00-0.20) K/uL Immature Gran # (Auto) (0.01-0.20) K/uL Absolute Nucleated RBC (0.00-0.12) K/uL Nucleated RBC % (auto) % Sodium (136-145) mmol/L Potassium (3.5-5.1) mmol/L Chloride (98-107) mmol/L Carbon Dioxide (21-32) mmol/L Anion Gap (3-11) BUN (6-23) mg/dl Creatinine (0.6-1.4) mg/dl Est Cr Clr Drug Dosing ml/min eGFR BUN/Creatinine Ratio (10-20) Glucose (70-99(Fasting)) mg/dl POC Glucose 152 H (70-99) mg/dl Calcium (8.6-10.3) mg/dl Phosphorus (2.5-4.9) mg/dl Magnesium (1.7-2.4) mg/dl (1) Perioperative dehiscence of abdominal wound with evisceration Encounter type: subsequent encounter Qualified Code(s): T81.321D - Disruption or dehiscence of closure of internal operation (surgical) wound of abdominal wall muscle or fascia, subsequent encounter
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
--- NOTE | 2024-11-11 14:31 | Infectious Disease Progress Nt ---
Date of Service November 11, 2024 Assessment & Plan (1) Bowel perforation: (2) Peritonitis: Admission and Anticipated Discharge Date Admission Date: October 25, 2024 #Perforated diverticulitis s/p ex lap, bowel resection, colostomy (10/25/24), ex lap repair of dehiscence and abd washout (10/31/24), ex lap repair of recurrent dehiscence and abd washout (11/05/24) #Feculent peritonitis #Pneumonia Micro: 10/25 Peritoneal fluid cx: Clostridium perfringens, mod counts of probable intestinal mario. GS GNRs, GPRs, GPCs, yeast Abx: Caspofungin 10/28 - present Zosyn 10/25 - present Clindamycin 10/27 - 10/28 74 yo M with HTN, HLD, emphysema, GERD, Crane's esophagus who presented on 10/25 with acute onset of generalized abdominal pain, distension, sweats, found to have perforated diverticulitis s/p ex lap, bowel resection, colostomy (10/25/24). Hospital course c/b pneumonia noted on CT chest 10/29. On presentation, he was afebrile, hypotensive to SBP 80s-90s. Labs showed WBC 13.14. CT A/P with IV contrast showed acute perforated diverticulitis at the distal descending/proximal sigmoid colon with a small amount of scattered free air, and trace free fluid without ascites. Pt started on Zosyn. He was taken for emergent ex lap, bowel resection, colostomy formation. In the OR, there was feculent peritonitis. Intra-op culture obtained of peritoneal fluid. He was admitted to the ICU postoperatively, requiring Levophed. Peritoneal fluid culture growing Clostridium perfringens, and moderate counts of probable intestinal mario. Gram stain with GNRs, GPRs, GPCs, yeast. Clindamycin added 10/27. Weaned off Levophed 10/27. WBC uptrending to 17.59 on 10/28. Discussion: Polymicrobial peritoneal fluid culture including Clostridium perfringens. Zosyn should cover the Clostridium perfringens and other intestinal mario, unless there are resistant organisms. No prior micro data to review. Leukocytosis uptrending and Tmax 37.7 on 10/27--added caspofungin on 10/28 due to yeast seen on gram stain of peritoneal fluid. Also with increased O2 requirement on 10/29, with CT chest showing bilateral pneumonia. Had coughing spell leading to midline incision dehiscence and evisceration, so taken back to OR for ex lap, washout, and abdominal wall closure 10/31. Post op, leukocytosis up to 24 on 11/01/24. Had persistent leukocytosis to mid 20s. KUB 11/02 with concern for SBO--surgery felt more likely ileus. Did have some gas in the ostomy on 11/04. Had recurrent dehiscence, and was taken to the OR on 11/05 for ex lap, repair of recurrent dehiscence, and abdominal washout in which abdomen was irrigated with 1 L with cefazolin. No purulence was seen in the abdominal cavity per surgery note. Continued rising leukocytosis--> 29.18 on 11/07. Unclear etiology, considered C diff but ostomy without output. Reassuring that WBC decreased to 15.44 on 11/08 without intervention. Ostomy still without output. 11/11 WBC went down to 12 but slightly up today to 13.2, afebrile. No output from ostomy. Surgery suggests CTAP. Recommendations: - Can continue Zosyn and caspofungin for now--pending CTAP, If no worsening s/o infection, abscess on imaging, decreasing WBc and no need for further source control will discontinue as this would be > 2 weeks post OR.. - Agree w/ CT A/P with IV contrast as per sx ID will continue to follow. Abdi Jack MD, MPH Infectious Disease [facility] Call [phone] with questions Subjective This patient recommendation is based on a telemedicine consult request which was completed asynchronously through chart review and information provided by the primary physician. The patient was not seen or examined today. The evaluation is consultative in nature and all patient care and treatment decisions can either be accepted or rejected by the patient's primary hospital-based treating physician using their own independent medical judgment for their patient. Time Spent Reviewing Chart: 21 - 30 minutes WBC slighly up to 13.2 K today Afebrile No ostomy output yet Results & Data Vital Signs (Past 12 Hours) Vital Signs Temp Pulse Pulse Resp BP BP Pulse Ox 11/11/24 13:32 89 154/75 H 11/11/24 12:36 93 H 129/78 11/11/24 11:30 94 H 11/11/24 09:40 85 157/49 H 11/11/24 09:25 91 H 135/80 11/11/24 09:00 11/11/24 08:04 36.6 C 92 H 23 175/83 H 94 11/11/24 03:31 37.1 C 85 18 161/73 H 95 11/11/24 03:16 97 H 155/72 H O2 Del Method O2 Flow Rate 11/11/24 13:32 11/11/24 12:36 11/11/24 11:30 11/11/24 09:40 11/11/24 09:25 11/11/24 09:00 Room Air 11/11/24 08:04 Nasal Cannula 2 11/11/24 03:31 Room Air 11/11/24 03:16 Laboratory Results Laboratory Results - last 48 hr 11/09/24 11/10/24 11/10/24 23:59 06:12 08:05 WBC RBC Hgb Hct MCV MCH MCHC RDW Std Deviation RDW Coeff of Jeanette Plt Count MPV Immature Gran % (Auto) Neut % (Auto) Lymph % (Auto) Louisa % (Auto) Eos % (Auto) Baso % (Auto) Neut # (Auto) Lymph # (Auto) Louisa # (Auto) Eos # (Auto) Baso # (Auto) Immature Gran # (Auto) Absolute Nucleated RBC Nucleated RBC % (auto) Sodium 145 Potassium 3.9 Chloride 110 H Carbon Dioxide 30 Anion Gap 5 BUN 37 H Creatinine 0.89 Est Cr Clr Drug Dosing 76.3 eGFR 91.05 BUN/Creatinine Ratio 41.6 H Glucose 149 H POC Glucose 135 H 141 H Calcium 8.1 L Phosphorus Magnesium 2.0 11/10/24 11/10/24 11/11/24 17:35 23:58 06:08 WBC RBC Hgb Hct MCV MCH MCHC RDW Std Deviation RDW Coeff of Jeanette Plt Count MPV Immature Gran % (Auto) Neut % (Auto) Lymph % (Auto) Louisa % (Auto) Eos % (Auto) Baso % (Auto) Neut # (Auto) Lymph # (Auto) Louisa # (Auto) Eos # (Auto) Baso # (Auto) Immature Gran # (Auto) Absolute Nucleated RBC Nucleated RBC % (auto) Sodium Potassium Chloride Carbon Dioxide Anion Gap BUN Creatinine Est Cr Clr Drug Dosing eGFR BUN/Creatinine Ratio Glucose POC Glucose 152 H 130 H 151 H Calcium Phosphorus Magnesium 11/11/24 11/11/24 07:29 11:50 WBC 13.20 H RBC 2.78 L Hgb 8.4 L Hct 25.8 L MCV 92.8 MCH 30.2 MCHC 32.6 RDW Std Deviation 46.4 H RDW Coeff of Jeanette 13.7 Plt Count 618 H MPV 9.3 L Immature Gran % (Auto) 2.2 Neut % (Auto) 73.7 Lymph % (Auto) 13.3 Louisa % (Auto) 9.9 Eos % (Auto) 0.5 Baso % (Auto) 0.4 Neut # (Auto) 9.73 H Lymph # (Auto) 1.76 Louisa # (Auto) 1.31 H Eos # (Auto) 0.06 Baso # (Auto) 0.05 Immature Gran # (Auto) 0.29 H Absolute Nucleated RBC 0.06 Nucleated RBC % (auto) 0.5 Sodium 146 H Potassium 3.5 Chloride 110 H Carbon Dioxide 29 Anion Gap 7 BUN 37 H Creatinine 0.86 Est Cr Clr Drug Dosing 72.6 eGFR 92.00 BUN/Creatinine Ratio 43.0 H Glucose 141 H POC Glucose 111 H Calcium 8.1 L Phosphorus 3.4 Magnesium 2.0 Microbiology 10/25/24 Unknown Peritoneal Fluid Gram Stain - Final 10/25/24 Unknown Peritoneal Fluid Aerobic and Anaerobic Culture - Final Clostridium perfringens Diagnostic Findings Chest X-Ray 11/10/24 09:21 EXAM: Radiograph of the Chest 1 View INDICATION: Shortness of breath TECHNIQUE: Frontal view of the chest. COMPARISON: None 2624 FINDINGS: Lungs and pleural spaces: Persistent but improved basilar atelectasis and small right pleural effusion. No pneumothorax. Heart: Shape and configuration within normal limits allowing for technique. Mediastinum: Stable ectatic aorta. Bones/joints: No fracture, erosion or dislocation. Soft tissues: No abnormality noted. No radiopaque foreign body noted. Vasculature: Stable ectatic aorta. Tubes, lines and devices: The nasogastric tube is in the gastric fundus. [place] at the hiatus. Insert right peripherally inserted central catheter (PICC) tip in the distal superior vena cava. Upper abdomen: No abnormality noted. IMPRESSION: 1. Persistent but improved basilar atelectasis and small right pleural effusion. 2. Lines and tubes as above. ACT 112: N/A Electronically signed by Abi Bill 11-10-2024 11:04 AM Medications Administered Home Medications Medication Instructions Recorded Confirmed Last Taken aspirin 81 mg tablet,delayed 81 mg PO QAM 10/04/18 10/26/24 1 Day Ago release (Quentin Low Dose Aspirin) ~10/25/24 1 acetaminophen 500 mg tablet 1,300 mg PO BID 02/07/19 10/26/24 1 Day Ago ~10/25/24 1300 cholecalciferol (vitamin D3) 50 2,000 unit PO BID 07/23/20 10/26/24 1 Day Ago mcg (2,000 unit) capsule ~10/25/24 1 diclofenac sodium 1 % topical gel 4 g topical UD PRN Pain #100 grams 10/19/23 10/26/24 Unknown amlodipine 5 mg tablet 5 mg PO QAM #90 tabs 02/14/24 10/26/24 1 Day Ago ~10/25/24 1 pantoprazole 40 mg tablet,delayed 40 mg PO BID #180 tabs 03/25/24 10/26/24 1 Day Ago release ~10/25/24 rosuvastatin 20 mg tablet 20 mg PO QAM #90 tabs 04/01/24 10/26/24 1 Day Ago ~10/25/24 nicotine (polacrilex) 4 mg buccal 4 mg buccal Q4H PRN nicotine 05/27/24 10/26/24 Unknown lozenge cravings #108 ea tamsulosin 0.4 mg capsule 0.4 mg PO DAILY #90 caps 05/27/24 10/26/24 1 Day Ago ~10/25/24 albuterol sulfate 90 mcg/actuation 1 puff inhalation Q6H PRN 06/25/24 10/26/24 2 Days Ago aerosol inhaler (Ventolin HFA) shortness of breath or wheezing ~10/24/24 #18 grams 1 atenolol 50 mg-chlorthalidone 25 0.5 tab PO QAM #45 tabs 09/27/24 10/26/24 1 Day Ago mg tablet ~10/25/24 1 potassium chloride 10 mEq 10 meq PO BID #180 tabs 09/27/24 10/26/24 1 Day Ago tablet,extended release ~10/25/24 famotidine 40 mg tablet 40 mg PO BID #180 tabs 10/18/24 10/26/24 1 Day Ago ~10/25/24 1 Active Medications Generic Name Dose Route Start Last Admin Trade Name Freq PRN Reason Stop Dose Admin Diclofenac Sodium 4 gm 11/04/24 15:30 11/11/24 09:42 Diclofenac Sod 1% Gel 100 Gm Tube EXT 12/04/24 15:29 4 gm Q6H CHRISTOPHER Administration Protocol Enoxaparin Sodium 40 mg 10/27/24 09:00 11/11/24 09:39 Enoxaparin Inj 40 Mg/0.4 Ml Syr SQ 11/26/24 08:59 40 mg QAM CHRISTOPHER Administration Hydromorphone HCl 30 mg 11/04/24 09:07 11/09/24 20:20 Hydromorphone Chip Frier 30 Mg/30 Ml IV 11/18/24 09:06 30 mg PRN PRN Administration AGRICULTURIST Pain Titration Protocol Famotidine 20 mg in 5 mls @ 2.5 mls/min 10/26/24 06:30 11/11/24 09:28 Pepcid 20mg Iv Push IV 11/25/24 06:29 2.5 mls/min BID CHRISTOPHER Administration Piperacillin Sod/Tazobactam Sod 4.5 gm in 100 mls @ 25 mls/hr 11/01/24 17:00 11/11/24 13:23 Zosyn IV 11/18/24 16:59 Infused Q8H CHRISTOPHER Infusion Protocol Pantoprazole Sodium 40 mg in 10 mls @ 5 mls/min 11/02/24 12:00 11/11/24 08:54 Protonix IV 12/02/24 11:59 5 mls/min BID CHRISTOPHER Administration Sodium Chloride 1,000 mls @ 15 mls/hr 11/04/24 09:15 11/11/24 09:41 Nss IV 11/18/24 09:07 15 mls/hr .Q24H CHRISTOPHER Administration Fat Emulsion-Savage Oil/Soybean Oil 250 mls @ 20.776 mls/hr 11/04/24 16:00 11/09/24 04:35 Clinolipid 20% Iv Fat Emulsion IV 12/04/24 15:59 Infused [id number]@1600 CHRISTOPHER Infusion Caspofungin 50 mg/ Sodium 260 mls @ 250 mls/hr 11/09/24 09:00 11/11/24 10:33 Chloride IV 11/19/24 08:59 Infused Q24H CHRISTOPHER Infusion Protocol Menthol 1 adriel 10/26/24 08:49 10/26/24 09:30 Cough Drop (Sugar Free) Adriel 24 Adriel/1 Box BUCCAL 11/25/24 08:48 1 adriel Q2H PRN Administration Sore Throat Metoprolol Tartrate 2.5 mg 10/31/24 16:00 11/11/24 12:36 Metoprolol Tartrate 1 Mg/Ml Vial IV 11/30/24 15:59 2.5 mg Q4 CHRISTOPHER Administration Miscellaneous 1 each 10/27/24 08:59 11/11/24 09:07 Remove Nicoderm Patch N/A 11/26/24 08:58 1 each DAILY@0859 CHRISTOPHER Administration Miscellaneous 1 each 11/04/24 10:00 11/11/24 09:43 *Tpn*Stop Order N/A 12/04/24 09:59 1 each DAILY@1000 CHRISTOPHER Administration Miscellaneous 1 each 11/03/24 17:00 11/10/24 17:10 Pending Order - Increase Tpn Rate N/A 12/03/24 16:59 1 each DAILY@1700 CHRISTOPHER Administration Miscellaneous 1 each 11/04/24 09:00 11/11/24 09:07 Pending Order - Decrease Tpn Rate N/A 12/04/24 08:59 1 each DAILY@0900 CHRISTOPHER Administration Miscellaneous 1 each 11/07/24 04:00 11/09/24 04:35 Stop Clinolipid N/A 12/07/24 03:59 1 each TuThSa@0400 CHRISTOPHER Administration Nicotine 1 patch 10/26/24 14:00 11/11/24 08:53 Nicotine 14 Mg/24 Hr Patch TD 11/25/24 13:59 1 patch QAM CHRISTOPHER Administration Ondansetron HCl 4 mg 10/25/24 20:18 11/03/24 15:04 Ondansetron Inj 2 Mg/Ml 2 Ml Vial IV 11/24/24 20:17 4 mg Q6H PRN Administration Nausea And Vomiting Phenol 1 sprays 11/01/24 16:38 11/11/24 12:36 Chloraseptic (Phenol) 1.4% Soln 180 Ml Btl MT 12/01/24 16:37 1 sprays Q1H PRN Administration Cough
--- NOTE | 2024-11-11 16:09 | Hospitalist Progress Note ---
"<Statement entered by Stacie Adams MD - 11/11/24 19:04> I extensively reviewed chart notes, vitals, studies, labs, orders, economic consultant recommendations. complex hospital course to date. agree with assessment below. Date of Service November 11, 2024 Assessment & Plan (1) Bowel perforation: (2) Sepsis: (3) Peritonitis: (4) Diverticulitis: (5) Cigarette nicotine dependence: (6) GERD with esophagitis: (7) Aortic insufficiency: (8) Crane esophagus: Plan Mr. Rivera is 74 yo male with history of HTN, dyslipidemia, GERD, aortic insufficiency, barrette's esophagus, presented to ED with acute onset of generalized abdominal pain with distention, subsequently found to have perforated diverticulitis, and underwent laparotomy sigmoid colon with diverting colostomy( 10/25) for perforated diverticulitis. On presentation to ED he met SIRS criteria, blood pressure was persistently low despite fluid management. He was hypotensive at OR as well. Post operatively was shifted to ICU and required on Levophed infusion. Pain seems optimized on IV med. Zosyn and caspofungin coverage for infection ongoing being managed by ID. #S/P Laparotomy with colostomy|Bowel Perforation|Ileus -managed per surgical team -NGT to LIWS, trial of clamping 11/10/24 unsuccessful -remains without ostomy output -Pain: management as per surgery with Dilaudid RUBBER MOLD MAKER -ID management for antibiotic therapy -WBC trending down -Zosyn coverage for GI infection -caspofungin for yeast coverage. -OOB as tolerated, planned recliner transfer and sitting up -acute rehab upon d/c -labs as ordered per surgery -PICC line for TPN -DC of POC BSG monitoring per pharmacy due to pt in acceptable range with current TPN #Hypoxia|COPD -hypertonic saline, albuterol nebs q6hrs -on nasal cannula -repeat chest XR with reported wet cough: 11/10 peristent but improved basilar atelectasis and small right pleural effusion -encouraged incentive spirometry with nursing coaching #Hyperactive Delirium/Dysregulated Sleep-Wake Cycle -in setting of continued monitored hospital stay -lucid and oriented currently -Consider Seroquel 25mg HS if needed #Post Op Anemia -Continue to trend #Atrial Fibrillation with RVR likely chronic|Pulmonary Congestion 2/2 to Aortic Regurgitation -Echo 7/23: normal EF, moderate to severe AR -reported transient 6 second strip of AF with rate in 100s/120s -overnight tele readings NSR with PVCs 80s -Lopressor 2.5mg IV q4hrs for rate control -consider amiodarone if development if persistent AF -in setting of surgical status AC on hold -continue lovenox 40mg daily #Hypokalemia, resolved -K 3.5 -will monitor #VANESSA, resolved -Cr 0.86 -Follow BMP #Nicotine dependance -Was on buccal nicotine -on nicotine patch -No s/o nicotine withdrawal #BPH: -indwelling Crow -Hold home med Dispo: Tele DVT prophylaxis: lovenox 40mg daily Diet: NPO to TPN Admission and Anticipated Discharge Date Admission Date: October 25, 2024 Subjective Pleasant and oriented times two this am. Oriented to self and place. Watching TV. States he is anxious to get out of bed today. Reports abdominal pain as tolerable and controlled on Dilaudid RUBBER MOLD MAKER. Review of Systems Review of Systems: All systems reviewed & are unremarkable except as noted in Subjective Physical Exam Physical Exam: GENERAL APPEARANCE: Alert and oriented to person and place. Lying in bed. NAD. SKIN: Normal color without rashes or lesions. Normal turgor. HEENT: Head AT/NC. Buccal mucosa is moist and pink. NGT present to LIWS with greenish drainage. NECK: No jugular venous distention. No thyroid enlargement. There is no lymphadenopathy. HEART: RRR without m/g/r LUNGS: Normal inspiratory effort. CTA without w/r/r ABDOMEN: Abdominal binder removed-mattress suture present with mild abdominal distention. Stoma to LLQ of abdomen pink with no drainage present. MSK: No bony gross/deformities throughout. ROM intact. EXTREMITIES: No edema, No peripheral cyanosis. Neuro: CN 2-12 grossly intact. No focal neuro deficits. PSYCHIATRIC: Normal affect. Eye contact is good. Speech is normal rate and content. Responses are appropriate. Results & Data Results & Data Vital Signs (Past 12 Hours) Vital Signs Temp Pulse Pulse Resp BP BP Pulse Ox 11/11/24 13:32 89 154/75 H 11/11/24 12:36 93 H 129/78 11/11/24 11:30 94 H 11/11/24 09:40 85 157/49 H 11/11/24 09:25 91 H 135/80 11/11/24 09:00 11/11/24 08:04 36.6 C 92 H 23 175/83 H 94 O2 Del Method O2 Flow Rate 11/11/24 13:32 11/11/24 12:36 11/11/24 11:30 11/11/24 09:40 11/11/24 09:25 11/11/24 09:00 Room Air 11/11/24 08:04 Nasal Cannula 2 PG Care Time/CCT Total # of Minutes Spent Total Time Spent with Patient: Total time spent is greater than 50% in coordination of care (as documented) at patient's floor/unit and/or counseling patient: Coding Level of Care Code 08132 SUB INP/OBS CARE 3/50MIN Diagnoses Bowel perforation K63.1 Sepsis A41.9 Sepsis type: sepsis due to unspecified organism Severe sepsis acute organ dysfunction type: unspecified Severe sepsis shock status: without septic shock Peritonitis K65.9 Diverticulitis K57.92 Cigarette nicotine dependence F17.210 GERD with esophagitis K21.00 Aortic insufficiency I35.1 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
[2024-11-11] MEDS: CENTRAL TPN IV SCH (16:38)
[2024-11-11] MEDS: [UNRECOGNIZED DRUG - OTHER] IV SCH (16:38)
[2024-11-12 07:20] LABS: Alanine Aminotransferase 22.0 U/L (7-52); Alkaline Phosphatase 78.0 U/L (34-104); Anion Gap 7.0 (3-11); Bilirubin,Total 0.7 mg/dl (0.2-1.0); Blood Urea Nitrogen 35.0 mg/dl (6-23); Calcium 8.1 mg/dl (8.6-10.3); Carbon Dioxide 29.0 mmol/L (21-32); Chloride 109.0 mmol/L (98-107); Creatinine Clr Calc Pharmacy 69.4 ml/min; Glucose 137.0 mg/dl (70-99(Fasting)); Magnesium 1.9 mg/dl (1.7-2.4); Potassium 3.5 mmol/L (3.5-5.1); Sodium 145.0 mmol/L (136-145)
--- NOTE | 2024-11-12 10:53 | Surgery Progress Note ---
Date of Service November 12, 2024 Assessment & Plan (1) Perioperative dehiscence of abdominal wound with evisceration: Plan: more air in bag last ex lap took extended period prior to function of ostomy no increased abd pain con't PPN Admission and Anticipated Discharge Date Admission Date: October 25, 2024 Subjective no complaints Review of Systems Constitutional: no fever and no chills Respiratory: no dyspnea Cardiovascular: no chest pain Gastrointestinal: + abdominal pain; no nausea and no vomit ing Physical Exam Constitutional: WD/WN, vitals as above Respiratory: normal respiratory effort Cardiovascular: Rate/Rhythm: regular rhythm Gastrointestinal (Abdomen): Inspection/Auscultation: abdomen normal to inspection and + abdomen distended Percussion/Palpation: + abdomen tender and abdomen soft; no guarding open with retention sutures Results & Data Vital Signs (Past 12 Hours) Vital Signs Temp Pulse Pulse Resp BP BP Pulse Ox 11/12/24 09:31 91 H 169/85 H 11/12/24 07:46 36.6 C 92 H 20 127/59 L 94 11/12/24 04:13 87 155/80 H 11/12/24 03:20 37.4 C 93 H 22 169/85 H 95 11/12/24 00:34 36.4 C L 91 H 22 159/79 H 96 11/12/24 00:30 87 145/80 H 11/11/24 23:00 88 O2 Del Method O2 Flow Rate 11/12/24 09:31 11/12/24 07:46 Room Air 11/12/24 04:13 11/12/24 03:20 Nasal Cannula 2 11/12/24 00:34 Nasal Cannula 2 11/12/24 00:30 11/11/24 23:00 (1) Perioperative dehiscence of abdominal wound with evisceration Encounter type: subsequent encounter Qualified Code(s): T81.321D - Disruption or dehiscence of closure of internal operation (surgical) wound of abdominal wall muscle or fascia, subsequent encounter
--- NOTE | 2024-11-12 14:11 | Hospitalist Progress Note ---
"Date of Service November 12, 2024 Assessment & Plan (1) Bowel perforation: (2) Sepsis: (3) Peritonitis: (4) Diverticulitis: (5) Cigarette nicotine dependence: (6) GERD with esophagitis: (7) Aortic insufficiency: (8) Crane esophagus: Plan Mr. Rivera is 74 yo male with history of HTN, dyslipidemia, GERD, aortic insufficiency, barrette's esophagus, presented to ED with acute onset of generalized abdominal pain with distention, subsequently found to have perforated diverticulitis, and underwent laparotomy sigmoid colon with diverting colostomy( 10/25) for perforated diverticulitis. On presentation to ED he met SIRS criteria, blood pressure was persistently low despite fluid management. He was hypotensive at OR as well. Post operatively was shifted to ICU and required on Levophed infusion. Pain seems optimized on IV med. Zosyn and caspofungin coverage for infection ongoing being managed by ID. #S/P Laparotomy with colostomy|Bowel Perforation|Ileus -POD #7 from second revision surgery of abdominal wall dehiscence, ex lap with primary closure of fascia and retention sutures -managed per surgical team -NGT to LIWS, trial of clamping 11/10/24 unsuccessful, keep to decompression until ostomy starts functioning -colostomy bag with air present -Pain: management as per surgery with Dilaudid GAS CHARGER -ID management for antibiotic therapy -CBC trends -Zosyn coverage for GI infection -caspofungin for yeast coverage. -OOB as tolerated, has been up OOB to recliner -acute rehab upon d/c -labs as ordered per surgery -PICC line for TPN -POC BSG monitoring per pharmacy on current TPN #Hypoxia|COPD -hypertonic saline, albuterol nebs q6hrs -not on home oxygen therapy, on room air and nasal cannula @ 2LPM with SPO2 saturations trending in mid 90s -repeat chest XR with reported wet cough: 11/10 persistent but improved basilar atelectasis and small right pleural effusion -encouraged incentive spirometry with nursing coaching #Hyperactive Delirium/Dysregulated Sleep-Wake Cycle -in setting of continued monitored lengthy hospital stay with no neurological deficits (noted agitation mostly at night) -lucid and oriented currently -reported visual hallucinations per nursing staff possibly related to IV Dilaudid -Consider Seroquel 25mg HS if needed once he transitions to oral intake #Post Op Anemia -Continue to trend #Atrial Fibrillation with RVR likely chronic|Pulmonary Congestion 2/2 to Aortic Regurgitation -Echo 08/28: normal EF, moderate to severe AR -overnight tele readings NSR with PVCs 80s -Lopressor 2.5mg IV q4hrs for rate control -consider amiodarone if development of persistent AF -in setting of surgical status AC on hold -continue lovenox 40mg daily #Hypokalemia, resolved -K 3.5 -will monitor #VANESSA, resolved -Cr 0.90 -Follow BMP #Nicotine dependence -Was on buccal nicotine -on nicotine patch -No s/o nicotine withdrawal #BPH -indwelling Crow -Hold home med Dispo: Tele DVT prophylaxis: lovenox 40mg daily Diet: NPO to TPN Admission and Anticipated Discharge Date Admission Date: October 25, 2024 Subjective Lying in bed this am. NGT present to left nares placed to LIWS draining brownish drainage. Reports he has no pain. Oriented to self, place, and date. Nursing reports patient intermittently experiencing visual hallucinations as verbalized by him stating he is seeing cats and dogs at times. Is using Dilaudid GAS CHARGER for pain control and states this is managing his pain. Physical Exam Physical Exam: GENERAL APPEARANCE: Alert and oriented to person, place and time. Lying in bed. NAD. SKIN: Normal color without rashes or lesions. Normal turgor. HEENT: Head AT/NC. Buccal mucosa is moist and pink. NGT present to LIWS with brownish drainage. NECK: No jugular venous distention. No thyroid enlargement. There is no lymphadenopathy. HEART: RRR without m/g/r. LUNGS: Normal inspiratory effort. CTA without w/r/r. ABDOMEN: Abdominal binder removed-mattress sutures present with mild abdominal distention. Stoma to LLQ of abdomen pink with air present. MSK: No bony gross/deformities throughout. ROM intact. EXTREMITIES: No edema, No peripheral cyanosis. Neuro: CN 2-12 grossly intact. No focal neuro deficits. PSYCHIATRIC: Normal affect. Eye contact is good. Speech is normal rate and content. Slight agitation with answering questions. Results & Data Results & Data Vital Signs (Past 12 Hours) Vital Signs Temp Pulse Pulse Resp BP BP Pulse Ox 11/12/24 11:29 36.4 C L 92 H 119/70 94 11/12/24 09:31 91 H 169/85 H 11/12/24 07:46 36.6 C 92 H 20 127/59 L 94 11/12/24 04:13 87 155/80 H 11/12/24 03:20 37.4 C 93 H 22 169/85 H 95 O2 Del Method O2 Flow Rate 11/12/24 11:29 Room Air 11/12/24 09:31 11/12/24 07:46 Room Air 11/12/24 04:13 11/12/24 03:20 Nasal Cannula 2 PG Care Time/CCT Total # of Minutes Spent Total Time Spent with Patient: Total time spent is greater than 50% in coordination of care (as documented) at patient's floor/unit and/or counseling patient: Coding Level of Care Code 43015 SUB INP/OBS CARE 3/50MIN Diagnoses Bowel perforation K63.1 Sepsis A41.9 Sepsis type: sepsis due to unspecified organism Severe sepsis acute organ dysfunction type: unspecified Severe sepsis shock status: without septic shock Peritonitis K65.9 Diverticulitis K57.92 Cigarette nicotine dependence F17.210 GERD with esophagitis K21.00 Aortic insufficiency I35.1 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
[2024-11-12] MEDS: CENTRAL TPN IV SCH (17:48)
[2024-11-12] MEDS: [UNRECOGNIZED DRUG - OTHER] IV SCH (17:48)
[2024-11-13 06:05] LABS: Hematocrit (blood only) 26.7 % (42.0-52.0); Hemoglobin 8.3 g/dl (14.0-18.0); Mean Corpuscular Hemoglobin 28.4 pg (25.0-34.0); Mean Corpuscular Volume 91.4 fL (80.0-100.0); Platelet Count 576 K/uL (130-400); RDW Standard Deviation 46.7 fL (36.4-46.3); Red Blood Count 2.92 M/uL (4.70-6.10); White Blood Count 15.03 K/ul (4.8-10.8)
[2024-11-13 06:22] LABS: Anion Gap 7.0 (3-11); Blood Urea Nitrogen 34.0 mg/dl (6-23); Calcium 8.0 mg/dl (8.6-10.3); Carbon Dioxide 27.0 mmol/L (21-32); Chloride 110.0 mmol/L (98-107); Creatinine Clr Calc Pharmacy 66.4 ml/min; Glucose 144.0 mg/dl (70-99(Fasting)); Magnesium 1.9 mg/dl (1.7-2.4); Potassium 3.6 mmol/L (3.5-5.1); Sodium 144.0 mmol/L (136-145)
[2024-11-13 06:43] LABS: Immature Granulocytes # (auto) 0.43 K/uL (0.01-0.20); Immature Granulocytes % (auto) 2.9 %; Polychromasia 1+
--- NOTE | 2024-11-13 12:48 | Hospitalist Progress Note ---
"Date of Service November 13, 2024 Assessment & Plan (1) Bowel perforation: (2) Sepsis: (3) Peritonitis: (4) Diverticulitis: (5) Cigarette nicotine dependence: (6) GERD with esophagitis: (7) Aortic insufficiency: (8) Felix esophagus: Plan Mr. Rivera is 74 yo male with history of HTN, dyslipidemia, GERD, aortic insufficiency, felix's esophagus, presented to ED with acute onset of generalized abdominal pain with distention, subsequently found to have perforated diverticulitis, and underwent laparotomy sigmoid colon with diverting colostomy (10/25) for perforated diverticulitis. On presentation to ED he met SIRS criteria, blood pressure was persistently low despite fluid management. He was hypotensive at OR as well. Post operatively was shifted to ICU and required on Levophed infusion. Pain seems optimized on IV med. Zosyn and caspofungin coverage for infection ongoing being managed by ID. #S/P Laparotomy with colostomy|Bowel Perforation|Ileus -POD #8 from second revision surgery of abdominal wall dehiscence, ex lap with primary closure of fascia and retention sutures -managed per surgical team -NGT to LIWS, trial of clamping 11/10/24 unsuccessful -colostomy bag with stool present, will defer to surgical team for clamping on NGT and possible discontinuation -Pain: management as per surgery with Dilaudid TELETRAY OPERATOR -ID management for antibiotic therapy -CBC trends, slight increase in WBC at 15.03, will monitor -Zosyn coverage for GI infection -caspofungin for yeast coverage. -OOB as tolerated, has been up OOB to recliner -acute rehab upon d/c -labs as ordered per surgery -PICC line for TPN -POC BSG monitoring per pharmacy on current TPN #Hypoxia|COPD -hypertonic saline, albuterol nebs q6hrs -not on home oxygen therapy, on room air and nasal cannula @ 2LPM with SPO2 saturations trending in mid 90s -repeat chest XR with reported wet cough: 11/10 persistent but improved basilar atelectasis and small right pleural effusion -encouraged incentive spirometry [place] every hour #Hyperactive Delirium/Dysregulated Sleep-Wake Cycle -in setting of continued monitored lengthy hospital stay with no neurological deficits (noted agitation mostly at night) -lucid and oriented currently -reported visual hallucinations per nursing staff possibly related to IV Dilaudid -Zyprexa 2.5 mg ODT at bedtime increased to 5 mg -Consider Seroquel 25mg HS if needed once he transitions to oral intake #Post Op Anemia -Continue to trend #Atrial Fibrillation with RVR likely chronic|Pulmonary Congestion 2/2 to Aortic Regurgitation -Echo 08/28: normal EF, moderate to severe AR -overnight tele readings NSR, bigeminy 90s -Lopressor 2.5mg IV q4hrs for rate control -consider amiodarone if development of persistent AF -in setting of surgical status AC on hold -continue lovenox 40mg daily #Hypokalemia, resolved -K 3.6 -will monitor #VANESSA, resolved -Cr 0.94 -Follow BMP #Nicotine dependence -Was on buccal nicotine -on nicotine patch -No s/o nicotine withdrawal #BPH -indwelling Crow -Hold home med Dispo: Tele DVT prophylaxis: lovenox 40mg daily Diet: NPO to TPN, possible transition to clear liquids with success in NGT clamping Admission and Anticipated Discharge Date Admission Date: October 25, 2024 Subjective Patient seen and examined sitting up in bed this morning. His daughter Maranda is present at the bedside. He is oriented to place, person, date. Reports abdominal pain is tolerable with use of Dilaudid TELETRAY OPERATOR. Requesting Jell-O to eat and something to drink. Daughter expresses concerns about disrupted sleep-wake cycle. States patient is typically oriented there are no concerns with mentation at baseline. Patient resting poorly at night and sleeping mostly during the day. Has had some reported visual hallucinations with intermittent agitation at night. Was medicated with Zyprexa at at bedtime on 11/12 with reports of subtherapeutic effect. Review of Systems Review of Systems: All systems reviewed & are unremarkable except as noted in Subjective Physical Exam Physical Exam: GENERAL APPEARANCE: Alert and oriented to person, place and time. Sitting up in bed. NAD. SKIN: Normal color without rashes or lesions. Normal turgor. HEENT: Head AT/NC. Buccal mucosa is moist and pink. NGT present to LIWS with brownish drainage. NECK: No jugular venous distention. No thyroid enlargement. There is no lymphadenopathy. HEART: RRR without m/g/r. LUNGS: Normal inspiratory effort. CTA with scattered rhonchi posteriorly. Clears with coughing. ABDOMEN: Abdominal binder not present. ABDs present to mid abdominal area. Left lower quadrant colostomy with brown stool present. MSK: No bony gross/deformities throughout. ROM intact. EXTREMITIES: No edema, No peripheral cyanosis. Neuro: CN 2-12 grossly intact. No focal neuro deficits. PSYCHIATRIC: Normal affect. Eye contact is good. Speech is normal rate and content. Results & Data Results & Data Vital Signs (Past 12 Hours) Vital Signs Temp Pulse Pulse Pulse Resp BP BP 11/13/24 12:27 92 H 139/80 11/13/24 11:22 36.7 C 90 18 98/62 L 11/13/24 08:19 92 H 139/80 11/13/24 07:35 36.7 C 89 26 H 130/78 11/13/24 03:51 36.9 C 95 H 22 140/93 11/13/24 03:41 92 H 131/76 Pulse Ox O2 Del Method O2 Flow Rate 11/13/24 12:27 11/13/24 11:22 93 Nasal Cannula 1 11/13/24 08:19 11/13/24 07:35 93 Nasal Cannula 1 11/13/24 03:51 95 Nasal Cannula 1.0 11/13/24 03:41 PG Care Time/CCT Total # of Minutes Spent Total Time Spent with Patient: Total time spent is greater than 50% in coordination of care (as documented) at patient's floor/unit and/or counseling patient: Coding Level of Care Code 10884 SUB INP/OBS CARE 3/50MIN Diagnoses Bowel perforation K63.1 Sepsis A41.9 Sepsis type: sepsis due to unspecified organism Severe sepsis acute organ dysfunction type: unspecified Severe sepsis shock status: without septic shock Peritonitis K65.9 Diverticulitis K57.92 Cigarette nicotine dependence F17.210 GERD with esophagitis K21.00 Aortic insufficiency I35.1 Felix esophagus K22.70 (2) Sepsis Sepsis type: sepsis due to unspecified organism Severe sepsis acute organ dysfunction type: unspecified Severe sepsis shock status: without septic shock"
--- NOTE | 2024-11-13 14:09 | Surgery Progress Note ---
Date of Service November 13, 2024 Assessment & Plan (1) Perioperative dehiscence of abdominal wound with evisceration: Plan: ostomy working remove NG begin diet slowly Admission and Anticipated Discharge Date Admission Date: October 25, 2024 Subjective ostomy working doing better Review of Systems Constitutional: no fever and no chills Respiratory: no dyspnea Cardiovascular: no chest pain Gastrointestinal: no abdominal pain, no nausea and no vomiting Physical Exam Constitutional: WD/WN, vitals as above Respiratory: normal respiratory effort Cardiovascular: Rate/Rhythm: regular rate and regular rhythm Gastrointestinal (Abdomen): Inspection/Auscultation: + abdomen distended and normal bowel sounds Percussion/Palpation: + abdomen tender and abdomen soft Skin: no rashes, warm and dry Results & Data Vital Signs (Past 12 Hours) Vital Signs Temp Pulse Pulse Pulse Resp BP BP 11/13/24 13:24 92 H 139/80 11/13/24 12:51 92 H 139/80 11/13/24 12:27 92 H 139/80 11/13/24 11:22 36.7 C 90 18 98/62 L 11/13/24 08:19 92 H 139/80 11/13/24 07:35 36.7 C 89 26 H 130/78 11/13/24 07:30 11/13/24 03:51 36.9 C 95 H 22 140/93 11/13/24 03:41 92 H 131/76 Pulse Ox O2 Del Method O2 Flow Rate 11/13/24 13:24 11/13/24 12:51 11/13/24 12:27 11/13/24 11:22 93 Nasal Cannula 1 11/13/24 08:19 11/13/24 07:35 93 Nasal Cannula 1 11/13/24 07:30 Nasal Cannula 1 11/13/24 03:51 95 Nasal Cannula 1.0 11/13/24 03:41 (1) Perioperative dehiscence of abdominal wound with evisceration Encounter type: subsequent encounter Qualified Code(s): T81.321D - Disruption or dehiscence of closure of internal operation (surgical) wound of abdominal wall muscle or fascia, subsequent encounter
[2024-11-13] MEDS: CHLORTHALIDONE 25 MG TAB PO SCH (16:15)
[2024-11-13] MEDS: ATENOLOL 25 MG TABLET PO SCH (16:15)
[2024-11-13] MEDS: [UNRECOGNIZED DRUG - OTHER] IV SCH (16:24)
[2024-11-13] MEDS: CENTRAL TPN IV SCH (16:24)
[2024-11-14 06:06] LABS: Hematocrit (blood only) 26.4 % (42.0-52.0); Hemoglobin 8.5 g/dl (14.0-18.0); Immature Granulocytes # (auto) 0.59 K/uL (0.01-0.20); Immature Granulocytes % (auto) 2.9 %; Mean Corpuscular Hemoglobin 29.4 pg (25.0-34.0); Mean Corpuscular Volume 91.3 fL (80.0-100.0); Platelet Count 566 K/uL (130-400); RDW Standard Deviation 46.9 fL (36.4-46.3); Red Blood Count 2.89 M/uL (4.70-6.10); White Blood Count 20.21 K/ul (4.8-10.8)
[2024-11-14 06:22] LABS: Anion Gap 8.0 (3-11); Blood Urea Nitrogen 25.0 mg/dl (6-23); Calcium 8.1 mg/dl (8.6-10.3); Carbon Dioxide 27.0 mmol/L (21-32); Chloride 106.0 mmol/L (98-107); Creatinine Clr Calc Pharmacy 63.7 ml/min; Glucose 95.0 mg/dl (70-99(Fasting)); Magnesium 1.9 mg/dl (1.7-2.4); Potassium 3.5 mmol/L (3.5-5.1); Sodium 141.0 mmol/L (136-145)
[2024-11-14] MEDS: ROSUVASTATIN CALCIUM 20 MG TAB PO SCH (09:22)
[2024-11-14] MEDS: TAMSULOSIN HCL 0.4 MG CAP PO SCH (09:22)
--- NOTE | 2024-11-14 09:56 | Surgery Progress Note ---
Date of Service November 14, 2024 Assessment & Plan (1) Perioperative dehiscence of abdominal wound with evisceration: Plan: slow progress confused overnight, appropriate this AM wound OK full liquids trend WBC Admission and Anticipated Discharge Date Admission Date: October 25, 2024 Subjective no complaints of pain ostomy working taking po well confused and agitated overnight Review of Systems Constitutional: no fever and no chills Respiratory: no dyspnea Cardiovascular: no chest pain Gastrointestinal: no abdominal pain Neurologic: + generalized weakness Psychiatric: + behavioral changes Physical Exam Constitutional: WD/WN, vitals as above Respiratory: normal respiratory effort Cardiovascular: Rate/Rhythm: regular rate and regular rhythm Gastrointestinal (Abdomen): Inspection/Auscultation: abdomen normal to inspection and + abdomen distended (less) Percussion/Palpation: abdomen soft; abdomen nontender Results & Data Vital Signs (Past 12 Hours) Vital Signs Temp Pulse Pulse Pulse Resp BP Pulse Ox 11/14/24 09:11 11/14/24 07:19 36.4 C L 82 18 110/69 92 11/14/24 03:24 36.4 C L 80 20 103/53 L 92 11/14/24 00:06 11/13/24 23:11 75 11/13/24 22:56 36.7 C 83 20 106/57 L 92 O2 Del Method O2 Flow Rate 11/14/24 09:11 Nasal Cannula 1 11/14/24 07:19 Nasal Cannula 1 11/14/24 03:24 Nasal Cannula 1 11/14/24 00:06 Nasal Cannula 2 11/13/24 23:11 11/13/24 22:56 Nasal Cannula 2 (1) Perioperative dehiscence of abdominal wound with evisceration Encounter type: subsequent encounter Qualified Code(s): T81.321D - Disruption or dehiscence of closure of internal operation (surgical) wound of abdominal wall muscle or fascia, subsequent encounter
--- NOTE | 2024-11-14 10:11 | Infectious Disease Progress Nt ---
Date of Service November 14, 2024 Assessment & Plan (1) Bowel perforation: (2) Peritonitis: Plan Check CTAP Admission and Anticipated Discharge Date Admission Date: Perforated diverticulitis s/p ex lap, bowel resection, colostomy (10/25/24), ex lap repair of dehiscence and abd washout (10/31/24), ex lap repair of recurrent dehiscence and abd washout (11/05/24) #Feculent peritonitis #Pneumonia, treated # progressive Leukocytosis Micro: 10/25 Peritoneal fluid cx: Clostridium perfringens, mod counts of probable intestinal mario. GS GNRs, GPRs, GPCs, yeast Abx: Caspofungin 10/28 - present Zosyn 10/25 - present Clindamycin 10/27 - 10/28 74 yo M with HTN, HLD, emphysema, GERD, Crane's esophagus who presented on 10/25 with acute onset of generalized abdominal pain, distension, sweats, found to have perforated diverticulitis s/p ex lap, bowel resection, colostomy (10/25/24). Hospital course c/b pneumonia noted on CT chest 10/29. On presentation, he was afebrile, hypotensive to SBP 80s-90s. Labs showed WBC 13.14. CT A/P with IV contrast showed acute perforated diverticulitis at the distal descending/proximal sigmoid colon with a small amount of scattered free air, and trace free fluid without ascites. Pt started on Zosyn. He was taken for emergent ex lap, bowel resection, colostomy formation. In the OR, there was feculent peritonitis. Intra-op culture obtained of peritoneal fluid. He was admitted to the ICU postoperatively, requiring Levophed. Peritoneal fluid culture growing Clostridium perfringens, and moderate counts of probable intestinal mario. Gram stain with GNRs, GPRs, GPCs, yeast. Clindamycin added 10/27. Weaned off Levophed 10/27. WBC uptrending to 17.59 on 10/28. Discussion: Polymicrobial peritoneal fluid culture including Clostridium perfringens. Zosyn should cover the Clostridium perfringens and other intestinal mario, unless there are resistant organisms. No prior micro data to review. Leukocytosis uptrending and Tmax 37.7 on 10/27--added caspofungin on 10/28 due to yeast seen on gram stain of peritoneal fluid. Also with increased O2 requirement on 10/29, with CT chest showing bilateral pneumonia. Had coughing spell leading to midline incision dehiscence and evisceration, so taken back to OR for ex lap, washout, and abdominal wall closure 10/31. Post op, leukocytosis up to 24 on 11/01/24. Had persistent leukocytosis to mid 20s. KUB 11/02 with concern for SBO--surgery felt more likely ileus. Did have some gas in the ostomy on 11/04. Had recurrent dehiscence, and was taken to the OR on 11/05 for ex lap, repair of recurrent dehiscence, and abdominal washout in which abdomen was irrigated with 1 L with cefazolin. No purulence was seen in the abdominal cavity per surgery note. Continued rising leukocytosis--> 29.18 on 11/07. Unclear etiology, considered C diff but ostomy without output. Reassuring that WBC decreased to 15.44 on 11/08 without intervention. Ostomy still without output. 11/11 WBC went down to 12 but slightly up today to 13.2, afebrile. No output from ostomy. Surgery suggests CTAP. Agree 11/14- WBC up to 20. Abd exam- firm, distended- not tender. Surgical incision sites with erythema. Recommendations: - Can continue Zosyn and caspofungin for now--pending CTAP, If no worsening s/o infection, abscess on imaging, decreasing WBc and no need for further source control will discontinue as this would be > 2 weeks post OR ( on abx since 10/25) - Check CT A/P with IV contrast to evaluate fro developing abscess as WBC continues to increase - ADDed IV vanco to cover for ? cellulitis at abdominal incision sites Communicated recs to hospitalist ID will continue to follow. Abdi Jack MD, MPH Infectious Disease [facility], [facility] Call [phone] with questions Subjective Subsequent visit was provided via telemedicine using two-way real-time interactive telecommunication between the patient and the telemedicine provider. For the duration of the visit, the provider was performing the assessment from a different facility than the patient. This includesuse of bluetooth stethoscope forauscultationperformed by the telepresenter that the telemedicine provider can hear if described in the physical exam. Digital [employer]eter contact information: Please call [facility] Center . (Phone Number For Physician Use Only) After establishing a telemedicine visit, patient was: Patient was verified with two unique identifiers Time Spent with Patient: Subsequent => 25 min WBC up to 20 He is awake but confused Physical Exam Physical Exam: Awake, NAD Neck supple Abd- distended, firm, Not tender- ostomy will brown stool. Surgical incisions with surrounding erythema. Neuro- Awake, alert, confused. Mitts on both hands. Results & Data Vital Signs (Past 12 Hours) Vital Signs Temp Pulse Pulse Pulse Resp BP Pulse Ox 11/14/24 09:11 11/14/24 07:19 36.4 C L 82 18 110/69 92 11/14/24 03:24 36.4 C L 80 20 103/53 L 92 11/14/24 00:06 11/13/24 23:11 75 11/13/24 22:56 36.7 C 83 20 106/57 L 92 O2 Del Method O2 Flow Rate 11/14/24 09:11 Nasal Cannula 1 11/14/24 07:19 Nasal Cannula 1 11/14/24 03:24 Nasal Cannula 1 11/14/24 00:06 Nasal Cannula 2 11/13/24 23:11 11/13/24 22:56 Nasal Cannula 2 Laboratory Results 11/14/24 11/14/24 11/13/24 07:23 05:38 20:26 WBC 20.21 H RBC 2.89 L Hgb 8.5 L Hct 26.4 L MCV 91.3 MCH 29.4 MCHC 32.2 RDW Std Deviation 46.9 H RDW Coeff of Jeanette 14.0 Plt Count 566 H MPV 9.3 L Immature Gran % (Auto) 2.9 Neut % (Auto) 78.2 Lymph % (Auto) 10.7 Irwin % (Auto) 6.6 Eos % (Auto) 1.2 Baso % (Auto) 0.4 Neut # (Auto) 15.79 H Lymph # (Auto) 2.16 Irwin # (Auto) 1.33 H Eos # (Auto) 0.25 Baso # (Auto) 0.09 Immature Gran # (Auto) 0.59 H Absolute Nucleated RBC 0.06 Nucleated RBC % (auto) 0.3 Sodium 141 Potassium 3.5 Chloride 106 Carbon Dioxide 27 Anion Gap 8 BUN 25 H Creatinine 0.98 Est Cr Clr Drug Dosing 63.7 eGFR 81.93 BUN/Creatinine Ratio 25.5 H Glucose 95 POC Glucose 90 92 Calcium 8.1 L Phosphorus 3.5 Magnesium 1.9 11/13/24 12:00 WBC RBC Hgb Hct MCV MCH MCHC RDW Std Deviation RDW Coeff of Jeanette Plt Count MPV Immature Gran % (Auto) Neut % (Auto) Lymph % (Auto) Irwin % (Auto) Eos % (Auto) Baso % (Auto) Neut # (Auto) Lymph # (Auto) Irwin # (Auto) Eos # (Auto) Baso # (Auto) Immature Gran # (Auto) Absolute Nucleated RBC Nucleated RBC % (auto) Sodium Potassium Chloride Carbon Dioxide Anion Gap BUN Creatinine Est Cr Clr Drug Dosing eGFR BUN/Creatinine Ratio Glucose POC Glucose 112 H Calcium Phosphorus Magnesium Medications Administered Home Medications Medication Instructions Recorded Confirmed Last Taken aspirin 81 mg tablet,delayed 81 mg PO QAM 10/04/18 10/26/24 1 Day Ago release (Quentin Low Dose Aspirin) ~10/25/24 1 acetaminophen 500 mg tablet 1,300 mg PO BID 02/07/19 10/26/24 1 Day Ago ~10/25/24 1300 cholecalciferol (vitamin D3) 50 2,000 unit PO BID 07/23/20 10/26/24 1 Day Ago mcg (2,000 unit) capsule ~10/25/24 1 diclofenac sodium 1 % topical gel 4 g topical UD PRN Pain #100 grams 10/19/23 10/26/24 Unknown amlodipine 5 mg tablet 5 mg PO QAM #90 tabs 02/14/24 10/26/24 1 Day Ago ~10/25/24 1 pantoprazole 40 mg tablet,delayed 40 mg PO BID #180 tabs 03/25/24 10/26/24 1 Day Ago release ~10/25/24 rosuvastatin 20 mg tablet 20 mg PO QAM #90 tabs 04/01/24 10/26/24 1 Day Ago ~10/25/24 nicotine (polacrilex) 4 mg buccal 4 mg buccal Q4H PRN nicotine 05/27/24 10/26/24 Unknown lozenge cravings #108 ea tamsulosin 0.4 mg capsule 0.4 mg PO DAILY #90 caps 05/27/24 10/26/24 1 Day Ago ~10/25/24 albuterol sulfate 90 mcg/actuation 1 puff inhalation Q6H PRN 06/25/24 10/26/24 2 Days Ago aerosol inhaler (Ventolin HFA) shortness of breath or wheezing ~10/24/24 #18 grams 1 atenolol 50 mg-chlorthalidone 25 0.5 tab PO QAM #45 tabs 09/27/24 10/26/24 1 Day Ago mg tablet ~10/25/24 1 potassium chloride 10 mEq 10 meq PO BID #180 tabs 09/27/24 10/26/24 1 Day Ago tablet,extended release ~10/25/24 famotidine 40 mg tablet 40 mg PO BID #180 tabs 10/18/24 10/26/24 1 Day Ago ~10/25/24 1 Active Medications Generic Name Dose Route Start Last Admin Trade Name Freq PRN Reason Stop Dose Admin Atenolol 25 mg 11/13/24 15:45 11/14/24 09:22 Atenolol 25 Mg Tablet PO 12/13/24 15:44 25 mg QAM CHRISTOPHER Administration Chlorthalidone 12.5 mg 11/13/24 15:45 11/14/24 09:22 Chlorthalidone 25 Mg Tab PO 12/13/24 15:44 12.5 mg QAM CHRISTOPHER Administration Diclofenac Sodium 4 gm 11/04/24 15:30 11/14/24 09:26 Diclofenac Sod 1% Gel 100 Gm Tube EXT 12/04/24 15:29 4 gm Q6H CHRISTOPHER Administration Protocol Enoxaparin Sodium 40 mg 10/27/24 09:00 11/14/24 09:22 Enoxaparin Inj 40 Mg/0.4 Ml Syr SQ 11/26/24 08:59 40 mg QAM CHRISTOPHER Administration Hydromorphone HCl 30 mg 11/04/24 09:07 11/09/24 20:20 Hydromorphone Dependency Director 30 Mg/30 Ml IV 11/18/24 09:06 30 mg PRN PRN Administration GLASS TECHNICIAN Pain Titration Protocol Famotidine 20 mg in 5 mls @ 2.5 mls/min 10/26/24 06:30 11/14/24 09:02 Pepcid 20mg Iv Push IV 11/25/24 06:29 2.5 mls/min BID CHRISTOPHER Administration Piperacillin Sod/Tazobactam Sod 4.5 gm in 100 mls @ 25 mls/hr 11/01/24 17:00 11/14/24 10:25 Zosyn IV 11/18/24 16:59 25 mls/hr Q8H CHRISTOPHER Administration Protocol Pantoprazole Sodium 40 mg in 10 mls @ 5 mls/min 11/02/24 12:00 11/14/24 09:02 Protonix IV 12/02/24 11:59 5 mls/min BID CHRISTOPHER Administration Sodium Chloride 1,000 mls @ 15 mls/hr 11/04/24 09:15 11/14/24 09:24 Nss IV 11/18/24 09:07 15 mls/hr .Q24H CHRISTOPHER Infusion Fat Emulsion-[place] Oil/Soybean Oil 250 mls @ 20.776 mls/hr 11/04/24 16:00 11/13/24 21:26 Clinolipid 20% Iv Fat Emulsion IV 12/04/24 15:59 0 mls/hr [email or web address]@1600 CHRISTOPHER Infusion Caspofungin 50 mg/ Sodium 260 mls @ 250 mls/hr 11/09/24 09:00 11/14/24 09:03 Chloride IV 11/19/24 08:59 250 mls/hr Q24H CHRISTOPHER Administration Protocol Menthol 1 adriel 10/26/24 08:49 10/26/24 09:30 Cough Drop (Sugar Free) Adriel 24 Adriel/1 Box BUCCAL 11/25/24 08:48 1 adriel Q2H PRN Administration Sore Throat Miscellaneous 1 each 10/27/24 08:59 11/14/24 09:03 Remove Nicoderm Patch N/A 11/26/24 08:58 1 each DAILY@0859 CHRISTOPHER Administration Miscellaneous 1 each 11/04/24 10:00 11/14/24 10:10 *Tpn*Stop Order N/A 12/04/24 09:59 Not Given DAILY@1000 CHRISTOPHER Miscellaneous 1 each 11/03/24 17:00 11/13/24 17:05 Pending Order - Increase Tpn Rate N/A 12/03/24 16:59 1 each DAILY@1700 CHRISTOPHER Administration Miscellaneous 1 each 11/04/24 09:00 11/14/24 10:10 Pending Order - Decrease Tpn Rate N/A 12/04/24 08:59 Not Given DAILY@0900 [facility] Miscellaneous 1 each 11/07/24 04:00 11/14/24 04:02 Stop Clinolipid N/A 12/07/24 03:59 1 each TuThSa@0400 CHRISTOPHER Administration Nicotine 1 patch 10/26/24 14:00 11/14/24 09:22 Nicotine 14 Mg/24 Hr Patch TD 11/25/24 13:59 1 patch QAM CHRISTOPHER Administration Olanzapine 5 mg 11/13/24 12:19 11/13/24 21:31 Olanzapine Zydis 5 Mg Orally Dis. Tab PO 12/12/24 20:59 5 mg HS PRN Administration Agitation Ondansetron HCl 4 mg 10/25/24 20:18 11/03/24 15:04 Ondansetron Inj 2 Mg/Ml 2 Ml Vial IV 11/24/24 20:17 4 mg Q6H PRN Administration Nausea And Vomiting Phenol 1 sprays 11/01/24 16:38 11/11/24 12:36 Chloraseptic (Phenol) 1.4% Soln 180 Ml Btl MT 12/01/24 16:37 1 sprays Q1H PRN Administration Cough Rosuvastatin Calcium 20 mg 11/14/24 09:00 11/14/24 09:22 Rosuvastatin Calcium 20 Mg Tab PO 12/14/24 08:59 20 mg QAM CHRISTOPHER Administration Tamsulosin HCl 0.4 mg 11/14/24 09:00 11/14/24 09:22 Tamsulosin Hcl 0.4 Mg Cap PO 12/14/24 08:59 0.4 mg DAILY CHRISTOPHER Administration
[2024-11-14] MEDS ORDERED: VANCOMYCIN CONSULT ACTIVE PRN (10:56)
[2024-11-14] MEDS: LORazepam Inj 0.5 MG in SYRINGE 0.25 ML IV ONE (11:47)
[2024-11-14] MEDS: OPTIRAY 320 100ml IV ONE (12:15)
--- NOTE | 2024-11-14 12:56 | CT Scan Report ---
CT abdomen oral and IV con CLINICAL HISTORY: leukocytosis, abd drainage, ex lap 11/05 COMPARISON STUDY: 10/25/2024 FINDINGS: There are coronary artery calcifications. There is a trace right pleural effusion. There is interval reticular and bandlike consolidation at the right lung base which could represent atelectas is or pneumonia. ABDOMEN: There are numerous gallstones without evidence of acute cholecystitis. There is trace fluid adjacent to the inferior aspect of the liver and trace fluid adjacent to the inferior aspect of the s pleen with thin peripheral enhancement. Otherwise the liver, spleen, pancreas, and adrenal glands are unremarkable. Kidneys show no hydronephrosis. There are scattered atherosclerotic calcifications. In frarenal abdominal aortic aneurysm measures 3.1 cm AP dimension, stable. Visualized bowel demonstrate s multiple dilated small bowel loops at the abdomen measuring up to 4.5 cm diameter. There is mild re tained stool. Visualized portion of the colon shows no distention. There is interval repair of the pr ior fat-containing periumbilical hernia. There is expected tiny amount of fluid and gas within the silvestre bcutaneous tissues at the site of surgery. No drainable abscess seen. No free intraperitoneal air see n at the abdomen. Osseous structures: There are diffuse degenerative changes at the visualized spine. IMPRESSION: 1. Multiple dilated small bowel loops suggesting postoperative ileus. If symptoms worsen, follow-up i s suggested to rule out small bowel obstruction. 2. Trace fluid with thin peripheral enhancement adjacent to the inferior liver and inferior spleen. T his could represent trace infected fluid. No drainable abscess seen. 3. Pneumonia versus atelectasis right lung base. 4. Otherwise as described. ACT 112: Negative or not required by law. Electronically signed by: Blade Rivas M.D. 11/14/2024 12:54 PM
[2024-11-14] MEDS: VANCOMYCIN HCL 1,500 MG in SODIUM CHLORIDE 0.9% 500 ML IV ONE (13:33)
[2024-11-14] MEDS ORDERED: MELATONIN 3 MG TAB PO PRN (13:45)
--- NOTE | 2024-11-14 14:15 | Pharmacy Report ---
Pharmacy PK ABX Note - Date of Service November 14, 2024 - Assessment and Plan Assessment 74 year old M receiving caspofungin, and piperacillin/tazobactam for treatment of peritonitis. Vancomycin was added today for cellulitis around the incision site. Pertinent microbiologic data includes: no relevant culture data for cellulitis. * WBC increased today to 20.21 * SCr 0.98 (seems to be around baseline) - CrCl 63.7 ml/min Day # 1 of vancomycin therapy. Plan Vancomycin * Loading dose: 1500 mg IV x 1 (given 11/14 @1330) * Maintenance dose: 750 mg IV every 12 hours * Regimen is predicted to achieve target AUC/CONCEPCION of 400-600 mg/L.hr * Random level ordered for: 11/15/24 @0900 Pharmacy will continue to follow and will adjust dose/frequency as necessary. Thank you. Pharmacy has transitioned to AUC monitoring for vancomycin. AUC/CONCEPCION is the preferred PK/PD target and is associated with decreased risk of nephrotoxicity compared to traditional trough targets.
--- NOTE | 2024-11-14 14:29 | Hospitalist Progress Note ---
"Date of Service November 14, 2024 Assessment & Plan (1) Bowel perforation: (2) Sepsis: (3) Peritonitis: (4) Diverticulitis: (5) Cigarette nicotine dependence: (6) GERD with esophagitis: (7) Aortic insufficiency: (8) Felix esophagus: Plan Mr. Rivera is 74 yo male with history of HTN, dyslipidemia, GERD, aortic insufficiency, felix's esophagus, presented to ED with acute onset of generalized abdominal pain with distention, subsequently found to have perforated diverticulitis, and underwent laparotomy sigmoid colon with diverting colostomy (10/25) for perforated diverticulitis. On presentation to ED he met SIRS criteria, blood pressure was persistently low despite fluid management. He was hypotensive at OR as well. Post operatively was shifted to ICU and required on Levophed infusion. Pain seems optimized on IV med. Zosyn and caspofungin coverage for infection ongoing being managed by ID. #S/P Laparotomy with colostomy|Bowel Perforation|Ileus -POD #9 from second revision surgery of abdominal wall dehiscence, ex lap with primary closure of fascia and retention sutures -with rising leukocytosis 15.03>20.21 -CTAP with oral/IV contrast 11/14: postop ileus, pneumonia vs atelectasis right lung base (on Zosyn) -managed per surgical team -NGT d/c'ed 11/13 -colostomy bag with stool present -Pain: transitioned to oral regimen -ID management for antibiotic therapy -CBC trends -Zosyn coverage for GI infection -caspofungin for yeast coverage -added Vanco per ID for questionable cellulitis at abdominal incision sites -OOB as tolerated -labs as ordered per surgery -PICC line self-discontinued, TPN on hold for now -acute rehab upon d/c #Hypoxia|COPD -hypertonic saline, albuterol nebs q6hrs -not on home oxygen therapy, on room air and nasal cannula @ 2LPM with SPO2 saturations trending in mid 90s -repeat chest XR with reported wet cough: 11/10 persistent but improved basilar atelectasis and small right pleural effusion -encouraged incentive spirometry WA every hour #Hyperactive Delirium/Dysregulated Sleep-Wake Cycle -in setting of continued monitored lengthy hospital stay with no neurological deficits (noted agitation mostly at night) -lucid and oriented this am -reported visual hallucinations per nursing staff possibly related to IV Dilaudid -d/c hydromorphone [employer] WORKER -trial of Zyprexa ODT without decrease in agitation -start Seroquel 50mg at hs -Melatonin 3mg #Post Op Anemia -Continue to trend #Atrial Fibrillation with RVR likely chronic|Pulmonary Congestion 2/2 to Aortic Regurgitation -Echo 08/28: normal EF, moderate to severe AR -overnight tele readings NSR, bigeminy 90s -oral atenolol -consider amiodarone if development of persistent AF -in setting of surgical status AC on hold -continue lovenox 40mg daily #Hypokalemia, resolved -K 3.5 -will monitor #VANESSA, resolved -Cr 0.98 -Follow BMP #Nicotine dependence -Was on buccal nicotine -on nicotine patch -No s/o nicotine withdrawal #BPH -indwelling Crow -Hold home med Dispo: Tele DVT prophylaxis: lovenox 40mg daily Diet: full liquids Admission and Anticipated Discharge Date Admission Date: October 25, 2024 Subjective Lying in bed. Oriented to place, person and year. Reports pain to mid abdominal area. Has been accepting full liquid diet-no reports of nausea or emesis. Still producing moderate amounts of brown still in ostomy. Noted agitation overnight. He unfortunately pulled out PICC line this am. Bilateral mittens placed for safety precautions. Review of Systems Review of Systems: All systems reviewed & are unremarkable except as noted in Subjective Physical Exam Physical Exam: GENERAL APPEARANCE: A&O. Sitting in bed. NAD. SKIN: Normal color without rashes or lesions. Normal turgor. HEENT: Head AT/NC. Buccal mucosa is moist and pink. NECK: No jugular venous distention. No thyroid enlargement. There is no lymphadenopathy. HEART: RRR without m/g/r LUNGS: Normal inspiratory effort. CTA without w/r/r. ABDOMEN: Abdominal binder not present. ABDs to mid abdominal area with purulent greenish drainage on dressing. Left lower quadrant colostomy with brown stool present. MSK: No bony gross/deformities throughout. ROM intact. EXTREMITIES: No edema, No peripheral cyanosis. Neuro: CN 2-12 grossly intact. No focal neuro deficits Results & Data Results & Data Vital Signs (Past 12 Hours) Vital Signs Temp Pulse Pulse Resp BP BP Pulse Ox 11/14/24 11:08 36.7 C 78 18 108/65 92 11/14/24 09:11 11/14/24 07:19 36.4 C L 82 18 110/69 92 11/14/24 03:24 36.4 C L 80 20 103/53 L 92 O2 Del Method O2 Flow Rate 11/14/24 11:08 Nasal Cannula 1 11/14/24 09:11 Nasal Cannula 1 11/14/24 07:19 Nasal Cannula 1 11/14/24 03:24 Nasal Cannula 1 PG Care Time/CCT Total # of Minutes Spent Total Time Spent with Patient: Total time spent is greater than 50% in coordination of care (as documented) at patient's floor/unit and/or counseling patient: Coding Level of Care Code 21343 SUB INP/OBS CARE 3/50MIN Diagnoses Bowel perforation K63.1 Sepsis A41.9 Sepsis type: sepsis due to unspecified organism Severe sepsis acute organ dysfunction type: unspecified Severe sepsis shock status: without septic shock Peritonitis K65.9 Diverticulitis K57.92 Cigarette nicotine dependence F17.210 GERD with esophagitis K21.00 Aortic insufficiency I35.1 Felix esophagus K22.70 (2) Sepsis Sepsis type: sepsis due to unspecified organism Severe sepsis acute organ dysfunction type: unspecified Severe sepsis shock status: without septic shock"
[2024-11-14] MEDS: HALOPERIDOL LACTATE 5 MG/ML 1 ML VIAL IV ONE (14:49)
[2024-11-14] MEDS: [UNRECOGNIZED DRUG - OTHER] IV SCH (14:50)
[2024-11-14] MEDS: CENTRAL TPN IV SCH (14:50)
[2024-11-14] MEDS ORDERED: Nursing to Pharmacy Communication SCH (16:45)
[2024-11-14] MEDS: [UNRECOGNIZED DRUG - REMARK] ONE (18:28)
[2024-11-14] MEDS: MELATONIN 3 MG TAB PO SCH (20:42)
[2024-11-15] MEDS: VANCOMYCIN 750 MG in SODIUM CHLORIDE 0.9% 250 ML IV SCH (01:28)
[2024-11-15 07:13] LABS: Hematocrit (blood only) 24.9 % (42.0-52.0); Hemoglobin 7.8 g/dl (14.0-18.0); Immature Granulocytes # (auto) 0.67 K/uL (0.01-0.20); Immature Granulocytes % (auto) 3.9 %; Mean Corpuscular Hemoglobin 28.7 pg (25.0-34.0); Mean Corpuscular Volume 91.5 fL (80.0-100.0); Platelet Count 487 K/uL (130-400); RDW Standard Deviation 45.8 fL (36.4-46.3); Red Blood Count 2.72 M/uL (4.70-6.10); White Blood Count 17.19 K/ul (4.8-10.8)
[2024-11-15 07:34] LABS: Creatinine Clr Calc Pharmacy 71.8 ml/min; Triglycerides 181.0 mg/dl (0-150)
[2024-11-15 07:39] LABS: Polychromasia 2+
[2024-11-15 09:58] LABS: Iron 18.0 mcg/dl (35-175); Total Iron Binding Cap Calc 190.0 mcg/dl (250-450); Transferrin 136.0 mg/dl (200-360); Transferrin (FE) Percent Satur 9.0 % (20-50)
--- NOTE | 2024-11-15 10:07 | Surgery Progress Note ---
Date of Service November 15, 2024 Assessment & Plan (1) Perioperative dehiscence of abdominal wound with evisceration: Plan: POD # 10 ex lap, repair of 2nd incision dehiscence with external retention sutures afebrile vss leukocytosis of 17k (20 k yesterday) Hgb slight drop to 7.8 but hemodynamically stable abdomen soft, good ostomy output, tolerating diet advancement edema and erythema at retention suture sites, expected midline incision without abscess ? pneumonia Plan: Continue IV abx per ID recommendations continue low fiber diet, can stop TPN orders Continue pain management OOB to chair and aggressive PT aggressive pulmonary toilet SCDs/lovenox continue medical management case management to help with discharge planning need to increase activity to help with postop ileus as well as Crow removal Dr. Perdomo has seen and examined patient, agrees with above. Admission and Anticipated Discharge Date Admission Date: October 25, 2024 Subjective feeling okay right now, had some abdominal pain with coughing this morning, no severe pain ostomy working, feels passing gas no n,v no abdominal bloating tolerating full liquids some chills last night Review of Systems Review of Systems: All systems reviewed & are unremarkable except as noted in HPI & below Physical Exam Constitutional: + frail appearing, cooperative and comfo rtable; no acute distress Respiratory: normal respiratory effort and + cough; no respiratory distress, no labored breathing and no retractions Auscultation: + diminished lung sound s Cardiovascular: Rate/Rhythm: regular rate and regular rhythm Gastrointestinal (Abdomen): Inspection/Auscultation: abdomen normal to inspection and + abdominal surgical incision (midline incision with erythema and edema at retention sutures); abdomen not distended Percussion/Palpation: + abdomen tender and abdomen soft; no guarding, abdomen not rigid and abdomen not firm Midline incision with intact retention sutures, there is edema and erythema at retention suture sites, inferior incision edema improving serosanguineous drainage on dressing, no purulence, no odor Ostomy with a lot of gas and liquid stool present Skin: no rashes, warm and dry Psychiatric: Orientation: alert Results & Data Vital Signs (Past 12 Hours) Vital Signs Temp Pulse Pulse Resp BP BP BP 11/15/24 07:30 36.2 C L 67 21 140/71 11/15/24 07:20 11/15/24 05:26 78 11/15/24 03:32 36.6 C 79 18 103/63 11/14/24 23:12 36.6 C 77 20 104/66 Pulse Ox O2 Del Method O2 Flow Rate 11/15/24 07:30 96 Room Air 3 11/15/24 07:20 Nasal Cannula 4 11/15/24 05:26 11/15/24 03:32 100 Nasal Cannula 2.0 11/14/24 23:12 95 Nasal Cannula 2.0 Laboratory Results 11/15/24 11/15/24 11/15/24 Range/Units 08:54 07:28 06:49 WBC 17.19 H (4.8-10.8) K/ul RBC 2.72 L (4.70-6.10) M/uL Hgb 7.8 L (14.0-18.0) g/dl Hct 24.9 L (42.0-52.0) % MCV 91.5 (80.0-100.0) fL MCH 28.7 (25.0-34.0) pg MCHC 31.3 L (32.0-36.0) g/dL RDW Std Deviation 45.8 (36.4-46.3) fL RDW Coeff of Jeanette 13.9 (11.5-14.5) % Plt Count 487 H (130-400) K/uL MPV 9.1 L (9.4-12.4) fL Immature Gran % (Auto) 3.9 % Neut % (Auto) 79.6 % Lymph % (Auto) 10.2 % [place] % (Auto) 4.9 % Eos % (Auto) 1.0 % Baso % (Auto) 0.4 % Neut # (Auto) 13.67 H (1.40-6.50) K/uL Lymph # (Auto) 1.76 (1.20-3.40) K/uL [place] # (Auto) 0.85 H (0.11-0.59) K/uL Eos # (Auto) 0.17 (0.00-0.50) K/uL Baso # (Auto) 0.07 (0.00-0.20) K/uL Immature Gran # (Auto) 0.67 H (0.01-0.20) K/uL Absolute Nucleated RBC 0.07 (0.00-0.12) K/uL Nucleated RBC % (auto) 0.4 % Polychromasia 2+ Creatinine 0.87 (0.6-1.4) mg/dl Est Cr Clr Drug Dosing 71.8 ml/min eGFR 91.68 POC Glucose 109 H (70-99) mg/dl Iron 18 L (35-175) mcg/dl TIBC 190 L (250-450) mcg/dl Transferrin 136 L (200-360) mg/dl Transferrin % Sat 9 L (20-50) % Ferritin Pending Triglycerides 181 H (0-150) mg/dl Random Vancomycin 15.9 (10-20) mcg/ml 11/14/24 11/14/24 11/14/24 Range/Units 20:50 16:09 11:06 WBC (4.8-10.8) K/ul RBC (4.70-6.10) M/uL Hgb (14.0-18.0) g/dl Hct (42.0-52.0) % MCV (80.0-100.0) fL MCH (25.0-34.0) pg MCHC (32.0-36.0) g/dL RDW Std Deviation (36.4-46.3) fL RDW Coeff of Jeanette (11.5-14.5) % Plt Count (130-400) K/uL MPV (9.4-12.4) fL Immature Gran % (Auto) % Neut % (Auto) % Lymph % (Auto) % [place] % (Auto) % Eos % (Auto) % Baso % (Auto) % Neut # (Auto) (1.40-6.50) K/uL Lymph # (Auto) (1.20-3.40) K/uL [place] # (Auto) (0.11-0.59) K/uL Eos # (Auto) (0.00-0.50) K/uL Baso # (Auto) (0.00-0.20) K/uL Immature Gran # (Auto) (0.01-0.20) K/uL Absolute Nucleated RBC (0.00-0.12) K/uL Nucleated RBC % (auto) % Polychromasia Creatinine (0.6-1.4) mg/dl Est Cr Clr Drug Dosing ml/min eGFR POC Glucose 92 101 H 114 H (70-99) mg/dl Iron (35-175) mcg/dl TIBC (250-450) mcg/dl Transferrin (200-360) mg/dl Transferrin % Sat (20-50) % Ferritin Triglycerides (0-150) mg/dl Random Vancomycin (10-20) mcg/ml Diagnostic Findings CT abdomen oral and IV con CLINICAL HISTORY: leukocytosis, abd drainage, ex lap 11/05 COMPARISON STUDY: 10/25/2024 FINDINGS: There are coronary artery calcifications. There is a trace right pleural effusion. There is interval reticular and bandlike consolidation at the right lung base which could represent atelectasis or pneumonia. ABDOMEN: There are numerous gallstones without evidence of acute cholecystitis. There is trace fluid adjacent to the inferior aspect of the liver and trace fluid adjacent to the inferior aspect of the spleen with thin peripheral enhancement. Otherwise the liver, spleen, pancreas, and adrenal glands are unremarkable. Kidneys show no hydronephrosis. There are scattered ather osclerotic calcifications. Infrarenal abdominal aortic aneurysm measures 3.1 cm AP dimension, stable. Visualized bowel demonstrates multiple dilated small bowel loops at the abdomen measuring up to 4.5 cm diameter. There is mild retained stool. Visualized portion of the colon shows no distention. There is interval repair of the prior fat-containing periumbilical hernia. There is expected tiny amount of fluid and gas within the subcutaneous tissues at the site of surgery. No drainable abscess seen. No free intraperitoneal air seen at the abdomen. Osseous structures: There are diffuse degenerative changes at the visualized spine. IMPRESSION: 1. Multiple dilated small bowel loops suggesting postoperative ileus. If symptoms worsen, follow-up is suggested to rule out small bowel obstruction. 2. Trace fluid with thin peripheral enhancement adjacent to the inferior liver and inferior spleen. This could represent trace infected fluid. No drainable abscess seen. 3. Pneumonia versus atelectasis right lung base. 4. Otherwise as described. ACT 112: Negative or not required by law. Personally reviewed ct scan images and concur with above findings. Limited CT due to only being CT abdomen (Pelvis not included) (1) Perioperative dehiscence of abdominal wound with evisceration Encounter type: subsequent encounter Qualified Code(s): T81.321D - Disruption or dehiscence of closure of internal operation (surgical) wound of abdominal wall muscle or fascia, subsequent encounter
[2024-11-15 10:18] LABS: Ferritin 205.7 ng/ml (8-388)
--- NOTE | 2024-11-15 10:51 | Pharmacy Report ---
Pharmacy PK ABX Note - Date of Service November 15, 2024 - Assessment and Plan Assessment 74 year old M receiving caspofungin, and piperacillin/tazobactam for treatment of peritonitis. Vancomycin was added on 11/14 for cellulitis around the incision site. Pertinent microbiologic data includes: no relevant culture data for cellulitis. * WBC decreased to 17.2 * SCr 0.87 (seems to be around baseline) - CrCl 71.8 ml/min Day # 2 of vancomycin therapy. Plan Vancomycin * Loading dose: 1500 mg IV x 1 (given 11/14 @1330) * Maintenance dose: 750 mg IV every 12 hours * Random level on 11/15 @0900 was 15.9 mcg/mL * Current regimen is predicted to achieve target AUC/CONCEPCION of 400-600 mg/L.hr * Continue 750 mg IV every 12 hours * Random level ordered for: 11/18/24 @0900 Pharmacy will continue to follow and will adjust dose/frequency as necessary. Thank you. Pharmacy has transitioned to AUC monitoring for vancomycin. AUC/CONCEPCION is the preferred PK/PD target and is associated with decreased risk of nephrotoxicity compared to traditional trough targets.
[2024-11-15 11:31] LABS: Magnesium 1.7 mg/dl (1.7-2.4)
--- NOTE | 2024-11-15 11:40 | Infectious Disease Progress Nt ---
Date of Service November 15, 2024 Assessment & Plan (1) Bowel perforation: (2) Peritonitis: Plan #Perforated diverticulitis s/p ex lap, bowel resection, colostomy (10/25/24), ex lap repair of dehiscence and abd washout (10/31/24), ex lap repair of recurrent dehiscence and abd washout (11/05/24) #Feculent peritonitis #Pneumonia, treated # Leukocytosis # Possible surgical site cellulitis/SSTI Micro: 10/25 Peritoneal fluid cx: Clostridium perfringens, mod counts of probable in testinal mario. GS GNRs, GPRs, GPCs, yeast Abx: Caspofungin 10/28 - 11/15 Zosyn 10/25 -current Clindamycin 10/27 - 10/28 Vanco IV 11/14-current 74 yo M with HTN, HLD, emphysema, GERD, Crane's esophagus who presented on 10/25 with acute onset of generalized abdominal pain, distension, sweats, found to have perforated diverticulitis s/p ex lap, bowel resection, colostomy (10/25/24). Hospital course c/b pneumonia noted on CT chest 10/29. On presentation, he was afebrile, hypotensive to SBP 80s-90s. Labs showed WBC 13.14. CT A/P with IV contrast showed acute perforated diverticulitis at the distal descending/proximal sigmoid colon with a small amount of scattered free air, and trace free fluid without ascites. Pt started on Zosyn. He was taken for emergent ex lap, bowel resection, colostomy formation. In the OR, there was feculent peritonitis. Intra-op culture obtained of peritoneal fluid. He was admitted to the ICU postoperatively, requiring Levophed. Peritoneal fluid culture growing Clostridium perfringens, and moderate counts of probable intestinal mario. Gram stain with GNRs, GPRs, GPCs, yeast. Clindamycin added 10/27. Weaned off Levophed 10/27. WBC uptrending to 17.59 on 10/28. Discussion: Polymicrobial peritoneal fluid culture including Clostridium perfringens. Zosyn should cover the Clostridium perfringens and other intestinal mario, unless there are resistant organisms. No prior micro data to review. Leukocytosis uptrending and Tmax 37.7 on 10/27--added caspofungin on 9/22 due to yeast seen on gram stain of peritoneal fluid. Also with increased O2 requirement on 10/29, with CT chest showing bilateral pneumonia. Had coughing spell leading to midline incision dehiscence and evisceration, so taken back to OR for ex lap, washout, and abdominal wall closure 10/31. Post op, leukocytosis up to 24 on 11/01/24. Had persistent leukocytosis to mid 20s. KUB 11/02 with concern for SBO--surgery felt more likely ileus. Did have some gas in the ostomy on 11/04. Had recurrent dehiscence, and was taken to the OR on 11/05 for ex lap, repair of recurrent dehiscence, and abdominal washout in which abdomen was irrigated with 1 L with cefazolin. No purulence was seen in the abdominal cavity per surgery note. Continued rising leukocytosis--> 29.18 on 11/07. Unclear etiology, considered C diff but ostomy without output. Reassuring that WBC decreased to 15.44 on 11/08 without intervention. Ostomy still without output. 11/11 WBC went down to 12 but slightly up today to 13.2, afebrile. No output from ostomy. Surgery suggests CTAP. Agree 11/14- WBC up to 20. Abd exam- firm, distended- not tender. Surgical incision sites with erythema. Added IV vanco 11/15 WBC up to 17.19 surgical incisions with erythema wounds with seropurulent drainage, foul smelling.. CTAP without abscess + post op ileus, trace fluis around liver and spleen Recommendations: - Can continue Zosyn and vancomycin for ? SSTI at surgical incision sites, plan fo 7 days ( 11/14-11/21) -Discontinued caspofungin Day 11. No signs of active abdominal infectio, post source control ID will continue to follow, but [facility] will not round or review the chart over the weekend. Call covering provider at [facility] at [phone] with questions. ID will resume coverage on Saturday 11/18. Abdi Jack MD, MPH Infectious Disease [facility], [facility] Division Admission and Anticipated Discharge Date Admission Date: October 25, 2024 Subjective Subsequent visit was provided via telemedicine using two-way real-time interactive telecommunication between the patient and the telemedicine provider. For the duration of the visit, the provider was performing the assessment from a different facility than the patient. This includesuse of bluetooth stethoscope forauscultationperformed by the telepresenter that the telemedicine provider can hear if described in the physical exam. Animal Trainer Supervisor contact information: Please call [facility] Call Center . (Phone Number For Physician Use Only) After establishing a telemedicine visit, patient was: Patient was verified with two unique identifiers and Gave permission to continue telehealth session Time Spent with Patient: Subsequent => 25 min WBC down to 17.19 He is on 3-4 Nc Started vancomycin for ? ab wall cellulitis ot suture sites CTAP w/o abd abscesses Physical Exam Physical Exam: Awake, NAD Neck supple Abd- distended, firm, Not tender- ostomy will brown stool. Surgical incisions with surrounding erythema. + seropurulant drainage at wound sites ( foul smell per telepresenter_ Neuro- Awake, alert . Less confused this am Mitts on both hands. Results & Data Vital Signs (Past 12 Hours) Vital Signs Temp Pulse Pulse Resp BP BP Pulse Ox 11/15/24 11:17 81 11/15/24 10:32 36.5 C 77 24 114/73 95 11/15/24 07:30 36.2 C L 67 21 140/71 96 11/15/24 07:20 11/15/24 05:26 78 11/15/24 03:32 36.6 C 79 18 103/63 100 O2 Del Method O2 Flow Rate 11/15/24 11:17 11/15/24 10:32 Nasal Cannula 11/15/24 07:30 Room Air 3 11/15/24 07:20 Nasal Cannula 4 11/15/24 05:26 11/15/24 03:32 Nasal Cannula 2.0 Laboratory Results Laboratory Results - last 48 hr 11/13/24 11/14/24 11/14/24 20:26 05:38 07:23 WBC 20.21 H RBC 2.89 L Hgb 8.5 L Hct 26.4 L MCV 91.3 MCH 29.4 MCHC 32.2 RDW Std Deviation 46.9 H RDW Coeff of Jeanette 14.0 Plt Count 566 H MPV 9.3 L Immature Gran % (Auto) 2.9 Neut % (Auto) 78.2 Lymph % (Auto) 10.7 [place] % (Auto) 6.6 Eos % (Auto) 1.2 Baso % (Auto) 0.4 Reticulocyte % (Auto) Neut # (Auto) 15.79 H Lymph # (Auto) 2.16 [place] # (Auto) 1.33 H Eos # (Auto) 0.25 Baso # (Auto) 0.09 Reticulocyte # Immature Gran # (Auto) 0.59 H Absolute Nucleated RBC 0.06 Nucleated RBC % (auto) 0.3 Polychromasia Sodium 141 Potassium 3.5 Chloride 106 Carbon Dioxide 27 Anion Gap 8 BUN 25 H Creatinine 0.98 Est Cr Clr Drug Dosing 63.7 eGFR 81.93 BUN/Creatinine Ratio 25.5 H Glucose 95 POC Glucose 92 90 Calcium 8.1 L Phosphorus 3.5 Magnesium 1.9 Iron TIBC Transferrin Transferrin % Sat Ferritin Triglycerides Random Vancomycin 11/14/24 11/14/24 11/14/24 11:06 16:09 20:50 WBC RBC Hgb Hct MCV MCH MCHC RDW Std Deviation RDW Coeff of Jeanette Plt Count MPV Immature Gran % (Auto) Neut % (Auto) Lymph % (Auto) [place] % (Auto) Eos % (Auto) Baso % (Auto) Reticulocyte % (Auto) Neut # (Auto) Lymph # (Auto) [place] # (Auto) Eos # (Auto) Baso # (Auto) Reticulocyte # Immature Gran # (Auto) Absolute Nucleated RBC Nucleated RBC % (auto) Polychromasia Sodium Potassium Chloride Carbon Dioxide Anion Gap BUN Creatinine Est Cr Clr Drug Dosing eGFR BUN/Creatinine Ratio Glucose POC Glucose 114 H 101 H 92 Calcium Phosphorus Magnesium Iron TIBC Transferrin Transferrin % Sat Ferritin Triglycerides Random Vancomycin 11/15/24 11/15/24 11/15/24 06:49 07:28 08:54 WBC 17.19 H RBC 2.72 L Hgb 7.8 L Hct 24.9 L MCV 91.5 MCH 28.7 MCHC 31.3 L RDW Std Deviation 45.8 RDW Coeff of Jeanette 13.9 Plt Count 487 H MPV 9.1 L Immature Gran % (Auto) 3.9 Neut % (Auto) 79.6 Lymph % (Auto) 10.2 [place] % (Auto) 4.9 Eos % (Auto) 1.0 Baso % (Auto) 0.4 Reticulocyte % (Auto) 3.59 H Neut # (Auto) 13.67 H Lymph # (Auto) 1.76 [place] # (Auto) 0.85 H Eos # (Auto) 0.17 Baso # (Auto) 0.07 Reticulocyte # 0.100 Immature Gran # (Auto) 0.67 H Absolute Nucleated RBC 0.07 Nucleated RBC % (auto) 0.4 Polychromasia 2+ Sodium Potassium Chloride Carbon Dioxide Anion Gap BUN Creatinine 0.87 Est Cr Clr Drug Dosing 71.8 eGFR 91.68 BUN/Creatinine Ratio Glucose POC Glucose 109 H Calcium Phosphorus Magnesium 1.7 Iron 18 L TIBC 190 L Transferrin 136 L Transferrin % Sat 9 L Ferritin 205.7 Triglycerides 181 H Random Vancomycin 15.9 11/15/24 11:08 WBC RBC Hgb Hct MCV MCH MCHC RDW Std Deviation RDW Coeff of Jeanette Plt Count MPV Immature Gran % (Auto) Neut % (Auto) Lymph % (Auto) [place] % (Auto) Eos % (Auto) Baso % (Auto) Reticulocyte % (Auto) Neut # (Auto) Lymph # (Auto) [place] # (Auto) Eos # (Auto) Baso # (Auto) Reticulocyte # Immature Gran # (Auto) Absolute Nucleated RBC Nucleated RBC % (auto) Polychromasia Sodium Potassium Chloride Carbon Dioxide Anion Gap BUN Creatinine Est Cr Clr Drug Dosing eGFR BUN/Creatinine Ratio Glucose POC Glucose 123 H Calcium Phosphorus Magnesium Iron TIBC Transferrin Transferrin % Sat Ferritin Triglycerides Random Vancomycin Diagnostic Findings Abdomen CT 11/14/24 10:22 CT abdomen oral and IV con CLINICAL HISTORY: leukocytosis, abd drainage, ex lap 11/05 COMPARISON STUDY: 10/25/2024 FINDINGS: There are coronary artery calcifications. There is a trace right ple ural effusion. There is interval reticular and bandlike consolidation at the right lung base which could represent atelectasis or pneumonia. ABDOMEN: There are numerous gallstones without evidence of acute cholecystitis. There is trace fluid adjacent to the inferior aspect of the liver and trace fluid adjacent to the inferior aspect of the spleen with thin peripheral enhancement. Otherwise the liver, spleen, pancreas, and adrenal glands are unremarkable. Kidneys show no hydronephrosis. There are scattered atherosclerotic calcifications. Infrarenal abdominal aortic aneurysm measures 3.1 cm AP dimension, stable. Visualized bowel demonstrates multiple dilated small bowel loops at the abdomen measuring up to 4.5 cm diameter. There is mild retained stool. Visualized portion of the colon shows no distention. There is interval repair of the prior fat-containing periumbilical hernia. There is expected tiny amount of fluid and gas within the subcutaneous tissues at the site of surgery. No drainable abscess seen. No free intraperitoneal air seen at the abdomen. Osseous structures: There are diffuse degenerative changes at the visualized spine. IMPRESSION: 1. Multiple dilated small bowel loops suggesting postoperative ileus. If symptoms worsen, follow-up is suggested to rule out small bowel obstruction. 2. Trace fluid with thin peripheral enhancement adjacent to the inferior liver and inferior spleen. This could represent trace infected fluid. No drainable abscess seen. 3. Pneumonia versus atelectasis right lung base. 4. Otherwise as described. ACT 112: Negative or not required by law. Electronically signed by: Blade Rivas M.D. 11/14/2024 12:54 PM Medications Administered Home Medications Medication Instructions Recorded Confirmed Last Taken aspirin 81 mg tablet,delayed 81 mg PO QAM 10/04/18 10/26/24 1 Day Ago release (Quentin Low Dose Aspirin) ~10/25/24 1 acetaminophen 500 mg tablet 1,300 mg PO BID 02/07/19 10/26/24 1 Day Ago ~10/25/24 1300 cholecalciferol (vitamin D3) 50 2,000 unit PO BID 07/23/20 10/26/24 1 Day Ago mcg (2,000 unit) capsule ~10/25/24 1 diclofenac sodium 1 % topical gel 4 g topical UD PRN Pain #100 grams 10/19/23 10/26/24 Unknown amlodipine 5 mg tablet 5 mg PO QAM #90 tabs 02/14/24 10/26/24 1 Day Ago ~10/25/24 1 pantoprazole 40 mg tablet,delayed 40 mg PO BID #180 tabs 03/25/24 10/26/24 1 Day Ago release ~10/25/24 rosuvastatin 20 mg tablet 20 mg PO QAM #90 tabs 04/01/24 10/26/24 1 Day Ago ~10/25/24 nicotine (polacrilex) 4 mg buccal 4 mg buccal Q4H PRN nicotine 05/27/24 10/26/24 Unknown lozenge cravings #108 ea tamsulosin 0.4 mg capsule 0.4 mg PO DAILY #90 caps 05/27/24 10/26/24 1 Day Ago ~10/25/24 albuterol sulfate 90 mcg/actuation 1 puff inhalation Q6H PRN 06/25/24 10/26/24 2 Days Ago aerosol inhaler (Ventolin HFA) shortness of breath or wheezing ~10/24/24 #18 grams 1 atenolol 50 mg-chlorthalidone 25 0.5 tab PO QAM #45 tabs 09/27/24 10/26/24 1 Day Ago mg tablet ~10/25/24 1 potassium chloride 10 mEq 10 meq PO BID #180 tabs 09/27/24 10/26/24 1 Day Ago tablet,extended release ~10/25/24 famotidine 40 mg tablet 40 mg PO BID #180 tabs 10/18/24 10/26/24 1 Day Ago ~10/25/24 1 Active Medications Generic Name Dose Route Start Last Admin Trade Name Freq PRN Reason Stop Dose Admin Atenolol 25 mg 11/13/24 15:45 11/15/24 08:10 Atenolol 25 Mg Tablet PO 12/13/24 15:44 25 mg QAM CHRISTOPHER Administration Chlorthalidone 12.5 mg 11/13/24 15:45 11/15/24 08:27 Chlorthalidone 25 Mg Tab PO 12/13/24 15:44 12.5 mg QAM CHRISTOPHER Administration Diclofenac Sodium 4 gm 11/04/24 15:30 11/15/24 10:15 Diclofenac Sod 1% Gel 100 Gm Tube EXT 12/04/24 15:29 4 gm Q6H CHRISTOPHER Administration Protocol Enoxaparin Sodium 40 mg 10/27/24 09:00 11/15/24 08:10 Enoxaparin Inj 40 Mg/0.4 Ml Syr SQ 11/26/24 08:59 40 mg QAM CHRISTOPHER Administration Famotidine 20 mg in 5 mls @ 2.5 mls/min 10/26/24 06:30 11/15/24 08:03 Pepcid 20mg Iv Push IV 11/25/24 06:29 2.5 mls/min BID CHRISTOPHER Administration Piperacillin Sod/Tazobactam Sod 4.5 gm in 100 mls @ 25 mls/hr 11/01/24 17:00 11/15/24 14:37 Zosyn IV 11/18/24 16:59 Infused Q8H CHRISTOPHER Infusion Protocol Pantoprazole Sodium 40 mg in 10 mls @ 5 mls/min 11/02/24 12:00 11/15/24 08:11 Protonix IV 12/02/24 11:59 5 mls/min BID CHRISTOPHER Administration Caspofungin 50 mg/ Sodium 260 mls @ 250 mls/hr 11/09/24 09:00 11/15/24 09:33 Chloride IV 11/19/24 08:59 Infused Q24H CHRISTOPHER Infusion Protocol Vancomycin HCl 750 mg/ Sodium 265 mls @ 200 mls/hr 11/15/24 01:00 11/15/24 14 :37 Chloride IV 11/22/24 00:59 Infused Q12H CHRISTOPHER Infusion Melatonin 3 mg 11/14/24 19:00 11/14/24 20:42 Melatonin 3 Mg Tab PO 12/14/24 18:59 Not Given DAILY@1900 CHRISTOPHER Menthol 1 adriel 10/26/24 08:49 10/26/24 09:30 Cough Drop (Sugar Free) Adriel 24 Adriel/1 Box BUCCAL 11/25/24 08:48 1 adriel Q2H PRN Administration Sore Throat Miscellaneous 1 each 10/27/24 08:59 11/15/24 08:13 Remove Nicoderm Patch N/A 11/26/24 08:58 1 each DAILY@[id number] [facility] Administration Nicotine 1 patch 10/26/24 14:00 11/15/24 08:09 Nicotine 14 Mg/24 Hr Patch TD 11/25/24 13:59 1 patch QAM CHRISTOPHER Administration Ondansetron HCl 4 mg 10/25/24 20:18 11/03/24 15:04 Ondansetron Inj 2 Mg/Ml 2 Ml Vial IV 11/24/24 20:17 4 mg Q6H PRN Administration Nausea And Vomiting Phenol 1 sprays 11/01/24 16:38 11/11/24 12:36 Chloraseptic (Phenol) 1.4% Soln 180 Ml Btl MT 12/01/24 16:37 1 sprays Q1H PRN Administration Cough Rosuvastatin Calcium 20 mg 11/14/24 09:00 11/15/24 08:09 Rosuvastatin Calcium 20 Mg Tab PO 12/14/24 08:59 20 mg QAM CHRISTOPHER Administration Tamsulosin HCl 0.4 mg 11/14/24 09:00 11/15/24 08:09 Tamsulosin Hcl 0.4 Mg Cap PO 12/14/24 08:59 0.4 mg DAILY CHRISTOPHER Administration
[2024-11-15 11:55] LABS: Reticulocytes # 0.100 10^6/uL (0.020-0.100)
[2024-11-15] MEDS: IRON SUCROSE 200 MG in SODIUM CHLORIDE 0.9% 100 ML IV ONE (11:58)
--- NOTE | 2024-11-15 12:28 | Hospitalist Progress Note ---
"Date of Service November 15, 2024 Assessment & Plan (1) Bowel perforation: (2) Sepsis: (3) Peritonitis: (4) Diverticulitis: (5) Cigarette nicotine dependence: (6) GERD with esophagitis: (7) Aortic insufficiency: (8) Felix esophagus: Plan Mr. Rivera is 74 yo male with history of HTN, dyslipidemia, GERD, aortic insufficiency, felix's esophagus, presented to ED with acute onset of generalized abdominal pain with distention, subsequently found to have perforated diverticulitis, and underwent laparotomy sigmoid colon with diverting colostomy (10/25) for perforated diverticulitis. On presentation to ED he met SIRS criteria, blood pressure was persistently low despite fluid management. He was hypotensive at OR as well. Post operatively was shifted to ICU and required on Levophed infusion. Pain seems optimized on IV med. Zosyn and caspofungin coverage for infection ongoing being managed by ID. #S/P Laparotomy with colostomy|Bowel Perforation|Ileus -POD #10 from second revision surgery of abdominal wall dehiscence, ex lap with primary closure of fascia and retention sutures -with rising leukocytosis 15.03>20.21>17.19 -CTAP with oral/IV contrast 11/14: postop ileus, pneumonia vs atelectasis right lung base (on Zosyn) -managed per surgical team -NGT d/c'ed 11/13 -colostomy bag with stool present -Pain: transitioned to oral regimen -ID management for antibiotic therapy -Zosyn coverage for GI infection -caspofungin for yeast coverage -added Vanco per ID for questionable cellulitis at abdominal incision sites -OOB as tolerated -labs as ordered per surgery -PICC line self-discontinued, TPN d/c'ed -CBC trends -acute rehab upon d/c #Hypoxia|COPD -hypertonic saline, albuterol nebs q6hrs -not on home oxygen therapy, on room air and nasal cannula @ 2LPM with SPO2 saturations trending in mid 90s -repeat chest XR with reported wet cough: 11/10 persistent but improved basilar atelectasis and small right pleural effusion -encouraged incentive spirometry WA every hour #Hyperactive Delirium/Dysregulated Sleep-Wake Cycle -in setting of continued monitored lengthy hospital stay with no neurological deficits (noted agitation mostly at night) -lucid and oriented this am -reported visual hallucinations per nursing staff possibly related to IV Dilaudid (Dilaudid INSTANT POTATO PROCESSOR d/c'ed 11/14) -trial of Zyprexa ODT without decrease in agitation -Seroquel 50mg at hs PRN -Melatonin 3mg at 1900 #Post Op Anemia -H/H 7.8/24.9 -without clinical signs of overload -without s/s of bleeding -Fe studies with low transferrin % sat, ferritin normal, possibly inflammatory and chronic YAN -Venofer 200mg IV -evaluate for clinical response with additional Fe if needed -Continue to trend #Atrial Fibrillation with RVR likely chronic|Pulmonary Congestion 2/2 to Aortic Regurgitation -Echo 08/28: normal EF, moderate to severe AR -overnight tele readings NSR, bigeminy 90s -oral atenolol -consider amiodarone if development of persistent AF -in setting of surgical status holding traditional AC -continue Lovenox 40mg daily #Hypokalemia, resolved -trend BMP -will monitor #VANESSA, resolved -Cr 0.87 -Follow BMP #Nicotine dependence -Was on buccal nicotine -on nicotine patch -No s/o nicotine withdrawal #BPH -d/c Crow -Flomax Dispo: Tele DVT prophylaxis: lovenox 40mg daily Diet: full liquids Admission and Anticipated Discharge Date Admission Date: October 25, 2024 Subjective Patient seen sitting up in bed this am. He is awake, alert and oriented times three. No agitation noted and smiling within conversation. Reports mild SOB primarily when he is moving around. Denies SOB at rest. SPO2 saturations in mid 90s on 2LNC. He has been eating and drinking adequately. Minimal pain to abdomen. Favorable stool output from ostomy. Denies chest pain, dizziness, lightheadedness, or pre-syncope when up OOB. He pulled out PICC line yesterday and was placed in mitts. Haldol IM ad ministered yesterday due to worsening agitation possibly related to Ativan administration prior to CT imaging in the afternoon. Nursing reports patient slept well last evening without agitative episodes. Did not require Seroquel dosing last evening as he was without agitation. Daughter, Shayy, reports patient still with transient intermittent hallucinations when she is present to visit. He is without reports of visual or auditory hallucinations this am. Review of Systems Review of Systems: All systems reviewed & are unremarkable except as noted in Subjective Physical Exam Physical Exam: GENERAL APPEARANCE: A&O. Sitting comfortably on stretcher. NAD. SKIN: Normal color without rashes or lesions. Normal turgor. HEENT: Head AT/NC. Buccal mucosa is moist and pink. NECK: No jugular venous distention. No thyroid enlargement. There is no lymphadenopathy. HEART: RRR without m/g/r LUNGS: Normal inspiratory effort. CTA without w/r/r ABDOMEN: No guarding or rigidity. Normoactive BS in all four quadrants. Abdomen soft and NT. Midline abdominal incision with dressing present, no drainage. LLQ abdominal ostomy with formed stool, no blood in stool. MSK: No bony gross/deformities throughout. ROM intact. : Crow patent and draining clear, yellow urine-no blood noted. EXTREMITIES: No edema, No peripheral cyanosis. Neuro: CN 2-12 grossly intact. No focal neuro deficits PSYCHIATRIC: Normal affect. Eye contact is good. Speech is normal rate and content. Responses are appropriate. Results & Data Results & Data Vital Signs (Past 12 Hours) Vital Signs Temp Pulse Pulse Resp BP BP Pulse Ox 11/15/24 11:17 81 11/15/24 10:32 36.5 C 77 24 114/73 95 11/15/24 07:30 36.2 C L 67 21 140/71 96 11/15/24 07:20 11/15/24 05:26 78 11/15/24 03:32 36.6 C 79 18 103/63 100 O2 Del Method O2 Flow Rate 11/15/24 11:17 11/15/24 10:32 Nasal Cannula 11/15/24 07:30 Room Air 3 11/15/24 07:20 Nasal Cannula 4 11/15/24 05:26 11/15/24 03:32 Nasal Cannula 2.0 PG Care Time/CCT Total # of Minutes Spent Total Time Spent with Patient: Total time spent is greater than 50% in coordination of care (as documented) at patient's floor/unit and/or counseling patient: Coding Level of Care Code 01448 SUB INP/OBS CARE 3/50MIN Diagnoses Bowel perforation K63.1 Sepsis A41.9 Sepsis type: sepsis due to unspecified organism Severe sepsis acute organ dysfunction type: unspecified Severe sepsis shock status: without septic shock Peritonitis K65.9 Diverticulitis K57.92 Cigarette nicotine dependence F17.210 GERD with esophagitis K21.00 Aortic insufficiency I35.1 Felix esophagus K22.70 (2) Sepsis Sepsis type: sepsis due to unspecified organism Severe sepsis acute organ dysfunction type: unspecified Severe sepsis shock status: without septic shock"
[2024-11-15] MEDS: ACETAMINOPHEN 500 MG TAB PO PRN (14:59)
[2024-11-16 06:44] LABS: Anion Gap 6.0 (3-11); Calcium 7.9 mg/dl (8.6-10.3); Carbon Dioxide 27.0 mmol/L (21-32); Chloride 106.0 mmol/L (98-107); Potassium 3.4 mmol/L (3.5-5.1); Sodium 139.0 mmol/L (136-145)
[2024-11-16 06:49] LABS: Hematocrit (blood only) 29.7 % (42.0-52.0); Hemoglobin 9.2 g/dl (14.0-18.0); Immature Granulocytes # (auto) 1.49 K/uL (0.01-0.20); Immature Granulocytes % (auto) 9.0 %; Mean Corpuscular Hemoglobin 28.0 pg (25.0-34.0); Mean Corpuscular Volume 90.5 fL (80.0-100.0); Platelet Count 465 K/uL (130-400); RDW Standard Deviation 45.5 fL (36.4-46.3); Red Blood Count 3.28 M/uL (4.70-6.10); White Blood Count 16.58 K/ul (4.8-10.8)
[2024-11-16 06:50] LABS: Blood Urea Nitrogen 12.0 mg/dl (6-23); Creatinine Clr Calc Pharmacy 69.8 ml/min; Glucose 96.0 mg/dl (70-99(Fasting))
[2024-11-16] MEDS: POTASSIUM CHLORIDE 20 MEQ/15 ML UDC PO STA (08:34)
[2024-11-16] MEDS: MAGNESIUM OXIDE 400 MG TAB PO SCH (08:38)
--- NOTE | 2024-11-16 11:55 | Hospitalist Progress Note ---
"Date of Service November 16, 2024 Assessment & Plan (1) Bowel perforation: (2) Sepsis: (3) Peritonitis: (4) Diverticulitis: (5) Cigarette nicotine dependence: (6) GERD with esophagitis: (7) Aortic insufficiency: (8) Felix esophagus: Plan Mr. Rivera is 74 yo male with history of HTN, dyslipidemia, GERD, aortic insufficiency, felix's esophagus, presented to ED with acute onset of generalized abdominal pain with distention, subsequently found to have perforated diverticulitis, and underwent laparotomy sigmoid colon with diverting colostomy (10/25) for perforated diverticulitis. On presentation to ED he met SIRS criteria, blood pressure was persistently low despite fluid management. He was hypotensive at OR as well. Post operatively was shifted to ICU and required on Levophed infusion. Pain seems optimized on IV med. Zosyn and caspofungin coverage for infection ongoing being managed by ID. #S/P Laparotomy with colostomy|Bowel Perforation|Ileus -POD #10 from second revision surgery of abdominal wall dehiscence, ex lap with primary closure of fascia and retention sutures .S/p laparotomy and closure of fascia with retention sutures 11/05/2024 after abdominal wall dehiscence S/p expiratory laparotomy, abdominal washout and closure 10/31/2024 of abdominal wall after midline incision dehiscence 10/25/2024 s/p ex lap, sigmoid resection, diverting ostomy placement 2/2 diverticulitis with perforation Leukocytosis gradually downtrending 16.58 on 11/16 Course complicated by postop ileus, pneumonia versus atelectasis noted on 11/14. ID consulted. Zosyn started 10/25, continue to current. Vancomycin adjunct added 11/14, continued current. Recommended to continue bank/Zosyn through 11/21 for SSTI at surgical incision sites Caspofungin was given 10/28 - 11/15, discontinued on day 11 with no signs of active ongoing abdominal infection and Po source control. Appreciate ID recommendations consultation Continue out of bed as tolerated Will need transition to rehab on discharge Clinically progressing 11/16. Hemodynamically stable overnight. Good ostomy output. Tolerating diet. Net output 1750 cc via catheter last 24 hours as of morning of 11/16. No arrhythmia or critical electrolyte derangements. Mild hypokalemia which is repleted. Stable for downgrade to MSO #Hypoxia|COPD -hypertonic saline, albuterol nebs q6hrs -not on home oxygen therapy, on room air and nasal cannula @ 2LPM with SPO2 saturations trending in mid 90s -repeat chest XR with reported wet cough: 11/10 persistent but improved basilar atelectasis and small right pleural effusion -Continues into spirometry Low suspicion for ongoing infection No wheezing on bedside assessment 11/16 #Hyperactive Delirium/Dysregulated Sleep-Wake Cycle -in setting of continued monitored lengthy hospital stay with no neurological deficits (noted agitation mostly at night) Alert and oriented morning of 11/16. Some intermittent confusion reported overnight. Delirium precautions, windows open during the day -reported visual hallucinations per nursing staff possibly related to IV Dilaudid (Dilaudid WIRE STRIPPER d/c'ed 11/14) -Continue quetiapine 50 mg at bedtime as needed -Melatonin 3mg at 1900 #Post Op Anemia -without s/s of bleeding -Fe studies with low transferrin % sat, ferritin normal, possibly inflammatory and chronic YAN -Venofer 200mg IV was given -Hemoglobin uptrending 9.2 Trend daily #Atrial Fibrillation with RVR likely chronic|Pulmonary Congestion 2/2 to Aortic Regurgitation -Echo 08/28: normal EF, moderate to severe AR -overnight tele readings NSR, bigeminy 90s -oral atenolol -consider amiodarone if development of persistent AF -in setting of surgical status holding traditional AC -continue Lovenox 40mg daily #Hypokalemia, resolved -trend BMP -will monitor #VANESSA, resolved -Cr 0.87 -Follow BMP #Nicotine dependence -Was on buccal nicotine -on nicotine patch -No s/o nicotine withdrawal #BPH -d/c Crow -Flomax Dispo: Progress to MSO DVT prophylaxis: lovenox 40mg daily Diet: full liquids Admission and Anticipated Discharge Date Admission Date: October 25, 2024 Subjective Was seen at the bedside this morning. He reports he feels about the same. I have brought his lunch but he has difficulty sitting up to the tray, would prefer to be assisted to bedside chair to try lunch. Nursing aware and waiting for aide to help him to chair. No fevers chills or sweats. Has not noticed a change in output from his ostomy. Discussed nursing staff overnight slightly intermittently confused at if he was in the same room, some concerns for waxing and waning delirium. He is oriented x 4 this morning. Windows open and delirium precautions discussed. Agitation appears improved compared to when he pulled out his PICC line. Hallucinations this morning, agitation improved per discussion. Physical Exam Physical Exam: General: A&Ox3. NAD. Cooperative. Laying in bed at time of visit HEENT: Atraumatic, normocephalic. Vision and hearing grossly intact Pulm: Slightly diminished but grossly CTAB A&P. -wheezes, -rales, -rhonchi. Symmetrical chest rise. No increase in work of breathing. No respiratory distress. Cardiac: RRR, -mrg. Radial pulses intact and symmetrical. Abdominal: Normal dressings intact with some midline staining, mostly sanguinous. Underlying abdominal incision intact without dehiscence and retention sutures intact. Incisions remain with some pinkness ostomy intact with brown output, nonbloody. Abdomen is nontender to palpation and soft. No rigidity/guarding Results & Data Results & Data Vital Signs (Past 12 Hours) Vital Signs Temp Pulse Resp BP BP Pulse Ox O2 Del Method 11/16/24 08:07 36.4 C L 80 19 134/80 94 Nasal Cannula 11/16/24 07:10 Nasal Cannula 11/16/24 03:55 36.5 C 82 20 114/75 91 Nasal Cannula O2 Flow Rate 11/16/24 08:07 1.0 11/16/24 07:10 1 11/16/24 03:55 1 PG Care Time/CCT Total # of Minutes Spent Total Time Spent with Patient: Total time spent is greater than 50% in coordination of care (as documented) at patient's floor/unit and/or counseling patient: Coding Level of Care Code 73997 SUB INP/OBS CARE 3/50MIN Diagnoses Bowel perforation K63.1 Sepsis A41.9 Sepsis type: sepsis due to unspecified organism Severe sepsis acute organ dysfunction type: unspecified Severe sepsis shock status: without septic shock Peritonitis K65.9 Diverticulitis K57.92 Cigarette nicotine dependence F17.210 GERD with esophagitis K21.00 Aortic insufficiency I35.1 Felix esophagus K22.70 (2) Sepsis Sepsis type: sepsis due to unspecified organism Severe sepsis acute organ dysfunction type: unspecified Severe sepsis shock status: without septic shock"
--- NOTE | 2024-11-16 15:00 | Surgery Progress Note ---
Date of Service November 16, 2024 Assessment & Plan (1) Perioperative dehiscence of abdominal wound with evisceration: Plan: POD # 111 ex lap, repair of 2nd incision dehiscence with external retention sutures afebrile vss Hgb slight drop to 7.8 but hemodynamically stable abdomen soft, good ostomy output, tolerating diet advancement edema and erythema at retention suture sites, expected midline incision without abscess ? pneumonia Plan: Continue IV abx per ID recommendations continue low fiber diet, can stop TPN orders Continue pain management OOB to chair and aggressive PT aggressive pulmonary toilet SCDs/lovenox continue medical management case management to help with discharge planning need to increase activity to help with postop ileus as well as Crow removal Admission and Anticipated Discharge Date Admission Date: October 25, 2024 Subjective doing well. No complaints today. Physical Exam Physical Exam: NAD, A&O x 3 abdomen soft, nontender, nondistended Incision healing well with retention sutures Ostomy with gas and stool in the bag Results & Data Vital Signs (Past 12 Hours) Vital Signs Temp Pulse Resp BP BP Pulse Ox O2 Del Method 11/16/24 12:15 36.8 C 81 18 109/73 93 Room Air 11/16/24 08:07 36.4 C L 80 19 134/80 94 Nasal Cannula 11/16/24 07:10 Nasal Cannula 11/16/24 03:55 36.5 C 82 20 114/75 91 Nasal Cannula O2 Flow Rate 11/16/24 12:15 11/16/24 08:07 1.0 11/16/24 07:10 1 11/16/24 03:55 1 (1) Perioperative dehiscence of abdominal wound with evisceration Encounter type: subsequent encounter Qualified Code(s): T81.321D - Disruption or dehiscence of closure of internal operation (surgical) wound of abdominal wall muscle or fascia, subsequent encounter
[2024-11-17 06:01] LABS: Hematocrit (blood only) 26.1 % (42.0-52.0); Hemoglobin 8.1 g/dl (14.0-18.0); Immature Granulocytes # (auto) 0.97 K/uL (0.01-0.20); Immature Granulocytes % (auto) 5.0 %; Mean Corpuscular Hemoglobin 28.6 pg (25.0-34.0); Mean Corpuscular Volume 92.2 fL (80.0-100.0); Platelet Count 460 K/uL (130-400); RDW Standard Deviation 46.3 fL (36.4-46.3); Red Blood Count 2.83 M/uL (4.70-6.10); White Blood Count 19.24 K/ul (4.8-10.8)
[2024-11-17 06:15] LABS: Anion Gap 5.0 (3-11); Blood Urea Nitrogen 10.0 mg/dl (6-23); Calcium 7.8 mg/dl (8.6-10.3); Carbon Dioxide 31.0 mmol/L (21-32); Chloride 105.0 mmol/L (98-107); Creatinine Clr Calc Pharmacy 72.8 ml/min; Glucose 113.0 mg/dl (70-99(Fasting)); Magnesium 1.8 mg/dl (1.7-2.4); Potassium 3.1 mmol/L (3.5-5.1); Sodium 141.0 mmol/L (136-145)
--- NOTE | 2024-11-17 07:44 | Hospitalist Progress Note ---
"Date of Service November 17, 2024 Assessment & Plan (1) Bowel perforation: (2) Sepsis: (3) Peritonitis: (4) Diverticulitis: (5) Cigarette nicotine dependence: (6) GERD with esophagitis: (7) Aortic insufficiency: (8) Felix esophagus: Plan Mr. Rivera is 74 yo male with history of HTN, dyslipidemia, GERD, aortic insufficiency, felix's esophagus, presented to ED with acute onset of generalized abdominal pain with distention, subsequently found to have perforated diverticulitis, and underwent laparotomy sigmoid colon with diverting colostomy (10/25) for perforated diverticulitis. On presentation to ED he met SIRS criteria, blood pressure was persistently low despite fluid management. He was hypotensive at OR as well. Post operatively was shifted to ICU and required on Levophed infusion. Pain seems optimized on IV med. Zosyn and caspofungin coverage for infection ongoing being managed by ID. #S/P Laparotomy with colostomy|Bowel Perforation|Ileus S/p laparotomy and closure of fascia with retention sutures 11/05/2024 after abdominal wall dehiscence S/p expiratory laparotomy, abdominal washout and closure 10/31/2024 of abdominal wall after midline incision dehiscence 10/25/2024 s/p ex lap, sigmoid resection, diverting ostomy placement 2/2 diverticulitis with perforation Leukocytosis gradually downtrending 16.58 on 11/16, slight uptrend 11/17 Course complicated by postop ileus, pneumonia versus atelectasis noted on 11/14. ID consulted. Zosyn started 10/25, continue to current. Vancomycin adjunct added 11/14, continued current. Recommended to continue bank/Zosyn through 11/21 for SSTI at surgical incision sites Caspofungin was given 10/28 - 11/15, discontinued on day 11 with no signs of active ongoing abdominal infection and Po source control. Appreciate ID recommendations consultation Continue out of bed as tolerated Will need transition to rehab on discharge Clinically progressing 11/16. Hemodynamically stable overnight. Good ostomy output. Tolerating diet. Net output 1750 cc via catheter last 24 hours as of morning of 11/16. No arrhythmia or critical electrolyte derangements. Mild hypokalemia which is repleted. Stable for downgrade to MSO 11/17 continues to have good UOP, good ostomy output. Potassium/calcium repleted.Slight uptrend in leukocytosis, clinically afebrile. - ~1.5cm retraction of epidermal layer lateral/left to umbilicus. This looks similar to prior although is slightly more prominent due to positioning today . nursing updated. Surgery aware #Hypoxia|COPD -hypertonic saline, albuterol nebs q6hrs -not on home oxygen therapy, on room air and nasal cannula @ 2LPM with SPO2 saturations trending in mid 90s -repeat chest XR with reported wet cough: 11/10 persistent but improved basilar atelectasis and small right pleural effusion -Continue incentive spirometry Low suspicion for ongoing infection No wheezing on bedside assessment 11/16 Weaned to room air, 90% on room air on 11/07 #Hyperactive Delirium/Dysregulated Sleep-Wake Cycle -in setting of continued monitored lengthy hospital stay with no neurological deficits (noted agitation mostly at night) Continue delirium precautions, shades open/lights up during the day. Out of bed to chair as much as possible during the day -reported visual hallucinations per nursing staff possibly related to IV Dilaudid (Dilaudid GUARD CHIEF d/c'ed 11/14) -Continue quetiapine 50 mg at bedtime as needed -Melatonin 3mg at 1900 #Post Op Anemia -without s/s of bleeding -Fe studies with low transferrin % sat, ferritin normal, possibly inflammatory and chronic YAN -Venofer 200mg IV was given 11/15, second dose given 11/07 -Hemoglobin uptrending 9.2 Trend daily #Atrial Fibrillation with RVR likely chronic|Pulmonary Congestion 2/2 to Aortic Regurgitation -Echo 08/28: normal EF, moderate to severe AR -overnight tele readings NSR, bigeminy 90s -oral atenolol -consider amiodarone if development of persistent AF -in setting of surgical status holding traditional AC -continue Lovenox 40mg daily #Hypokalemia, resolved -trend BMP -will monitor #VANESSA, resolved -Cr 0.87 -Follow BMP #Nicotine dependence -Was on buccal nicotine -on nicotine patch -No s/o nicotine withdrawal #BPH -d/c Crow -Flomax Dispo: Progress to MSO DVT prophylaxis: lovenox 40mg daily Diet: full liquids Admission and Anticipated Discharge Date Admission Date: October 25, 2024 Subjective Lele reports he feels well, and is surprised by how much better he feels today At a full breakfast No pain No fevers/chills Ostomy output steady, brown No chest pain or chest pressure Physical Exam Physical Exam: General: A&Ox3. NAD. Cooperative. Laying in bed at time of visit HEENT: Atraumatic, normocephalic. Vision and hearing grossly intact Pulm: Slightly diminished but grossly CTAB A&P. -wheezes, -rales, -rhonchi. Symmetrical chest rise. No increase in work of breathing. No respiratory distress. Cardiac: RRR, -mrg. Radial pulses intact and symmetrical. Abdominal: Normal dressings intact with some midline staining, mostly sanguinous. Underlying abdominal incision w/ retention sutures intact. Some retraction about 1.5cm of skin line lateral/left of umbilicus. Incisions remain with some pinkness ostomy intact with brown output, nonbloody. Abdomen is nontender to palpation and soft. No rigidity/guarding Results & Data Results & Data Vital Signs (Past 12 Hours) Vital Signs Temp Pulse Resp BP BP Pulse Ox O2 Del Method 11/17/24 07:19 36.4 C L 81 18 129/75 90 Room Air 11/16/24 20:45 36.6 C 80 16 113/63 92 Nasal Cannula O2 Flow Rate 11/17/24 07:19 11/16/24 20:45 1 PG Care Time/CCT Total # of Minutes Spent Total Time Spent with Patient: Total time spent is greater than 50% in coordination of care (as documented) at patient's floor/unit and/or counseling patient: Coding Level of Care Code 17333 SUB INP/OBS CARE 3/50MIN Diagnoses Bowel perforation K63.1 Sepsis A41.9 Sepsis type: sepsis due to unspecified organism Severe sepsis acute organ dysfunction type: unspecified Severe sepsis shock status: without septic shock Peritonitis K65.9 Diverticulitis K57.92 Cigarette nicotine dependence F17.210 GERD with esophagitis K21.00 Aortic insufficiency I35.1 Felix esophagus K22.70 (2) Sepsis Sepsis type: sepsis due to unspecified organism Severe sepsis acute organ dysfunction type: unspecified Severe sepsis shock status: without septic shock"
[2024-11-17] MEDS: IRON SUCROSE 200 MG in SODIUM CHLORIDE 0.9% 100 ML IV ONE (09:12)
[2024-11-17] MEDS: CALCIUM GLUCONATE 1,000 MG/60 ML BAG IV STA (09:12)
[2024-11-17] MEDS: POTASSIUM CHLORIDE CRTAB 20 MEQ TABCR PO STA (09:12)
--- NOTE | 2024-11-17 10:57 | Surgery Progress Note ---
Date of Service November 17, 2024 Assessment & Plan (1) Perioperative dehiscence of abdominal wound with evisceration: Plan: POD # 12 ex lap, repair of 2nd incision dehiscence with external retention sutures afebrile vss Hgb slight drop to 7.8 but hemodynamically stable abdomen soft, good ostomy output, tolerating diet advancement edema and erythema at retention suture sites, expected midline incision without abscess ? pneumonia Plan: Continue IV abx per ID recommendations continue low fiber diet, can stop TPN orders Continue pain management OOB to chair and aggressive PT aggressive pulmonary toilet SCDs/lovenox continue medical management case management to help with discharge planning need to increase activity to help with postop ileus as well as Crow removal Admission and Anticipated Discharge Date Admission Date: October 25, 2024 Subjective doing well, tolerating food, slightly confused Physical Exam Physical Exam: NAD, A&O x 3 abdomen soft, nontender, nondistended Incision healing well with retention sutures Ostomy with gas and stool in the bag Results & Data Vital Signs (Past 12 Hours) Vital Signs Temp Pulse Resp BP Pulse Ox O2 Del Method 11/17/24 10:06 36.6 C 80 18 121/72 91 Room Air 11/17/24 09:50 36.4 C L 80 18 118/73 91 Room Air 11/17/24 09:34 36.3 C L 82 20 128/65 92 Room Air 11/17/24 07:19 36.4 C L 81 18 129/75 90 Room Air (1) Perioperative dehiscence of abdominal wound with evisceration Encounter type: subsequent encounter Qualified Code(s): T81.321D - Disruption or dehiscence of closure of internal operation (surgical) wound of abdominal wall muscle or fascia, subsequent encounter
[2024-11-17] MEDS: INFLUENZA VACC TS2025-26(65y+)/PF (IIV3) 0.5mL Syr IM ONE (16:12)
[2024-11-17] MEDS: POTASSIUM CHLORIDE CRTAB 20 MEQ TABCR PO SCH (20:02)
[2024-11-18 06:01] LABS: Hematocrit (blood only) 28.8 % (42.0-52.0); Hemoglobin 8.7 g/dl (14.0-18.0); Immature Granulocytes # (auto) 0.76 K/uL (0.01-0.20); Immature Granulocytes % (auto) 4.1 %; Mean Corpuscular Hemoglobin 27.9 pg (25.0-34.0); Mean Corpuscular Volume 92.3 fL (80.0-100.0); Platelet Count 468 K/uL (130-400); RDW Standard Deviation 46.9 fL (36.4-46.3); Red Blood Count 3.12 M/uL (4.70-6.10); White Blood Count 18.48 K/ul (4.8-10.8)
[2024-11-18 06:17] LABS: Anion Gap 6.0 (3-11); Blood Urea Nitrogen 9.0 mg/dl (6-23); Calcium 8.1 mg/dl (8.6-10.3); Carbon Dioxide 31.0 mmol/L (21-32); Chloride 103.0 mmol/L (98-107); Creatinine Clr Calc Pharmacy 66.4 ml/min; Glucose 122.0 mg/dl (70-99(Fasting)); Potassium 3.5 mmol/L (3.5-5.1); Sodium 140.0 mmol/L (136-145)
--- NOTE | 2024-11-18 08:30 | Surgery Progress Note ---
Date of Service November 18, 2024 Assessment & Plan (1) Bowel perforation: Plan: IV abx for pneumonia per medicine doing better with po grant out per medicine PT/OT placemant soon Admission and Anticipated Discharge Date Admission Date: October 25, 2024 Subjective alert no complaints some productive cough Review of Systems Constitutional: no fever and no chills Respiratory: + cough; no dyspnea Cardiovascular: no chest pain Gastrointestinal: no abdominal pain, no nausea and no vomiting Neurologic: + generalized weakness Psychiatric: no behavioral changes Physical Exam Constitutional: WD/WN, vitals as above Respiratory: normal respiratory effort Cardiovascular: Rate/Rhythm: regular rate and regular rhythm Gastrointestinal (Abdomen): Inspection/Auscultation: abdomen not distended ostomy working well Musculoskeletal: Head/Neck/Chest: normocephalic and head atraumatic Skin: no rashes, warm and dry Results & Data Vital Signs (Past 12 Hours) Vital Signs Temp Pulse Resp BP BP Pulse Ox O2 Del Method 11/18/24 08:11 88 124/78 93 Room Air 11/18/24 07:54 36.5 C 75 16 139/63 92 Room Air 11/17/24 23:33 36.6 C 78 16 138/77 93 Room Air
--- NOTE | 2024-11-18 12:58 | Pharmacy Report ---
Pharmacy PK ABX Note - Date of Service November 18, 2024 - Assessment and Plan Assessment 11/18 * Vancomycin random level came back at ~15.8 mcg/ml this AM, dosing estimated to achieve goal AUC/CONCEPCION therefore will continue current regimen 11/15: * 74 year old M receiving caspofungin, and piperacillin/tazobactam for treatment of peritonitis. Vancomycin was added on 11/14 for cellulitis around the incision site. Pertinent microbiologic data includes: no relevant culture data for cellulitis. * WBC decreased to 17.2 * SCr 0.87 (seems to be around baseline) - CrCl 71.8 ml/min Plan Vancomycin * Continue 750 mg iv q 12 hours Pharmacy will continue to follow and will adjust dose/frequency as necessary. Thank you. Pharmacy has transitioned to AUC monitoring for vancomycin. AUC/CONCEPCION is the preferred PK/PD target and is associated with decreased risk of nephrotoxicity compared to traditional trough targets.
--- NOTE | 2024-11-18 14:33 | Hospitalist Progress Note ---
"Date of Service November 18, 2024 Assessment & Plan (1) Bowel perforation: (2) Sepsis: (3) Peritonitis: (4) Diverticulitis: (5) Cigarette nicotine dependence: (6) GERD with esophagitis: (7) Aortic insufficiency: (8) Felix esophagus: Plan Mr. Rivera is 74 yo male with history of HTN, dyslipidemia, GERD, aortic insufficiency, felix's esophagus, presented to ED with acute onset of generalized abdominal pain with distention, subsequently found to have perforated diverticulitis, and underwent laparotomy sigmoid colon with diverting colostomy (10/25) for perforated diverticulitis. On presentation to ED he met SIRS criteria, blood pressure was persistently low despite fluid management. He was hypotensive at OR as well. Post operatively was shifted to ICU and required on Levophed infusion. Pain seems optimized on IV med. Zosyn and caspofungin coverage for infection ongoing being managed by ID. #S/P Laparotomy with colostomy|Bowel Perforation|Ileus S/p laparotomy and closure of fascia with retention sutures 11/05/2024 after abdominal wall dehiscence S/p expiratory laparotomy, abdominal washout and closure 10/31/2024 of abdominal wall after midline incision dehiscence 10/25/2024 s/p ex lap, sigmoid resection, diverting ostomy placement 2/2 diverticulitis with perforation -Leukocytosis gradually downtrending 16.58 on 11/16, slight uptrend 11/17, downtrend 11/18 Course complicated by postop ileus, pneumonia versus atelectasis noted on 11/14 ID consulted Zosyn started 10/25, continue to current. Vancomycin added 11/14, continued current. Recommended to continue bank/Zosyn through 11/21 for SSTI at surgical incision sites Caspofungin was given 10/28-11/15, discontinued on day 11 with no signs of active ongoing abdominal infection, ID remains on consult Continue out of bed as tolerated Will need transition to rehab on discharge #Hypoxia|COPD -hypertonic saline, albuterol nebs q6hrs -repeat chest XR with reported wet cough: 11/10 persistent but improved basilar atelectasis and small right pleural effusion Low suspicion for ongoing infection Weaned to room air, SPO2 trending in low 90s -encouraged use of incentive spirometer and flutter valve #Hyperactive Delirium/Dysregulated Sleep-Wake Cycle -in setting of continued monitored lengthy hospital stay with no neurological deficits (noted agitation mostly at night) -reported visual hallucinations per nursing staff possibly related to IV Dilaudid (Dilaudid MEDICAL ASST d/c'ed 11/14) -no hallucinations since discontinuation of Dilaudid MEDICAL ASST -Continue quetiapine 50 mg at bedtime as needed -Melatonin 3mg at 1900 #Post Op Anemia -without s/s of bleeding -Fe studies with low transferrin % sat, ferritin normal, possibly inflammatory and chronic YAN -Venofer 200mg IV was given 11/15, second dose given 11/17 -Hemoglobin stable Trend daily #Atrial Fibrillation with RVR likely chronic|Pulmonary Congestion 2/ to Aortic Regurgitation -Echo 08/28: normal EF, moderate to severe AR -overnight tele readings NSR, bigeminy 90s -oral atenolol -consider amiodarone if development of persistent AF -in setting of surgical status holding traditional AC -continue Lovenox 40mg daily #Hypokalemia, resolved -trend BMP #VANESSA, resolved -trend BMP #Nicotine dependence -Was on buccal nicotine -on nicotine patch -No s/o nicotine withdrawal #BPH -d/c Crow -Flomax Dispo: Med-surg status with d/c to rehab DVT prophylaxis: lovenox 40mg daily Diet: low fiber Admission and Anticipated Discharge Date Admission Date: October 25, 2024 Subjective Lying in bed this am. Alert and oriented times three. Reports he is sleeping better. Pain is controlled with oral Tramadol. Eating and drinking well without N/V. Ostomy output with formed, brown stool. States he has had no visual hallucinations. Aware of plan for rehab upon d/c. He is agreeable. Review of Systems Review of Systems: All systems reviewed & are unremarkable except as noted in Subjective Physical Exam Physical Exam: GENERAL APPEARANCE: A&O. Lying comfortably in bed. NAD. SKIN: Normal color without rashes or lesions. Normal turgor. HEENT: Head AT/NC. Buccal mucosa is moist and pink. NECK: No jugular venous distention. No thyroid enlargement. There is no lymphadenopathy. HEART: RRR without m/g/r. LUNGS: Normal inspiratory effort. CTA without w/r/r. ABDOMEN: No guarding or rigidity. Normoactive BS in all four quadrants. Abdomen soft and NT. Midline abdominal incision with dressing present, no drainage. LLQ abdominal ostomy with formed stool, no blood in stool. MSK: No bony gross/deformities throughout. ROM intact. : Crow patent and draining clear, yellow urine. EXTREMITIES: No edema, No peripheral cyanosis. Neuro: CN 2-12 grossly intact. No focal neuro deficits PSYCHIATRIC: Normal affect. Eye contact is good. Speech is normal rate and content. Responses are appropriate. Results & Data Results & Data Vital Signs (Past 12 Hours) Vital Signs Temp Pulse Resp BP BP Pulse Ox O2 Del Method 11/18/24 08:11 88 124/78 93 Room Air 11/18/24 07:54 36.5 C 75 16 139/63 92 Room Air 11/18/24 07:50 Room Air Laboratory Results labs reviewed PG Care Time/CCT Total # of Minutes Spent Total Time Spent with Patient: Total time spent is greater than 50% in coordination of care (as documented) at patient's floor/unit and/or counseling patient: Coding Level of Care Code 41881 SUB INP/OBS CARE 3/50MIN Diagnoses Bowel perforation K63.1 Sepsis A41.9 Sepsis type: sepsis due to unspecified organism Severe sepsis acute organ dysfunction type: unspecified Severe sepsis shock status: without septic shock Peritonitis K65.9 Diverticulitis K57.92 Cigarette nicotine dependence F17.210 GERD with esophagitis K21.00 Aortic insufficiency I35.1 Felix esophagus K22.70 (2) Sepsis Sepsis type: sepsis due to unspecified organism Severe sepsis acute organ dysfunction type: unspecified Severe sepsis shock status: without septic shock"
--- NOTE | 2024-11-18 15:16 | Infectious Disease Progress Nt ---
Date of Service November 18, 2024 Assessment & Plan (1) Bowel perforation: (2) Peritonitis: Plan #Perforated diverticulitis s/p ex lap, bowel resection, colostomy (10/25/24), ex lap repair of dehiscence and abd washout (10/31/24), ex lap repair of recurrent dehiscence and abd washout (11/05/24) #Feculent peritonitis #Pneumonia, treated # Leukocytosis # Possible surgical site cellulitis/SSTI Micro: 10/25 Peritoneal fluid cx: Clostridium perfringens, mod counts of probable in testinal mario. GS GNRs, GPRs, GPCs, yeast Abx: Caspofungin 10/28 - 11/15 Zosyn 10/25 -current Clindamycin 10/27 - 10/28 Vanco IV 11/14-current 74 yo M with HTN, HLD, emphysema, GERD, Crane's esophagus who presented on 10/25 with acute onset of generalized abdominal pain, distension, sweats, found to have perforated diverticulitis s/p ex lap, bowel resection, colostomy (10/25/24). Hospital course c/b pneumonia noted on CT chest 10/29. On presentation, he was afebrile, hypotensive to SBP 80s-90s. Labs showed WBC 13.14. CT A/P with IV contrast showed acute perforated diverticulitis at the distal descending/proximal sigmoid colon with a small amount of scattered free air, and trace free fluid without ascites. Pt started on Zosyn. He was taken for emergent ex lap, bowel resection, colostomy formation. In the OR, there was feculent peritonitis. Intra-op culture obtained of peritoneal fluid. He was admitted to the ICU postoperatively, requiring Levophed. Peritoneal fluid culture growing Clostridium perfringens, and moderate counts of probable intestinal mario. Gram stain with GNRs, GPRs, GPCs, yeast. Clindamycin added 10/27. Weaned off Levophed 10/27. WBC uptrending to 17.59 on 10/28. Discussion: Polymicrobial peritoneal fluid culture including Clostridium perfringens. Zosyn should cover the Clostridium perfringens and other intestinal mario, unless there are resistant organisms. No prior micro data to review. Leukocytosis uptrending and Tmax 37.7 on 10/27--added caspofungin on 9/22 due to yeast seen on gram stain of peritoneal fluid. Also with increased O2 requirement on 10/29, with CT chest showing bilateral pneumonia. Had coughing spell leading to midline incision dehiscence and evisceration, so taken back to OR for ex lap, washout, and abdominal wall closure 10/31. Post op, leukocytosis up to 24 on 11/01/24. Had persistent leukocytosis to mid 20s. KUB 11/02 with concern for SBO--surgery felt more likely ileus. Did have some gas in the ostomy on 11/04. Had recurrent dehiscence, and was taken to the OR on 11/05 for ex lap, repair of recurrent dehiscence, and abdominal washout in which abdomen was irrigated with 1 L with cefazolin. No purulence was seen in the abdominal cavity per surgery note. Continued rising leukocytosis--> 29.18 on 11/07. Unclear etiology, considered C diff but ostomy without output. Reassuring that WBC decreased to 15.44 on 11/08 without intervention. Ostomy still without output. 11/11 WBC went down to 12 but slightly up today to 13.2, afebrile. No output from ostomy. Surgery suggests CTAP. Agree 11/14- WBC up to 20. Abd exam- firm, distended- not tender. Surgical incision sites with erythema. Added IV vanco 11/15 WBC up to 17.19 surgical incisions with erythema wounds with seropurulent drainage, foul smelling.. CTAP without abscess + post op ileus, trace fluis around liver and spleen Recommendations: - Can continue Zosyn and vancomycin for ? SSTI at surgical incision sites, plan fo 7 days ( 11/14-11/21) -Discontinued caspofungin Day 11. No signs of active abdominal infectio, post source control Admission and Anticipated Discharge Date Admission Date: October 25, 2024 Subjective This patient recommendation is based on a telemedicine consult request which was completed asynchronously through chart review and information provided by the primary physician. The patient was not seen or examined today. The evaluation is consultative in nature and all patient care and treatment decisions can either be accepted or rejected by the patient's primary hospital-based treating physician using their own independent medical judgment for their patient. Results & Data Vital Signs (Past 12 Hours) Vital Signs Temp Pulse Resp BP BP Pulse Ox O2 Del Method 11/18/24 08:11 88 124/78 93 Room Air 11/18/24 07:54 36.5 C 75 16 139/63 92 Room Air 11/18/24 07:50 Room Air
--- NOTE | 2024-11-18 15:38 | Infectious Disease Progress Nt ---
Date of Service November 18, 2024 Assessment & Plan (1) Bowel perforation: (2) Peritonitis: Plan #Perforated diverticulitis s/p ex lap, bowel resection, colostomy (10/25/24), ex lap repair of dehiscence and abd washout (10/31/24), ex lap repair of recurrent dehiscence and abd washout (11/05/24) #Feculent peritonitis #Pneumonia, treated # Leukocytosis # Possible surgical site cellulitis/SSTI Micro: 10/25 Peritoneal fluid cx: Clostridium perfringens, mod counts of probable in testinal mario. GS GNRs, GPRs, GPCs, yeast Abx: Caspofungin 10/28 - 11/15 Zosyn 10/25 -current Clindamycin 10/27 - 10/28 Vanco IV 11/14-current 74 yo M with HTN, HLD, emphysema, GERD, Crane's esophagus who presented on 10/25 with acute onset of generalized abdominal pain, distension, sweats, found to have perforated diverticulitis s/p ex lap, bowel resection, colostomy (10/25/24). Hospital course c/b pneumonia noted on CT chest 10/29. On presentation, he was afebrile, hypotensive to SBP 80s-90s. Labs showed WBC 13.14. CT A/P with IV contrast showed acute perforated diverticulitis at the distal descending/proximal sigmoid colon with a small amount of scattered free air, and trace free fluid without ascites. Pt started on Zosyn. He was taken for emergent ex lap, bowel resection, colostomy formation. In the OR, there was feculent peritonitis. Intra-op culture obtained of peritoneal fluid. He was admitted to the ICU postoperatively, requiring Levophed. Peritoneal fluid culture growing Clostridium perfringens, and moderate counts of probable intestinal mario. Gram stain with GNRs, GPRs, GPCs, yeast. Clindamycin added 10/27. Weaned off Levophed 10/27. WBC uptrending to 17.59 on 10/28. Discussion: Polymicrobial peritoneal fluid culture including Clostridium perfringens. Zosyn should cover the Clostridium perfringens and other intestinal mario, unless there are resistant organisms. No prior micro data to review. Leukocytosis uptrending and Tmax 37.7 on 10/27--added caspofungin on 9/22 due to yeast seen on gram stain of peritoneal fluid. Also with increased O2 requirement on 10/29, with CT chest showing bilateral pneumonia. Had coughing spell leading to midline incision dehiscence and evisceration, so taken back to OR for ex lap, washout, and abdominal wall closure 10/31. Post op, leukocytosis up to 24 on 11/01/24. Had persistent leukocytosis to mid 20s. KUB 11/02 with concern for SBO--surgery felt more likely ileus. Did have some gas in the ostomy on 11/04. Had recurrent dehiscence, and was taken to the OR on 11/05 for ex lap, repair of recurrent dehiscence, and abdominal washout in which abdomen was irrigated with 1 L with cefazolin. No purulence was seen in the abdominal cavity per surgery note. Continued rising leukocytosis--> 29.18 on 11/07. Unclear etiology, considered C diff but ostomy without output. Reassuring that WBC decreased to 15.44 on 11/08 without intervention. Ostomy still without output. 11/11 WBC went down to 12 but slightly up today to 13.2, afebrile. No output from ostomy. Surgery suggests CTAP. Agree 11/14- WBC up to 20. Abd exam- firm, distended- not tender. Surgical incision sites with erythema. Added IV vanco 11/15 WBC up to 17.19 surgical incisions with erythema wounds with seropurulent drainage, foul smelling. CTAP without abscess + post op ileus, trace fluis around liver and spleen 11/18 weekend events noted WBc up to 18.48 Recommendations: - Can continue Zosyn and vancomycin for ? SSTI at surgical incision sites, plan fo 7 days ( 11/14-11/21) . ID will continue to follow. Abdi Jack MD, MPH Infectious Disease [facility] Call [phone] with questions Admission and Anticipated Discharge Date Admission Date: October 25, 2024 Subjective This patient recommendation is based on a telemedicine consult request which was completed asynchronously through chart review and information provided by the primary physician. The patient was not seen or examined today. The evaluation is consultative in nature and all patient care and treatment decisions can either be accepted or rejected by the patient's primary hospital-based treating physician using their own independent medical judgment for their patient. Time Spent Reviewing Chart: - minutes WBC up to 18.48 Results & Data Vital Signs (Past 12 Hours) Vital Signs Temp Pulse Resp BP BP Pulse Ox O2 Del Method 11/18/24 15:23 36.4 C L 73 16 101/63 91 Room Air 11/18/24 08:11 88 124/78 93 Room Air 11/18/24 07:54 36.5 C 75 16 139/63 92 Room Air 11/18/24 07:50 Room Air Laboratory Results 11/18/24 11/18/24 09:00 05:27 WBC 18.48 H RBC 3.12 L Hgb 8.7 L Hct 28.8 L MCV 92.3 MCH 27.9 MCHC 30.2 L RDW Std Deviation 46.9 H RDW Coeff of Jeanette 14.6 H Plt Count 468 H MPV 9.1 L Immature Gran % (Auto) 4.1 Neut % (Auto) 79.6 Lymph % (Auto) 10.6 Sully % (Auto) 3.6 Eos % (Auto) 1.5 Baso % (Auto) 0.6 Neut # (Auto) 14.70 H Lymph # (Auto) 1.96 Sully # (Auto) 0.67 H Eos # (Auto) 0.28 Baso # (Auto) 0.11 Immature Gran # (Auto) 0.76 H Absolute Nucleated RBC 0.07 Nucleated RBC % (auto) 0.4 Sodium 140 Potassium 3.5 Chloride 103 Carbon Dioxide 31 Anion Gap 6 BUN 9 Creatinine 1.03 Est Cr Clr Drug Dosing 66.4 eGFR 77.18 BUN/Creatinine Ratio 8.7 L Glucose 122 H Calcium 8.1 L Random Vancomycin 15.8 Medications Administered Home Medications Medication Instructions Recorded Confirmed Last Taken aspirin 81 mg tablet,delayed 81 mg PO QAM 10/04/18 10/26/24 1 Day Ago release (Quentin Low Dose Aspirin) ~10/25/24 1 acetaminophen 500 mg tablet 1,300 mg PO BID 02/07/19 10/26/24 1 Day Ago ~10/25/24 1300 cholecalciferol (vitamin D3) 50 2,000 unit PO BID 07/23/20 10/26/24 1 Day Ago mcg (2,000 unit) capsule ~10/25/24 1 diclofenac sodium 1 % topical gel 4 g topical UD PRN Pain #100 grams 10/19/23 10/26/24 Unknown amlodipine 5 mg tablet 5 mg PO QAM #90 tabs 02/14/24 10/26/24 1 Day Ago ~10/25/24 1 pantoprazole 40 mg tablet,delayed 40 mg PO BID #180 tabs 03/25/24 10/26/24 1 Day Ago release ~10/25/24 rosuvastatin 20 mg tablet 20 mg PO QAM #90 tabs 04/01/24 10/26/24 1 Day Ago ~10/25/24 nicotine (polacrilex) 4 mg buccal 4 mg buccal Q4H PRN nicotine 05/27/24 10/26/24 Unknown lozenge cravings #108 ea tamsulosin 0.4 mg capsule 0.4 mg PO DAILY #90 caps 05/27/24 10/26/24 1 Day Ago ~10/25/24 albuterol sulfate 90 mcg/actuation 1 puff inhalation Q6H PRN 06/25/24 10/26/24 2 Days Ago aerosol inhaler (Ventolin HFA) shortness of breath or wheezing ~10/24/24 #18 grams 1 atenolol 50 mg-chlorthalidone 25 0.5 tab PO QAM #45 tabs 09/27/24 10/26/24 1 Day Ago mg tablet ~10/25/24 1 potassium chloride 10 mEq 10 meq PO BID #180 tabs 09/27/24 10/26/24 1 Day Ago tablet,extended release ~10/25/24 famotidine 40 mg tablet 40 mg PO BID #180 tabs 10/18/24 10/26/24 1 Day Ago ~10/25/24 1 Active Medications Generic Name Dose Route Start Last Admin Trade Name Freq PRN Reason Stop Dose Admin Acetaminophen 1,000 mg 11/14/24 14:30 11/18/24 05:15 Acetaminophen 500 Mg Tab PO 12/14/24 14:29 1,000 mg Q8H PRN Administration Pain or Fever Atenolol 25 mg 11/13/24 15:45 11/18/24 08:14 Atenolol 25 Mg Tablet PO 12/13/24 15:44 25 mg QAM CHRISTOPHER Administration Chlorthalidone 12.5 mg 11/13/24 15:45 11/18/24 08:14 Chlorthalidone 25 Mg Tab PO 12/13/24 15:44 12.5 mg QAM CHRISTOPHER Administration Diclofenac Sodium 4 gm 11/04/24 15:30 11/18/24 08:15 Diclofenac Sod 1% Gel 100 Gm Tube EXT 12/04/24 15:29 4 gm Q6H CHRISTOPHER Administration Protocol Enoxaparin Sodium 40 mg 10/27/24 09:00 11/18/24 08:13 Enoxaparin Inj 40 Mg/0.4 Ml Syr SQ 11/26/24 08:59 40 mg QAM CHRISTOPHER Administration Famotidine 20 mg in 5 mls @ 2.5 mls/min 10/26/24 06:30 11/18/24 08:32 Pepcid 20mg Iv Push IV 11/25/24 06:29 2.5 mls/min BID CHRISTOPHER Administration Piperacillin Sod/Tazobactam Sod 4.5 gm in 100 mls @ 25 mls/hr 11/01/24 17:00 11/18/24 12:28 Zosyn IV 11/22/24 16:59 Infused Q8H CHRISTOPHER Infusion Protocol Pantoprazole Sodium 40 mg in 10 mls @ 5 mls/min 11/02/24 12:00 11/18/24 08:16 Protonix IV 12/02/24 11:59 5 mls/min BID CHRISTOPHER Administration Vancomycin HCl 750 mg/ Sodium 265 mls @ 200 mls/hr 11/15/24 01:00 11/18/24 13:57 Chloride IV 11/22/24 00:59 Infused Q12H CHRISTOPHER Infusion Magnesium Oxide 400 mg 11/16/24 09:00 11/18/24 08:14 Magnesium Oxide 400 Mg Tab PO 12/16/24 08:59 400 mg QAM CHRISTOPHER Administration Melatonin 3 mg 11/14/24 19:00 11/17/24 19:40 Melatonin 3 Mg Tab PO 12/14/24 18:59 3 mg DAILY@1900 CHRISTOPHER Administration Menthol 1 adriel 10/26/24 08:49 10/26/24 09:30 Cough Drop (Sugar Free) Adriel 24 Adriel/1 Box BUCCAL 11/25/24 08:48 1 adriel Q2H PRN Administration Sore Throat Miscellaneous 1 each 10/27/24 08:59 11/18/24 08:14 Remove Nicoderm Patch N/A 11/26/24 08:58 1 each DAILY@[id number] CHRISTOPHER Administration Nicotine 1 patch 10/26/24 14:00 11/18/24 08:13 Nicotine 14 Mg/24 Hr Patch TD 11/25/24 13:59 1 patch QAM CHRISTOPHER Administration Ondansetron HCl 4 mg 10/25/24 20:18 11/18/24 10:12 Ondansetron Inj 2 Mg/Ml 2 Ml Vial IV 11/24/24 20:17 4 mg Q6H PRN Administration Nausea And Vomiting Phenol 1 sprays 11/01/24 16:38 11/11/24 12:36 Chloraseptic (Phenol) 1.4% Soln 180 Ml Btl MT 12/01/24 16:37 1 sprays Q1H PRN Administration Cough Potassium Chloride 20 meq 11/17/24 21:00 11/18/24 08:32 Potassium Chloride Crtab 20 Meq Tabcr PO 12/17/24 20:59 20 meq BID CHRISTOPHER Administration Rosuvastatin Calcium 20 mg 11/14/24 09:00 11/18/24 08:13 Rosuvastatin Calcium 20 Mg Tab PO 12/14/24 08:59 20 mg QAM CHRISTOPHER Administration Tamsulosin HCl 0.4 mg 11/14/24 09:00 11/18/24 08:32 Tamsulosin Hcl 0.4 Mg Cap PO 12/14/24 08:59 0.4 mg DAILY CHRISTOPHER Administration Tramadol HCl 50 mg 11/14/24 14:30 11/18/24 10:11 Tramadol Hcl 50 Mg Tablet PO 12/14/24 14:29 50 mg Q4H PRN Administration Severe Pain (Scale 7, 8, 9,10)
[2024-11-19 06:30] LABS: Hematocrit (blood only) 28.2 % (42.0-52.0); Hemoglobin 8.5 g/dl (14.0-18.0); Immature Granulocytes # (auto) 0.46 K/uL (0.01-0.20); Immature Granulocytes % (auto) 2.7 %; Mean Corpuscular Hemoglobin 28.1 pg (25.0-34.0); Mean Corpuscular Volume 93.1 fL (80.0-100.0); Platelet Count 392 K/uL (130-400); RDW Standard Deviation 48.9 fL (36.4-46.3); Red Blood Count 3.03 M/uL (4.70-6.10); White Blood Count 17.25 K/ul (4.8-10.8)
[2024-11-19 06:45] LABS: Alanine Aminotransferase 27.0 U/L (7-52); Alkaline Phosphatase 63.0 U/L (34-104); Anion Gap 6.0 (3-11); Bilirubin,Total 0.5 mg/dl (0.2-1.0); Blood Urea Nitrogen 9.0 mg/dl (6-23); Calcium 8.1 mg/dl (8.6-10.3); Carbon Dioxide 32.0 mmol/L (21-32); Chloride 103.0 mmol/L (98-107); Creatinine Clr Calc Pharmacy 64.5 ml/min; Glucose 97.0 mg/dl (70-99(Fasting)); Potassium 3.9 mmol/L (3.5-5.1); Sodium 141.0 mmol/L (136-145)
--- NOTE | 2024-11-19 08:15 | Surgery Progress Note ---
Date of Service November 19, 2024 Assessment & Plan (1) Bowel perforation: Plan: great progress eating well grant out per medicine placement Admission and Anticipated Discharge Date Admission Date: October 25, 2024 Subjective no complaints doing well no SOB ambulating Review of Systems Constitutional: no fever and no chills Respiratory: no dyspnea Cardiovascular: no chest pain Gastrointestinal: no abdominal pain Neurologic: + generalized weakness Psychiatric: no behavioral changes Physical Exam Constitutional: WD/WN, vitals as above Respiratory: normal respiratory effort Cardiovascular: Rate/Rhythm: regular rate and regular rhythm Skin: no rashes, warm and dry Results & Data Vital Signs (Past 12 Hours) Vital Signs Temp Pulse Resp BP Pulse Ox O2 Del Method O2 Flow Rate 11/19/24 07:56 Room Air 11/19/24 07:31 36.8 C 79 16 128/81 92 Room Air 11/18/24 23:16 36.4 C L 76 18 126/71 93 Nasal Cannula 2 11/18/24 20:30 Nasal Cannula 1
--- NOTE | 2024-11-19 11:16 | Infectious Disease Progress Nt ---
Date of Service November 19, 2024 Assessment & Plan (1) Bowel perforation: (2) Peritonitis: Plan #Perforated diverticulitis s/p ex lap, bowel resection, colostomy (10/25/24), ex lap repair of dehiscence and abd washout (10/31/24), ex lap repair of recurrent dehiscence and abd washout (11/05/24) #Feculent peritonitis #Pneumonia, treated # Leukocytosis # Possible surgical site cellulitis/SSTI Micro: 10/25 Peritoneal fluid cx: Clostridium perfringens, mod counts of probable in testinal mario. GS GNRs, GPRs, GPCs, yeast Abx: Caspofungin 10/28 - 11/15 Zosyn 10/25 -current Clindamycin 10/27 - 10/28 Vanco IV 11/14-current 74 yo M with HTN, HLD, emphysema, GERD, Crane's esophagus who presented on 10/25 with acute onset of generalized abdominal pain, distension, sweats, found to have perforated diverticulitis s/p ex lap, bowel resection, colostomy (10/25/24). Hospital course c/b pneumonia noted on CT chest 10/29. On presentation, he was afebrile, hypotensive to SBP 80s-90s. Labs showed WBC 13.14. CT A/P with IV contrast showed acute perforated diverticulitis at the distal descending/proximal sigmoid colon with a small amount of scattered free air, and trace free fluid without ascites. Pt started on Zosyn. He was taken for emergent ex lap, bowel resection, colostomy formation. In the OR, there was feculent peritonitis. Intra-op culture obtained of peritoneal fluid. He was admitted to the ICU postoperatively, requiring Levophed. Peritoneal fluid culture growing Clostridium perfringens, and moderate counts of probable intestinal mario. Gram stain with GNRs, GPRs, GPCs, yeast. Clindamycin added 10/27. Weaned off Levophed 10/27. WBC uptrending to 17.59 on 10/28. Discussion: Polymicrobial peritoneal fluid culture including Clostridium perfringens. Zosyn should cover the Clostridium perfringens and other intestinal mario, unless there are resistant organisms. No prior micro data to review. Leukocytosis uptrending and Tmax 37.7 on 10/27--added caspofungin on 9/22 due to yeast seen on gram stain of peritoneal fluid. Also with increased O2 requirement on 10/29, with CT chest showing bilateral pneumonia. Had coughing spell leading to midline incision dehiscence and evisceration, so taken back to OR for ex lap, washout, and abdominal wall closure 10/31. Post op, leukocytosis up to 24 on 11/01/24. Had persistent leukocytosis to mid 20s. KUB 11/02 with concern for SBO--surgery felt more likely ileus. Did have some gas in the ostomy on 11/04. Had recurrent dehiscence, and was taken to the OR on 11/05 for ex lap, repair of recurrent dehiscence, and abdominal washout in which abdomen was irrigated with 1 L with cefazolin. No purulence was seen in the abdominal cavity per surgery note. Continued rising leukocytosis--> 29.18 on 11/07. Unclear etiology, considered C diff but ostomy without output. Reassuring that WBC decreased to 15.44 on 11/08 without intervention. Ostomy still without output. 11/11 WBC went down to 12 but slightly up today to 13.2, afebrile. No output from ostomy. Surgery suggests CTAP. Agree 11/14- WBC up to 20. Abd exam- firm, distended- not tender. Surgical incision sites with erythema. Added IV vanco 11/15 WBC up to 17.19 surgical incisions with erythema wounds with seropurulent drainage, foul smelling. CTAP without abscess + post op ileus, trace fluis around liver and spleen 11/18 weekend events noted WBc up to 18.48 11/19 WBc 17.25. Has continued drainage from abdominal wounds- drainage if from lower abdominal wound. No longer foul smelling. Erythema improving WBC 17.25 Recommendations: - Can continue Zosyn and vancomycin for ? SSTI at surgical incision sites, plan fo 7 days ( 11/14-11/21) -Ok with obtaining cx from drainage to ensure appropiate abx coverag -Discussed with DEVOPS DEVELOPER ID will continue to follow. Abdi Jack MD, MPH Infectious Disease [facility], [facility] Call [phone] with questions Admission and Anticipated Discharge Date Admission Date: October 25, 2024 Subjective Subsequent visit was provided via telemedicine using two-way real-time interactive telecommunication between the patient and the telemedicine provider. For the duration of the visit, the provider was performing the assessment from a different facility than the patient. This includesuse of bluetooth stethoscope forauscultationperformed by the telepresenter that the telem edicine provider can hear if described in the physical exam. [employer] contact information: Please call [facility] Call Center [phone]. (Phone Number For Physician Use Only) After establishing a telemedicine visit, patient was: Patient was verified with two unique identifiers and Gave permission to continue telehealth session Time Spent with Patient: Subsequent => 25 min Afebrile He has mild ab discomfort Has continued drainage from abdominal wounds WBC 17.25 Physical Exam Physical Exam: Awake, NAD Neck supple Abd- distended, firm, Not tender- ostomy will brown stool. Surgical incisions w ith LESSsurrounding erythema. + seropurulant drainage at bottom incisions. No foul smell today Neuro- Awake, alert oriented time 3 Results & Data Vital Signs (Past 12 Hours) Vital Signs Temp Pulse Resp BP Pulse Ox O2 Del Method 11/19/24 09:14 78 102/65 11/19/24 07:56 Room Air 11/19/24 07:31 36.8 C 79 16 128/81 92 Room Air Laboratory Results Short CBC 11/19/24 Range/Units 05:55 WBC 17.25 H (4.8-10.8) K/ul Hgb 8.5 L (14.0-18.0) g/dl Hct 28.2 L (42.0-52.0) % Plt Count 392 (130-400) K/uL BMP 11/19/24 05:55 Sodium 141 Potassium 3.9 Chloride 103 Carbon Dioxide 32 BUN 9 Creatinine 1.06 Glucose 97 Calcium 8.1 L Liver Function 11/19/24 Range/Units 05:55 Total Bilirubin 0.5 (0.2-1.0) mg/dl AST 20 (13-39) U/L ALT 27 (7-52) U/L Alkaline Phosphatase 63 (34-104) U/L Microbiology 10/25/24 Unknown Peritoneal Fluid Gram Stain - Final 10/25/24 Unknown Peritoneal Fluid Aerobic and Anaerobic Culture - Final Clostridium perfringens Medications Administered Home Medications Medication Instructions Recorded Confirmed Last Taken aspirin 81 mg tablet,delayed 81 mg PO QAM 10/04/18 10/26/24 1 Day Ago release (Quentin Low Dose Aspirin) ~10/25/24 1 acetaminophen 500 mg tablet 1,300 mg PO BID 02/07/19 10/26/24 1 Day Ago ~10/25/24 1300 cholecalciferol (vitamin D3) 50 2,000 unit PO BID 07/23/20 10/26/24 1 Day Ago mcg (2,000 unit) capsule ~10/25/24 1 diclofenac sodium 1 % topical gel 4 g topical UD PRN Pain #100 grams 10/19/23 10/26/24 Unknown amlodipine 5 mg tablet 5 mg PO QAM #90 tabs 02/14/24 10/26/24 1 Day Ago ~10/25/24 1 pantoprazole 40 mg tablet,delayed 40 mg PO BID #180 tabs 03/25/24 10/26/24 1 Day Ago release ~10/25/24 rosuvastatin 20 mg tablet 20 mg PO QAM #90 tabs 04/01/24 10/26/24 1 Day Ago ~10/25/24 nicotine (polacrilex) 4 mg buccal 4 mg buccal Q4H PRN nicotine 05/27/24 10/26/24 Unknown lozenge cravings #108 ea tamsulosin 0.4 mg capsule 0.4 mg PO DAILY #90 caps 05/27/24 10/26/24 1 Day Ago ~10/25/24 albuterol sulfate 90 mcg/actuation 1 puff inhalation Q6H PRN 06/25/24 10/26/24 2 Days Ago aerosol inhaler (Ventolin HFA) shortness of breath or wheezing ~10/24/24 #18 grams 1 atenolol 50 mg-chlorthalidone 25 0.5 tab PO QAM #45 tabs 09/27/24 10/26/24 1 Day Ago mg tablet ~10/25/24 1 potassium chloride 10 mEq 10 meq PO BID #180 tabs 09/27/24 10/26/24 1 Day Ago tablet,extended release ~10/25/24 famotidine 40 mg tablet 40 mg PO BID #180 tabs 10/18/24 10/26/24 1 Day Ago ~10/25/24 1 Active Medications Generic Name Dose Route Start Last Admin Trade Name Freq PRN Reason Stop Dose Admin Acetaminophen 1,000 mg 11/14/24 14:30 11/18/24 05:15 Acetaminophen 500 Mg Tab PO 12/14/24 14:29 1,000 mg Q8H PRN Administration Pain or Fever Atenolol 25 mg 11/13/24 15:45 11/19/24 09:37 Atenolol 25 Mg Tablet PO 12/13/24 15:44 Not Given QAM CHRISTOPHER Chlorthalidone 12.5 mg 11/13/24 15:45 11/19/24 09:37 Chlorthalidone 25 Mg Tab PO 12/13/24 15:44 Not Given QAM CHRISTOPHER Diclofenac Sodium 4 gm 11/04/24 15:30 11/19/24 09:39 Diclofenac Sod 1% Gel 100 Gm Tube EXT 12/04/24 15:29 4 gm Q6H CHRISTOPHER Administration Protocol Enoxaparin Sodium 40 mg 10/27/24 09:00 11/19/24 09:20 Enoxaparin Inj 40 Mg/0.4 Ml Syr SQ 11/26/24 08:59 40 mg QAM CHRISTOPHER Administration Famotidine 20 mg in 5 mls @ 2.5 mls/min 10/26/24 06:30 11/19/24 09:34 Pepcid 20mg Iv Push IV 11/25/24 06:29 2.5 mls/min BID CHRISTOPHER Administration Piperacillin Sod/Tazobactam Sod 4.5 gm in 100 mls @ 25 mls/hr 11/01/24 17:00 11/19/24 09:39 Zosyn IV 11/22/24 16:59 25 mls/hr Q8H CHRISTOPHER Administration Protocol Pantoprazole Sodium 40 mg in 10 mls @ 5 mls/min 11/02/24 12:00 11/19/24 09:26 Protonix IV 12/02/24 11:59 5 mls/min BID CHRISTOPHER Administration Vancomycin HCl 750 mg/ Sodium 265 mls @ 200 mls/hr 11/15/24 01:00 11/19/24 02:20 Chloride IV 11/22/24 00:59 Infused Q12H CHRISTOPHER Infusion Magnesium Oxide 400 mg 11/16/24 09:00 11/19/24 09:17 Magnesium Oxide 400 Mg Tab PO 12/16/24 08:59 400 mg QAM CHRISTOPHER Administration Melatonin 3 mg 11/14/24 19:00 11/18/24 21:28 Melatonin 3 Mg Tab PO 12/14/24 18:59 3 mg DAILY@1900 CHRISTOPHER Administration Menthol 1 adriel 10/26/24 08:49 10/26/24 09:30 Cough Drop (Sugar Free) Adriel 24 Adriel/1 Box BUCCAL 11/25/24 08:48 1 adriel Q2H PRN Administration Sore Throat Miscellaneous 1 each 10/27/24 08:59 11/19/24 09:16 Remove Nicoderm Patch N/A 11/26/24 08:58 Not Given DAILY@0859 [facility] Nicotine 1 patch 10/26/24 14:00 11/19/24 09:16 Nicotine 14 Mg/24 Hr Patch TD 11/25/24 13:59 Not Given QAM [facility] Ondansetron HCl 4 mg 10/25/24 20:18 11/18/24 10:12 Ondansetron Inj 2 Mg/Ml 2 Ml Vial IV 11/24/24 20:17 4 mg Q6H PRN Administration Nausea And Vomiting Phenol 1 sprays 11/01/24 16:38 11/11/24 12:36 Chloraseptic (Phenol) 1.4% Soln 180 Ml Btl MT 12/01/24 16:37 1 sprays Q1H PRN Administration Cough Potassium Chloride 20 meq 11/17/24 21:00 11/19/24 09:46 Potassium Chloride Crtab 20 Meq Tabcr PO 12/17/24 20:59 20 meq BID CHRISTOPHER Administration Rosuvastatin Calcium 20 mg 11/14/24 09:00 11/19/24 09:16 Rosuvastatin Calcium 20 Mg Tab PO 12/14/24 08:59 20 mg QAM CHRISTOPHER Administration Tamsulosin HCl 0.4 mg 11/14/24 09:00 11/19/24 09:17 Tamsulosin Hcl 0.4 Mg Cap PO 12/14/24 08:59 0.4 mg DAILY CHRISTOPHER Administration Tramadol HCl 50 mg 11/14/24 14:30 11/19/24 13:16 Tramadol Hcl 50 Mg Tablet PO 12/14/24 14:29 50 mg Q4H PRN Administration Severe Pain (Scale 7, 8, 9,10)
--- NOTE | 2024-11-19 12:03 | Hospitalist Progress Note ---
"Date of Service November 19, 2024 Assessment & Plan (1) Bowel perforation: (2) Sepsis: (3) Peritonitis: (4) Diverticulitis: (5) Cigarette nicotine dependence: (6) GERD with esophagitis: (7) Aortic insufficiency: (8) Felix esophagus: Plan Mr. Rivera is 74 yo male with history of HTN, dyslipidemia, GERD, aortic insufficiency, felix's esophagus, presented to ED with acute onset of generalized abdominal pain with distention, subsequently found to have perforated diverticulitis, and underwent laparotomy sigmoid colon with diverting colostomy (10/25) for perforated diverticulitis. On presentation to ED he met SIRS criteria, blood pressure was persistently low despite fluid management. He was hypotensive at OR as well. Post operatively was shifted to ICU and required on Levophed infusion. Pain seems optimized on IV med. Zosyn and caspofungin coverage for infection ongoing being managed by ID. #S/P Laparotomy with colostomy|Bowel Perforation|Ileus S/p laparotomy and closure of fascia with retention sutures 11/05/2024 after abdominal wall dehiscence S/p expiratory laparotomy, abdominal washout and closure 10/31/2024 of abdominal wall after midline incision dehiscence 10/25/2024 s/p ex lap, sigmoid resection, diverting ostomy placement 2/ diverticulitis with perforation -Leukocytosis gradually downtrending although still present at 17.25 -Course complicated by postop ileus, pneumonia versus atelectasis noted on 11/14 -ID consulted -Zosyn started 10/25, continue to current. Vancomycin added 11/14, continued current. Recommended to continue bank/Zosyn through 11/21 for SSTI at surgical incision sites Caspofungin was given 10/28-11/15, discontinued on day 11 with no signs of active ongoing abdominal infection, ID remains on consult -midline abdominal incision with malodorous, purulent d/c drainage, wound culture ordered with continued input from ID -Continue out of bed as tolerated -Will need transition to rehab on discharge #Hypoxia|COPD -repeat chest XR with reported wet cough: 11/10 persistent but improved basilar atelectasis and small right pleural effusion Low suspicion for ongoing infection Weaned to room air, SPO2 trending in low 90s -encouraged use of incentive spirometer and flutter valve #Hyperactive Delirium/Dysregulated Sleep-Wake Cycle -in setting of continued monitored lengthy hospital stay with no neurological deficits (noted agitation mostly at night) -reported visual hallucinations per nursing staff possibly related to IV Dilaudid (Dilaudid CRM CONSULTANT d/c'ed 11/14) -no hallucinations since discontinuation of Dilaudid CRM CONSULTANT -Continue quetiapine 50 mg at bedtime as needed -Melatonin 3mg at 1900 #Post Op Anemia -without s/s of bleeding -Fe studies with low transferrin % sat, ferritin normal, possibly inflammatory and chronic YAN -Venofer 200mg IV was given 11/15, second dose given 11/17 -start oral Fe supplement as Hgb remains trending in 8s -Hemoglobin stable Trend daily #Atrial Fibrillation with RVR likely chronic|Pulmonary Congestion / to Aortic Regurgitation -Echo 08/28: normal EF, moderate to severe AR -off tele, regular rate on exam -oral atenolol (held this am due to low BP) -consider amiodarone if development of persistent AF -in setting of surgical status holding traditional AC -continue Lovenox 40mg daily #Hypokalemia, resolved -trend BMP #VANESSA, resolved -trend BMP #Nicotine dependence -Was on buccal nicotine -on nicotine patch -No s/o nicotine withdrawal #BPH -d/c Crow -Flomax ##HTN -low BP this am with reports of dizziness when standing/ambulating with PT -hold atenolol/chlorthalidone this am Dispo: Med-surg status with d/c to rehab DVT prophylaxis: lovenox 40mg daily Diet: low fiber Admission and Anticipated Discharge Date Admission Date: October 25, 2024 Subjective Patient reports feeling well today. although slightly tired. States he walked a fair distance with PT yesterday and it wore him out. His appetite has been good and he feels he is hydrating adequately. He is alert and oriented times three. He denies hallucinations today and slept well last evening. Nursing reports BP slightly soft this am. He was slightly dizzy when up with PT yesterday. Review of Systems Review of Systems: All systems reviewed & are unremarkable except as noted in Subjective Physical Exam Physical Exam: GENERAL APPEARANCE: A&O. Lying comfortably in bed. NAD. SKIN: Normal color without rashes or lesions. Normal turgor. HEENT: Head AT/NC. Buccal mucosa is moist and pink. NECK: No jugular venous distention. No thyroid enlargement. There is no lymphadenopathy. HEART: RRR without m/g/r. LUNGS: Normal inspiratory effort. CTA without w/r/r. ABDOMEN: No guarding or rigidity. Normoactive BS in all four quadrants. Abdomen soft and NT. Midline abdominal incision with purulent, greenish drainage present. LLQ abdominal ostomy with formed stool, no blood in stool. MSK: No bony gross/deformities throughout. ROM intact. : Corw patent and draining clear, yellow urine. EXTREMITIES: No edema, No peripheral cyanosis. Neuro: CN 2-12 grossly intact. No focal neuro deficits PSYCHIATRIC: Normal affect. Eye contact is good. Speech is normal rate and content. Responses are appropriate. Results & Data Results & Data Vital Signs (Past 12 Hours) Vital Signs Temp Pulse Resp BP Pulse Ox O2 Del Method 11/19/24 09:14 78 102/65 11/19/24 07:56 Room Air 11/19/24 07:31 36.8 C 79 16 128/81 92 Room Air PG Care Time/CCT Total # of Minutes Spent Total Time Spent with Patient: Total time spent is greater than 50% in coordination of care (as documented) at patient's floor/unit and/or counseling patient: Coding Level of Care Code 66408 SUB INP/OBS CARE 3/50MIN Diagnoses Bowel perforation K63.1 Sepsis A41.9 Sepsis type: sepsis due to unspecified organism Severe sepsis acute organ dysfunction type: unspecified Severe sepsis shock status: without septic shock Peritonitis K65.9 Diverticulitis K57.92 Cigarette nicotine dependence F17.210 GERD with esophagitis K21.00 Aortic insufficiency I35.1 Felix esophagus K22.70 (2) Sepsis Sepsis type: sepsis due to unspecified organism Severe sepsis acute organ dysfunction type: unspecified Severe sepsis shock status: without septic shock"
[2024-11-19] MEDS: ADVANCED PROBIOTIC 625 MG CAPSULE PO SCH (15:46)
[2024-11-19] MEDS: FERROUS GLUCONATE 324 MG TAB PO SCH (18:30)
--- NOTE | 2024-11-19 20:40 | Communication Note ---
Date of Service: November 19, 2024 I was asked to evaluate the patient earlier this evening as he had acute onset RLQ pain and bloating. When I got up to see the patient his pain was already improving. His abdomen is soft, with mild distention, roselyn incisional discomfort, and some mild ttp in the RLQ. He denies any chest pains/shortness of breath, JUSTICE, dizziness, fevers, nausea/vomiting. He has been tolerating a diet thus far. His ostomy is functioning with + stool in the bag. RN mentioned his stoma looks pale. Tried to assess but there is + stool in the bag and the pouch was fixated in a way the entire appliance would have to be removed to fully. As he appears to be feeling better and has a reassuring exam, I asked staff to have Dr. Courtney evaluate stoma tomorrow if ongoing concerns. Feel it is okay to continue to monitor for now. Patient's WBC is downtrending today, he has no fevers, and ostomy is functioning. Vitals stable outside of some slight hypotension. Continue to monitor closely and please call with any questions/concerns.
[2024-11-20 07:17] LABS: Hematocrit (blood only) 27.0 % (42.0-52.0); Hemoglobin 8.4 g/dl (14.0-18.0); Immature Granulocytes # (auto) 0.30 K/uL (0.01-0.20); Immature Granulocytes % (auto) 1.7 %; Mean Corpuscular Hemoglobin 28.7 pg (25.0-34.0); Mean Corpuscular Volume 92.2 fL (80.0-100.0); Platelet Count 378 K/uL (130-400); RDW Standard Deviation 48.3 fL (36.4-46.3); Red Blood Count 2.93 M/uL (4.70-6.10); White Blood Count 18.02 K/ul (4.8-10.8)
[2024-11-20 07:37] LABS: Creatinine Clr Calc Pharmacy 74.3 ml/min
[2024-11-20 11:31] LABS: Cdiff Toxin B Gene (2yr or >) Negative Cdiff Gene (Neg)
--- NOTE | 2024-11-20 12:33 | Infectious Disease Progress Nt ---
Date of Service November 20, 2024 Assessment & Plan (1) Bowel perforation: (2) Peritonitis: Plan #Perforated diverticulitis s/p ex lap, bowel resection, colostomy (10/25/24), ex lap repair of dehiscence and abd washout (10/31/24), ex lap repair of recurrent dehiscence and abd washout (11/05/24) #Feculent peritonitis, treated #Pneumonia, treated # Leukocytosis # Possible surgical site cellulitis/SSTI Micro: 10/25 Peritoneal fluid cx: Clostridium perfringens, mod counts of probable intestinal mario. GS GNRs, GPRs, GPCs, yeast 11/19 wound cx ( surgical sites) pseudomonas aeruginosa Abx: Caspofungin 10/28 - 11/15 Zosyn 10/25 -11/20 Clindamycin 10/27 - 10/28 Vanco IV 11/14-current Cefepime 11/20- current 74 yo M with HTN, HLD, emphysema, GERD, Crane's esophagus who presented on 10/25 with acute onset of generalized abdominal pain, distension, sweats, found to have perforated diverticulitis s/p ex lap, bowel resection, colostomy (10/25/24). Hospital course c/b pneumonia noted on CT chest 10/29. On presentation, he was afebrile, hypotensive to SBP 80s-90s. Labs showed WBC 13.14. CT A/P with IV contrast showed acute perforated diverticulitis at the distal descending/proximal sigmoid colon with a small amount of scattered free air, and trace free fluid without ascites. Pt started on Zosyn. He was taken for emergent ex lap, bowel resection, colostomy formation. In the OR, there was feculent peritonitis. Intra-op culture obtained of peritoneal fluid. He was admitted to the ICU postoperatively, requiring Levophed. Peritoneal fluid culture growing Clostridium perfringens, and moderate counts of probable intestinal mario. Gram stain with GNRs, GPRs, GPCs, yeast. Clindamycin added 10/27. Weaned off Levophed 10/27. WBC up trending to 17.59 on 10/28. Discussion: Polymicrobial peritoneal fluid culture including Clostridium perfringens. Zosyn should cover the Clostridium perfringens and other intestinal mairo, unless there are resistant organisms. No prior micro data to review. Leukocytosis uptrending and Tmax 37.7 on 10/27--added caspofungin on 10/28 due to yeast seen on gram stain of peritoneal fluid. Also with increased O2 requirement on 10/29, with CT chest showing bilateral pneumonia. Had coughing spell leading to midline incision dehiscence and evisceration, so taken back to OR for ex lap, washout, and abdominal wall closure 10/31. Post op, leukocytosis up to 24 on 11/01/24. Had persistent leukocytosis to mid 20s. KUB 11/02 with concern for SBO--surgery felt more likely ileus. Did have some gas in the ostomy on 11/04. Had recurrent dehiscence, and was taken to the OR on 11/05 for ex lap, repair of recurrent dehiscence, and abdominal washout in which ab domen was irrigated with 1 L with cefazolin. No purulence was seen in the abdominal cavity per surgery note. Continued rising leukocytosis--> 29.18 on 11/07. Unclear etiology, considered C diff but ostomy without output. WBC decreased to 15.44 on 11/08 without intervention. Ostomy still without output. 11/11 WBC went down to 12 but slightly up today to 13.2, afebrile. No output from ostomy. Surgery suggests CTAP. Agree 11/14- WBC up to 20. Abd exam- firm, distended- not tender. Surgical incision sites with erythema. Added IV vanco 11/15 WBC up to 17.19 surgical incisions with erythema wounds with seropurulent drainage, foul smelling. CTAP without abscess + post op ileus, trace fluis around liver and spleen 11/18 weekend events noted WBc up to 18.48 11/19 WBc 17.25. Has continued drainage from abdominal wounds- drainage is mostly from lower abdominal wound. No longer foul smelling. Erythema improving . Wound cx of drainage obtained. 11/20 WBC 18. wound cx drainage + Pseudomonas Aeruginosa Pending Susceptibility Recommendations: - Continue vancomycin for SSTI at surgical incision sites, plan fo 7 days ( 11/14-11/21) -Discontinued zosyn. Concerned that Pseudomonas from recent cx grew on therapy, so it may be R -Started cefepime 2 g iv q8hrs for Pseudomonas + wound cx. -Follow up Pseudomonas Susceptibility ID will continue to follow. Abdi Jack MD, MPH Infectious Disease [facility], [facility] Call [phone] with questions Admission and Anticipated Discharge Date Admission Date: October 25, 2024 Subjective This patient recommendation is based on a telemedicine consult request which was completed asynchronously through chart review and information provided by the primary physician. The patient was not seen or examined today. The evaluation is consultative in nature and all patient care and treatment decisions can either be accepted or rejected by the patient's primary hospital-based treating physician using their own independent medical judgment for their patient. Time Spent Reviewing Chart: 21 - 30 minutes Afebrile. Wound drainage cx from incision growing pseudomonas Aeruginosa -Susceptibility pending WBC still elevated at 18.02 Results & Data Vital Signs (Past 12 Hours) Vital Signs Temp Pulse Resp BP Pulse Ox O2 Del Method 11/20/24 08:51 101 H 127/80 11/20/24 08:00 36.7 C 98 H 19 120/69 94 Room Air 11/20/24 07:45 Room Air Laboratory Results Short CBC 11/20/24 Range/Units 06:37 WBC 18.02 H (4.8-10.8) K/ul Hgb 8.4 L (14.0-18.0) g/dl Hct 27.0 L (42.0-52.0) % Plt Count 378 (130-400) K/uL BMP 11/20/24 06:37 Creatinine 0.92 Microbiology 11/19/24 13:10 Abdomen Gram Stain - Final 11/19/24 13:10 Abdomen Aerobic and Anaerobic Culture - Preliminary Pseudomonas aeruginosa 10/25/24 Unknown Peritoneal Fluid Gram Stain - Final 10/25/24 Unknown Peritoneal Fluid Aerobic and Anaerobic Culture - Final Clostridium perfringens Medications Administered Home Medications Medication Instructions Recorded Confirmed Last Taken aspirin 81 mg tablet,delayed 81 mg PO QAM 10/04/18 10/26/24 1 Day Ago release (Quentin Low Dose Aspirin) ~10/25/24 1 acetaminophen 500 mg tablet 1,300 mg PO BID 02/07/19 10/26/24 1 Day Ago ~10/25/24 1300 cholecalciferol (vitamin D3) 50 2,000 unit PO BID 07/23/20 10/26/24 1 Day Ago mcg (2,000 unit) capsule ~10/25/24 1 diclofenac sodium 1 % topical gel 4 g topical UD PRN Pain #100 grams 10/19/23 10/26/24 Unknown amlodipine 5 mg tablet 5 mg PO QAM #90 tabs 02/14/24 10/26/24 1 Day Ago ~10/25/24 1 pantoprazole 40 mg tablet,delayed 40 mg PO BID #180 tabs 03/25/24 10/26/24 1 Day Ago release ~10/25/24 rosuvastatin 20 mg tablet 20 mg PO QAM #90 tabs 04/01/24 10/26/24 1 Day Ago ~10/25/24 nicotine (polacrilex) 4 mg buccal 4 mg buccal Q4H PRN nicotine 05/27/24 10/26/24 Unknown lozenge cravings #108 ea tamsulosin 0.4 mg capsule 0.4 mg PO DAILY #90 caps 05/27/24 10/26/24 1 Day Ago ~10/25/24 albuterol sulfate 90 mcg/actuation 1 puff inhalation Q6H PRN 06/25/24 10/26/24 2 Days Ago aerosol inhaler (Ventolin HFA) shortness of breath or wheezing ~10/24/24 #18 grams 1 atenolol 50 mg-chlorthalidone 25 0.5 tab PO QAM #45 tabs 09/27/24 10/26/24 1 Day Ago mg tablet ~10/25/24 1 potassium chloride 10 mEq 10 meq PO BID #180 tabs 09/27/24 10/26/24 1 Day Ago tablet,extended release ~10/25/24 famotidine 40 mg tablet 40 mg PO BID #180 tabs 10/18/24 10/26/24 1 Day Ago ~10/25/24 1 Active Medications Generic Name Dose Route Start Last Admin Trade Name Freq PRN Reason Stop Dose Admin Acetaminophen 1,000 mg 11/14/24 14:30 11/18/24 05:15 Acetaminophen 500 Mg Tab PO 12/14/24 14:29 1,000 mg Q8H PRN Administration Pain or Fever Atenolol 25 mg 11/13/24 15:45 11/20/24 08:53 Atenolol 25 Mg Tablet PO 12/13/24 15:44 25 mg QAM CHRISTOPHER Administration Chlorthalidone 12.5 mg 11/13/24 15:45 11/20/24 08:54 Chlorthalidone 25 Mg Tab PO 12/13/24 15:44 12.5 mg QAM CHRISTOPHER Administration Diclofenac Sodium 4 gm 11/04/24 15:30 11/20/24 09:31 Diclofenac Sod 1% Gel 100 Gm Tube EXT 12/04/24 15:29 4 gm Q6H CHRISTOPHER Administration Protocol Enoxaparin Sodium 40 mg 10/27/24 09:00 11/20/24 08:58 Enoxaparin Inj 40 Mg/0.4 Ml Syr SQ 11/26/24 08:59 40 mg QAM CHRISTOPHER Administration Ferrous Gluconate 324 mg 11/19/24 17:00 11/20/24 08:53 Ferrous Gluconate 324 Mg Tab PO 12/19/24 16:59 324 mg BIDM CHRISTOPHER Administration Famotidine 20 mg in 5 mls @ 2.5 mls/min 10/26/24 06:30 11/20/24 09:07 Pepcid 20mg Iv Push IV 11/25/24 06:29 2.5 mls/min BID CHRISTOPHER Administration Piperacillin Sod/Tazobactam Sod 4.5 gm in 100 mls @ 25 mls/hr 11/01/24 17:00 11/20/24 09:24 Zosyn IV 11/22/24 16:59 25 mls/hr Q8H CHRISTOPHER Administration Protocol Pantoprazole Sodium 40 mg in 10 mls @ 5 mls/min 11/02/24 12:00 11/20/24 09:11 Protonix IV 12/02/24 11:59 5 mls/min BID CHRISTOPHER Administration Vancomycin HCl 750 mg/ Sodium 265 mls @ 200 mls/hr 11/15/24 01:00 11/20/24 03:15 Chloride IV 11/22/24 00:59 Infused Q12H CHRISTOPHER Infusion Lactobacillus Acidophilus 1,250 mg 11/19/24 11:45 11/20/24 08:54 Advanced Probiotic 625 Mg Capsule PO 12/19/24 11:44 1,250 mg DAILY CHRISTOPHER Administration Magnesium Oxide 400 mg 11/16/24 09:00 11/20/24 08:52 Magnesium Oxide 400 Mg Tab PO 12/16/24 08:59 400 mg QAM CHRISTOPHER Administration Melatonin 3 mg 11/14/24 19:00 11/19/24 20:36 Melatonin 3 Mg Tab PO 12/14/24 18:59 3 mg DAILY@1900 CHRISTOPHER Administration Menthol 1 adriel 10/26/24 08:49 10/26/24 09:30 Cough Drop (Sugar Free) Adriel 24 Adriel/1 Box BUCCAL 11/25/24 08:48 1 adriel Q2H PRN Administration Sore Throat Miscellaneous 1 each 10/27/24 08:59 11/20/24 08:55 Remove Nicoderm Patch N/A 11/26/24 08:58 Not Given DAILY@0859 [facility] Nicotine 1 patch 10/26/24 14:00 11/20/24 08:56 Nicotine 14 Mg/24 Hr Patch TD 11/25/24 13:59 Not Given QAM [facility] Ondansetron HCl 4 mg 10/25/24 20:18 11/18/24 10:12 Ondansetron Inj 2 Mg/Ml 2 Ml Vial IV 11/24/24 20:17 4 mg Q6H PRN Administration Nausea And Vomiting Phenol 1 sprays 11/01/24 16:38 11/11/24 12:36 Chloraseptic (Phenol) 1.4% Soln 180 Ml Btl MT 12/01/24 16:37 1 sprays Q1H PRN Administration Cough Potassium Chloride 20 meq 11/17/24 21:00 11/20/24 09:35 Potassium Chloride Crtab 20 Meq Tabcr PO 12/17/24 20:59 Not Given BID CHRISTOPHER Rosuvastatin Calcium 20 mg 11/14/24 09:00 11/20/24 08:52 Rosuvastatin Calcium 20 Mg Tab PO 12/14/24 08:59 20 mg QAM CHRISTOPHER Administration Tamsulosin HCl 0.4 mg 11/14/24 09:00 11/20/24 08:52 Tamsulosin Hcl 0.4 Mg Cap PO 12/14/24 08:59 0.4 mg DAILY CHRISTOPHER Administration Tramadol HCl 50 mg 11/14/24 14:30 11/19/24 17:56 Tramadol Hcl 50 Mg Tablet PO 12/14/24 14:29 50 mg Q4H PRN Administration Severe Pain (Scale 7, 8, 9,10)
[2024-11-20] MEDS: CEFEPIME 2000MG 2,000 MG/20 ML SYR IV SCH (13:28)
--- NOTE | 2024-11-20 13:28 | Surgery Progress Note ---
Date of Service November 20, 2024 Assessment & Plan (1) Bowel perforation: Plan: WBC still a little elevated wound is good ostomy working taking po well no complaints grant out PT/OT Admission and Anticipated Discharge Date Admission Date: October 25, 2024 Subjective no complaints Review of Systems Constitutional: no fever Respiratory: no dyspnea Cardiovascular: no chest pain Gastrointestinal: no abdominal pain, no nausea and no vomiting Neurologic: + generalized weakness Physical Exam Constitutional: WD/WN, vitals as above Respiratory: normal respiratory effort Cardiovascular: Rate/Rhythm: regular rate and regular rhythm Gastrointestinal (Abdomen): Inspection/Auscultation: normal bowel sounds; abdomen not distended Percussion/Palpation: abdomen soft; abdomen nontender wound granulating with some purulent drainage noted, no abscess ostomy viable but a little grayish Skin: no rashes, warm and dry Results & Data Vital Signs (Past 12 Hours) Vital Signs Temp Pulse Resp BP Pulse Ox O2 Del Method 11/20/24 08:51 101 H 127/80 11/20/24 08:00 36.7 C 98 H 19 120/69 94 Room Air 11/20/24 07:45 Room Air
[2024-11-20 13:49] LABS: Appearance Urine Cloudy (Clear); Bacteria Urine Automated 1+ (None Seen); Glucose Urine UA Negative (Negative); WBC Urine Automated >50 /hpf (0-5)
[2024-11-20 13:53] LABS: Cast Urine Automated 0-2 /lpf (0-2)
--- NOTE | 2024-11-20 18:30 | Hospitalist Progress Note ---
"Date of Service November 20, 2024 Assessment & Plan (1) Bowel perforation: (2) Sepsis: (3) Peritonitis: (4) Diverticulitis: (5) Cigarette nicotine dependence: (6) GERD with esophagitis: (7) Aortic insufficiency: (8) Felix esophagus: Plan Mr. Rivera is 74 yo male with history of HTN, dyslipidemia, GERD, aortic insufficiency, felix's esophagus, presented to ED with acute onset of generalized abdominal pain with distention, subsequently found to have perforated diverticulitis, and underwent laparotomy sigmoid colon with diverting colostomy (10/25) for perforated diverticulitis. On presentation to ED he met SIRS criteria, blood pressure was persistently low despite fluid management. He was hypotensive at OR as well. Post operatively was shifted to ICU and required on Levophed infusion. Pain seems optimized on IV med. Zosyn and caspofungin coverage for infection ongoing being managed by ID. #S/P Laparotomy with colostomy|Bowel Perforation|Ileus S/p laparotomy and closure of fascia with retention sutures 11/05/2024 after abdominal wall dehiscence S/p expiratory laparotomy, abdominal washout and closure 10/31/2024 of abdominal wall after midline incision dehiscence 10/25/2024 s/p ex lap, sigmoid resection, diverting ostomy placement 2/2 diverticulitis with perforation -Leukocytosis persistent>added CDIFF, UA post Crow discontinuation -Course complicated by postop ileus, pneumonia versus atelectasis noted on 11/14 -ID consulted -Zosyn started 10/25, continue to current. Vancomycin added 11/14, continued current. Recommended to continue Vanc/Zosyn through 11/21 for SSTI at surgical incision sites Caspofungin was given 10/28-11/15, discontinued on day 11 with no signs of active ongoing abdominal infection, ID remains on consult -midline abdominal incision with malodorous, purulent d/c drainage, wound culture with pseudomonas, added Cefepime per ID, VANCO d/c'ed per ID -Continue out of bed as tolerated -Will need transition to rehab on discharge #Hypoxia|COPD -repeat chest XR with reported wet cough: 11/10 persistent but improved basilar atelectasis and small right pleural effusion Low suspicion for ongoing infection Weaned to room air, SPO2 trending in low 90s -encouraged use of incentive spirometer and flutter valve #Hyperactive Delirium/Dysregulated Sleep-Wake Cycle -in setting of continued monitored lengthy hospital stay with no neurological deficits (noted agitation mostly at night) -reported visual hallucinations per nursing staff possibly related to IV Dilaudid (Dilaudid [employer] ASSISTANT d/c'ed 11/14) -no hallucinations since discontinuation of Dilaudid [employer] ASSIST[employer] -Continue quetiapine 50 mg at bedtime as needed -Melatonin 3mg at 1900 #Post Op Anemia -without s/s of bleeding -Fe studies with low transferrin % sat, ferritin normal, possibly inflammatory and chronic YAN -Venofer 200mg IV was given 11/15, second dose given 11/17 -start oral Fe supplement as Hgb remains trending in 8s -Hemoglobin stable Trend daily #Atrial Fibrillation with RVR likely chronic|Pulmonary Congestion / to Aortic Regurgitation -Echo 08/28: normal EF, moderate to severe AR -off tele, regular rate on exam -oral atenolol (held this am due to low BP) -consider amiodarone if development of persistent AF -in setting of surgical status holding traditional AC -continue Lovenox 40mg daily #Hypokalemia, resolved -trend BMP #VANESSA, resolved -trend BMP #Nicotine dependence -Was on buccal nicotine -on nicotine patch -No s/o nicotine withdrawal #BPH -d/c Crow -Flomax ##HTN -low BP this am with reports of dizziness when standing/ambulating with PT -hold atenolol/chlorthalidone this am Dispo: Med-surg status with d/c to rehab DVT prophylaxis: lovenox 40mg daily Diet: low fiber Admission and Anticipated Discharge Date Admission Date: October 25, 2024 Subjective Lele is doing well today. States he has minimal abdominal pain. Eating and drinking well. Looking forward to participating in PT this afternoon. Reports he is ready for rehab and to return back home. He denies visual hallucinations and is sleeping well. Review of Systems Review of Systems: All systems reviewed & are unremarkable except as noted in Subjective Physical Exam Physical Exam: Exam: GENERAL APPEARANC E: A&O. Lying comf ortably in bed. NA D. SKIN: Normal co ondina without rashes or lesions. Norm al turgor. HEENT: Head AT/NC. Buccal mucosa is moist a nd pink. NECK: No jugular venous dis tention. No thyroi d enlargement. The re is no lymphaden opathy. HEART: RRR without m/g/r. NICANOR NGS: Normal inspir atory effort. CTA without w/r/r. ABD OMEN: No guarding or rigidity. Normo active BS in all f our quadrants. Abd omen soft and NT. Midline abdominal incision with puru lent, greenish huang inage present. LLQ abdominal ostomy with formed stool, no blood in stool . MSK: No bony felipe ss/deformities thr oughout. ROM intac t. : Crow paten t and draining mell ar, yellow urine. EXTREMITIES: No ed watson, No peripheral cyanosis. Neuro: CN 2-12 grossly in tact. No focal lacey ro deficits. PSYCH IATRIC: Normal aff ect. Eye contact i s good. Speech is normal rate and co ntent. Responses a re appropriate. Results & Data Results & Data Vital Signs (Past 12 Hours) Vital Signs Temp Pulse Resp BP BP Pulse Ox O2 Del Method 11/20/24 15:36 36.5 C 73 16 111/68 93 Room Air 11/20/24 08:51 101 H 127/80 11/20/24 08:00 36.7 C 98 H 19 120/69 94 Room Air 11/20/24 07:45 Room Air Laboratory Results labs reviewed PG Care Time/CCT Total # of Minutes Spent Total Time Spent with Patient: Total time spent is greater than 50% in coordination of care (as documented) at patient's floor/unit and/or counseling patient: Coding Level of Care Code 22769 SUB INP/OBS CARE 3/50MIN Diagnoses Bowel perforation K63.1 Sepsis A41.9 Sepsis type: sepsis due to unspecified organism Severe sepsis acute organ dysfunction type: unspecified Severe sepsis shock status: without septic shock Peritonitis K65.9 Diverticulitis K57.92 Cigarette nicotine dependence F17.210 GERD with esophagitis K21.00 Aortic insufficiency I35.1 Felix esophagus K22.70 (2) Sepsis Sepsis type: sepsis due to unspecified organism Severe sepsis acute organ dysfunction type: unspecified Severe sepsis shock status: without septic shock"
[2024-11-20] MEDS: FAMOTIDINE 20 MG TAB PO SCH (20:22)
[2024-11-21 07:07] LABS: Hematocrit (blood only) 25.4 % (42.0-52.0); Hemoglobin 8.3 g/dl (14.0-18.0); Immature Granulocytes # (auto) 0.16 K/uL (0.01-0.20); Immature Granulocytes % (auto) 1.1 %; Mean Corpuscular Hemoglobin 29.5 pg (25.0-34.0); Mean Corpuscular Volume 90.4 fL (80.0-100.0); Platelet Count 352 K/uL (130-400); RDW Standard Deviation 47.8 fL (36.4-46.3); Red Blood Count 2.81 M/uL (4.70-6.10); White Blood Count 15.05 K/ul (4.8-10.8)
[2024-11-21 07:40] LABS: Creatinine Clr Calc Pharmacy 78.6 ml/min
--- NOTE | 2024-11-21 10:59 | Infectious Disease Progress Nt ---
Date of Service November 21, 2024 Assessment & Plan (1) Bowel perforation: (2) Peritonitis: Plan #Perforated diverticulitis s/p ex lap, bowel resection, colostomy (10/25/24), ex lap repair of dehiscence and abd washout (10/31/24), ex lap repair of recurrent dehiscence and abd washout (11/05/24) #Feculent peritonitis, treated #Pneumonia, treated # Leukocytosis # Possible surgical site cellulitis/SSTI Micro: 10/25 Peritoneal fluid cx: Clostridium perfringens, mod counts of probable intestinal mario. GS GNRs, GPRs, GPCs, yeast 11/19 wound cx ( surgical sites) pseudomonas aeruginosa Abx: Caspofungin 10/28 - 11/15 Zosyn 10/25 -11/20 Clindamycin 10/27 - 10/28 Vanco IV 11/14-current Cefepime 11/20- 11/21 Meropenem 11/21-current 74 yo M with HTN, HLD, emphysema, GERD, Crane's esophagus who presented on 10/25 with acute onset of generalized abdominal pain, distension, sweats, found to have perforated diverticulitis s/p ex lap, bowel resection, colostomy (10/25/24). Hospital course c/b pneumonia noted on CT chest 10/29. On presentation, he was afebrile, hypotensive to SBP 80s-90s. Labs showed WBC 13.14. CT A/P with IV contrast showed acute perforated diverticulitis at the distal descending/proximal sigmoid colon with a small amount of scattered free air, and trace free fluid without ascites. Pt started on Zosyn. He was taken for emergent ex lap, bowel resection, colostomy formation. In the OR, there was feculent peritonitis. Intra-op culture obtained of peritoneal fluid. He was admitted to the ICU postoperatively, requiring Levophed. Peritoneal fluid culture growing Clostridium perfringens, and moderate counts of probable intestinal mario. Gram stain with GNRs, GPRs, GPCs, yeast. Clindamycin added 10/27. Weaned off Levophed 10/27. WBC up trending to 17.59 on 10/28. Discussion: Polymicrobial peritoneal fluid culture grew ostridium perfringens. Zosyn should cover the Clostridium perfringens and other intestinal mario, unless there are resistant organisms. No prior micro data to review. Leukocytosis up trended and Tmax 37.7 on 10/27--added caspofungin on 10/28 due to yeast seen on gram stain of peritoneal fluid. Also with increased O2 requirement on 10/29, with CT chest showing bilateral pneumonia. Had coughing spell leading to midline incision dehiscence and evisceration, so taken back to OR for ex lap, washout, and abdominal wall closure 10/31. Post op, leukocytosis up to 24 on 11/01/24. Had persistent leukocytosis to mid 20s. KUB 11/02 with concern for SBO--surgery felt more likely ileus. Did have some gas in the ostomy on 11/04. Had recurrent dehiscence, and was taken to the OR on 11/05 for ex lap, repair of recurrent dehiscence, and abdominal washout in which abdomen was irrigated with 1 L with cefazolin. No purulence was seen in the abdominal cavity per surgery note. Continued rising leukocytosis--> 29.18 on 11/07. Unclear etiology, considered C diff but ostomy without output. WBC decreased to 15.44 on 11/08 without intervention. Ostomy still without output. 11/11 weekend events noted. WBC went down to 12 but slightly up today to 13.2, afebrile. No output from ostomy. Surgery suggests CTAP. Agree 11/14- WBC 20. Abd exam- firm, distended- not tender. Surgical incision sites with erythema. Added IV vanco for ? SSTI at surgical sites 11/15 WBC 17.19. Surgical incisions with erythema. Wounds with seropurulent drainage, foul smelling. CTAP without abscess + post op ileus, trace fluid around liver and spleen. 11/18 weekend events noted. WBC 18.48 11/19 WBc 17.25. Has continued drainage from abdominal wounds- drainage is mostly from lower abdominal wound. No longer foul smelling. Erythema improving . Wound cx of drainage obtained. 11/20 WBC 18. Wound cx drainage + Pseudomonas Aeruginosa. Pending Susceptibility. Discontinued zosyn and started Cefepime. Concerned that Pseudomonas grew while on Zosyn, so it may be R 11/21 WBC 15.05. Pseudomonas aeruginosa- prelim susceptibility reviewed ( not final) . R to cefepime, zosyn. S to Meropenem and Cipro. Has continued wound drainage. Erythema improved on Vancomycin. He is feeling better ovall. Recommendations: - Continue vancomycin for SSTI at surgical incision sites, plan for 7 days ( 11/14-11/21) - Started Meropenem 1 g iv q 8 hrs as this may be an ESBL org. Can complete therapy with cipro 750 mg PO BID if drainage improves and QTC <500. If not, then complete therapy with Meropenem. Plan for 7 days of total abx therapy ( 11/21-11/27) -check EKG. QTC on 10/30-480. - follow up final Pseudomonas [facility] Communicated recommendations to team . ID will sign off. Abdi Jack MD, MPH Infectious Disease [facility], [facility] Call [phone] with questions Admission and Anticipated Discharge Date Admission Date: October 25, 2024 Subjective Subsequent visit was provided via telemedicine using two-way real-time interactive telecommunication between the patient and the telemedicine provider. For the duration of the visit, the provider was performing the assessment from a different facility than the patient. This includesuse of bluetooth stethoscope forauscultationperformed by the telepresenter that the telemedicine provider can hear if described in the physical exam. Charge Attendant contact information: Please call [facility] Call Center [phone]. (Phone Number For Physician Use Only) After establishing a telemedicine visit, patient was: Patient was verified with two unique identifiers and Gave permission to continue telehealth session Time Spent with Patient: Subsequent => 25 min Pseudomonas Aeruginosa prelim susceptibility reviewed- zosyn and Cefepime R He continues to have drainage from his wounds He feels overall well. He denies fever, chill, sweats He has minimal abdominal pain Afebrile Physical Exam Physical Exam: Awake, NAD Anicteric sclera Neck supple Abd- distended, firm, Not tender, + Left sided ostomy Surgical incisions with LESS surrounding erythema, but continued + seropurulant drainage at bottom incisions. No foul smell Neuro- Awake, alert oriented times 3 Results & Data Vital Signs (Past 12 Hours) Vital Signs Temp Pulse Resp BP BP Pulse Ox O2 Del Method 11/21/24 07:28 36.4 C L 73 16 120/64 91 Room Air 11/20/24 23:15 36.6 C 83 18 124/74 95 Room Air Laboratory Results Short CBC 11/21/24 Range/Units 06:20 WBC 15.05 H (4.8-10.8) K/ul Hgb 8.3 L (14.0-18.0) g/dl Hct 25.4 L (42.0-52.0) % Plt Count 352 (130-400) K/uL BMP 11/21/24 06:20 Creatinine 0.87 Urine 11/20/24 Range/Units 13:20 Urine Color Yellow Urine Appearance Cloudy A (Clear) Urine pH 8.5 H (4.5-7.5) Ur Specific [place] 1.019 (1.000-1.030) Urine Protein 1+ H (Negative) Urine Glucose (UA) Negative (Negative) Microbiology 11/19/24 13:10 Abdomen Gram Stain - Final 11/19/24 13:10 Abdomen Aerobic and Anaerobic Culture - Preliminary Pseudomonas aeruginosa 10/25/24 Unknown Peritoneal Fluid Gram Stain - Final 10/25/24 Unknown Peritoneal Fluid Aerobic and Anaerobic Culture - Final Clostridium perfringens Medications Administered Home Medications Medication Instructions Recorded Confirmed Last Taken aspirin 81 mg tablet,delayed 81 mg PO QAM 10/04/18 10/26/24 1 Day Ago release (Quentin Low Dose Aspirin) ~10/25/24 1 acetaminophen 500 mg tablet 1,300 mg PO BID 02/07/19 10/26/24 1 Day Ago ~10/25/24 1300 cholecalciferol (vitamin D3) 50 2,000 unit PO BID 07/23/20 10/26/24 1 Day Ago mcg (2,000 unit) capsule ~10/25/24 1 diclofenac sodium 1 % topical gel 4 g topical UD PRN Pain #100 grams 10/19/23 10/26/24 Unknown amlodipine 5 mg tablet 5 mg PO QAM #90 tabs 02/14/24 10/26/24 1 Day Ago ~10/25/24 1 pantoprazole 40 mg tablet,delayed 40 mg PO BID #180 tabs 03/25/24 10/26/24 1 Day Ago release ~10/25/24 rosuvastatin 20 mg tablet 20 mg PO QAM #90 tabs 04/01/24 10/26/24 1 Day Ago ~10/25/24 nicotine (polacrilex) 4 mg buccal 4 mg buccal Q4H PRN nicotine 05/27/24 10/26/24 Unknown lozenge cravings #108 ea tamsulosin 0.4 mg capsule 0.4 mg PO DAILY #90 caps 05/27/24 10/26/24 1 Day Ago ~10/25/24 albuterol sulfate 90 mcg/actuation 1 puff inhalation Q6H PRN 06/25/24 10/26/24 2 Days Ago aerosol inhaler (Ventolin HFA) shortness of breath or wheezing ~10/24/24 #18 grams 1 atenolol 50 mg-chlorthalidone 25 0.5 tab PO QAM #45 tabs 09/27/24 10/26/24 1 Day Ago mg tablet ~10/25/24 1 potassium chloride 10 mEq 10 meq PO BID #180 tabs 09/27/24 10/26/24 1 Day Ago tablet,extended release ~10/25/24 famotidine 40 mg tablet 40 mg PO BID #180 tabs 10/18/24 10/26/24 1 Day Ago ~10/25/24 1 Active Medications Generic Name Dose Route Start Last Admin Trade Name Nathanq PRN Reason Stop Dose Admin Acetaminophen 1,000 mg 11/14/24 14:30 11/18/24 05:15 Acetaminophen 500 Mg Tab PO 12/14/24 14:29 1,000 mg Q8H PRN Administration Pain or Fever Atenolol 25 mg 11/13/24 15:45 11/21/24 09:32 Atenolol 25 Mg Tablet PO 12/13/24 15:44 25 mg QAM CHRISTOPHER Administration Chlorthalidone 12.5 mg 11/13/24 15:45 11/21/24 09:33 Chlorthalidone 25 Mg Tab PO 12/13/24 15:44 12.5 mg QAM CHRISTOPHER Administration Diclofenac Sodium 4 gm 11/04/24 15:30 11/21/24 09:50 Diclofenac Sod 1% Gel 100 Gm Tube EXT 12/04/24 15:29 4 gm Q6H CHRISTOPHER Administration Protocol Enoxaparin Sodium 40 mg 10/27/24 09:00 11/21/24 09:33 Enoxaparin Inj 40 Mg/0.4 Ml Syr SQ 11/26/24 08:59 40 mg QAM CHRISTOPHER Administration Famotidine 20 mg 11/20/24 21:00 11/21/24 09:33 Famotidine 20 Mg Tab PO 12/20/24 20:59 20 mg BID CHRISTOPHER Administration Ferrous Gluconate 324 mg 11/19/24 17:00 11/21/24 09:33 Ferrous Gluconate 324 Mg Tab PO 12/19/24 16:59 324 mg BIDM CHRISTOPHER Administration Vancomycin HCl 750 mg/ Sodium 265 mls @ 200 mls/hr 11/15/24 01:00 11/21/24 02:02 Chloride IV 11/21/24 13:01 Infused Q12H CHRISTOPHRE Infusion Lactobacillus Acidophilus 1,250 mg 11/19/24 11:45 11/21/24 09:49 Advanced Probiotic 625 Mg Capsule PO 12/19/24 11:44 1,250 mg DAILY CHRISTOPHER Administration Magnesium Oxide 400 mg 11/16/24 09:00 11/21/24 09:32 Magnesium Oxide 400 Mg Tab PO 12/16/24 08:59 400 mg QAM CHRISTOPHER Administration Melatonin 3 mg 11/14/24 19:00 11/20/24 18:43 Melatonin 3 Mg Tab PO 12/14/24 18:59 3 mg DAILY@1900 CHRISTOPHER Administration Menthol 1 adriel 10/26/24 08:49 10/26/24 09:30 Cough Drop (Sugar Free) Adriel 24 Adriel/1 Box BUCCAL 11/25/24 08:48 1 adriel Q2H PRN Administration Sore Throat Miscellaneous 1 each 10/27/24 08:59 11/21/24 09:52 Remove Nicoderm Patch N/A 11/26/24 08:58 1 each DAILY@0859 CHRISTOPHER Administration Nicotine 1 patch 10/26/24 14:00 11/21/24 09:52 Nicotine 14 Mg/24 Hr Patch TD 11/25/24 13:59 1 patch QAM CHRISTOPHER Administration Ondansetron HCl 4 mg 10/25/24 20:18 11/18/24 10:12 Ondansetron Inj 2 Mg/Ml 2 Ml Vial IV 11/24/24 20:17 4 mg Q6H PRN Administration Nausea And Vomiting Pantoprazole Sodium 40 mg 11/20/24 21:00 11/21/24 09:32 Pantoprazole 40 Mg Tab PO 12/20/24 20:59 40 mg BID CHRISTOPHER Administration Protocol Phenol 1 sprays 11/01/24 16:38 11/11/24 12:36 Chloraseptic (Phenol) 1.4% Soln 180 Ml Btl MT 12/01/24 16:37 1 sprays Q1H PRN Administration Cough Potassium Chloride 20 meq 11/17/24 21:00 11/21/24 07:04 Potassium Chloride Crtab 20 Meq Tabcr PO 12/17/24 20:59 Not Given BID CHRISTOPHER Rosuvastatin Calcium 20 mg 11/14/24 09:00 11/21/24 09:32 Rosuvastatin Calcium 20 Mg Tab PO 12/14/24 08:59 20 mg QAM CHRISTOPHER Administration Tamsulosin HCl 0.4 mg 11/14/24 09:00 11/21/24 09:32 Tamsulosin Hcl 0.4 Mg Cap PO 12/14/24 08:59 0.4 mg DAILY CHRISTOPHER Administration Tramadol HCl 50 mg 11/14/24 14:30 11/21/24 05:27 Tramadol Hcl 50 Mg Tablet PO 12/14/24 14:29 50 mg Q4H PRN Administration Severe Pain (Scale 7, 8, 9,10)
[2024-11-21] MEDS: MEROPENEM 500 MG in SYRINGE 0 ML IV SCH (12:26)
--- NOTE | 2024-11-21 13:20 | Hospitalist Progress Note ---
"Date of Service November 21, 2024 Assessment & Plan (1) Bowel perforation: (2) Sepsis: (3) Peritonitis: (4) Diverticulitis: (5) Cigarette nicotine dependence: (6) GERD with esophagitis: (7) Aortic insufficiency: (8) Felix esophagus: Plan Mr. Rivera is 74 yo male with history of HTN, dyslipidemia, GERD, aortic insufficiency, felix's esophagus, presented to ED with acute onset of generalized abdominal pain with distention, subsequently found to have perforated diverticulitis, and underwent laparotomy sigmoid colon with diverting colostomy (10/25) for perforated diverticulitis. On presentation to ED he met SIRS criteria, blood pressure was persistently low despite fluid management. He was hypotensive at OR as well. Post operatively was shifted to ICU and required on Levophed infusion. Pain seems optimized on IV med. Zosyn and caspofungin coverage for infection ongoing being managed by ID. #S/P Laparotomy with colostomy|Bowel Perforation|Ileus S/p laparotomy and closure of fascia with retention sutures 11/05/2024 after abdominal wall dehiscence S/p expiratory laparotomy, abdominal washout and closure 10/31/2024 of abdominal wall after midline incision dehiscence 10/25/2024 s/p ex lap, sigmoid resection, diverting ostomy placement 2/2 diverticulitis with perforation -Course complicated by postop ileus, pneumonia versus atelectasis noted on 11/14 -Leukocytosis persistent>downtrended to 15.05, CDIFF neg, UC pending -ID consulted Caspofungin was given 10/28-11/15, discontinued on day 11 with no signs of active ongoing abdominal infection -Vanc/Zosyn continued through 11/21 for SSTI at surgical incision sites -midline abdominal incision with malodorous, purulent d/c, wound culture with pseudomonas, added Cefepime per ID, VANCO d/c'ed per ID -discussed case with ID this am>WC prelim with pseudomonas and resistance to Cefipime, concern for ESBL, switched to Meropenem with bridge to Cipro (EKG for updated QTC) -ID signed off on consult -Continue out of bed as tolerated -Will need transition to rehab on discharge #Hypoxia|COPD -repeat chest XR with reported wet cough: 11/10 persistent but improved basilar atelectasis and small right pleural effusion Low suspicion for ongoing infection Weaned to room air, SPO2 trending in low 90s -encouraged use of incentive spirometer and flutter valve #Hyperactive Delirium/Dysregulated Sleep-Wake Cycle -in setting of continued monitored lengthy hospital stay with no neurological deficits (noted agitation mostly at night) -reported visual hallucinations per nursing staff possibly related to IV Dilaudid (Dilaudid [employer] d/c'ed 11/14) -no hallucinations since discontinuation of Dilaudid [employer] -Continue quetiapine 50 mg at bedtime as needed -Melatonin 3mg at 1900 #Post Op Anemia -without s/s of bleeding -Fe studies with low transferrin % sat, ferritin normal, possibly inflammatory and chronic YAN -Venofer 200mg IV was given 11/15, second dose given 11/17 -start oral Fe supplement as Hgb remains trending in 8s -Hemoglobin 8.3, additional IV dose of Venofer today Trend daily #Atrial Fibrillation with RVR likely chronic|Pulmonary Congestion 2/2 to Aortic Regurgitation -Echo 08/28: normal EF, moderate to severe AR -off tele, regular rate on exam -oral atenolol -consider amiodarone if development of persistent AF -in setting of surgical status holding traditional AC -continue Lovenox 40mg daily -EKG to evaluate QTC for anticipated Cipro prescription -consider outpatient monitor on d/c #Hypokalemia, resolved -trend BMP #VANESSA, resolved -trend BMP #Nicotine dependence -Was on buccal nicotine -on nicotine patch -No s/o nicotine withdrawal #BPH -Crow discontinued with no reports of LUTS -Flomax ##HTN -atenolol/HCTZ daily Dispo: Med-surg status with d/c to rehab DVT prophylaxis: lovenox 40mg daily Diet: low fiber Admission and Anticipated Discharge Date Admission Date: October 25, 2024 Subjective Patient up to BR independently this am. Eating and drinking well. Denies abdominal pain. Has been voiding without difficulty or reports or frequency, dysuria since Crow discontinuation. States he is ready to go home. He is aware with plan to be transferred to SNF in [place] and is agreeable. Discussed with daughterMaranda at the bedside patient disposition. [facility] is able to offer bed when patient is ready for discharge. Discussed with patient and daughter option to appeal for [facility] and at this time patient and family in agreement with transfer to SNF. Has ambulated with PT 50 feet times three only stopping due to fatigue and some reports of dizziness. He is without complaints of dizziness or fatigue this am. Frustrated that his bed continues to move while he is attempting to sleep. Reports from nursing with some more formed, hardened stool in ostomy. Review of Systems Review of Systems: All systems reviewed & are unremarkable except as noted in Subjective Physical Exam Physical Exam: GENERAL APPEARANCE: A&O. Sitting upright at the bedside. NAD. SKIN: Normal color without rashes or lesions. Normal turgor. HEENT: Head AT/NC. Buccal mucosa is moist and pink. NECK: No jugular venous distention. No thyroid enlargement. There is no lymphadenopathy. HEART: RRR without m/g/r LUNGS: Normal inspiratory effort. CTA without w/r/r ABDOMEN: No guarding or rigidity. Normoactive BS in all four quadrants. Abdomen soft and NT. Midline abdominal incision with dressing present, no drainage. LLQ abdominal ostomy with formed stool, no blood in stool. MSK: No bony gross/deformities throughout. ROM intact. : Crow patent and draining clear, yellow urine-no blood noted. EXTREMITIES: No edema, No peripheral cyanosis. Neuro: CN 2-12 grossly intact. No focal neuro deficits PSYCHIATRIC: Normal affect. Eye contact is good. Speech is normal rate and content. Responses are appropriate. Results & Data Results & Data Vital Signs (Past 12 Hours) Vital Signs Temp Pulse Resp BP Pulse Ox O2 Del Method 11/21/24 12:03 Room Air 11/21/24 07:28 36.4 C L 73 16 120/64 91 Room Air Diagnostic Findings Labs reviewed: CBC, wound culture microbiology report, urinalysis, urine culture, kidney function PG Care Time/CCT Total # of Minutes Spent Total Time Spent with Patient: Total time spent is greater than 50% in coordination of care (as documented) at patient's floor/unit and/or counseling patient: Coding Level of Care Code 52701 SUB INP/OBS CARE 3/50MIN Diagnoses Bowel perforation K63.1 Sepsis A41.9 Sepsis type: sepsis due to unspecified organism Severe sepsis acute organ dysfunction type: unspecified Severe sepsis shock status: without septic shock Peritonitis K65.9 Diverticulitis K57.92 Cigarette nicotine dependence F17.210 GERD with esophagitis K21.00 Aortic insufficiency I35.1 Felix esophagus K22.70 (2) Sepsis Sepsis type: sepsis due to unspecified organism Severe sepsis acute organ dysfunction type: unspecified Severe sepsis shock status: without septic shock"
--- NOTE | 2024-11-21 13:22 | Surgery Progress Note ---
Date of Service November 21, 2024 Assessment & Plan (1) Diverticulitis of intestine with perforation without abscess: Plan: good progress placement Admission and Anticipated Discharge Date Admission Date: October 25, 2024 Subjective no complaints eating well grant out Review of Systems Constitutional: no fever and no chills Respiratory: + cough; no dyspnea Cardiovascular: no chest pain Gastrointestinal: no abdominal pain, no nausea and no vomiting Neurologic: + generalized weakness Psychiatric: no behavioral changes Physical Exam Constitutional: WD/WN, vitals as above Respiratory: normal respiratory effort Cardiovascular: Rate/Rhythm: regular rate and regular rhythm Gastrointestinal (Abdomen): ostomy working well Skin: no rashes, warm and dry Results & Data Vital Signs (Past 12 Hours) Vital Signs Temp Pulse Resp BP Pulse Ox O2 Del Method 11/21/24 12:03 Room Air 11/21/24 07:28 36.4 C L 73 16 120/64 91 Room Air (1) Diverticulitis of intestine with perforation without abscess Diverticulitis site: large intestine Diverticulitis bleeding: without bleeding Qualified Code(s): K57.20 - Diverticulitis of large intestine with perforation and abscess without bleeding
[2024-11-21] MEDS: IRON SUCROSE 200 MG in SODIUM CHLORIDE 0.9% 100 ML IV ONE (13:36)
[2024-11-21] MEDS: DOCUSATE SODIUM 100 MG CAP PO SCH (20:21)
[2024-11-21 23:13] VITALS: BP 123/77; PULSE 74; RESP 18; TEMP 97.7; O2SAT 93
[2024-11-22 06:29] LABS: Hematocrit (blood only) 30.9 % (42.0-52.0); Hemoglobin 9.4 g/dl (14.0-18.0); Immature Granulocytes # (auto) 0.15 K/uL (0.01-0.20); Immature Granulocytes % (auto) 1.1 %; Mean Corpuscular Hemoglobin 27.8 pg (25.0-34.0); Mean Corpuscular Volume 91.4 fL (80.0-100.0); Platelet Count 366 K/uL (130-400); RDW Standard Deviation 50.3 fL (36.4-46.3); Red Blood Count 3.38 M/uL (4.70-6.10); White Blood Count 14.19 K/ul (4.8-10.8)
[2024-11-22 06:46] LABS: Creatinine Clr Calc Pharmacy 74.3 ml/min
--- NOTE | 2024-11-22 07:58 | Surgery Progress Note ---
Date of Service November 22, 2024 Assessment & Plan (1) Bowel perforation: Plan: He is tolerating regular diet pain controlled afebrile He is stable for discharge from a surgical standpoint He remains here over the weekend, surgery will follow-up with him on Monday Otherwise he can follow-up with Dr. Courtney 1 to 2 weeks (2) Wound dehiscence: Admission and Anticipated Discharge Date Admission Date: October 25, 2024 Subjective Patient seen and examined. Tolerating food. Ambulating without issue. Ostomy is functioning. Physical Exam Constitutional: WD/WN, vitals as above Gastrointestinal (Abdomen): Soft, nontender, ostomy in left lower quadrant with stool output Results & Data Vital Signs (Past 12 Hours) Vital Signs Temp Pulse Resp BP Pulse Ox O2 Del Method 11/21/24 23:11 36.5 C 74 18 123/77 93 Room Air 11/21/24 20:20 Room Air PG Care Time/CCT Total # of Minutes Spent Total Time Spent with Patient: Total time spent is greater than 50% in coordination of care (as documented) at patient's floor/unit and/or counseling patient: Coding Level of Care Code 59580 Post Operative Follow-Up Diagnoses Bowel perforation K63.1 Wound dehiscence T81.30XA
--- NOTE | 2024-11-22 15:59 | Electrocardiogram Report ---
Test Reason : Blood Pressure : */* mmHG Vent. Rate : 73 BPM Atrial Rate : 73 BPM P-R Int : 166 ms QRS Dur : 76 ms QT Int : 390 ms P-R-T Axes : 58 -2 51 degrees QTcB Int : 429 ms Sinus rhythm with occasional Premature ventricular complexes Otherwise normal ECG When compared with ECG of 05-Nov-2024 06:40, No significant change was found Confirmed by Alphonse Caal ([id number]) on 11/22/2024 3:59:31 PM Referred By: REFERRED SELF Confirmed By: Alphonse Caal
--- NOTE | 2024-11-22 18:55 | Discharge Summary ---
"Discharge Summary Date of Service November 22, 2024 Principal Dx & Hospital Course #1 = Principal Diagnosis (1) Bowel perforation: (2) Sepsis: (3) Peritonitis: (4) Diverticulitis: (5) Cigarette nicotine dependence: (6) GERD with esophagitis: (7) Aortic insufficiency: (8) Felix esophagus: Plan Mr. Rivera is 74 yo male with history of HTN, dyslipidemia, GERD, aortic insufficiency, felix's esophagus, presented to ED with acute onset of generalized abdominal pain with distention, subsequently found to have perforated diverticulitis, and underwent laparotomy sigmoid colon with diverting colostomy (10/25) for perforated diverticulitis. On presentation to ED he met SIRS criteria, blood pressure was persistently low despite fluid management. He was hypotensive at OR as well. Post operatively was shifted to ICU and required on Levophed infusion. Pain seems optimized on IV med. Zosyn and caspofungin coverage for infection ongoing being managed by ID. Patient completed IV Zosyn course, Caspofungin course and was started on Vanco per ID for possible incisional site infection. A wound culture was complete as he had persistent leukocytosis which revealed pseudomonas. Empirically started on Cefepime with then identified resistance and was started on Meropenem due to prelim sensitivity. Patient stable for d/c as demonstrated by improving leukocytosis, improvement in incisional wound appearance with decrease in drainage from incisional site, favorable and functional ostomy, independent ambulatory status and stable labs. #S/P Laparotomy with colostomy|Bowel Perforation|Ileus S/p laparotomy and closure of fascia with retention sutures 11/05/2024 after abdominal wall dehiscence S/p expiratory laparotomy, abdominal washout and closure 10/31/2024 of abdominal wall after midline incision dehiscence 10/25/2024 s/p ex lap, sigmoid resection, diverting ostomy placement 2/2 diverticulitis with perforation -Course complicated by postop ileus, pneumonia versus atelectasis noted on 11/14 -Leukocytosis persistent>downtrended to 14.19 on day of d/c, CDIFF neg, UC neg -ID consulted Caspofungin was given 10/28-11/15, discontinued on day 11 with no signs of active ongoing abdominal infection -Vanc/Zosyn continued through 11/21 for SSTI at surgical incision sites -midline abdominal incision with malodorous, purulent d/c, wound culture with pseudomonas, added Cefepime per ID, VANCO d/c'ed per ID -discussed case with ID this am>WC prelim with pseudomonas and resistance to Cefipime, concern for ESBL, switched to Meropenem>>D/C to rehab with Meropenem until 11/27/24 -ID signed off on consult -Continue out of bed as tolerated -stable for d/c with surgery follow up for removal of retention sutures #Hypoxia|COPD -repeat chest XR with reported wet cough: 11/10 persistent but improved basilar atelectasis and small right pleural effusion Low suspicion for ongoing infection Weaned to room air, SPO2 trending in low 90s -encouraged use of incentive spirometer and flutter valve #Hyperactive Delirium/Dysregulated Sleep-Wake Cycle -in setting of continued monitored lengthy hospital stay with no neurological deficits (noted agitation mostly at night) -reported visual hallucinations per nursing staff possibly related to IV Dilaudid (Dilaudid TIPPLE ENGINEER d/c'ed 11/14) -no hallucinations since discontinuation of Dilaudid TIPPLE ENGINEER -Continue quetiapine 50 mg at bedtime as needed -Melatonin 3mg at 1900 -mentation improved during course of hospitalization with normal orientation, no reported hallucinations on d/c #Post Op Anemia -without s/s of bleeding -Fe studies with low transferrin % sat, ferritin normal, possibly inflammatory and chronic YAN -Venofer 200mg IV was given 11/15, second dose given 11/17, third dose 11/21 -start oral Fe supplement -multiple dose of IV Venofer inpatient with d/c Hgb at 9.4 #Atrial Fibrillation with RVR likely chronic|Pulmonary Congestion 2/2 to Aortic Regurgitation -Echo 08/28: normal EF, moderate to severe AR -off tele, regular rate on exam -isolated episode of AF in setting of stress related to surgery, not sustained through hospitalization -oral atenolol -in setting of surgical status held traditional AC -d/c on daily ASA -EKG review on 11/22 with NSR -outpatient monitor on d/c #Hypokalemia, resolved -K normal on d/c #VANESSA, resolved -Cr normal on d/c #Nicotine dependence -Was on buccal nicotine -on nicotine patch -No s/o nicotine withdrawal #BPH -Crow discontinued with no reports of LUTS, neg UC post Crow d/c -Flomax ##HTN -atenolol/HCTZ daily Dispo: D/C to rehab Admission HPI Per Admitting Provider Mr. Mcconnell is a 74 yo male with history of HTN, dyslipidemia, GERD, aortic insufficiency, baretts esophagus who presented to ED with acute onset of generalized abdominal pain with distention and sweats that started at 7 am this morning. [place] well yesterday with no abdominal pain. States it is hard to breath due to the abdominal pain. Last bowel movement was this morning. No history of diverticulitis in past. Has never had a colonoscopy. No history of abdominal surgeries. Has had umbilical hernia for years with no issues. Discharge Exam GENERAL APPEARANCE: A&O. Lying in bed. NAD. SKIN: Normal color without rashes or lesions. Normal turgor. HEENT: Head AT/NC. Buccal mucosa is moist and pink. NECK: No jugular venous distention. No thyroid enlargement. There is no lymphadenopathy. HEART: RRR without m/g/r LUNGS: Normal inspiratory effort. CTA without w/r/r ABDOMEN: No guarding or rigidity. Normoactive BS in all four quadrants. Abdomen soft and NT. Midline abdominal dressing C/D/I. Ostomy with pink stoma and normal stool consistency in bag. MSK: No bony gross/deformities throughout. ROM intact. EXTREMITIES: No edema, No peripheral cyanosis. Neuro: CN 2-12 grossly intact. No focal neuro deficits PSYCHIATRIC: Normal affect. Eye contact is good. Speech is normal rate and content. Responses are appropriate. Discharge Plan Discharge Items Patient Disposition: Transfer Long Term Fac Reason For Visit: PERFORATED DIVERTICULITIS Discharge Diagnosis: Bowel perforation s/p laparotomy with colostomy Condition on Discharge: Good Activity: Resume your previous activity Lifting: No more than 10 pounds Bathing: No limitations Driving/Machine Use: no driving until released from surgery after oupatient follow up Weightbearing: Full weightbearing Non-emergency contact: Primary Care Provider Call non-emergency contact if: you have any medication questions, your symptoms worsen, your pain is not controlled, your pain is worsening, your pain is concerning for you, you have a fever and your rectal temperature is above 100.4 Follow-up/Referrals: Virginia Morgan MD [Primary Care Provider] - Vahid Courtney MD [Physician] - Diet: Low Fiber Addtl Attending Provider Instructions: Mr. Mcconnell, You were hospitalized for a bowel perforation that required you to have a colostomy. You also had your incisional site open after surgery which required you to have retention sutures placed in your abdominal area. During your hospitalization you received different IV antibiotics to treat infection you developed in your abdomen from your bowel perforating. After your surgery you also developed an infection in your incisional site. You will need an IV antibiotic until 11/27 to fully treated this infection. During your stay you also had a brief episode of a slightly abnormal heart rhythm during the time you were going back into surgery. This did not happen ag ain while you were on a lead android developer and we repeated a test on 11/21 that showed your heart was in a normal rhythm. Due to this, it is being recommended you have a lead android developer recording done over a period of time after discharge to determine if an abnormal heart rhythm is captured at any point in time. It was also identified you have low iron levels during your stay which required you received a few doses of IV iron to increase your levels. You will be started on an iron supplement three times a week to help keep your levels normal and to maintain good energy levels. It is important you follow up with surgery after discharge as the sutures you have in your abdominal area will need to be removed. The information for contact has been provided to you. You will also need follow up with wound care to evaluate your ostomy site and ensure it is appropriately healing. You should also have a repeat CBC and BMP in a week for follow up. Medications: Your medication list has been reviewed and reconciled upon discharge to ensure accuracy and continuity of care. An updated list of all your medications is included with your hospital discharge paperwork. Please review this list closely, and make note of any changes. You will be completing a course of IV antibiotic during your stay at [facility] to treat an infection you developed in your surgical wound. This medication is called Meropenem. Meropenem 1 gram IV every 8 hours through 11/27/24 will be needed to fully treat your infection. Take your medications as instructed; do not skip a dose of your medicines. Make sure all of your doctors know every medicine you are taking (including shgv-xqm-xdocped medicines, vitamins, and supplements). Call your primary care provider before taking any new medicines (including over- the-counter medicines, vitamins, and supplements), because some of these may interact with your current medications, or may make your symptoms worse. Tell your primary care provider if you cannot afford your medications. Activity: You can do normal everyday activities as your body allows. Take rest breaks if you feel tired. Do not overexert. Stop activity if you have pain, shortness of breath or feel dizzy. Follow-up appointments: Make an appointment with your primary care physician within one week of discharge. A copy of this summary will be sent to them. Every time you see your primary care physician, or any other doctor, bring your medication list, and a list of questions. CONTACT YOUR PRIMARY CARE PROVIDER if you experience any of the following: Shortness of breath or difficulty breathing Fevers or chills Feeling tired with normal activity or experiencing dizziness or fainting Difficulty following your treatment plan, or difficulty taking medications CALL 911 OR GO TO THE EMERGENCY DEPARTMENT if you experience any of the following: Severe abdominal pain or nausea/vomiting Severe chest pain, or chest pain that radiates (moves) to your jaw or arm Sudden, severe shortness of breath or difficulty breathing Thank you for allowing us to participate in your care. Addtl Insulation Board Back Tender Provider Instructions: Post-Surgical ~Discharge Instructions Activity Recommendations: - lifting limitation: (10 pounds until cleared by surgeon), - exercise/sex/sports limit: (nonstrenuous until cleared by surgeon), - driving or machine use limit: (none for 1 week), - Shower/bathe limit: (may shower , no submerging incision underwater (no bathing, hot tubs, swimming) Diet: - Resume previous diet - Can supplement diet with Boost/Ensure to increase your protein intake to help with healing and strength SPECIAL CARE INSTRUCTIONS: - May shower.. Let water run over area and pat dry. - Retention sutures will stay in and will be removed in office - Call the surgeon's office with any questions or concerns - - (ex. temperature higher than 101 degrees F, excessive bleeding or pain). MEDICATIONS: - Resume previous medications unless instructed otherwise by your surgeon. _ May alternate extra strength Tylenol and Ibuprofen as needed for mild to moderate pain -650 mg Tylenol every 6 hours as needed - Ibuprofen 600 mg every 6 hours as needed (take with food) - Tramadol 1 every 4 hours, as needed for moderate to severe pain FOLLOW UP VISIT: - If not already scheduled, please call the office to schedule a one week follow-up appointment. Office number Pending Studies at Discharge: Yes Studies:: Final wound culture report Stand-Alone Forms: My [facility] Skilled Items Patient informed of condition?: Yes DNR: No Discharge Level of Care: Skilled Communicable Disease: No Discharge Prognosis: Stable Lines: Peripheral IV Urinary Catheter: No Medications and DC Order Prescriptions: New potassium chloride 20 mEq Tablet,Er Particles/Crystals 20 meq PO BID Qty: 30 0RF tramadol 50 mg Tablet 50 mg PO Q4H PRN (Reason: pain) Qty: 10 0RF acetaminophen [Tylenol Extra Strength] 500 mg Tablet 1,000 mg PO Q8H PRN (Reason: pain) Qty: 30 0RF ferrous gluconate 324 mg (38 mg iron) Tablet 324 mg PO BIDM Qty: 30 0RF famotidine 20 mg Tablet 20 mg PO BID Qty: 30 0RF docusate sodium 100 mg Capsule 100 mg PO BID Qty: 60 0RF Advanced Probiotic 625 mg (10 billion cell) Capsule 1 cap PO DAILY Qty: 30 0RF melatonin 3 mg Tablet 3 mg PO DAILY@1900 Qty: 30 0RF magnesium oxide 400 mg (241.3 mg magnesium) Tablet 400 mg PO QAM Qty: 30 0RF Continued pantoprazole 40 mg tablet,delayed release (DR/EC) 40 mg PO BID Qty: 180 3RF rosuvastatin 20 mg tablet 20 mg PO QAM Qty: 90 3RF albuterol sulfate [Ventolin HFA] 90 mcg/actuation HFA aerosol inhaler 1 puff INH Q6H PRN (Reason: shortness of breath or wheezing) Qty: 18 3RF atenolol-chlorthalidone 50-25 mg tablet 0.5 tab PO QAM Qty: 45 3RF diclofenac sodium 1 % gel 4 g TOP UD PRN (Reason: Pain) Qty: 100 3RF Rx Instructions: apply to to right knee 4 x day cholecalciferol (vitamin D3) 50 mcg (2,000 unit) capsule 2,000 unit PO BID tamsulosin 0.4 mg capsule 0.4 mg PO DAILY Qty: 90 3RF Hold Instructions: dysuria nicotine (polacrilex) 4 mg lozenge 4 mg buccal Q4H PRN (Reason: nicotine cravings) Qty: 108 3RF aspirin [Quentin Low Dose Aspirin] 81 mg tablet,delayed release (DR/EC) 81 mg PO QAM Discontinued amlodipine 5 mg tablet 5 mg PO QAM Qty: 90 3RF potassium chloride 10 mEq tablet extended release 10 meq PO BID Qty: 180 3RF famotidine 40 mg tablet 40 mg PO BID Qty: 180 3RF Rx Instructions: 1 tablet twice per day acetaminophen 500 mg tablet 1,300 mg PO BID Patient Comments: BEEN TAKING THE TYLENOL ARTHRITIS - 1300 TWICE A DAY Discharge Orders: Discharge Order (Routine); Ordered 11/22/24 Ordered By: Evangelina Archibald/Other Patient Handouts: Wound Dehiscence Admission Data Admit Date/Time: 10/25/24 13:35 Attending Provider: Stacie Adams Admit Provider: Vahid Courtney Primary Care Provider: Virginia Morgan Other Providers: [employer]; [employer] [place]; Kami Summers; Greg Villarreal; Zafar Robin; Jose R Gomes; Martin Geiger; Naman Seymour; Zulma Merritt; Carmelo Queen; Carlos Segura; Nancie Crum; Germain Perry; Armani Fried; Brett Gallegos; Michael Scales; Jarod Da Silva; Orly Eid; Fartun Murray; Karol Bowen; Linda Sky; Henrik Villegas; Saundra Roy; Phan Cui; Margo Gardner; Armani Willoughby; Dhruv Higginbotham; Danny Gaspar; Stacie Adams; Celine Waters; Conchita Villa; Davis Palacios; Rafael Perdomo; Andrew Guillory; Stephanie Crocker; Fiona Alfredo; Rip Oconnell; Dajuan Pyle; Porsche Mijaers; Lisa Partida; Moira Mathias; Huber Boston; Richie Rojas; Horace Ferrer; Greg Washburn; Lilly Valdes; Jose Angel Vital; Susan Kemp; Nilda Haider; Faustina Garduno; Jaime Carcamo; Rafiq Haider; Naga Joy; David Gutierrez; Evangelina Sharma; Josiane Ramon; Jose Hamilton; Lisset Read A; IRB Approved [employer] Other Interventions: Discharge Summary Assessment (RN) Last Done: 11/22/24 14:26 Hospital Stay Data Consultations 10/25/24 10:08 Consult General Surgery Stat 10/25/24 13:29 Consult Fence Builder Routine 10/25/24 14:16 Consult Hospitalist Routine 10/27/24 17:29 Consult Infectious Diseases Routine 11/04/24 15:51 Consult General Surgery Routine Procedures Performed Operation Date: 11/05/24 08:00 Actual Procedures p Exploratory Laparotomy, Repair Dehiscence(Not Applicable) - Vahid Courtney MD Diagnostic Imagining Performed 10/25/24 08:48 CT Abd and Pelvis [CT abd pelvis IV con only] Stat 10/29/24 10:29 CT chest diagnostic wo con Routine 11/14/24 10:22 CT abdomen oral and IV con Stat Pending Results Patient Have Any Pending Studies at Discharge: Yes Discharge Instructions Given to Patient (Per Discharging Provider) Mr. Mcconnell, Juan were hospitalized for a bowel perforation that required you to have a colos jaron. You also had your incisional site open after surgery which required you to have retention sutures placed in your abdominal area. During your hospitalization you received different IV antibiotics to treat infection you developed in your abdomen from your bowel perforating. After your surgery you also developed an infection in your incisional site. You will need an IV antibiotic until 11/27 to fully treated this infection. During your stay you also had a brief episode of a slightly abnormal heart rhythm during the time you were going back into surgery. This did not happen again while you were on a lead android developer and we repeated a test on 11/21 that showed your heart was in a normal rhythm. Due to this, it is being recommended you have a lead android developer recording done over a period of time after discharge to determine if an abnormal heart rhythm is captured at any point in time. It was also identified you have low iron levels during your stay which required you received a few doses of IV iron to increase your levels. You will be started on an iron supplement three times a week to help keep your levels normal and to maintain good energy levels. It is important you follow up with surgery after discharge as the sutures you have in your abdominal area will need to be removed. The information for contact has been provided to you. You will also need follow up with wound care to evaluate your ostomy site and ensure it is appropriately healing. You should also have a repeat CBC and BMP in a week for follow up. Medications: Your medication list has been reviewed and reconciled upon discharge to ensure accuracy and continuity of care. An updated list of all your medications is included with your hospital discharge paperwork. Please review this list closely, and make note of any changes. You will be completing a course of IV antibiotic during your stay at [facility] to treat an infection you developed in your surgical wound. This medication is called Meropenem. Meropenem 1 gram IV every 8 hours through 11/27/24 will be needed to fully treat your infection. Take your medications as instructed; do not skip a dose of your medicines. Make sure all of your doctors know every medicine you are taking (including gyyx-was-vysbmhh medicines, vitamins, and supplements). Call your primary care provider before taking any new medicines (including over- the-counter medicines, vitamins, and supplements), because some of these may interact with your current medications, or may make your symptoms worse. Tell your primary care provider if you cannot afford your medications. Activity: You can do normal everyday activities as your body allows. Take rest breaks if you feel tired. Do not overexert. Stop activity if you have pain, shortness of breath or feel dizzy. Follow-up appointments: Make an appointment with your primary care physician within one week of discharge. A copy of this summary will be sent to them. Every time you see your primary care physician, or any other doctor, bring your medication list, and a list of questions. CONTACT YOUR PRIMARY CARE PROVIDER if you experience any of the following: Shortness of breath or difficulty breathing Fevers or chills Feeling tired with normal activity or experiencing dizziness or fainting Difficulty following your treatment plan, or difficulty taking medications CALL 911 OR GO TO THE EMERGENCY DEPARTMENT if you experience any of the following: Severe abdominal pain or nausea/vomiting Severe chest pain, or chest pain that radiates (moves) to your jaw or arm Sudden, severe shortness of breath or difficulty breathing Thank you for allowing us to participate in your care. Total Time Total Time Spent Total Time Spent (In Minutes): I spent a total of 50 minutes on the date of service in review and d/c of patient's record, and previously obtained information in person and appropriate medical visit, discussion and education of plan, with patient and/or caregiver, placing orders for tests/referral/procedures as medically necessary and documentation of pertinent clinical information in patient's medical records for their visit today. Coding Level of Care Code 75673 INP/OBS DISCH >30 MIN Diagnoses Bowel perforation K63.1 Sepsis A41.9 Sepsis type: sepsis due to unspecified organism Severe sepsis acute organ dysfunction type: unspecified Severe sepsis shock status: without septic shock Peritonitis K65.9 Diverticulitis K57.92 Cigarette nicotine dependence F17.210 GERD with esophagitis K21.00 Aortic insufficiency I35.1 Felix esophagus K22.70"
== END 2024-11-22 14:58 | DRG 853 ==
LOC: ED 08:32 → 1E 11:11 → SUATTDRO 13:35 → 1E 11-01 10:05 → 2E 11-02 02:35 → 3E 11-16 15:56